=== PATIENT | male | born 1950 | race Caucasian/White ===

== ENCOUNTER 2016-05-30 10:47 | Outpatient (CLI) ==
[2016-01-28 10:57] VITALS: BMI 23.5
[2016-05-30 14:42] LABS: BASOPHILS # (AUTO) 0.1 K/uL (0-0.2); BASOPHILS % (AUTO) 0.6 % (0.0-3.0); EOSINOPHILS # (AUTO) 0.2 K/ul (0.0-0.7); EOSINOPHILS % (AUTO) 2.1 % (0.0-7.0); HEMATOCRIT 47.6 % (42.0-52.0); HEMOGLOBIN 14.9 g/dl (14.0-18.0); IMMATURE GRANULOCYTE % (AUTO) 0.5 % (0.0-5.0); LYMPHOCYTES # (AUTO) 1.9 K/uL (0.60-3.4); LYMPHOCYTES % (AUTO) 23.6 (10.0-50.0); MEAN CORPUSCULAR HEMOGLOBIN 28.3 pg (27.0-31.0); MEAN CORPUSCULAR HGB CONC 31.3 (31.8-35.4); MEAN CORPUSCULAR VOLUME 90.5 fl (80.0-94.0); MONOCYTES # (AUTO) 0.5 K/uL (0.4-2.0); MONOCYTES % (AUTO) 5.9 (0-10); NEUTROPHILS # (AUTO) 5.3 K/ul (2.0-6.9); NEUTROPHILS % (AUTO) 67.3; PLATELET COUNT 172 10^3/uL (140-440); RED BLOOD COUNT 5.26 10^6/ul (4.70-6.10); WHITE BLOOD COUNT 7.91 K/ul (4.2-10.2)
[2016-05-30 14:48] LABS: ALBUMIN 3.7 g/dL (3.4-5.0); ALBUMIN/GLOBULIN RATIO 1.09; ANION GAP 14.3; BILIRUBIN,TOTAL 0.82 mg/dL (0.00-1.20); BUN/CREATININE RATIO 16.21; CALCIUM 9.3 mg/dL (8.2-10.2); CHOL/HDL RATIO 2.4 (4.5-6.4); CREATININE 0.74 mg/dL (0.60-1.10); POTASSIUM 4.3 mmol/L (3.5-5.1); TOTAL PROTEIN 7.1 g/dL (5.8-8.1)
== END 2016-05-30 10:48 | disposition home or self-care (01) ==
LOC: LAB 10:47
PROVIDERS: ATTEND Nurse Practitioner Family
DX: E78.5 Hyperlipidemia, unspecified (principal); I10 Essential (primary) hypertension; I50.9 Heart failure, unspecified; Z12.5 Encounter for screening for malignant neoplasm of prostate
CPT/HCPCS: 36415; 80053; 80061; 85025

== ENCOUNTER 2016-07-29 19:25 | Outpatient (CLI) ==
[2016-07-29 22:33] VITALS: BMI 21.8
== END 2016-07-29 19:26 ==
LOC: AMBL 19:25
PROVIDERS: ATTEND Emergency Medicine
DX: R06.00 Dyspnea, unspecified (principal); R06.2 Wheezing; R00.0 Tachycardia, unspecified; R44.9 Unspecified symptoms and signs involving general sensations and perceptions; Z99.81 Dependence on supplemental oxygen

== ENCOUNTER 2016-07-29 19:35 | Inpatient (IN) ==
[2016-07-29] MEDS ORDERED: SOLU-MEDROL 125 MG IVP STA (19:52)
[2016-07-29] MEDS ORDERED: DUONEB NEB STA (19:52)
--- NOTE | 2016-07-29 19:59 | ED.PDOC ---
General ED Provider: Dr. ISABELLA AYERS Chief Complaint: Shortness of Air Stated Complaint: Been coughing congested, short of breath, using o2 was not helping. came by ambulance. Time Seen by Physician: 19:57 Mode of Arrival: Ambulance Information Source: Patient Primary Care Provider: ISABELLA AYERS-[facility] Nursing and Triage Documentation Reviewed and Agree: Yes Respiratory Complaint Exam - Shortness of Air Complaint/Exam Symptoms Are: Still present Timing: Constant Initial Severity: Severe Current Severity: Severe Character: Reports: Dyspnea at rest Aggravating: Reports: Allergens, URI Alleviating: Reports: None Associated Signs and Symptoms: Reports: Cough, Wheezing, Nasal congestion. Denies: Chest pain with cough, Chest pain, Fever, Chills, Diaphoresis, Dizziness , Calf pain, Calf swelling, Edema, Rapid breathing, Labored breathing, Decreased intake Related History: Reports: Similar episode History of Healthcare-Acquired Pneumonia: No Pulmonary Embolism Risk Factors: Reports: None Cardiac Risk Factors: Reports: CAD, Smoking, Hypertension Pseudomonas Risk Factors: Reports: None Tuberculosis Risk Factors: Reports: None Home Oxygen Use: Yes Recent Stress Test: No Recent Echo/LV Function: No Respiratory Distress: Severe Stridor Present: No Tracheal Deviation: No Subcutaneous Emphysema: No Accessory Muscle Use: Yes Retractions: Nasal Flaring, Supraclavicular Diminished Breath Sounds: Yes Prolonged Expiratory Phase: Yes Unable to Speak Full Sentences: Yes Fatigue: No Leg Swelling: No Differential Diagnoses: COPD Exacerbation, Pneumonia Quality Indicators for AMI: EKG in 10min. Review of Systems - Review Of Systems Constitutional: Reports: Fever, Malaise, Weakness Eyes: Reports: No symptoms Ears, Nose, Mouth, Throat: Reports: No symptoms Respiratory: Reports: Cough, Orthopnea, Short of air Cardiac: Reports: No symptoms GI: Reports: No symptoms : Reports: No symptoms Musculoskeletal: Reports: No symptoms Skin: Reports: No symptoms Neurological: Reports: No symptoms Endocrine: Reports: No symptoms Hematologic/Lymphatic: Reports: No symptoms All Other Systems: Reviewed and Negative Past Medical History - Past Medical History Previously Healthy: No Endocrine: Reports: None Cardiovascular: Reports: Hypertension Respiratory: Reports: COPD, Asthma Hematological: Reports: None Gastrointestinal: Reports: None Genitourinary: Reports: None Neuro/Psych: Reports: None Musculoskeletal: Reports: None Cancer: Reports: None Other Pertinent Past Medical History: flu shot Sep 25 has several friends also not feeling well after shot - Surgical History General Surgical History: Reports: Tonsillectomy - Family History Family History: Reports: Unknown - Social History Smoking Status: Former smoker Hx Substance Use: No Alcohol Screening: None - Immunizations Tetanus Shot up to Date: No Physical Exam - Physical Exam Appearance: Ill-appearing, Thin Ill-appearing: Moderate Eyes: BRITANY, EOMI, Conjunctiva clear ENT: Ears normal, Nose normal, Oropharynx normal Respiratory: Breath sounds diminished, Crackles, Wheezes Cardiovascular: RRR, Pulses normal, No rub, No murmur GI/: Soft, Nontender, No masses, Bowel sounds normal, No Organomegaly Musculoskeletal: Normal strength, ROM intact, No edema, No calf tenderness Skin: Warm, Dry, Normal color Neurological: Sensation intact, Motor intact, Reflexes intact, Cranial nerves intact, Alert, Oriented Psychiatric: Affect appropriate, Mood appropriate Interpretation - Radiology Interpretation Radiology Interpretation By: Radiologist Radiology Results: Negative Exam Interpreted: CT Scan Critical Care Note - Critical Care Note Total Time (mins): 0 Course - Course Hematology/Chemistry: 07/29/16 20:05 07/29/16 20:05 Orders, Labs, Meds: Lab Review 07/29/16 07/29/16 19:52 20:05 WBC 9.77 RBC 5.56 Hgb 15.7 Hct 50.4 MCV 90.6 MCH 28.2 MCHC 31.2 L RDW Coeff of Khai 13.5 Plt Count 149 Immature Gran % (Auto) 0.4 Neut % (Auto) 83.1 Lymph % (Auto) 9.7 L [place] % (Auto) 6.1 Eos % (Auto) 0.3 Baso % (Auto) 0.4 Immature Gran # (Auto) 0.0 Neut # 8.1 H Lymph # 1.0 [place] # 0.6 Eos # 0.0 Baso # 0.0 Puncture Site Lb O2 Saturation 85.0 L ABG pH 7.349 L ABG pCO2 68.5 H ABG pO2 55.0 L* ABG HCO3 37.7 H ABG Total CO2 40 H ABG Base Excess 12 H Nader Test + O2 Delivery Device Bnc Oxygen Liter Flow 2.00 FiO2 % 28.0 Sodium 139 Potassium 4.2 Chloride 94 L Carbon Dioxide 35 H Anion Gap 14.2 BUN 12 Creatinine 0.79 Estimated GFR (MDRD) 98.00 BUN/Creatinine Ratio 15.18 Glucose 112 Lactic Acid 10.6 Calcium 9.3 Total Bilirubin 0.57 AST 17 ALT 14 Alkaline Phosphatase 77 Total Creatine Kinase 73 Troponin I < 0.0100 B-Natriuretic Peptide 40 Total Protein 7.5 Albumin 4.0 Globulin 3.5 Albumin/Globulin Ratio 1.14 Orders Category Date Time Status ABG DRAW REQUEST Stat CARDIO 07/29/16 19:53 Completed EKG-(ED ONLY) Stat CARDIO 07/29/16 19:52 Completed NEBULIZER TREATMENT Stat CARDIO 07/29/16 19:53 Completed Saline Lock [ED IV/MEDIPORT/POWERPORT] .ONCE EMERGENCY 07/29/16 19:56 Active ABG Stat LAB 07/29/16 19:52 Completed B-TYPE NATRIURETIC PEPTIDE Stat LAB 07/29/16 20:05 Completed BLOOD CULTURE Stat LAB 07/29/16 20:05 Received CBC W/ AUTO DIFF Stat LAB 07/29/16 20:05 Completed COMPREHENSIVE METABOLIC PANEL Stat LAB 07/29/16 20:05 Completed CREATINE KINASE Stat LAB 07/29/16 20:05 Completed LACTIC ACID Stat LAB 07/29/16 20:05 Completed SPUTUM CULTURE Stat LAB 07/29/16 20:05 Received TROPONIN I Stat LAB 07/29/16 20:05 Completed 0.9 % Sodium Chloride [Saline Flush] MEDS 07/29/16 19:56 Ordered 1 syr IVF PRN PRN Ipratropium/Albuterol Neb [Duoneb] MEDS 07/29/16 19:52 Discontinued 1 vial NEB ONCE STA Methylprednisolone Sod Succ/Pf [Solu-Medrol 125 mg] MEDS 07/29/16 19:52 Discontinued 125 [address] IVP ONCE STA CT CHEST W/O CONTRAST Stat RADS 07/29/16 19:52 Completed Medications Generic Name Dose Route Start Last Admin Trade Name Freq PRN Reason Stop Dose Admin Sodium Chloride 1 syr 07/29/16 19:56 07/29/16 20:04 Saline Flush IVF 1 syr PRN PRN Administration To flush IV Discontinued Medications Generic Name Dose Route Start Last Admin Trade Name Freq PRN Reason Stop Dose Admin Albuterol/Ipratropium 1 vial 07/29/16 19:52 07/29/16 20:10 Duoneb NEB 07/29/16 19:53 1 vial ONCE STA Administration Methylprednisolone Sodium Succinate 125 mg 07/29/16 19:52 07/29/16 20:02 Solu-Medrol 125 Mg IVP 07/29/16 19:53 125 mg ONCE STA Administration Vital Signs: Temp Pulse Resp BP Pulse Ox 07/29/16 19:36 100.2 F H 117 H 24 134/88 92 L Departure - Departure Time of Disposition: 21:16 Disposition: ADMITTED INPATIENT Discharge Problem: Obstructive chronic bronchitis with exacerbation Instructions: COPD (Chronic Obstructive Pulmonary Disease) (ED) Condition: Stable Pt referred to PMD for follow-up: No Allergies/Adverse Reactions: Allergies tiotropium bromide [From Spiriva with HandiHaler] Allergy (Mild, Verified 19:46) rash Home Medications: Ambulatory Orders Aspirin 81 mg PO d 10/19/13 Pravastatin Sodium [Pravachol] 20 mg PO BEDTIME 05/04/14 Cholecalciferol (Vitamin D3) [Vitamin D] 1,000 unit PO DAILY 06/20/14 Disposition Discussed With: Patient, Family
[2016-07-29 20:13] LABS: ABG PH 7.349 (7.35-7.45)
[2016-07-29 20:14] LABS: ABG BASE EXCESS 12 (-2.0-2.0); ABG HCO3 37.7 (22.0-26.0); ABG PCO2 68.5 mmHg (35-45)
[2016-07-29 20:15] LABS: ABG TCO2 40 (22.0-28.0)
[2016-07-29 20:16] LABS: BASOPHILS % (AUTO) 0.4 % (0.0-3.0); EOSINOPHILS % (AUTO) 0.3 % (0.0-7.0); HEMATOCRIT 50.4 % (42.0-52.0); HEMOGLOBIN 15.7 g/dl (14.0-18.0); IMMATURE GRANULOCYTE % (AUTO) 0.4 % (0.0-5.0); LYMPHOCYTES % (AUTO) 9.7 (10.0-50.0); MEAN CORPUSCULAR HEMOGLOBIN 28.2 pg (27.0-31.0); MEAN CORPUSCULAR HGB CONC 31.2 (31.8-35.4); MEAN CORPUSCULAR VOLUME 90.6 fl (80.0-94.0); MONOCYTES # (AUTO) 0.6 K/uL (0.4-2.0); MONOCYTES % (AUTO) 6.1 (0-10); NEUTROPHILS # (AUTO) 8.1 K/ul (2.0-6.9); NEUTROPHILS % (AUTO) 83.1; PLATELET COUNT 149 10^3/uL (140-440); RED BLOOD COUNT 5.56 10^6/ul (4.70-6.10); WHITE BLOOD COUNT 9.77 K/ul (4.2-10.2)
[2016-07-29 20:39] LABS: ALANINE AMINOTRANSFERASE 14 U/L (12-78); ALBUMIN/GLOBULIN RATIO 1.14; ALKALINE PHOSPHATASE 77 U/L (56-119); ANION GAP 14.2; ASPARTATE AMINO TRANSFERASE 17 U/L (15-37); BILIRUBIN,TOTAL 0.57 mg/dL (0.00-1.20); BLOOD UREA NITROGEN 12 mg/dL (7-18); BUN/CREATININE RATIO 15.18; CALCIUM 9.3 mg/dL (8.2-10.2); CARBON DIOXIDE 35 mmol/L (23-31); CHLORIDE 94 mmol/L (98-107); CREATINE KINASE 73 U/L; CREATININE 0.79 mg/dL (0.60-1.10); GLUCOSE 112 mg/dL (82-115); POTASSIUM 4.2 mmol/L (3.5-5.1); SODIUM 139 mmol/L (136-145); TOTAL PROTEIN 7.5 g/dL (5.8-8.1)
--- NOTE | 2016-07-29 20:50 | CT ---
EXAM: CT of the chest without contrast History: Short of breath Comparison: Chest radiograph 09/22/2014 Technique: Multiplanar CT images through the thorax were obtained without the administration of IV contrast Findings: Normal heart size. No pericardial effusion. Coronary calcifications. Great vessels are grossly unremarkable on this noncontrast study. No pathologically enlarged axillary or mediastinal lymph nodes. Evaluation for hilar lymph nodes is limited due to lack of contrast administration bu t no bulky hilar adenopathy is seen. Moderate to severe emphysema. 5 mm right lower lobe lung nodule. 4 mm left lower lobe lung nodule. Additional 5 mm left lower lobe lung nodule. No consolidation. No pleural fluid and no pneumothora x. In the visualized upper abdomen, motion artifact limits evaluation and gallbladder probably mildly d istended. Adrenal glands are unremarkable. Colonic diverticulosis. No acute osseous abnormalities . Impression: 1. No evidence for pneumonia. 2. Moderate to severe emphysema. 3. Indeterminate sub-centimeter bilateral lung nodules. Recommend follow-up chest CT in 6 months. 4. Coronary artery disease. 5. Mild gallbladder distension.
[2016-07-29] MEDS ORDERED: TYLENOL PO PRN (21:16)
[2016-07-29] MEDS ORDERED: ZITHROMAX 500 MG in SODIUM CHLORIDE 250 ML IV SCH (21:30)
[2016-07-29] MEDS ORDERED: ROCEPHIN 1 GM in SODIUM CHLORIDE 50 ML IV SCH (21:30)
[2016-07-29 22:33] VITALS: BMI 21.8
[2016-07-29] MEDS ORDERED: DUONEB NEB ONE (23:05)
[2016-07-29] MEDS ORDERED: ROCEPHIN ONE (23:13)
[2016-07-29] MEDS: SODIUM CHLORIDE 1,000 ML IV SCH (23:22)
[2016-07-29] MEDS: PRAVACHOL ONE ×2 (23:27→23:30)
[2016-07-30] MEDS ORDERED: DUONEB NEB SCH
[2016-07-30] MEDS ORDERED: DUONEB NEB PRN (00:54)
[2016-07-30] MEDS: DUONEB NEB SCH ×6 (01:17→21:20)
[2016-07-30 04:19] LABS: BASOPHILS % (AUTO) 0.3 % (0.0-3.0); HEMATOCRIT 45.6 % (42.0-52.0); HEMOGLOBIN 14.2 g/dl (14.0-18.0); IMMATURE GRANULOCYTE % (AUTO) 0.7 % (0.0-5.0); LYMPHOCYTES # (AUTO) 0.3 K/uL (0.60-3.4); LYMPHOCYTES % (AUTO) 4.2 (10.0-50.0); MEAN CORPUSCULAR HEMOGLOBIN 28.6 pg (27.0-31.0); MEAN CORPUSCULAR HGB CONC 31.1 (31.8-35.4); MEAN CORPUSCULAR VOLUME 91.8 fl (80.0-94.0); MONOCYTES # (AUTO) 0.1 K/uL (0.4-2.0); MONOCYTES % (AUTO) 1.5 (0-10); NEUTROPHILS # (AUTO) 6.3 K/ul (2.0-6.9); NEUTROPHILS % (AUTO) 93.3; PLATELET COUNT 140 10^3/uL (140-440); RED BLOOD COUNT 4.97 10^6/ul (4.70-6.10); WHITE BLOOD COUNT 6.72 K/ul (4.2-10.2)
[2016-07-30 04:42] LABS: ALBUMIN 3.4 g/dL (3.4-5.0); CALCIUM 8.7 mg/dL (8.2-10.2); POTASSIUM 4.6 mmol/L (3.5-5.1)
[2016-07-30 04:43] LABS: ALBUMIN/GLOBULIN RATIO 0.94; ANION GAP 14.6; BILIRUBIN,TOTAL 0.36 mg/dL (0.00-1.20); BUN/CREATININE RATIO 16.25; CREATININE 0.8 mg/dL (0.60-1.10)
[2016-07-30 04:48] LABS: CREATINE KINASE 106 U/L
[2016-07-30] MEDS: SOLU-MEDROL 125 MG IVP SCH ×3 (05:13→21:55)
[2016-07-30] MEDS: SYMBICORT 160-4.5 MCG INHALER IH SCH ×2 (08:10→21:54)
[2016-07-30] MEDS: LOVENOX SUBCUT SCH (08:11)
[2016-07-30] MEDS: VITAMIN D PO SCH (08:12)
[2016-07-30] MEDS: ASPIRIN CHEWABLE PO SCH (08:12)
[2016-07-30] MEDS ORDERED: NON-FORMULARY MEDICATION (Cholecalciferol (Vitamin D3) [Vitamin D3] 1,000 UNIT) PO SCH ×22 (09:00)
--- NOTE | 2016-07-30 10:04 | PCM.PROG ---
Attending Provider: ATTENDING PROVIDER: Dr. ISABELLA AYERS DATE OF SERVICE: 07/30/16 SUBJECTIVE: This 66 year old WHITE/ M was hospitalized 07/29/16. The patient is admitted with COPD exacerbation, hypoxemia and fever. No fever this morning. He has cough, congestion with shortness of breath but states he feels better today. REVIEW OF SYSTEMS: CONSTITUTIONAL: No fever, no chills. ENDOCRINE: No weight loss or weight gain. HEENT: No sinus drainage, no sore throat. CVS: No angina symptoms. No CHF symptoms. No palpitations. No atypical chest pain for CAD. Shortness of breath. RESPIRATORY: Cough. No hemoptysis. GI: No melena. No abdominal pain. No nausea, no vomiting. : No hematuria. No polyuria. SKIN: No rash. No wounds. MUSCULOSKELETAL: No pain. ZIPPER SLIDE ATTACHER: No blackout, no dizziness. No headache. No double vision. PSYCHIATRIC: Not anxious; no depression. No suicidal thoughts. No homicidal thoughts. PHYSICAL EXAMINATION: GENERAL: Cachetic appearing male lying in bed in no distress. VITAL SIGNS: Temperature 98.1 F, Pulse 107, Respiratory Rate 24, BP 116/75, Pulse Ox 89% HEENT: Normocephalic, atraumatic. Mucosa is dry, pallor positive. NECK: No JVP, no carotid bruit. No lymphadenopathy. CARDIAC: S1, S2, no S3. No murmur, gallop or regurgitation. LUNGS: Decreased entry with fine basilar crackles. ABDOMEN: Soft, non-tender. Bowel sounds active. No rigidity, guarding or CVA tenderness. EXTREMITIES: No clubbing, cyanosis or edema. NEUROLOGIC: Awake, alert and oriented x3. LYMPHATIC: No palpable lymph nodes SKIN: Not dry. Intact. MUSCULOSKELETAL: No joint swelling. LAB REVIEW: 07/30/16 03:45 07/30/16 03:45 07/30/16 03:45: WBC 6.72, RBC 4.97, Hgb 14.2, Hct 45.6, MCV 91.8, MCH 28.6, MCHC 31.1 L, RDW Coeff of Khai 13.7, Plt Count 140, Immature Gran % (Auto) 0.7, Neut % (Auto) 93.3, Lymph % (Auto) 4.2 L, [place] % (Auto) 1.5, Eos % (Auto) 0.0, Baso % (Auto) 0.3, Immature Gran # (Auto) 0.1, Neut # 6.3, Lymph # 0.3 L, [place] # 0.1 L, Eos # 0.0, Baso # 0.0, Sodium 139, Potassium 4.6, Chloride 95 L, Carbon Dioxide 34 H, Anion Gap 14.6, BUN 13, Creatinine 0.80, Estimated GFR ( MDRD) 96.00, BUN/Creatinine Ratio 16.25, Glucose 128 H, Calcium 8.7, Total Bilirubin 0.36, AST 17, ALT 14, Alkaline Phosphatase 66, Total Creatine Kinase 106, Troponin I < 0.0100, Total Protein 7.0, Albumin 3.4, Globulin 3.6, Albumin/ Globulin Ratio 0.94 ASSESSMENT: 1. COPD exacerbation secondary to bronchitis 2. Hypoxemia 3. COPD, oxygen dependent 4. Hypertension 5. Dyslipidemia PLAN: 1. Continue Rocephin, Azithromycin, Solu-Medrol and Duonebs 2. Daily I & O's Plan and coordination of the patient's care discussed in the presence of Instructor Knitting and nurse. CONDITION: Stable SCRIBED BY: REYNA MARTINS, Writer Producer scribed while in presence of service performed by Dr. ISABELLA AYERS on 07/30/16 ([id number])
[2016-07-30 12:11] LABS: CREATINE KINASE 159 U/L
[2016-07-30 12:12] LABS: CREATINE KINASE MB 1.9 ng/ml (0.0-3.6)
[2016-07-30] MEDS: ROCEPHIN 1 GM in SODIUM CHLORIDE 100 ML IV SCH (20:19)
[2016-07-30] MEDS: PRAVACHOL PO SCH (21:54)
[2016-07-30] MEDS: ZITHROMAX 500 MG in SODIUM CHLORIDE 250 ML IV SCH (21:54)
[2016-07-31] MEDS: DUONEB NEB SCH ×6 (01:15→22:10)
[2016-07-31] MEDS: SODIUM CHLORIDE 1,000 ML IV SCH (04:14)
[2016-07-31 05:15] LABS: BASOPHILS % (AUTO) 0.1 % (0.0-3.0); HEMATOCRIT 42.7 % (42.0-52.0); HEMOGLOBIN 13.3 g/dl (14.0-18.0); IMMATURE GRANULOCYTE % (AUTO) 0.3 % (0.0-5.0); LYMPHOCYTES # (AUTO) 0.4 K/uL (0.60-3.4); LYMPHOCYTES % (AUTO) 4.4 (10.0-50.0); MEAN CORPUSCULAR HEMOGLOBIN 28.2 pg (27.0-31.0); MEAN CORPUSCULAR HGB CONC 31.1 (31.8-35.4); MEAN CORPUSCULAR VOLUME 90.7 fl (80.0-94.0); MONOCYTES # (AUTO) 0.4 K/uL (0.4-2.0); MONOCYTES % (AUTO) 3.8 (0-10); NEUTROPHILS # (AUTO) 9.1 K/ul (2.0-6.9); NEUTROPHILS % (AUTO) 91.4; PLATELET COUNT 136 10^3/uL (140-440); RED BLOOD COUNT 4.71 10^6/ul (4.70-6.10); WHITE BLOOD COUNT 9.94 K/ul (4.2-10.2)
[2016-07-31] MEDS: SOLU-MEDROL 125 MG IVP SCH ×3 (05:28→20:57)
[2016-07-31 05:36] LABS: ALBUMIN 3.2 g/dL (3.4-5.0); ALBUMIN/GLOBULIN RATIO 1.07; ANION GAP 11.1; BILIRUBIN,TOTAL 0.21 mg/dL (0.00-1.20); BUN/CREATININE RATIO 20.28; CALCIUM 8.4 mg/dL (8.2-10.2); CREATININE 0.69 mg/dL (0.60-1.10); POTASSIUM 4.1 mmol/L (3.5-5.1); TOTAL PROTEIN 6.2 g/dL (5.8-8.1)
[2016-07-31] MEDS: VITAMIN D PO SCH (08:30)
[2016-07-31] MEDS: ASPIRIN CHEWABLE PO SCH (08:30)
[2016-07-31] MEDS: LOVENOX SUBCUT SCH (08:31)
[2016-07-31] MEDS: SYMBICORT 160-4.5 MCG INHALER IH SCH ×3 (08:31→20:52)
--- NOTE | 2016-07-31 09:41 | CM.DICTOOL ---
ADMISSION: 07/29/16 21:26 DISCHARGE: 07/28/16 DATE OF SERVICE: 07/28/16 FINAL DIAGNOSIS COPD (FORMER SMOKER - NONE X5 YEARS) HYPOXEMIA CAD CHF HYPERTENSION PULMONARY HYPERTENSION DYSLIPIDEMIA GERD LAST VITALS Temp Pulse Resp BP Pulse Ox 97.0 F L 102 H 24 109/72 87 L 07/31/16 06:00 07/31/16 06:00 07/31/16 06:00 07/31/16 06:00 07/31/16 06:00 ACTIVE MEDICATIONS Albuterol Sulfate (Proair Hfa) 8.5 gm IH q 4-6 H PRN Albuterol/Ipratropium (Duoneb) 1 vial NEB RTQID [facility] Last Admin: 07/31/16 04:47 Dose: 1 vial Aspirin (Aspirin Chewable) 81 mg PO DAILYWM [facility] Last Admin: 07/31/16 08:30 Dose: 81 mg Budesonide/Formoterol Fumarate (Symbicort 160-4.5 Mcg Inhaler) 2 puff IH BID [facility] Last Admin: 07/31/16 08:31 Dose: Not Given Cholecalciferol (Vitamin D) 1,000 unit PO DAILY [facility] Last Admin: 07/31/16 08:30 Dose: 1,000 unit Pravastatin Sodium (Pravachol) 20 mg PO BEDTIME [facility] Last Admin: 07/30/16 21:54 Dose: 20 mg Oxygen 2L/NC Continuous ALLERGIES tiotropium bromide [From Spiriva with HandiHaler] Allergy (Mild, Verified 19:46) rash NEW PRESCRIPTIONS: KEFLEX 500 MG, TAKE ONE TABLET BY MOUTH EVERY 12 HOURS FOR 7 DAYS MEDROL DOSEPAK, TAKE DIRECTED WITH FOOD SMOKING: FORMER SMOKER DISEASE SPECIFIC EDUCATION: COPD EXACERBATION HOME MEDICATIONS NEW PRESCRIPTIONS FOLLOW UP LAB REVIEW: 07/31/16 04:30 07/31/16 04:30 07/31/16 04:30: WBC 9.94, RBC 4.71, Hgb 13.3 L, Hct 42.7, MCV 90.7, MCH 28.2, MCHC 31.1 L, RDW Coeff of Khai 13.5, Plt Count 136 L, Immature Gran % (Auto) 0.3 , Neut % (Auto) 91.4, Lymph % (Auto) 4.4 L, [place] % (Auto) 3.8, Eos % (Auto) 0.0 , Baso % (Auto) 0.1, Immature Gran # (Auto) 0.0, Neut # 9.1 H, Lymph # 0.4 L, [place] # 0.4, Eos # 0.0, Baso # 0.0, Sodium 140, Potassium 4.1, Chloride 98, Carbon Dioxide 35 H, Anion Gap 11.1, BUN 14, Creatinine 0.69, Estimated GFR ( MDRD) 114.00, BUN/Creatinine Ratio 20.28, Glucose 122 H, Calcium 8.4, Total Bilirubin 0.21, AST 24, ALT 14, Alkaline Phosphatase 60, Total Protein 6.2, Albumin 3.2 L, Globulin 3.0, Albumin/Globulin Ratio 1.07 07/30/16 11:37: Total Creatine Kinase 159, CK-MB (CK-2) 1.9, CK-MB (CK-2) % 1.41667, Troponin I < 0.0100 PLAN: DISCHARGE HOME TODAY RETURN TO [facility] FOR FOLLOW UP ON 08/07/16 AT 1PM RESUME YOUR HOME MEDICATIONS PER LIST PROVIDED BY THE NURSING STAFF RESUME YOUR HOME OXYGEN AT 2L/NC NEW PRESCRIPTIONS: KEFLEX 500 MG, TAKE ONE TABLET BY MOUTH EVERY 12 HOURS FOR 7 DAYS MEDROL DOSEPAK, TAKE DIRECTED WITH FOOD ACTIVITY: GET PLENTY OF REST AT HOME. GRADUALLY INCREASE YOUR ACTIVITY LEVEL ACCORDING TO YOUR TOLERATION. SUMMARY: THE PATIENT IS ALERT AND ORIENTED X3. HE CURRENTLY RESIDES AT HOME WITH HIS SPOUSE. HE IS OXYGEN DEPENDENT AT HOME AND HAS A NEBULIZER AND MEDICATIONS FOR TREATMENTS. HE USES A WHEELCHAIR IN PUBLIC PLACES FOR MOBILITY AND HAS A ROLLING WALKER. HE SAYS HE HAS DIFFICULTY MANUVERING THE WALKER IN HIS HOME. HE IS ABLE TO AMBULATE FOR SHORT DISTANCES INDEPENDENTLY. IN ADDITION TO THE ABOVE DME, HE HAS A SHOWER CHAIR FOR HOME USE. HE WILL NOT REQUIRE HOME HEALTH OR HOMEMAKING SERVICES. HE TELLS ME HE CONTINUES TO BE ABLE TO PROVIDE HIS OWN TRANSPORTATION. HE DESIRES TO RETURN TO HIS HOME AT DISCHARGE. THE SKIN TURGOR IS INTACT AND WITHOUT DECUBITUS ULCERS. HIS HYDRATION STATUS IS IMPROVED FROM THE ADMISSION ASSESSMENT. CLINICALLY HE HAS SHOWN GOOD IMPROVEMENT. HE IS AWARE AND AGREEABLE FOR DISCHARGE HOME TODAY. ISABELLA AYERS M.D.
--- NOTE | 2016-07-31 09:53 | PCM.PROG ---
Attending Provider: ATTENDING PROVIDER: Dr. ISABELLA AYERS DATE OF SERVICE: 07/31/16 SUBJECTIVE: This 66 year old WHITE/ M was hospitalized 07/29/16. The patient is feeling a lot better. He has been using the suctioning tool to clean his nose and says he is breathing much better. The patient is using 2L oxygen which helps. He desaturates to 80s when sleeping. REVIEW OF SYSTEMS: CONSTITUTIONAL: No fever, no chills. ENDOCRINE: No weight loss or weight gain. HEENT: Sinus congestion. No sore throat. CVS: No angina symptoms. No CHF symptoms. No palpitations. No atypical chest pain for CAD. No shortness of breath. RESPIRATORY: No cough, no hemoptysis. GI: No melena. No abdominal pain. No nausea, no vomiting. : No hematuria. No polyuria. SKIN: No rash. No wounds. MUSCULOSKELETAL: No pain. INTERNAL COMBUSTION ENGINE ASSEMBLER: No blackout, no dizziness. No headache. No double vision. PSYCHIATRIC: Not anxious; no depression. No suicidal thoughts. No homicidal thoughts. PHYSICAL EXAMINATION: GENERAL: Lying in bed in no distress. VITAL SIGNS: Temperature 97.0 F, Pulse 102, Respiratory Rate 24, BP 109/72, Pulse Ox 87% HEENT: Normocephalic, atraumatic. Mucosa is dry, pallor positive. NECK: No JVP, no carotid bruit. No lymphadenopathy. CARDIAC: S1, S2, no S3. No murmur, gallop or regurgitation. LUNGS: Decreased breath sounds. Clear to auscultation. ABDOMEN: Soft, non-tender. Bowel sounds active. No rigidity, guarding or CVA tenderness. EXTREMITIES: No clubbing, cyanosis or edema. NEUROLOGIC: Awake, alert and oriented x3. LYMPHATIC: No palpable lymph nodes SKIN: Not dry. Intact. MUSCULOSKELETAL: No joint swelling. LAB REVIEW: 07/31/16 04:30 07/31/16 04:30 07/31/16 04:30: WBC 9.94, RBC 4.71, Hgb 13.3 L, Hct 42.7, MCV 90.7, MCH 28.2, MCHC 31.1 L, RDW Coeff of Khai 13.5, Plt Count 136 L, Immature Gran % (Auto) 0.3 , Neut % (Auto) 91.4, Lymph % (Auto) 4.4 L, [place] % (Auto) 3.8, Eos % (Auto) 0.0 , Baso % (Auto) 0.1, Immature Gran # (Auto) 0.0, Neut # 9.1 H, Lymph # 0.4 L, [place] # 0.4, Eos # 0.0, Baso # 0.0, Sodium 140, Potassium 4.1, Chloride 98, Carbon Dioxide 35 H, Anion Gap 11.1, BUN 14, Creatinine 0.69, Estimated GFR ( MDRD) 114.00, BUN/Creatinine Ratio 20.28, Glucose 122 H, Calcium 8.4, Total Bilirubin 0.21, AST 24, ALT 14, Alkaline Phosphatase 60, Total Protein 6.2, Albumin 3.2 L, Globulin 3.0, Albumin/Globulin Ratio 1.07 07/30/16 11:37: Total Creatine Kinase 159, CK-MB (CK-2) 1.9, CK-MB (CK-2) % 1.93969, Troponin I < 0.0100 ASSESSMENT: 1. COPD exacerbation secondary to bronchitis 2. Hypoxemia 3. COPD, oxygen dependent 4. Hypertension 5. Dyslipidemia PLAN: 1. PFT 2. Lifestyle modifications discussed with gradual exercise, weight bearing exercises. 3. Calcium with Vitamin D. 4. Keflex 5. Medrol Dosepak Plan and coordination of the patient's care discussed in the presence of Rn Ante Partum and nurse. CONDITION: Stable SCRIBED BY: REYNA MARTINS Retail Asset Protection Specialist scribed while in presence of service performed by Dr. ISABELLA AYERS on 07/31/16 ([id number])
[2016-07-31] MEDS: PRAVACHOL PO SCH (20:53)
[2016-07-31] MEDS: ROCEPHIN 1 GM in SODIUM CHLORIDE 100 ML IV SCH (20:53)
[2016-07-31] MEDS: ZITHROMAX 500 MG in SODIUM CHLORIDE 250 ML IV SCH (22:15)
[2016-08-01] MEDS: DUONEB NEB SCH ×3 (01:52→09:57)
[2016-08-01] MEDS: SOLU-MEDROL 125 MG IVP SCH (04:22)
[2016-08-01 05:50] LABS: BASOPHILS % (AUTO) 0.1 % (0.0-3.0); HEMOGLOBIN 13.1 g/dl (14.0-18.0); IMMATURE GRANULOCYTE % (AUTO) 0.4 % (0.0-5.0); LYMPHOCYTES # (AUTO) 0.7 K/uL (0.60-3.4); LYMPHOCYTES % (AUTO) 5.9 (10.0-50.0); MEAN CORPUSCULAR HEMOGLOBIN 28.1 pg (27.0-31.0); MEAN CORPUSCULAR HGB CONC 30.5 (31.8-35.4); MEAN CORPUSCULAR VOLUME 92.1 fl (80.0-94.0); MONOCYTES # (AUTO) 0.4 K/uL (0.4-2.0); MONOCYTES % (AUTO) 3.7 (0-10); NEUTROPHILS # (AUTO) 10.3 K/ul (2.0-6.9); NEUTROPHILS % (AUTO) 89.9; PLATELET COUNT 145 10^3/uL (140-440); RED BLOOD COUNT 4.67 10^6/ul (4.70-6.10); WHITE BLOOD COUNT 11.46 K/ul (4.2-10.2)
[2016-08-01 06:09] LABS: ALBUMIN 3.1 g/dL (3.4-5.0); ALBUMIN/GLOBULIN RATIO 1.03; ANION GAP 10.8; BILIRUBIN,TOTAL 0.19 mg/dL (0.00-1.20); BUN/CREATININE RATIO 19.11; CALCIUM 8.1 mg/dL (8.2-10.2); CREATININE 0.68 mg/dL (0.60-1.10); POTASSIUM 3.8 mmol/L (3.5-5.1); TOTAL PROTEIN 6.1 g/dL (5.8-8.1)
[2016-08-01] MEDS: SODIUM CHLORIDE 1,000 ML IV SCH (07:41)
[2016-08-01] MEDS: ASPIRIN CHEWABLE PO SCH (08:34)
[2016-08-01] MEDS: SYMBICORT 160-4.5 MCG INHALER IH SCH (08:35)
[2016-08-01] MEDS: VITAMIN D PO SCH (08:35)
[2016-08-01] MEDS: LOVENOX SUBCUT SCH ×2 (08:35→08:37)
[2016-08-01 09:54] VITALS: BP 121/85; TEMP 98
--- NOTE | 2016-08-01 10:09 | PCM.PROG ---
Attending Provider: ATTENDING PROVIDER: Dr. ISABELLA AYERS DATE OF SERVICE: 08/01/16 SUBJECTIVE: This 66 year old WHITE/ M was hospitalized 07/29/16. The patient states he is breathing better. Sinus drainage is better. The patient was upset yesterday as Symbicort was held but was resumed and now feeling a lot better. Saturations still above 85% on 2L. REVIEW OF SYSTEMS: CONSTITUTIONAL: No fever, no chills. ENDOCRINE: No weight loss or weight gain. HEENT: Sinus congestion. No sore throat. CVS: No angina symptoms. No CHF symptoms. No palpitations. No atypical chest pain for CAD. No shortness of breath. RESPIRATORY: No cough, no hemoptysis. GI: No melena. No abdominal pain. No nausea, no vomiting. : No hematuria. No polyuria. SKIN: No rash. No wounds. MUSCULOSKELETAL: No pain. EDDY CURRENT INSPECTOR: No blackout, no dizziness. No headache. No double vision. PSYCHIATRIC: Not anxious; no depression. No suicidal thoughts. No homicidal thoughts. PHYSICAL EXAMINATION: GENERAL: Lying in bed in no distress. VITAL SIGNS: Temperature 97.6 F, Pulse 71, Respiratory Rate 22, BP 110/78, Pulse Ox 98% HEENT: Normocephalic, atraumatic. Sinus nasal congestion. Mucosa is dry, pallor positive. NECK: No JVP, no carotid bruit. No lymphadenopathy. CARDIAC: S1, S2, no S3. No murmur, gallop or regurgitation. LUNGS: Decreased breath sounds. Clear to auscultation. ABDOMEN: Soft, non-tender. Bowel sounds active. No rigidity, guarding or CVA tenderness. EXTREMITIES: No clubbing, cyanosis or edema. NEUROLOGIC: Awake, alert and oriented x3. LYMPHATIC: No palpable lymph nodes SKIN: Not dry. Intact. MUSCULOSKELETAL: No joint swelling. LAB REVIEW: 08/01/16 05:20 08/01/16 05:20 08/01/16 05:20: WBC 11.46 H, RBC 4.67 L, Hgb 13.1 L, Hct 43.0, MCV 92.1, MCH 28.1, MCHC 30.5 L, RDW Coeff of Khai 13.7, Plt Count 145, Immature Gran % (Auto) 0.4, Neut % (Auto) 89.9, Lymph % (Auto) 5.9 L, [place] % (Auto) 3.7, Eos % (Auto) 0.0, Baso % (Auto) 0.1, Immature Gran # (Auto) 0.1, Neut # 10.3 H, Lymph # 0.7, [place] # 0.4, Eos # 0.0, Baso # 0.0, Sodium 142, Potassium 3.8, Chloride 97 L, Carbon Dioxide 38 H, Anion Gap 10.8, BUN 13, Creatinine 0.68, Estimated GFR ( MDRD) 116.00, BUN/Creatinine Ratio 19.11, Glucose 117 H, Calcium 8.1 L, Total Bilirubin 0.19, AST 27, ALT 15, Alkaline Phosphatase 51 L, Total Protein 6.1, Albumin 3.1 L, Globulin 3.0, Albumin/Globulin Ratio 1.03 ASSESSMENT: 1. COPD exacerbation secondary to bronchitis 2. Hypoxemia 3. COPD, oxygen dependent 4. Hypertension 5. Dyslipidemia PLAN: 1. Discharge the patient home 2. Lifestyle modification 3. Pulmonary rehabilitation 4. Keflex 500 mg b.i.d. times 5 days 5. Medrol Dosepak Plan and coordination of the patient's care discussed in the presence of Wastewater Design Engineer and nurse. CONDITION: Stable SCRIBED BY: REYNA MARTINS Reproduction Production Manager scribed while in presence of service performed by Dr. ISABELLA AYERS on 08/01/16 ([id number])
--- NOTE | 2016-08-06 14:19 | DS ---
DATE OF SERVICE: 08/01/16 FINAL DIAGNOSIS: 1. COPD(Former smoker-None x5 years) 2. Hypoxemia 3. Coronary artery disease 4. Congestive heart failure 5. Hypertension 6. Pulmonary hypertension 7. Dyslipidemia 8. GERD LAST VITALS: Temperature 97.0, pulse 102, respiratory rate 24, blood pressure 109/72, pulse ox 87%. DISCHARGE INSTRUCTIONS: Discharge the patient home. Return to [facility] for followup on at 1pm. Resume home medications as per list provided by the nursing staff. Resume home oxygen at 2 liters. ALLERGIES: Tiotropium bromide MEDICATIONS AT DISCHARGE: ProAir DUONEB Aspirin Symbicort Vitamin D Pravachol Oxygen 2 liter NEW PRESCRIPTIONS: Keflex 500mg take one tablet by mouth every 12 hours for 7 days Medrol Dosepak, take as directed with food DIET INSTRUCTIONS: Healthy Heart. ACTIVITY: Get plenty of rest at home. Gradually increase activity level according to toleration. SMOKING: Former Smoker DISEASE SPECIFIC EDUCATION: COPD exacerbation Home medications New prescriptions Followup HOSPITAL COURSE: Simone Barrientos who is a 66 year old male admitted from the emergency room by [facility] for the COPD exacerbation and the bronchitis. ABG was hypoxic 55. Admitted with the Rocephin and the Solu-Medrol and Azithromycin. With the given treatment he was gradually feeling better. CT chest did not show any pneumonia. The patient was scheduled for the pulmonary function test but he refused to do that. Gradually we made him ambulatory, still the saturations were falling around 85 and 82 with minimal exertion. WBC was normal, BUN and creatinine was normal. The patient was having problems with the nasal allergies. Inhalers were given. With that given treatment gradually he eventually felt better and did not have any fever or chills. Started getting expectoration. Initially on admission the patient did have a fever of 102. The sepsis criterial for the lactic acid was negative. BNP was negative. As patient had COPD exacerbation secondary to the bronchitis his latest PFT from October 2015 showed his Fev1/FVC is 36 only. Terminal stage of COPD. He did do the pulmonary rehabilitation in the past but refused to do again. The patient is aware of poor prognosis. TIME SPENT: More than 45 minutes. [facility] SYSTEMTiffanie
--- NOTE | 2016-09-30 15:09 | PN ---
DATE OF SERVICE: 07/29/16 ADMITTING NOTE The patient was seen and examined in the emergency room and admitted to the hospital because of the COPD exacerbation and Hypoxemia and respiratory failure. CARRIE
== END 2016-08-01 10:44 | disposition home or self-care (01) | DRG 192 ==
LOC: ED 19:35 → MEDSURG B 21:26
PROVIDERS: ADMIT Emergency Medicine; ATTEND Emergency Medicine
DX: J44.0 Chronic obstructive pulmonary disease with (acute) lower respiratory infection (principal); J20.9 Acute bronchitis, unspecified; J44.1 Chronic obstructive pulmonary disease with (acute) exacerbation; R09.02 Hypoxemia; R06.02 Shortness of breath; I10 Essential (primary) hypertension; I27.2 Other secondary pulmonary hypertension; I25.10 Atherosclerotic heart disease of native coronary artery without angina pectoris; I50.9 Heart failure, unspecified; E78.5 Hyperlipidemia, unspecified; K21.9 Gastro-esophageal reflux disease without esophagitis; Z79.899 Other long term (current) drug therapy; Z79.82 Long term (current) use of aspirin; Z99.81 Dependence on supplemental oxygen; Z87.891 Personal history of nicotine dependence
CPT/HCPCS: 36415; 80053; 82550; 82553; 82803; 83605; 83880; 84484; 85025; 87040; 87070; 93005; 93010; 94640; 96374; 99233; 99239; 99284

== ENCOUNTER 2016-08-06 15:42 | Outpatient (CLI) | payer OTHER | END 2016-08-06 15:43 | disposition home or self-care (01) | LOC: AMBL 15:42 | PROVIDERS: ATTEND Emergency Medicine | DX: R06.02 Shortness of breath (principal); J44.9 Chronic obstructive pulmonary disease, unspecified; Z99.81 Dependence on supplemental oxygen ==

== ENCOUNTER 2017-01-05 14:05 | Outpatient (CLI) ==
[2017-01-05 14:27] LABS: BASOPHILS # (AUTO) 0.1 K/uL (0-0.2); BASOPHILS % (AUTO) 0.8 % (0.0-3.0); EOSINOPHILS # (AUTO) 0.1 K/ul (0.0-0.7); EOSINOPHILS % (AUTO) 1.6 % (0.0-7.0); IMMATURE GRANULOCYTE % (AUTO) 0.5 % (0.0-5.0); LYMPHOCYTES # (AUTO) 1.3 K/uL (0.60-3.4); LYMPHOCYTES % (AUTO) 16.5 (10.0-50.0); MEAN CORPUSCULAR HEMOGLOBIN 28.1 pg (27.0-31.0); MEAN CORPUSCULAR HGB CONC 30.6 (31.8-35.4); MEAN CORPUSCULAR VOLUME 91.8 fl (80.0-94.0); MONOCYTES # (AUTO) 0.5 K/uL (0.4-2.0); MONOCYTES % (AUTO) 5.9 (0-10); NEUTROPHILS % (AUTO) 74.7; PLATELET COUNT 159 10^3/uL (140-440); RED BLOOD COUNT 5.34 10^6/ul (4.70-6.10); WHITE BLOOD COUNT 7.99 K/ul (4.2-10.2)
[2017-01-05 15:09] LABS: ALBUMIN 3.6 g/dL (3.4-5.0); ALBUMIN/GLOBULIN RATIO 1.06; ANION GAP 13.4; BILIRUBIN,TOTAL 0.68 mg/dL (0.00-1.20); BUN/CREATININE RATIO 19.17; CALCIUM 9.3 mg/dL (8.2-10.2); CHOL/HDL RATIO 2.1 (4.5-6.4); CREATININE 0.73 mg/dL (0.60-1.10); POTASSIUM 4.4 mmol/L (3.5-5.1)
== END 2017-01-05 14:06 | disposition home or self-care (01) ==
LOC: LAB 14:05
PROVIDERS: ATTEND Emergency Medicine
DX: E78.5 Hyperlipidemia, unspecified (principal); I10 Essential (primary) hypertension; J44.9 Chronic obstructive pulmonary disease, unspecified
CPT/HCPCS: 36415; 80053; 80061; 84443; 85025

== ENCOUNTER 2017-06-11 10:06 | Outpatient (CLI) | payer OTHER | END 2017-06-11 10:07 | disposition home or self-care (01) | LOC: LAB 10:06 | PROVIDERS: ATTEND Nurse Practitioner Family | DX: I10 Essential (primary) hypertension (principal); Z12.5 Encounter for screening for malignant neoplasm of prostate | CPT/HCPCS: 36415; 80053; 85025 ==

== ENCOUNTER 2017-08-18 09:56 | Inpatient (IN) | payer OTHER ==
[2017-08-18] MEDS ORDERED: SODIUM CHLORIDE 1,000 ML IV STA (10:05)
[2017-08-18] MEDS ORDERED: PULMICORT 0.5 MG/2 ML NEB STA (10:06)
[2017-08-18] MEDS ORDERED: DUONEB NEB STA (10:06)
[2017-08-18] MEDS ORDERED: ALBUTEROL 0.042% NEB NEB STA (10:06)
[2017-08-18] MEDS ORDERED: SOLU-MEDROL 125 MG IVP STA (10:17)
[2017-08-18] MEDS ORDERED: LEVAQUIN 750 MG in PREMIX 150 ML D5W 1 BAG IV STA (10:20)
--- NOTE | 2017-08-18 10:23 | ED.PDOC ---
General ED Provider: Dr. ADDI HELLER Chief Complaint: Shortness of Air Stated Complaint: Severe shortness of breathe with productive cough of blood tinges sputum. Has been ill for several days. Started to cough up blood last evening. Has long standing COPD on multiple meds/ Previouls smoker who discontinued use approximately 5-6 years ago. 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 No history of heart disease. Has been for 47 years. Time Seen by Physician: 10:00 Mode of Arrival: Ambulance Information Source: Patient, Family Exam Limitations: No limitations Primary Care Provider: ISABELLA BERRY Referred to ED by: Other (self) Nursing and Triage Documentation Reviewed and Agree: Yes Reviewed sepsis parameters & appropriate labs ordered?: Yes System Inflammatory Response Syndrome: Pulse >90 BPM, Resp >20/Minute Sepsis Protocol: For patient's 13 years and over: Temp is 96.8 and below OR 101 and greater Pulse >90 BPM Resp >20/minute Acutely Altered Mental Status Are patient's symptoms suggestive of a new infection, such as: -Pneumonia -Skin, Soft Tissue -Endocarditis -UTI -Bone, Joint Infection -Implantable Device -Acute Abdominal Infection -Wound Infection -Meningitis -Blood Stream Catheter Infection -Unknown Respiratory Complaint Exam - Respiratory Complaint/Exam Symptoms Are: Still present Timing: Constant Initial Severity: Severe Current Severity: Severe Character: Reports: Productive cough Aggravating: Reports: Exertion Alleviating: Reports: None Associated Signs and Symptoms: Reports: Rapid breathing, Dyspnea, Wheezing, Hemoptysis Related History: Reports: Similar episode History of Healthcare-Acquired Pneumonia: No Related Surgical History: Reports: None Cardiac Risk Factors: Reports: None Pseudomonas Risk Factors: Reports: Chronic Lung Disease Tuberculosis Risk Factors: Reports: None Status Asthmaticus Risk Factors: Reports: None Home Oxygen Use: Yes Recent Stress Test: No Recent Echo/LV Function: No Current Antibiotic Use: No Current Asthma Medication Use: Yes Respiratory Distress: Moderate Inadequate Respiratory Effort: Yes Dysphagia Present: No Stridor Present: Yes JVD Present: No Accessory Muscle Use: No Differential Diagnoses: COPD Exacerbation, Pneumonia, Pulmonary Embolism, Mycoplasma, Influenza, Lower Resp. Infection, MRSA, VRE Review of Systems - Review Of Systems Constitutional: Reports: Chills, Fever, Malaise, Loss of appetite Eyes: Reports: No symptoms Ears, Nose, Mouth, Throat: Reports: No symptoms Respiratory: Reports: Cough, Short of air, Wheezing, Other (sputum productio n) Cardiac: Reports: No symptoms GI: Reports: No symptoms : Reports: No symptoms Musculoskeletal: Reports: No symptoms Skin: Reports: No symptoms Neurological: Reports: No symptoms Endocrine: Reports: No symptoms Hematologic/Lymphatic: Reports: No symptoms All Other Systems: Reviewed and Negative Past Medical History - Past Medical History Previously Healthy: No Endocrine: Reports: None Cardiovascular: Reports: Hypertension Respiratory: Reports: COPD, Asthma Hematological: Reports: None Gastrointestinal: Reports: None Genitourinary: Reports: None Neuro/Psych: Reports: None Musculoskeletal: Reports: None Cancer: Reports: None Other Pertinent Past Medical History: flu shot Sep 25 has several friends also not feeling well after shot - Surgical History General Surgical History: Reports: Tonsillectomy - Family History Family History: Reports: Unknown - Social History Smoking Status: Former smoker Hx Substance Use: No Alcohol Screening: None Physical Exam - Physical Exam Appearance: Ill-appearing, Thin Ill-appearing: Severe Pain Distress: None Eyes: BRITANY, EOMI, Conjunctiva clear ENT: Ears normal, Nose normal, Oropharynx normal Respiratory: Airway patent, Breath sounds clear, Breath sounds diminished, Respirations nonlabored, Crackles, Wheezes Cardiovascular: RRR, Pulses normal, No rub, No murmur GI/: Soft, Nontender, No masses, Bowel sounds normal, No Organomegaly Musculoskeletal: Normal strength, ROM intact, No edema, No calf tenderness Skin: Warm, Dry, Normal color Neurological: Sensation intact, Motor intact, Reflexes intact, Cranial nerves intact, Alert, Oriented Psychiatric: Affect appropriate, Mood appropriate Interpretation - Radiology Interpretation Radiology Interpretation By: Radiologist Radiology Results: No acute changes Physician Notification - Case Discussed Physician Notified: discussed case with dr hills who agreed to admission Time of Notification: 11:15 Critical Care Note - Critical Care Note Total Time (mins): 60 Comments: Patients resiratory status monitored closely and worked in conjunction with RT and nursing staff adjusting oxygen therapy Course - Course Hematology/Chemistry: 08/18/17 10:20 08/18/17 10:20 Orders, Labs, Meds: Lab Review 08/18/17 08/18/17 08/18/17 10:05 10:12 10:20 WBC 10.48 H RBC 5.02 Hgb 14.3 Hct 47.0 MCV 93.6 MCH 28.5 MCHC 30.4 L RDW Coeff of Khai 13.0 Plt Count 199 Immature Gran % (Auto) 0.3 Neut % (Auto) 80.6 Lymph % (Auto) 8.7 L [place] % (Auto) 9.3 Eos % (Auto) 0.7 Baso % (Auto) 0.4 Immature Gran # (Auto) 0.0 Neut # (Auto) 8.5 H Lymph # (Auto) 0.9 [place] # (Auto) 1.0 Eos # (Auto) 0.1 Baso # (Auto) 0.0 D-Dimer (Manual) Puncture Site R rad O2 Saturation 56.0 L ABG pH 7.347 L ABG pCO2 79.5 H ABG pO2 33.0 L* ABG HCO3 43.7 H ABG Total CO2 46 H ABG Base Excess 18 H Nader Test + O2 Delivery Device Oxygen Liter Flow FiO2 % 21.0 Sodium Potassium Chloride Carbon Dioxide Anion Gap BUN Creatinine Estimated GFR (MDRD) BUN/Creatinine Ratio Glucose Lactic Acid Calcium Total Bilirubin AST ALT Alkaline Phosphatase Total Creatine Kinase Troponin I B-Natriuretic Peptide Total Protein Albumin Globulin Albumin/Globulin Ratio Procalcitonin Influ A Molecular Assay Negative by naat Influ B Molecular Assay Negative by naat 08/18/17 08/18/17 08/18/17 10:20 10:20 10:20 WBC RBC Hgb Hct MCV MCH MCHC RDW Coeff of Khai Plt Count Immature Gran % (Auto) Neut % (Auto) Lymph % (Auto) [place] % (Auto) Eos % (Auto) Baso % (Auto) Immature Gran # (Auto) Neut # (Auto) Lymph # (Auto) [place] # (Auto) Eos # (Auto) Baso # (Auto) D-Dimer (Manual) Puncture Site O2 Saturation ABG pH ABG pCO2 ABG pO2 ABG HCO3 ABG Total CO2 ABG Base Excess Nader Test O2 Delivery Device Oxygen Liter Flow FiO2 % Sodium 141 Potassium 4.2 Chloride 91 L Carbon Dioxide 39 H Anion Gap 15.2 BUN 13 Creatinine 0.60 Estimated GFR (MDRD) 134.00 BUN/Creatinine Ratio 21.66 Glucose 100 Lactic Acid 15.5 Calcium 9.3 Total Bilirubin 0.7 AST 16 ALT 11 L Alkaline Phosphatase 69 Total Creatine Kinase Troponin I B-Natriuretic Peptide Total Protein 6.9 Albumin 2.8 L Globulin 4.1 Albumin/Globulin Ratio 0.68 Procalcitonin 0.11 Influ A Molecular Assay Influ B Molecular Assay 08/18/17 08/18/17 08/18/17 10:20 10:20 10:20 WBC RBC Hgb Hct MCV MCH MCHC RDW Coeff of Khai Plt Count Immature Gran % (Auto) Neut % (Auto) Lymph % (Auto) [place] % (Auto) Eos % (Auto) Baso % (Auto) Immature Gran # (Auto) Neut # (Auto) Lymph # (Auto) [place] # (Auto) Eos # (Auto) Baso # (Auto) D-Dimer (Manual) 3071.33 Puncture Site O2 Saturation ABG pH ABG pCO2 ABG pO2 ABG HCO3 ABG Total CO2 ABG Base Excess Nader Test O2 Delivery Device Oxygen Liter Flow FiO2 % Sodium Potassium Chloride Carbon Dioxide Anion Gap BUN Creatinine Estimated GFR (MDRD) BUN/Creatinine Ratio Glucose Lactic Acid Calcium Total Bilirubin AST ALT Alkaline Phosphatase Total Creatine Kinase 28 Troponin I 0.0250 B-Natriuretic Peptide Total Protein Albumin Globulin Albumin/Globulin Ratio Procalcitonin Influ A Molecular Assay Influ B Molecular Assay 08/18/17 08/18/17 10:20 11:25 WBC RBC Hgb Hct MCV MCH MCHC RDW Coeff of Khai Plt Count Immature Gran % (Auto) Neut % (Auto) Lymph % (Auto) [place] % (Auto) Eos % (Auto) Baso % (Auto) Immature Gran # (Auto) Neut # (Auto) Lymph # (Auto) [place] # (Auto) Eos # (Auto) Baso # (Auto) D-Dimer (Manual) Puncture Site R rad O2 Saturation 85.0 L ABG pH 7.395 ABG pCO2 68.3 H ABG pO2 52.0 L* ABG HCO3 41.8 H ABG Total CO2 44 H ABG Base Excess 17 H Nader Test + O2 Delivery Device V mx Oxygen Liter Flow 4.00 FiO2 % 31.0 Sodium Potassium Chloride Carbon Dioxide Anion Gap BUN Creatinine Estimated GFR (MDRD) BUN/Creatinine Ratio Glucose Lactic Acid Calcium Total Bilirubin AST ALT Alkaline Phosphatase Total Creatine Kinase Troponin I B-Natriuretic Peptide 123 H Total Protein Albumin Globulin Albumin/Globulin Ratio Procalcitonin Influ A Molecular Assay Influ B Molecular Assay Orders Category Date Time Status ABG DRAW REQUEST Stat CARDIO 08/18/17 10:05 Completed ABG DRAW REQUEST Stat CARDIO 08/18/17 11:34 Completed ABG DRAW REQUEST Stat CARDIO 08/18/17 13:00 Ordered EKG-(ED ONLY) Stat CARDIO 08/18/17 10:02 Completed NEBULIZER TREATMENT Stat CARDIO 08/18/17 10:08 Completed NPO REMINDER: IMAGING ONCE CARE 08/18/17 11:28 Active NPO REMINDER: IMAGING ONCE CARE 08/18/17 11:31 Active IV [ED IV/MEDIPORT/POWERPORT] .ONCE EMERGENCY 08/18/17 10:03 Active ABG Stat LAB 08/18/17 10:05 Completed ABG Stat LAB 08/18/17 11:25 Completed ABG Stat LAB 08/18/17 13:00 Ordered BLOOD CULTURE (ED ONLY) Stat LAB 08/18/17 10:20 Received BNP [B-TYPE NATRIURETIC PEPTIDE] Stat LAB 08/18/17 10:20 Completed CBC W/ AUTO DIFF Stat LAB 08/18/17 10:20 Completed CMP [COMPREHENSIVE METABOLIC PANEL] Stat LAB 08/18/17 10:20 Completed COLD AGGLUTININ TITER Stat LAB 08/18/17 10:34 Ordered CPK [CREATINE KINASE] Stat LAB 08/18/17 10:20 Completed D-DIMER Stat LAB 08/18/17 10:20 Completed FLU A & B MOLECULAR [FLU A/B MOLECULAR] Stat LAB 08/18/17 10:12 Completed LACTIC ACID Stat LAB 08/18/17 10:20 Completed LEGIONELLA URINARY ANTIGEN Stat LAB 08/18/17 10:35 Ordered M. PNEUMONIA IgG/IgM ABS Stat LAB 08/18/17 10:34 Ordered PROCALCITONIN Stat LAB 08/18/17 10:20 Completed SPUTUM CULTURE Stat LAB 08/18/17 10:22 Ordered TROPONIN I Stat LAB 08/18/17 10:20 Completed UA [URINALYSIS C & S IF INDICATED] Stat LAB 08/18/17 10:02 Uncollected URINE DRUG SCREEN (RAPID FOR ED) [DRUG SCREEN, URINE, LAB 08/18/17 10:03 Uncollected RAPID] Stat 0.9 % Sodium Chloride [Saline Flush] MEDS 08/18/17 10:01 Active 1 syr IVF PRN PRN Budesonide [Pulmicort 0.5 mg/2 ml] MEDS 08/18/17 10:06 Discontinued 1 vial NEB ONCE STA Enoxaparin Sodium [Lovenox] MEDS 08/18/17 11:29 Discontinued 60 mg SUBCUT ONCE STA Ipratropium/Albuterol Neb [Duoneb] MEDS 08/18/17 10:06 Discontinued 1 vial NEB ONCE STA Levofloxacin/D5w [Levaquin] 150 ml MEDS 08/18/17 10:24 Discontinued IV .STK-MED Levofloxacin/D5w [Levaquin] 750 mg MEDS 08/18/17 10:20 Discontinued Premix 150 ml D5w 1 bag IV ONCE Methylprednisolone Sod Succ/Pf [Solu-Medrol 125 mg] MEDS 08/18/17 10:17 Discontinued 125 mg IVP ONCE STA Sodium Chloride 0.9% [Sodium Chloride] 1,000 ml MEDS 08/18/17 10:05 Discontinued IV BOLUS CHEST, 1V AP ONLY Stat RADS 08/18/17 10:[address] CHEST PE PROTOCOL Stat RADS 08/18/17 11:30 Completed CTA ANGIO CHEST Stat RADS 08/18/17 11:27 Stop Req Medications Generic Name Dose Route Start Last Admin Trade Name Freq PRN Reason Stop Dose Admin Sodium Chloride 1 syr 08/18/17 10:01 08/18/17 10:22 Saline Flush IVF 1 syr PRN PRN Administration To flush IV Discontinued Medications Generic Name Dose Route Start Last Admin Trade Name Freq PRN Reason Stop Dose Admin Albuterol/Ipratropium 1 vial 08/18/17 10:06 08/18/17 10:16 Duoneb NEB 08/18/17 10:07 1 vial ONCE STA Administration Budesonide 1 vial 08/18/17 10:06 08/18/17 10:26 Pulmicort 0.5 Mg/2 Ml NEB 08/18/17 10:07 1 vial ONCE STA Administration Enoxaparin Sodium 60 mg 08/18/17 11:29 08/18/17 11:36 Lovenox SUBCUT 08/18/17 11:30 60 mg ONCE STA Administration Sodium Chloride 1,000 mls @ 500 mls/hr 08/18/17 10:05 08/18/17 10:22 Sodium Chloride IV 08/18/17 12:04 500 mls/hr BOLUS STA Administration Levofloxacin/Dextrose 750 mg/ 150 mls @ 100 mls/hr 08/18/17 10:20 08/18/17 10 :29 Dextrose IV 08/18/17 11:49 100 mls/hr ONCE STA Administration Methylprednisolone Sodium Succinate 125 mg 08/18/17 10:17 08/18/17 10:27 Solu-Medrol 125 Mg IVP 08/18/17 10:18 125 mg ONCE STA Administration Vital Signs: Temp Pulse Resp BP Pulse Ox 08/18/17 09:56 98 F 113 H 22 127/93 H 79 L Departure - Departure Time of Disposition: 12:20 Disposition: ADMITTED INPATIENT Discharge Problem: Pneumonia, COPD (chronic obstructive pulmonary disease), Respiratory insufficiency, Elevated d-dimer Condition: Serious Pt referred to PMD for follow-up: Yes (pcp) IPMP verified?: No Allergies/Adverse Reactions: Allergies tiotropium bromide [From Spiriva with HandiHaler] Allergy (Mild, Verified 10:06) rash Home Medications: Ambulatory Orders Aspirin 81 mg PO d 10/19/13 Disposition Discussed With: Patient, Family (discussed case with dr hills who agreed to admission )
[2017-08-18] MEDS ORDERED: LEVAQUIN 150 ML IV ONE (10:24)
--- NOTE | 2017-08-18 11:01 | DI ---
EXAM: Single view of the chest. History: Short of breath Comparison: Chest radiograph 09/22/2014, chest CT 07/29/2016 Findings: Heart size is within normal limits. Emphysema. Interval development of bibasilar consoli dation. No pneumothorax. No acute osseous abnormalities. Impression: 1. Bibasilar pneumonia. 2. Emphysema
[2017-08-18] MEDS ORDERED: LOVENOX SUBCUT STA (11:29)
--- NOTE | 2017-08-18 12:13 | CT ---
EXAM: CTA of the chest. History: Short of breath, elevated D-dimer. Comparison: Chest radiograph 08/18/2017, chest CT 07/29/2016 Technique: Multiplanar CT images through the thorax were obtained following administration of IV con trast. MIP images and 3-D reconstructions were also acquired. Findings: Heart size is normal. Coronary calcifications. Great vessels are unremarkable. No pulmo nary arterial filling defects. Emphysema. No lymphadenopathy. Left greater than right bibasilar con solidation. No pleural fluid and no pneumothorax. The previously described lung nodules are not seen and are probably obscured due to the consolidation. Within the visualized upper abdomen, no acute findings. No acute osseous abnormalities. Impression: 1. No pulmonary embolism. 2. Bibasilar pneumonia. 3. Emphysema
[2017-08-18 13:26] VITALS: BMI 21.0
[2017-08-19] MEDS: SOLU-MEDROL 125 MG IVP SCH ×4 (00:55→20:13)
[2017-08-19] MEDS: DUONEB NEB SCH ×6 (04:21→21:30)
[2017-08-19] MEDS: ROCEPHIN 1 GM in SODIUM CHLORIDE 50 ML IV SCH (08:53)
[2017-08-19] MEDS: VITAMIN D PO SCH (08:54)
[2017-08-19] MEDS: ASPIRIN CHEWABLE PO SCH (08:54)
[2017-08-19] MEDS: SYMBICORT 160-4.5 MCG INHALER IH SCH ×3 (08:55→20:00)
[2017-08-19] MEDS ORDERED: NON-FORMULARY MEDICATION (Cholecalciferol (Vitamin D3) [Vitamin D3] 1,000 UNIT) PO SCH (09:00)
--- NOTE | 2017-08-19 13:42 | HP ---
DATE OF SERVICE: 08/18/17 CHIEF COMPLAINT: Shortness of breath and fever. HISTORY OF PRESENT ILLNESS: This is a 67 year old male who has been coughing and congestion getting yellow/ green phlegm. Call clinic yesterday and the patient was told to come today for the office visit but by today morning the patient was more short of breath and not able to take breathe and came to the emergency room. Dr. Felton saw the patient in the emergency room. Saturation was 72 on the 4 liters. ABG's were done which showed the pH 7.347, pCO2 79.5, pO2 33. The patient was put on the venturi mask. CT chest showed the bibasilar pneumonia. At that time the patient was admitted to the hospital for the IV antibiotics and breathing treatments. REVIEW OF SYSTEMS: CONSTITUTIONAL: Fever, Chills. Weakness. HEENT: Normal. ENDOCRINE: No weight gain; no weight loss. CVS: No chest pain. PND, Orthopnea. No shortness of breath. No PND, no orthopnea. RESPIRATORY: Cough, Congestion. No hemoptysis. GI: No nausea, no vomiting. No abdominal pain. No melena. : No hematuria. No polyuria. MUSCULOSKELETAL: No joint swelling. PSYCHIATRIC: Not anxious. No depression. No suicidal thoughts. No homicidal thoughts. SKIN: Intact, no open lesions. PAST MEDICAL HISTORY: Hypertension Enlarged heart COPD oxygen dependent History of respiratory failure Nicotine use PAST SURGICAL HISTORY: Tonsillectomy PERSONAL HISTORY: The patient quit smoking 2 years ago. and lives with the . Family history is significant for the heart problems. MEDICATIONS: Aspirin Oxygen DUO NEBS Albuterol Symbicort Pravastatin Cholecalciferol ALLERGIES: Tiotropium PHYSICAL EXAMINATION: V/S: Blood pressure 127/93, respiratory rate 22, heart rate 113, saturation 97 on 2 liters and temperature 98.4. GENERAL: Sick looking male laying in a bed. Cachexia. HEENT: Atraumatic, normocephalic. No scleral icterus. Mucosa dry. NECK: Supple. No JVD, no bruit. No lymphadenopathy. No thyromegaly. HEART: S1, S2 normal. No murmur. No cyanosis or clubbing. No ascites. LUNGS: Decreased air entry, barely audible lung sounds. I can see the axillary muscles working in the neck. No rales or rhonchi. ABDOMEN: Soft, nontender. Bowel sounds are active. No CVA tenderness. No rigidity or guarding. EXTREMITIES: No pedal edema. No cyanosis or clubbing MUSCULOSKELETAL: Normal joints, no swelling. NEUROLOGIC: The patient is normal. SKIN: Intact; no open lesions. LYMPHATIC: No lymph nodes palpable. LABS: Repeat ABG's showed the pH 7.395, pCO2 68.3, pO2 52 and bicarb 41, WBC 10.48, hgb 14.3, hct 47.0, plt count 199, sodium 141, potassium 4.2, chloride 91, bicarb 39, BUN 13, creatinine 0.60 and glucose 100. ASSESSMENT: 1. Acute on chronic respiratory failure 2. Hypoxemic respiratory failure secondary to the bibasilar pneumonia 3. COPD oxygen dependent 4. Anxiety disorder 5. Severe hypoalbuminemia PLAN: 1. Admit the patient to the ICU 2. Rocephin 1 gram daily 3. Lovenox for the DVT prophylaxis 4. DUO NEBS 5. Solu-Medrol 125mg Q 8 hours 6. Daily I&O's TIME SPENT: MORE THAN 75 minutes today with critical care time with the hypoxemic respiratory failure, acute on chronic respiratory failure and bibasilar pneumonia. CARRIE
[2017-08-19] MEDS: PRAVACHOL PO SCH (20:00)
[2017-08-20] MEDS: DUONEB NEB SCH ×6 (01:18→22:36)
[2017-08-20] MEDS: SOLU-MEDROL 125 MG IVP SCH ×3 (04:34→20:52)
[2017-08-20] MEDS: ROCEPHIN 1 GM in SODIUM CHLORIDE 50 ML IV SCH (08:49)
[2017-08-20] MEDS: VITAMIN D PO SCH (08:50)
[2017-08-20] MEDS: SYMBICORT 160-4.5 MCG INHALER IH SCH ×2 (08:50→20:51)
[2017-08-20] MEDS: ASPIRIN CHEWABLE PO SCH (08:50)
[2017-08-20] MEDS ORDERED: DUONEB NEB PRN (14:34)
[2017-08-20] MEDS ORDERED: ALBUTEROL 0.083% NEB NEB PRN (14:36)
[2017-08-20] MEDS: PRAVACHOL PO SCH (20:51)
[2017-08-21] MEDS: SOLU-MEDROL 125 MG IVP SCH ×3 (04:16→20:22)
[2017-08-21] MEDS: DUONEB NEB SCH ×4 (04:30→23:20)
[2017-08-21] MEDS: VITAMIN D PO SCH (08:46)
[2017-08-21] MEDS: ASPIRIN CHEWABLE PO SCH (08:46)
[2017-08-21] MEDS: SYMBICORT 160-4.5 MCG INHALER IH SCH ×2 (08:46→20:21)
[2017-08-21] MEDS: ROCEPHIN 1 GM in SODIUM CHLORIDE 50 ML IV SCH (08:51)
--- NOTE | 2017-08-21 10:55 | DI ---
EXAM: Single view of the chest. History: Cough. Comparison: Chest radiograph 08/18/2017, chest CT 08/19/2079 Findings: Heart size is normal. Emphysema. Persistent but improving bibasilar lung infiltrates. N o appreciable pleural fluid and no pneumothorax. No acute osseous abnormalities. Impression: 1. Improving bibasilar pneumonia. 2. Emphysema
[2017-08-21] MEDS: PRAVACHOL PO SCH (20:22)
[2017-08-22] MEDS: SOLU-MEDROL 125 MG IVP SCH ×3 (04:39→20:57)
[2017-08-22] MEDS: DUONEB NEB SCH ×4 (04:53→23:40)
[2017-08-22] MEDS: VITAMIN D PO SCH (08:37)
[2017-08-22] MEDS: SYMBICORT 160-4.5 MCG INHALER IH SCH ×2 (08:37→20:57)
[2017-08-22] MEDS: ASPIRIN CHEWABLE PO SCH (08:37)
[2017-08-22] MEDS: ROCEPHIN 1 GM in SODIUM CHLORIDE 50 ML IV SCH (08:38)
[2017-08-22] MEDS: PRAVACHOL PO SCH (20:57)
[2017-08-23] MEDS: SOLU-MEDROL 125 MG IVP SCH ×3 (04:31→20:30)
[2017-08-23] MEDS: DUONEB NEB SCH ×3 (05:26→16:50)
[2017-08-23] MEDS: ROCEPHIN 1 GM in SODIUM CHLORIDE 50 ML IV SCH (08:48)
[2017-08-23] MEDS: SYMBICORT 160-4.5 MCG INHALER IH SCH ×2 (08:48→20:29)
[2017-08-23] MEDS: VITAMIN D PO SCH (08:48)
[2017-08-23] MEDS: ASPIRIN CHEWABLE PO SCH (08:48)
[2017-08-23] MEDS: PULMICORT 0.25 MG/2 ML NEB SCH (16:50)
[2017-08-23] MEDS: PRAVACHOL PO SCH (20:29)
[2017-08-24] MEDS: DUONEB NEB SCH ×5 (00:10→23:08)
[2017-08-24] MEDS: SOLU-MEDROL 125 MG IVP SCH ×3 (04:17→21:36)
[2017-08-24] MEDS: PULMICORT 0.25 MG/2 ML NEB SCH ×2 (05:27→17:56)
[2017-08-24] MEDS: ROCEPHIN 1 GM in SODIUM CHLORIDE 50 ML IV SCH (09:17)
[2017-08-24] MEDS: VITAMIN D PO SCH (09:17)
[2017-08-24] MEDS: SYMBICORT 160-4.5 MCG INHALER IH SCH ×2 (09:17→21:15)
[2017-08-24] MEDS: ASPIRIN CHEWABLE PO SCH (09:17)
--- NOTE | 2017-08-24 10:56 | CT ---
Exam: CT of the chest without intravenous contrast. Comparison: 08/18/2017. Reason for exam: Congestion, wheezing, shortness of breath. FINDINGS: Image interpretation is limited by the lack of intravenous contrast administration. Emphysematous changes are seen throughout the lung parenchyma with an apical predominance. There is a small left-sided pleural effusion. Dense consolidations are seen in the left lung base with air bronchograms. There is a small consolidation in the right lung base. The aorta is normal in course and caliber. The heart is not enlarged. Atherosclerotic disease is seen within the aorta and distal arterial vasculature. No suspicious appearing osteoblastic or osteolytic lesions. Similar appearing exaggeration of the thoracic kyphotic curve. Impression: 1. Basilar consolidations. These findings are somewhat improved when compared to the previous exam. Imaging findings are most consistent with basilar pneumonia although evaluation is limited by the l ack of intravenous contrast. 2. Small left-sided pleural effusion. 3. Marked emphysematous disease
[2017-08-24] MEDS: PRAVACHOL PO SCH (21:15)
[2017-08-25] MEDS: DUONEB NEB SCH (04:40)
[2017-08-25] MEDS: PULMICORT 0.25 MG/2 ML NEB SCH (04:40)
[2017-08-25] MEDS: SOLU-MEDROL 125 MG IVP SCH (05:49)
[2017-08-25] MEDS: ROCEPHIN 1 GM in SODIUM CHLORIDE 50 ML IV SCH (09:27)
[2017-08-25] MEDS: ASPIRIN CHEWABLE PO SCH (09:27)
[2017-08-25] MEDS: SYMBICORT 160-4.5 MCG INHALER IH SCH (09:27)
[2017-08-25] MEDS: VITAMIN D PO SCH (09:27)
[2017-08-25 10:27] VITALS: BP 114/82; TEMP 98.1
[2017-08-25] MEDS ORDERED: MUCOMYST 20% NEB NEB SCH (12:00)
--- NOTE | 2017-08-26 09:58 | PN ---
DATE OF SERVICE: 08/19/17 SUBJECTIVE: The patient was admitted with hypoxemic respiratory failure, bibasilar pneumonia , still having cough, congestion, shortness of breath with minimal talking. REVIEW OF SYSTEMS: CONSTITUTIONAL: No fever, no chills. HEENT: Normal. ENDOCRINE: No weight gain, no weight loss. CVS: No angina symptoms. No CHF symptoms. No palpitations. No atypical chest pain for CAD. Shortness of breath with minimal talking. No PND, no orthopnea. RESPIRATORY: Cough and congestion. No hemoptysis. GI: No nausea, no vomiting. No abdominal pain. : No hematuria. No polyuria. MUSCULOSKELETAL: No joint swelling. PSYCHIATRIC: Not anxious. No depression. No suicidal thoughts. No homicidal thoughts. SKIN: Intact. No rash. PHYSICAL EXAMINATION: V/S: BP 102/68, respiratory rate 23, heart rate 98, temperature 98.1, saturation 91 on 3L. GENERAL: Cachetic male lying in bed. HEENT: Normocephalic, atraumatic. Mucosa dry, pallor positive. No icterus. NECK: Supple. No JVD, no carotid bruit. No lymphadenopathy. LUNGS: Bibasilar faint crackles. No expiratory wheezing. Mostly silent lung. HEART: S1, S2 normal. No S3. No murmur, gallop or regurgitation. ABDOMEN: Soft, nontender. Bowel sounds active. No rigidity. No rebound or guarding. No CVA tenderness. EXTREMITIES: No pedal edema. No clubbing or cyanosis MUSCULOSKELETAL: No joint swelling. NEUROLOGIC: Awake, alert. LYMPHATIC: No lymph nodes palpable. SKIN: Intact and dry. LABS: White count 10.48, hemoglobin 14.3, hematocrit 47.0. Platelet count 199. Sodium 141, potassium 4.2, chloride 91, bicarb 13, BUN 13, creatinine 0.60, glucose 100. ASSESSMENT: 1. ACUTE HYPOXEMIC RESPIRATORY FAILURE 2. COPD EXACERBATION SECONDARY TO BIBASILAR PNEUMONIA 3. HYPERTENSION 4. DYSLIPIDEMIA 5. HISTORY OF SINUS TACHYCARDIA 6. CACHEXIA PLAN: 1. Continue Rocephin 1 gm daily 2. Duonebs 3. Solu-Medrol 125 mg q.8hr 4. Daily I & O TIME SPENT: More than 35 minutes MTDD
--- NOTE | 2017-08-26 10:31 | PN ---
DATE OF SERVICE: 08/20/17 SUBJECTIVE: Admitted with hypoxemic respiratory failure. He still has cough and congestion. The patient's is Graciela, by the beside. She has multiple questions and all have been answered. REVIEW OF SYSTEMS: CONSTITUTIONAL: No fever, no chills. HEENT: Normal. ENDOCRINE: No weight gain, no weight loss. CVS: No angina symptoms. No CHF symptoms. No palpitations. No atypical chest pain for CAD. No shortness of breath. No PND, no orthopnea. RESPIRATORY: Cough and congestion. No hemoptysis. GI: No nausea, no vomiting. No abdominal pain. : No hematuria. No polyuria. MUSCULOSKELETAL: No joint swelling. PSYCHIATRIC: Not anxious. No depression. No suicidal thoughts. No homicidal thoughts. SKIN: Intact. No rash. PHYSICAL EXAMINATION: V/S: BP 124/88, respiratory rate 104, saturation is 92 on 2L. GENERAL: Sick-looking male lying in bed. Cachetic. HEENT: Normocephalic, atraumatic. NECK: Supple. No JVD, no carotid bruit. No lymphadenopathy. LUNGS: Decreased with basilar crackles, faint. No rales or rhonchi. HEART: S1, S2 normal. No S3. No murmur, gallop or regurgitation. ABDOMEN: Soft, nontender. Bowel sounds active. No rigidity. No rebound or guarding. No CVA tenderness. EXTREMITIES: No pedal edema. No clubbing or cyanosis MUSCULOSKELETAL: No joint swelling. NEUROLOGIC: Awake, alert, oriented times three. No focal deficit. LYMPHATIC: No lymph nodes palpable. SKIN: Intact. LABS: Sodium 140, potassium 4.2, chloride 91, bicarb 39, BUN 13, creatinine 0.60, glucose 100. White count 10.48, hemoglobin 14.3, hematocrit 47.0, platelet count 199. ASSESSMENT: 1. HYPOXEMIC RESPIRATORY FAILURE 2. COPD EXACERBATION SECONDARY TO PNEUMONIA 3. C02 NARCOSIS 4. HYPERTENSION 5. DYSLIPIDEMIA PLAN: 1. Continue Rocephin 1 gm daily 2. Duonebs 3. Solu-Medrol 4. Daily I & O's TIME SPENT: More than 35 minutes MTDD
--- NOTE | 2017-08-26 10:43 | PN ---
DATE OF SERVICE: 08/22/17 SUBJECTIVE: Admitted with bibasilar pneumonia, COPD exacerbation, acute on chronic renal failure. The patient was put on BIPAP as pc02 went up to 75. Using the BIPAP there was less coughing. He was still short of breath with minimal exertion. REVIEW OF SYSTEMS: CONSTITUTIONAL: No fever, no chills. HEENT: Normal. ENDOCRINE: No weight gain, no weight loss. CVS: No angina symptoms. No CHF symptoms. No palpitations. No atypical chest pain for CAD. Shortness of breath on minimal exertion. No PND, no orthopnea. RESPIRATORY: Less cough, no hemoptysis. GI: No nausea, no vomiting. No abdominal pain. : No hematuria. No polyuria. MUSCULOSKELETAL: No joint swelling. PSYCHIATRIC: Not anxious. No depression. No suicidal thoughts. No homicidal thoughts. SKIN: Intact. No rash. PHYSICAL EXAMINATION: V/S: BP 128/87, respiratory rate 21, heart rate 93, temperature 97.8. Saturation 94 on 2L. GENERAL: Sick-looking male lying in bed not in any distress. HEENT: Normocephalic, atraumatic. Mucosa dry. Pallor positive. No icterus. NECK: Supple. No JVD, no carotid bruit. No lymphadenopathy. LUNGS: Decreased entry with basilar crackles. HEART: S1, S2 normal. No S3. No murmur, gallop or regurgitation. ABDOMEN: Soft, nontender. Bowel sounds active. No rigidity. No rebound or guarding. No CVA tenderness. EXTREMITIES: No pedal edema. No clubbing or cyanosis. MUSCULOSKELETAL: No joint swelling. NEUROLOGIC: Awake, alert, oriented times three. No focal deficit. LYMPHATIC: No lymph nodes palpable. SKIN: Intact. LABS: Sodium 141, potassium 4.0, chloride 91, bicarb 44, BUN 17, creatinine 0.59, glucose 118. White count 7.92, hemoglobin 13.8, hemoglobin 43.8, platelet count 228. ASSESSMENT: 1. HYPOXEMIC RESPIRATORY FAILURE 2. C02 NARCOSIS 3. BIBASILAR PNEUMONIA 4. C02 CACHEXIA 5. SINUS TACHYCARDIA 6. HYPERTENSION 7. DYSLIPIDEMIA PLAN: 1. Rocephin 1 gm daily 2. Duonebs 3. Solu-Medrol 125 mg q.8hr 4. Daily I & O's TIME SPENT: More than 35 minutes MTDD
--- NOTE | 2017-08-26 10:52 | PN ---
DATE OF SERVICE: 08/23/17 SUBJECTIVE: The patient is using the CPAP. Latest ABG showed pc02 came down to 65 yesterday evening with pH 7.52, pc02 65.2, p02 61. REVIEW OF SYSTEMS: CONSTITUTIONAL: No fever, no chills. HEENT: Normal. ENDOCRINE: No weight gain, no weight loss. CVS: Positive for sinus tachycardia. No angina symptoms. No CHF symptoms. No palpitations. No atypical chest pain for CAD. No shortness of breath. No PND, no orthopnea. RESPIRATORY: Positive for cough and congestion. No hemoptysis. GI: No nausea, no vomiting. No abdominal pain. : No hematuria. No polyuria. MUSCULOSKELETAL: No joint swelling. PSYCHIATRIC: Not anxious. No depression. No suicidal thoughts. No homicidal thoughts. SKIN: Intact. No rash. PHYSICAL EXAMINATION: V/S: BP 88/55, respiratory rate 24, pulse 83, temperature 97.3. Saturation 90 on BIPAP. HEENT: Normocephalic, atraumatic. Mucosa dry. NECK: Supple. No JVD, no carotid bruit. No lymphadenopathy. LUNGS: Decreased with faint crackles in both lower lobes. HEART: S1, S2 normal. No S3. No murmur, gallop or regurgitation. ABDOMEN: Soft, nontender. Bowel sounds active. No rigidity. No rebound or guarding. No CVA tenderness. EXTREMITIES: No pedal edema. No clubbing or cyanosis MUSCULOSKELETAL: No joint swelling. NEUROLOGIC: Awake, alert, oriented times three. No focal deficit. LYMPHATIC: No lymph nodes palpable. SKIN: Intact. LABS: Sodium 140, potassium 4.1, chloride 92, bicarb 39, BUN 16, creatinine 0.59, glucose 112. White count 7.92, hemoglobin 13.8, hematocrit 43.8, platelet count 228. ASSESSMENT: 1. Acute on chronic respiratory failure 2. Hypoxemic respiratory failure 3. Hypercapnic respiratory failure 4. Bibasilar pneumonia needing CPAP 5. Pneumonia positive for Serratia Marcescens 6. Hypertension PLAN: 1. Continue Albuterol 2. Symbicort 3. Rocephin 4. Duonebs 5. Solu-Medrol 6. Pravastatin 7. Will continue with BIPAP at this time. CONDITION: Critical; the patient is a full code. Discussed DNR but he is still thinking about it but still undecided. TIME SPENT: More than 35 minutes MTDTiffanie
--- NOTE | 2017-08-27 13:45 | PN ---
DATE OF SERVICE: 08/21/17 SUBJECTIVE: The patient admitted with bibasilar pneumonia, COPD exacerbation and respiratory failure. The patient's pc02 is high. The patient was started on CPAP /BIPAP tolerating well, still coughing with congestion, minimal exertion, shortness of breath. REVIEW OF SYSTEMS: CONSTITUTIONAL: No fever, no chills. HEENT: Normal. ENDOCRINE: No weight gain, no weight loss. CVS: No angina symptoms. No CHF symptoms. No palpitations. No atypical chest pain for CAD. Shortness of breath. No PND, no orthopnea. RESPIRATORY: Cough and congestion on minimal exertion. No hemoptysis. GI: No nausea, no vomiting. No abdominal pain. : No hematuria. No polyuria. MUSCULOSKELETAL: No joint swelling. PSYCHIATRIC: Not anxious. No depression. No suicidal thoughts. No homicidal thoughts. SKIN: Intact. No rash. PHYSICAL EXAMINATION: V/S: BP 117/83, respiratory rate 20, heart rate 88, temperature 97.8, saturation 94 on 2L. HEENT: Normocephalic, atraumatic. Mucosa dry. NECK: Supple. No JVD, no carotid bruit. No lymphadenopathy. LUNGS: Bilateral entry is decreased and clear to auscultation. No rales or rhonchi. HEART: S1, S2 normal. No S3. No murmur, gallop or regurgitation. ABDOMEN: Soft, nontender. Bowel sounds active. No rigidity. No rebound or guarding. No CVA tenderness. EXTREMITIES: No pedal edema. No clubbing or cyanosis MUSCULOSKELETAL: No joint swelling. NEUROLOGIC: Awake, alert, oriented times three. No focal deficit. LYMPHATIC: No lymph nodes palpable. SKIN: Intact. LABS: White count 10.50, hemoglobin 12.3, hematocrit 41.1, platelet count 202. Sodium 141, potassium 4.0, chloride 91, bicarb 44, BUN 17, creatinine 0.59, glucose 118. ASSESSMENT: 1. HYPOXEMIC RESPIRATORY FAILURE 2. HYPERCAPNIA 3. BIBASILAR PNEUMONIA 4. COMMUNITY ACQUIRED PNEUMONIA 5. COPD, OXYGEN DEPENDENT 6. HYPERTENSION PLAN: 1. Continue Rocephin 2. Solu-Medrol 3. Duonebs 4. CPAP 5. Daily I & O's TIME SPENT: More than 35 minutes MTDD
--- NOTE | 2017-09-10 13:55 | PN ---
DATE OF SERVICE: 08/24/17 SUBJECTIVE: The patient is off of the CPAP. ABG been better. Last ABG done on the August 22 which showed the pH 7.452, pCo2 65.2, pO2 61. REVIEW OF SYSTEMS: CONSTITUTIONAL: No fever, no chills. HEENT: Normal. ENDOCRINE: No weight gain, no weight loss. CVS: No angina symptoms. No CHF symptoms. No palpitations. No atypical chest pain for CAD. Shortness of breath with minimal exertion. No PND, no orthopnea. RESPIRATORY: Cough and congestion, no hemoptysis. GI: No nausea, no vomiting. No abdominal pain. : No hematuria. No polyuria. MUSCULOSKELETAL: No joint swelling. PSYCHIATRIC: Not anxious. No depression. No suicidal thoughts. No homicidal thoughts. SKIN: Intact. No rash. PHYSICAL EXAMINATION: V/S: Blood pressure 122/82, respiratory rate 24, heart rate 93, temperature 97.2. HEENT: Normocephalic, atraumatic. Mucosa dry. Pallor positive. No icterus. NECK: Supple. No JVD, no carotid bruit. No lymphadenopathy. LUNGS: Decreased and basilar crackles. Clear to auscultation. No rales or rhonchi. HEART: S1, S2 normal. No S3. No murmur, gallop or regurgitation. ABDOMEN: Soft, nontender. Bowel sounds active. No rigidity. No rebound or guarding. No CVA tenderness. EXTREMITIES: No cyanosis, clubbing or pedal edema. MUSCULOSKELETAL: No joint swelling. NEUROLOGIC: Awake, alert, oriented times three. No focal deficit. LYMPHATIC: No lymph nodes palpable. SKIN: Intact. LABS: Sodium 140, potassium 4.1, chloride 92, bicarb 39, BUN 16, creatinine 0.59, WBC 7.92, hgb 13.8, hct 43.8, plt count 228. ASSESSMENT: 1. Status post hypoxemic respiratory failure secondary to the bibasilar pneumonia 2. Community acquired pneumonia 3. Hypocapnia 4. COPD oxygen dependant 5. Hypertension PLAN: 1. Continue the Rocephin 2. Solu-Medrol 125mg Q 8 hours 3. Out of bed to chair with help 4. CT of the chest today TIME SPENT: More than 35 minutes MTDD
== END 2017-08-25 10:40 | disposition swing bed (61) | DRG 193 ==
LOC: ED 09:56 → SCU 12:05
PROVIDERS: ADMIT Emergency Medicine; ATTEND Emergency Medicine
DX: J18.9 Pneumonia, unspecified organism (principal); J96.21 Acute and chronic respiratory failure with hypoxia; R04.2 Hemoptysis; J44.1 Chronic obstructive pulmonary disease with (acute) exacerbation; R64 Cachexia; N17.9 Acute kidney failure, unspecified; R06.89 Other abnormalities of breathing; R79.1 Abnormal coagulation profile; I50.9 Heart failure, unspecified; E78.5 Hyperlipidemia, unspecified; N18.9 Chronic kidney disease, unspecified; R00.0 Tachycardia, unspecified; B96.89 Other specified bacterial agents as the cause of diseases classified elsewhere; I27.20 Pulmonary hypertension, unspecified; K21.9 Gastro-esophageal reflux disease without esophagitis; Z79.899 Other long term (current) drug therapy; Z16.11 Resistance to penicillins
CPT/HCPCS: 36415; 80053; 80306; 81001; 82550; 82803; 83605; 83880; 84145; 84484; 85025; 85379; 86157; 86738; 87040; 87070; 87081; 87186; 87449; 87502; 93005; 93010; 94640; 94660; 96361; 96365; 96372; 96375; 99284

== ENCOUNTER 2017-08-25 10:40 | Inpatient (IN) | payer OTHER ==
[2017-08-25] MEDS ORDERED: DUONEB NEB PRN (11:13)
[2017-08-25] MEDS: MUCOMYST 20% NEB NEB SCH ×2 (12:05→22:38)
[2017-08-25] MEDS: DUONEB NEB SCH ×3 (12:06→22:38)
[2017-08-25] MEDS ORDERED: ALBUTEROL 0.083% NEB NEB PRN (12:28)
[2017-08-25] MEDS: SOLU-MEDROL 125 MG IVP SCH ×2 (13:13→20:36)
[2017-08-25 14:00] VITALS: BMI 20.9
[2017-08-25] MEDS: PULMICORT 0.25 MG/2 ML NEB SCH (17:22)
[2017-08-25] MEDS ORDERED: MUCOMYST 20% NEB NEB SCH (18:00)
[2017-08-25] MEDS: PRAVACHOL PO SCH (20:36)
[2017-08-25] MEDS: SYMBICORT 160-4.5 MCG INHALER IH SCH (20:58)
[2017-08-26] MEDS: SOLU-MEDROL 125 MG IVP SCH ×3 (04:20→21:09)
[2017-08-26] MEDS: PULMICORT 0.25 MG/2 ML NEB SCH ×2 (04:40→16:50)
[2017-08-26] MEDS: DUONEB NEB SCH ×4 (04:40→23:32)
[2017-08-26] MEDS: SYMBICORT 160-4.5 MCG INHALER IH SCH ×2 (08:11→21:08)
[2017-08-26] MEDS: VITAMIN D PO SCH (08:11)
[2017-08-26] MEDS: ASPIRIN CHEWABLE PO SCH (08:11)
[2017-08-26] MEDS: ROCEPHIN 1 GM in SODIUM CHLORIDE 50 ML IV SCH (08:43)
[2017-08-26] MEDS ORDERED: NON-FORMULARY MEDICATION (Cholecalciferol (Vitamin D3) [Vitamin D3] 1,000 UNIT) PO SCH (09:00)
[2017-08-26] MEDS: MUCOMYST 20% NEB NEB SCH ×2 (11:02→23:32)
[2017-08-26] MEDS: PRAVACHOL PO SCH (21:08)
[2017-08-27] MEDS: SOLU-MEDROL 125 MG IVP SCH ×3 (05:29→20:03)
[2017-08-27] MEDS: PULMICORT 0.25 MG/2 ML NEB SCH ×2 (05:30→16:50)
[2017-08-27] MEDS: DUONEB NEB SCH ×4 (05:30→22:45)
[2017-08-27] MEDS: ASPIRIN CHEWABLE PO SCH (08:17)
[2017-08-27] MEDS: SYMBICORT 160-4.5 MCG INHALER IH SCH ×2 (08:17→20:03)
[2017-08-27] MEDS: VITAMIN D PO SCH (08:18)
[2017-08-27] MEDS: ROCEPHIN 1 GM in SODIUM CHLORIDE 50 ML IV SCH (08:18)
[2017-08-27] MEDS: MUCOMYST 20% NEB NEB SCH ×2 (11:06→22:45)
--- NOTE | 2017-08-27 11:50 | RS.PTINEVL ---
Subjective - Patient information Date of Evaluation: 08/27/17 Date of Arrival on Unit: 08/25/17 Admitted From:: Facility Transfer (swing bed transfer) Diagnosis: B pneumonia Usual Living Arrangement: With Spouse Living Arrangement Comments: lives with who is also on home O2. does cooking and cleaning Home Environment: House, Stairs (few), Rail Medical History: Hypertension, COPD, CHF Medical History Comments:: CAD, GERD, Pulmonary HTN LATEX ALLERGY?: No Medications: see chart Subjective Information/ Patient Comments:: pt requested that nursing call PT to talk with us regarding his treatment. pt states he does want PT and wants to set goals and POC. Explained to patient that I would have to be able to touch him to work with him because yesterday he did not want PT to touch him while he was transferring. - Level of function Prior to this admission, the patient could do the following:: Independent ADL's , Independent Ambulation Abilities prior to this admission: pt states he was able to walk short distances with rwx. Current Level of Function: Partially Dependent Current Equipment Used at Home: Oxygen, wheelchair, cpap, rolling walker, Interventions - Objective Patient Orientation: Person Current Interventions: IV's, Oxygen, Telemetry Range of Motion - ROM Right Upper Extremity AROM: WFL's Left Upper Extremity AROM: WFL's Right Lower Extremity AROM: WFL's Left Lower Extremity AROM: WFL's Muscle Strength - Muscle Strength Right Upper Extremity Strength: Mild Weakness (BUE grossly 4/5) Left Upper Extremity Strength: Mild Weakness Right Lower Extremity Strength: Mild Weakness (hip flex 4-/5, knee flex/ext 4/5 , ankle DF/PF 4/5) Left Lower Extremity Strength: Mild Weakness (hip flex 4-/5, knee flex/ext 4/5, ankle DF/PF 4/5) Sensation - Sensation Right Upper Extremity Sensation: Intact/Normal Left Upper Extremity Sensation: Intact/Normal Right Lower Extremity Sensation: Intact/Normal Left Lower Extremity Sensation: Intact/Normal Palpation Palpation Findings: None/Normal Balance - Sitting Balance and Reactions Static Sitting Balance: Good Dynamic Sitting Balance: Good - Standing Balance and Reactions Static Standing Balance: Fair Dynamic Standing Balance: Poor Standing Equilibrium Reactions: Delayed Left, Delayed Right Standing Protective Reactions: Delayed Left, Delayed Right - Comments Balance Assessment Comments: pt with significant flexed posture, able to maintain balance with light challenges. Functional Mobility - Bed Mobility Rolling R/L: Supervision Sit to Supine: Supervision - Transfers Sit to Stand: CGA Stand to Sit: CGA Stand Pivot Transfers: CGA - Safety Awareness Safety Awareness: Fair RAGHU INDEX SCORE: 62/100 Ambulation - Ambulation Assistive Device Used: Rolling Walker Orthotic/Prosthetic Device: No Distance: 15ft Assistance needed with Ambulation: CGA, 1 person assist Gait Deviations: Forward posture, Short stride Ambulation Comments: pt amb with forward flexed posture with O2 with CGA of 1. pt very anxious Factors Affecting Ambulation: Decreased Balance, Breathing/O2 Saturation, Weakness, Decreased Safety, Cognitive Status, Limited Endurance Treatment time - Time with patient Total treatment time: 28 Patient Education - Education Patient Education: Activity Modification, Education of Plan of Care Teaching Methods: Discussion (long discussion regarding PT and POC) Assessment - Assessment Problem List:: Decreased level of function, Requires training/education, Decreased safety/Risk of falls, Weakness, Pain limits previous level of function Rehab Potential: Good Further Therapy Indicated?: Yes Evaluation Complexity: HISTORY: Medium (CHF, COPD, CAD, HTN, Pulm HTN), EXAM OF BODY SYSTEMS: Medium (SOA, decreased strength, gait, posture), CLINICAL PRESENTATION: Medium (evolving), CLINICAL DECISION MAKING: Medium Short Term Goals GOAL #1: pt demonstrate independence with rolling and scooting up in bed. Goal to be met by: 09/02/17 GOAL #2: pt transfer sup to/from sit independently, sit to/from stand CGA to SBA Goal to be met by: 09/02/17 GOAL #3: pt amb with rwx 25ft x 2 with O2 with CGA with no LOB Goal to be met by: 09/02/17 GOAL #4: Improve BLE strength to 4 to 4+/5 Goal to be met by: 09/02/17 [employer]ather[employer] Equipment [employer]r Goals GOAL #1: pt transfer sit to/from stand independently Goal to be met by: 09/09/17 GOAL #2: pt amb 45ft x 2 with rwx with O2 SBA to CGA with no LOB Goal to be met by: 09/09/17 GOAL #3: pt able to stand to perform hygeine with SBA Goal to be met by: 09/09/17 Plan Plan of Care: Therapeutic EX, Therapeutic Activity Other:: gait training Frequency of Treatment: 1-2 X day, as tolerated Duration of Treatment: 2 Weeks Anticipated Discharge Destination: Home Treatment Diagnosis (ICD 10 Codes): M62.81 general weakness, R26.81 balance impaired, R 26.2 difficulty walking Has the Physician been added for Co-signature?: Yes
--- NOTE | 2017-08-27 13:36 | HP ---
DATE OF SERVICE: 08/25/17 CHIEF COMPLAINT: Persistent bibasilar pneumonia with COPD exacerbation needing IV antibiotics. HISTORY OF PRESENT ILLNESS: This is a 67-year-old male admitted to the hospital initially for COPD exacerbation, hypoxemic respiratory failure and hypercapnia with bibasilar pneumonia. The patient has been given antibiotic Rocephin with still no improvement. She is still having shortness of breath and persistent pneumonia by repeat chest x-ray. At that time, the patient was admitted to transitional care unit to give further IV antibiotics and physical and occupational therapy. REVIEW OF SYSTEMS: CONSTITUTIONAL: Weakness, tiredness. No fever, no chills. HEENT: Normal. ENDOCRINE: No weight gain; no weight loss. CVS: No chest pain. No PND, no orthopnea. Shortness of breath. No PND, no orthopnea. RESPIRATORY: Cough and congestion. No hemoptysis. GI: No nausea, no vomiting. No abdominal pain. No melena. : No hematuria. No polyuria. MUSCULOSKELETAL: No joint swelling. PSYCHIATRIC: Not anxious. No depression. No suicidal thoughts. No homicidal thoughts. SKIN: Intact, no open lesions. PAST MEDICAL HISTORY: Hypertension Cardiomegaly COPD, oxygen dependent Cachexia PAST SURGICAL HISTORY: Tonsillectomy PERSONAL HISTORY: , lives with . He quit smoking two years ago. FAMILY HISTORY: Significant in that brother had CAD, mother asthma. MEDICATIONS: (HOME) Aspirin Oxygen Duonebs Albuterol Symbicort Pravastatin Vitamin D3 ALLERGIES: TIOTROPIUM BROMIDE PHYSICAL EXAMINATION: V/S: BP 117/71, respiratory rate 24, heart rate 96, temperature 98.0, saturation 96 on 2L. GENERAL: Cachetic male lying in bed in no distress. HEENT: Atraumatic, normocephalic. No scleral icterus. Mucosa dry. NECK: Supple. No JVD, no bruit. No lymphadenopathy. No thyromegaly. HEART: S1, S2 normal. No murmur. No cyanosis or clubbing. No ascites. LUNGS: Decreased entry, barely heard any sounds. Clear to auscultation. No rales or rhonchi. ABDOMEN: Soft, nontender. Bowel sounds are active. No CVA tenderness. No rigidity or guarding. EXTREMITIES: No pedal edema. No cyanosis or clubbing MUSCULOSKELETAL: Normal joints, no swelling. NEUROLOGIC: The patient is awake and alert. SKIN: Intact; no open lesions. LYMPHATIC: No lymph nodes palpable. LABS: White count 7.92, hemoglobin 13.8, hematocrit 43.8, platelet count 228. Sodium 140, potassium 4.1, chloride 92, bicarb 39, BUN 16, creatinine 0.59, glucose 112. ASSESSMENT: 1. STATUS POST HYPOXEMIC RESPIRATORY FAILURE FROM BIBASILAR PNEUMONIA 2. C02 NARCOSIS 3. HYPERTENSION 4. DYSLIPIDEMIA 5. PERSISTENT PNEUMONIA PLAN: 1. Admit patient to the transitional care unit. 2. CBC, CMP every other day. 3. PT/OT evaluate and treat. 4. Continue Albuterol, Symbicort, Rocephin, Duonebs, Solu-Medrol 125 q.8, Pravastatin. TIME SPENT: MORE THAN 45 to 50 minutes MTDD
[2017-08-27] MEDS: PRAVACHOL PO SCH (20:03)
[2017-08-28] MEDS: DUONEB NEB SCH ×4 (04:50→23:00)
[2017-08-28] MEDS: PULMICORT 0.25 MG/2 ML NEB SCH ×2 (04:50→17:01)
[2017-08-28] MEDS: SOLU-MEDROL 125 MG IVP SCH ×3 (04:52→20:20)
[2017-08-28] MEDS ORDERED: CHLORASEPTIC SPRAY MM PRN (08:32)
[2017-08-28] MEDS: ROCEPHIN 1 GM in SODIUM CHLORIDE 50 ML IV SCH (09:12)
[2017-08-28] MEDS: ASPIRIN CHEWABLE PO SCH (09:12)
[2017-08-28] MEDS: SYMBICORT 160-4.5 MCG INHALER IH SCH ×2 (09:12→20:20)
[2017-08-28] MEDS: VITAMIN D PO SCH (09:13)
[2017-08-28] MEDS: MUCOMYST 20% NEB NEB SCH ×2 (11:11→23:00)
[2017-08-28] MEDS: PRAVACHOL PO SCH (20:20)
[2017-08-29] MEDS: DUONEB NEB SCH ×4 (04:40→23:03)
[2017-08-29] MEDS: PULMICORT 0.25 MG/2 ML NEB SCH ×2 (04:40→16:58)
[2017-08-29] MEDS: SOLU-MEDROL 125 MG IVP SCH ×3 (04:46→20:20)
[2017-08-29] MEDS: SYMBICORT 160-4.5 MCG INHALER IH SCH ×2 (08:18→20:20)
[2017-08-29] MEDS: ASPIRIN CHEWABLE PO SCH (08:18)
[2017-08-29] MEDS: VITAMIN D PO SCH (08:18)
[2017-08-29] MEDS: ROCEPHIN 1 GM in SODIUM CHLORIDE 50 ML IV SCH (08:19)
[2017-08-29] MEDS: MUCOMYST 20% NEB NEB SCH ×2 (11:04→23:03)
[2017-08-29] MEDS: PRAVACHOL PO SCH (20:20)
[2017-08-30] MEDS: DUONEB NEB SCH ×4 (04:30→23:00)
[2017-08-30] MEDS: PULMICORT 0.25 MG/2 ML NEB SCH ×2 (04:30→18:36)
[2017-08-30] MEDS: SOLU-MEDROL 125 MG IVP SCH ×3 (05:18→20:40)
[2017-08-30] MEDS: ASPIRIN CHEWABLE PO SCH (08:33)
[2017-08-30] MEDS: VITAMIN D PO SCH (08:33)
[2017-08-30] MEDS: ROCEPHIN 1 GM in SODIUM CHLORIDE 50 ML IV SCH (08:33)
[2017-08-30] MEDS: SYMBICORT 160-4.5 MCG INHALER IH SCH ×2 (08:33→20:40)
[2017-08-30] MEDS: FLONASE NAS SCH (09:50)
[2017-08-30] MEDS: MUCOMYST 20% NEB NEB SCH ×2 (11:12→23:00)
[2017-08-30] MEDS: PRAVACHOL PO SCH (20:40)
[2017-08-31] MEDS: SOLU-MEDROL 125 MG IVP SCH ×3 (04:29→21:01)
[2017-08-31] MEDS: DUONEB NEB SCH ×4 (04:40→23:05)
[2017-08-31] MEDS: PULMICORT 0.25 MG/2 ML NEB SCH ×2 (04:40→17:00)
[2017-08-31] MEDS: SYMBICORT 160-4.5 MCG INHALER IH SCH ×2 (10:03→21:01)
[2017-08-31] MEDS: FLONASE NAS SCH (10:04)
[2017-08-31] MEDS: VITAMIN D PO SCH (10:05)
[2017-08-31] MEDS: ASPIRIN CHEWABLE PO SCH (10:05)
[2017-08-31] MEDS: ROCEPHIN 1 GM in SODIUM CHLORIDE 50 ML IV SCH (10:13)
[2017-08-31] MEDS: MUCOMYST 20% NEB NEB SCH ×2 (11:10→23:05)
[2017-08-31] MEDS: PRAVACHOL PO SCH (21:01)
[2017-09-01] MEDS: SOLU-MEDROL 125 MG IVP SCH ×3 (04:22→20:45)
[2017-09-01] MEDS: PULMICORT 0.25 MG/2 ML NEB SCH ×2 (04:50→16:55)
[2017-09-01] MEDS: DUONEB NEB SCH ×4 (04:50→23:08)
[2017-09-01] MEDS: ROCEPHIN 1 GM in SODIUM CHLORIDE 50 ML IV SCH (09:42)
[2017-09-01] MEDS: ASPIRIN CHEWABLE PO SCH (09:43)
[2017-09-01] MEDS: FLONASE NAS SCH (09:43)
[2017-09-01] MEDS: SYMBICORT 160-4.5 MCG INHALER IH SCH ×2 (09:43→20:45)
[2017-09-01] MEDS: VITAMIN D PO SCH (09:44)
[2017-09-01] MEDS: MUCOMYST 20% NEB NEB SCH ×2 (11:08→23:08)
--- NOTE | 2017-09-01 14:54 | PN ---
DATE OF SERVICE: 08/31/17 SUBJECTIVE: The patient sitting the bed says that he was able to get out of the bed and walk a little bit but got short of breath. Physical therapy working with the patient. REVIEW OF SYSTEMS: CONSTITUTIONAL: No fever, no chills. HEENT: Normal. ENDOCRINE: No weight gain, no weight loss. CVS: No angina symptoms. No CHF symptoms. No palpitations. No atypical chest pain for CAD. No shortness of breath. No PND, no orthopnea. RESPIRATORY: No cough, no hemoptysis. GI: No nausea, no vomiting. No abdominal pain. : No hematuria. No polyuria. MUSCULOSKELETAL: No joint swelling. PSYCHIATRIC: Not anxious. No depression. No suicidal thoughts. No homicidal thoughts. SKIN: Intact. No rash. PHYSICAL EXAMINATION: V/S: Blood pressure 137/90, respiratory rate 14, heart rate 86. HEENT: Normocephalic, atraumatic. Mucosa dry. NECK: Supple. No JVD, no carotid bruit. No lymphadenopathy. LUNGS: Decreased and basilar crackles. Clear to auscultation. No rales or rhonchi. HEART: S1, S2 normal. No S3. No murmur, gallop or regurgitation. ABDOMEN: Soft, nontender. Bowel sounds active. No rigidity. No rebound or guarding. No CVA tenderness. EXTREMITIES: No pedal edema. No clubbing or cyanosis MUSCULOSKELETAL: No joint swelling. NEUROLOGIC: Awake, alert, oriented times three. No focal deficit. LYMPHATIC: No lymph nodes palpable. SKIN: Intact. LABS: WBC 11.21, hgb 12.1, hct 39.8, plt count 197, sodium 139, potassium 4.2, chloride 95, bicarb 35, BUN 16, creatinine 0.52 and glucose 109. ASSESSMENT: 1. COPD exacerbation secondary to the bibasilar pneumonia, persistent 2. Hypoxemic respiratory failure 3. Hypercapnia 4. COPD oxygen dependant PLAN: 1. Continue the Rocephin 2. DUO NEBS 3. Solu-Medrol 125 Q 8 hours 4. Daily I&O's 5. Continue the physical therapy and occupational therapy TIME SPENT: More than 25 minutes MTDD
--- NOTE | 2017-09-01 16:37 | DI ---
Exam: Three x-rays of the chest. Comparison: CT chest performed 08/24/2017. Reason for exam: Wheezing, shortness of breath. FINDINGS: Parenchymal changes are seen consistent with chronic lung disease. There is flattening of both hemidiaphragms with patchy airspace opacities in the lung bases. There ar e patchy airspace opacities in the left hilar region. Impression: 1. Patchy airspace opacities in the lung bases and left hilar region. Imaging findings are consisten t with atelectasis/pneumonia and appear improved when compared to the CT examination performed on . 2. Parenchymal changes consistent with chronic lung disease with flattening of the hemidiaphragms.
[2017-09-01] MEDS: PRAVACHOL PO SCH (20:45)
[2017-09-02] MEDS: SOLU-MEDROL 125 MG IVP SCH ×3 (04:33→20:54)
[2017-09-02] MEDS: PULMICORT 0.25 MG/2 ML NEB SCH ×2 (05:00→16:52)
[2017-09-02] MEDS: DUONEB NEB SCH ×4 (05:00→23:05)
[2017-09-02] MEDS: ROCEPHIN 1 GM in SODIUM CHLORIDE 50 ML IV SCH (09:09)
[2017-09-02] MEDS: SYMBICORT 160-4.5 MCG INHALER IH SCH ×2 (09:09→20:54)
[2017-09-02] MEDS: FLONASE NAS SCH (09:10)
[2017-09-02] MEDS: ASPIRIN CHEWABLE PO SCH (09:10)
[2017-09-02] MEDS: VITAMIN D PO SCH (09:10)
[2017-09-02] MEDS: MUCOMYST 20% NEB NEB SCH ×2 (11:05→23:05)
[2017-09-02] MEDS: PRAVACHOL PO SCH (20:54)
[2017-09-03] MEDS: SOLU-MEDROL 125 MG IVP SCH ×3 (04:25→20:34)
[2017-09-03] MEDS: DUONEB NEB SCH ×4 (05:12→23:00)
[2017-09-03] MEDS: PULMICORT 0.25 MG/2 ML NEB SCH ×2 (05:12→16:55)
[2017-09-03] MEDS: ASPIRIN CHEWABLE PO SCH (10:08)
[2017-09-03] MEDS: SYMBICORT 160-4.5 MCG INHALER IH SCH ×2 (10:08→20:33)
[2017-09-03] MEDS: FLONASE NAS SCH (10:08)
[2017-09-03] MEDS: VITAMIN D PO SCH (10:09)
[2017-09-03] MEDS: KEFLEX PO SCH ×2 (10:09→20:35)
[2017-09-03] MEDS: MUCOMYST 20% NEB NEB SCH ×2 (11:18→23:00)
--- NOTE | 2017-09-03 13:13 | PN ---
DATE OF SERVICE: 09/01/17 SUBJECTIVE: The patient was admitted with bilateral pneumonia, acute respiratory failure. The patient is getting physical therapy. The patient says that he is feeling better. REVIEW OF SYSTEMS: CONSTITUTIONAL: No fever, no chills. HEENT: Normal. ENDOCRINE: No weight gain, no weight loss. CVS: No angina symptoms. No CHF symptoms. No palpitations. No atypical chest pain for CAD. Shortness of breath with minimal exertion. No PND, no orthopnea. RESPIRATORY: Cough, no hemoptysis. GI: No nausea, no vomiting. No abdominal pain. : No hematuria. No polyuria. MUSCULOSKELETAL: No joint swelling. PSYCHIATRIC: Not anxious. No depression. No suicidal thoughts. No homicidal thoughts. SKIN: Intact. No rash. PHYSICAL EXAMINATION: V/S: Blood pressure 123/76, respiratory rate 32, heart rate 82 and temperature 98.9 with saturation 99%. GENERAL: Cachetic man laying in a bed and not in any distress. HEENT: Normocephalic, atraumatic. Mucosa dry. Pallor positive. No icterus. NECK: Supple. No JVD, no carotid bruit. No lymphadenopathy. LUNGS: Bibasilar decreased entry. Basilar crackles. No rales or rhonchi. HEART: S1, S2 normal. No S3. No murmur, gallop or regurgitation. ABDOMEN: Soft, nontender. Bowel sounds active. No rigidity. No rebound or guarding. No CVA tenderness. EXTREMITIES: No cyanosis, clubbing or pedal edema. MUSCULOSKELETAL: No joint swelling. NEUROLOGIC: Awake, alert, oriented times three. No focal deficit. LYMPHATIC: No lymph nodes palpable. SKIN: Intact. LABS: WBC 11.21, hgb 12.4, hct 39.8, plt count 197, Sodium 139, potassium 4.2, chloride 95, bicarb 35, BUN 16, creatinine 0.52 and glucose 109. ASSESSMENT: 1. Bibasilar pneumonia 2. Hypoxemic respiratory failure 3. Hypercapnia 4. Weakness 5. Hypertension PLAN: 1. Continue Rocephin 2. Solu-Medrol 125mg Q 8 hours 3. Physical Therapy continued, please 4. Out of bed to chair activity as tolerated. TIME SPENT: More than 35 minutes MTDD
--- NOTE | 2017-09-03 13:24 | PN ---
DATE OF SERVICE: 09/02/17 SUBJECTIVE: The patient is up and about and was able to walk in the room without help and has some shortness of breath. The patient's is in the room and very happy with the patient's stay and outcome so far. REVIEW OF SYSTEMS: CONSTITUTIONAL: No fever, no chills. HEENT: Normal. ENDOCRINE: No weight gain, no weight loss. CVS: No angina symptoms. No CHF symptoms. No palpitations. No atypical chest pain for CAD. Some shortness of breath. No PND, no orthopnea. RESPIRATORY: Some cough, no hemoptysis. GI: No nausea, no vomiting. No abdominal pain. : No hematuria. No polyuria. MUSCULOSKELETAL: No joint swelling. PSYCHIATRIC: Not anxious. No depression. No suicidal thoughts. No homicidal thoughts. SKIN: Intact. No rash. PHYSICAL EXAMINATION: V/S: Blood pressure 122/73, respiratory rate 17, heart rate 114, temperature 98.5 with saturation 92% on 2 liters. GENERAL: Cachetic man laying in the bed, not in any distress. HEENT: Normocephalic, atraumatic. Mucosa dry. NECK: Supple. No JVD, no carotid bruit. No lymphadenopathy. LUNGS: Basilar crackles. Clear to auscultation. No rales or rhonchi. HEART: S1, S2 normal. No S3. No murmur, gallop or regurgitation. ABDOMEN: Soft, nontender. Bowel sounds active. No rigidity. No rebound or guarding. No CVA tenderness. EXTREMITIES: No cyanosis, clubbing or pedal edema. MUSCULOSKELETAL: No joint swelling. NEUROLOGIC: Awake, alert, oriented times three. No focal deficit. LYMPHATIC: No lymph nodes palpable. SKIN: Intact. LABS: WBC 11.53, hgb 13.4, hct 42.3, plt count 206, sodium 139, potassium 4.7, chloride 93, bicarb 38, BUN 17, creatinine 0.58 and glucose 94. ASSESSMENT: 1. Status post bibasilar pneumonia 2. Status post hypoxemic respiratory failure 3. Hypercapnia 4. Weakness and Debility 5. Hypertension 6. Needing physical therapy PLAN: 1. Continue the Rocephin 2. Reduce the Solu-Medrol 80 Q 8 hours 3. Out of bed to chair activity as tolerated 4. Gradually wean the patient off of the Solu-Medrol before the discharge 5. As of now no signs of weakness or myopathy from the Solu-Medrol TIME SPENT: More than 35 minutes MTDD
--- NOTE | 2017-09-03 13:31 | PN ---
DATE OF SERVICE: 08/27/17 SUBJECTIVE: The patient was admitted with the pneumonia, COPD exacerbation and needing the physical therapy. The patient was able to walk a little bit in the room with minimal exertion desaturated and shortness of breath. REVIEW OF SYSTEMS: CONSTITUTIONAL: No fever, no chills. HEENT: Normal. ENDOCRINE: No weight gain, no weight loss. CVS: No angina symptoms. No CHF symptoms. No palpitations. No atypical chest pain for CAD. Shortness of breath. No PND, no orthopnea. RESPIRATORY: Cough, no hemoptysis. GI: No nausea, no vomiting. No abdominal pain. : No hematuria. No polyuria. MUSCULOSKELETAL: No joint swelling. PSYCHIATRIC: Not anxious. No depression. No suicidal thoughts. No homicidal thoughts. SKIN: Intact. No rash. PHYSICAL EXAMINATION: V/S: Blood pressure 114/74, respiratory rate 18, hear rate 89 and temperature 97.9 with saturation 94 on 2 liters. HEENT: Normocephalic, atraumatic. Mucosa dry. Pallor positive. No icterus. NECK: Supple. No JVD, no carotid bruit. No lymphadenopathy. LUNGS: Decreased and basilar crackles. Clear to auscultation. No rales or rhonchi. HEART: S1, S2 normal. No S3. No murmur, gallop or regurgitation. ABDOMEN: Soft, nontender. Bowel sounds active. No rigidity. No rebound or guarding. No CVA tenderness. EXTREMITIES: No cyanosis, clubbing or pedal edema. MUSCULOSKELETAL: No joint swelling. NEUROLOGIC: Awake, alert, oriented times three. No focal deficit. LYMPHATIC: No lymph nodes palpable. SKIN: Intact. LABS: WBC 7.92, hgb 13.8, hct 43.8, plt count 228, sodium 140, potassium 4.1, Chloride 92, bicarb 39, BUN 16, creatinine 0.59 and glucose 112. ASSESSMENT: 1. COPD exacerbation secondary to the bibasilar pneumonia 2. Hypoxemic respiratory failure 3. Chronic hypercapnia 4. COPD oxygen dependant 5. Hypertension PLAN: 1. Continue physical therapy and occupation therapy 2. DUO NEBS 3. I&O's 4. Cefepime TIME SPENT: More than 35 minutes MTDD
--- NOTE | 2017-09-03 13:38 | PN ---
DATE OF SERVICE: 08/28/17 SUBJECTIVE: The patient is doing the physical therapy and getting somewhat better but using the CPAP at night time. REVIEW OF SYSTEMS: CONSTITUTIONAL: No fever, no chills. HEENT: Normal. ENDOCRINE: No weight gain, no weight loss. CVS: No angina symptoms. No CHF symptoms. No palpitations. No atypical chest pain for CAD. No shortness of breath. No PND, no orthopnea. RESPIRATORY: Cough and congestion, no hemoptysis. GI: No nausea, no vomiting. No abdominal pain. : No hematuria. No polyuria. MUSCULOSKELETAL: No joint swelling. PSYCHIATRIC: Not anxious. No depression. No suicidal thoughts. No homicidal thoughts. SKIN: Intact. No rash. PHYSICAL EXAMINATION: V/S: Blood pressure 142/74, respiratory rate 20, heart rate 84 and temperature 97.2 with saturation 95% on 3 liters. HEENT: Normocephalic, atraumatic. Mucosa dry. Pallor positive. No icterus. NECK: Supple. No JVD, no carotid bruit. No lymphadenopathy. LUNGS: Decreased and basilar crackles. Clear to auscultation. No rales or rhonchi. HEART: S1, S2 normal. No S3. No murmur, gallop or regurgitation. ABDOMEN: Soft, nontender. Bowel sounds active. No rigidity. No rebound or guarding. No CVA tenderness. EXTREMITIES: No cyanosis, clubbing or pedal edema. MUSCULOSKELETAL: No joint swelling. NEUROLOGIC: Awake, alert, oriented times three. No focal deficit. LYMPHATIC: No lymph nodes palpable. SKIN: Intact. LABS: Sodium 140, potassium 4.1, chloride 92, bicarb 39, BUN 16, creatinine 0.59, WBC 7.92, hgb 13.8, hct 43.8, plt count 228. ASSESSMENT: 1. Hypoxemic respiratory failure 2. Bibasilar pneumonia 3. Weakness and needing physical therapy 4. Hypertension 5. Dyslipidemia PLAN: 1. Continue Cefepime 2. DUO NEBS 3. Solu-Medrol 4. Daily I&O's 5. Continue physical therapy. TIME SPENT: More than 25 minutes MTDD
--- NOTE | 2017-09-03 14:45 | PN ---
DATE OF SERVICE: 08/29/17 SUBJECTIVE: The patient is sitting in the bed and not in any distress. The patient was able to go to the bathroom, has some shortness of breath. REVIEW OF SYSTEMS: CONSTITUTIONAL: No fever, no chills. HEENT: Normal. ENDOCRINE: No weight gain, no weight loss. CVS: No angina symptoms. No CHF symptoms. No palpitations. No atypical chest pain for CAD. Some shortness of breath. No PND, no orthopnea. RESPIRATORY: No cough, no hemoptysis. GI: No nausea, no vomiting. No abdominal pain. : No hematuria. No polyuria. MUSCULOSKELETAL: No joint swelling. PSYCHIATRIC: Not anxious. No depression. No suicidal thoughts. No homicidal thoughts. SKIN: Intact. No rash. PHYSICAL EXAMINATION: V/S: Blood pressure 130/84, respiratory rate 20, heart rate 82, temperature 97.9 with saturation 96% on 2 liters. HEENT: Normocephalic, atraumatic. Mucosa dry. Pallor positive. No icterus. NECK: Supple. No JVD, no carotid bruit. No lymphadenopathy. LUNGS: Decreased and basilar crackles. Clear to auscultation. No rales or rhonchi. HEART: S1, S2 normal. No S3. No murmur, gallop or regurgitation. ABDOMEN: Soft, nontender. Bowel sounds active. No rigidity. No rebound or guarding. No CVA tenderness. EXTREMITIES: No cyanosis, clubbing or pedal edema. MUSCULOSKELETAL: No joint swelling. NEUROLOGIC: Awake, alert, oriented times three. No focal deficit. LYMPHATIC: No lymph nodes palpable. SKIN: Intact. LABS: Sodium 140, potassium 4.1, chloride 92, bicarb 39, BUN 16, creatinine 0.59, WBC 7.92, hgb 12.8, hct 43.8, plt count 288. ASSESSMENT: 1. Hypoxemic respiratory failure 2. Bibasilar pneumonia 3. Weakness and needing physical therapy 4. Hypertension 5. Dyslipidemia PLAN: 1. Continue Cefepime 2. DUO NEBS 3. Solu-Medrol 4. Daily I&O's 5. Continue physical therapy TIME SPENT: More than 35 minutes MTDD
[2017-09-03] MEDS ORDERED: PRAVACHOL ONE (20:24)
[2017-09-03] MEDS: PRAVACHOL PO SCH (20:35)
[2017-09-04] MEDS: PULMICORT 0.25 MG/2 ML NEB SCH (05:13)
[2017-09-04] MEDS: DUONEB NEB SCH ×2 (05:13→11:09)
[2017-09-04 05:21] VITALS: BP 128/91; TEMP 98.7
[2017-09-04] MEDS: SOLU-MEDROL 125 MG IVP SCH (05:23)
[2017-09-04] MEDS: ASPIRIN CHEWABLE PO SCH (08:50)
[2017-09-04] MEDS: KEFLEX PO SCH (08:51)
[2017-09-04] MEDS: SYMBICORT 160-4.5 MCG INHALER IH SCH (08:51)
[2017-09-04] MEDS: FLONASE NAS SCH (08:51)
[2017-09-04] MEDS: VITAMIN D PO SCH (08:51)
[2017-09-04] MEDS: MUCOMYST 20% NEB NEB SCH (11:09)
--- NOTE | 2017-10-01 14:09 | PN ---
DATE OF SERVICE: 08/30/17 SUBJECTIVE: The patient is sitting in bed, not in any distress. He was using the CPAP at nighttime which is helping him. Saturations are improving with CPAP. He still has cough and congestion. Shortness of breath on minimal exertion. REVIEW OF SYSTEMS: CONSTITUTIONAL: Fatigue and weakness. No fever, no chills. HEENT: Normal. ENDOCRINE: No weight gain, no weight loss. CVS: No angina symptoms. No CHF symptoms. No palpitations. No atypical chest pain for CAD. Shortness of breath on minimal exertion. No PND, no orthopnea. RESPIRATORY: No cough, no hemoptysis. GI: No nausea, no vomiting. No abdominal pain. : No hematuria. No polyuria. MUSCULOSKELETAL: No joint swelling. PSYCHIATRIC: Not anxious. No depression. No suicidal thoughts. No homicidal thoughts. SKIN: Intact. No rash. PHYSICAL EXAMINATION: V/S: BP 144/93, respiratory rate 18, heart rate 85, temperature 98.1, saturation 91 on 2.5L. HEENT: Normocephalic, atraumatic. Mucosa dry. Pallor positive. NECK: Supple. No JVD, no carotid bruit. No lymphadenopathy. LUNGS: Distantly heard crackles. HEART: S1, S2 normal. No S3. No murmur, gallop or regurgitation. ABDOMEN: Soft, nontender. Bowel sounds active. No rigidity. No rebound or guarding. No CVA tenderness. EXTREMITIES: No cyanosis, clubbing or pedal edema. MUSCULOSKELETAL: No joint swelling. NEUROLOGIC: Awake, alert, oriented times three. No focal deficit. LYMPHATIC: No lymph nodes palpable. SKIN: Intact. LABS: Sodium 139, potassium 4.2, chloride 95, bicarb 35, BUN 16, creatinine 0.52, glucose 109. White count 11.21, hemoglobin 12.4, hematocrit 39.8, platelet count 197. ASSESSMENT: 1. HYPOXEMIC RESPIRATORY FAILURE 2. BIBASILAR PNEUMONIA 3. WEAKNESS 4. DEBILITY NEEDING PHYSICAL THERAPY 5. HYPERTENSION 6. DYSLIPIDEMIA PLAN: 1. Continue Duonebs, Solu-Medrol 125 mg q.8hr 2. Pravastatin 3. Rocephin/Ceftriaxone daily 4. Daily I & O's 5. Up and about 6. Will follow the patient in daily rounds TIME SPENT: More than 35 minutes today MTDD
--- NOTE | 2017-10-01 14:21 | PN ---
DATE OF SERVICE: 09/03/17 SUBJECTIVE: The patient is admitted with bilateral pneumonia, hypoxemic respiratory failure. The patient has been having physical therapy for weakness and tiredness. Cough and congestion is better. No fever, no chills. No PND, no orthopnea. Discharge medications and vitals reviewed. REVIEW OF SYSTEMS: [ CONSTITUTIONAL: Weakness, tiredness. No fever, no chills. HEENT: Normal. ENDOCRINE: No weight gain, no weight loss. CVS: No angina symptoms. No CHF symptoms. No palpitations. No atypical chest pain for CAD. No shortness of breath. No PND, no orthopnea. RESPIRATORY: Cough and congestion better. No hemoptysis. GI: No nausea, no vomiting. No abdominal pain. : No hematuria. No polyuria. MUSCULOSKELETAL: No joint swelling. PSYCHIATRIC: Not anxious. No depression. No suicidal thoughts. No homicidal thoughts. SKIN: Intact. No rash. PHYSICAL EXAMINATION: V/S: BP 128/91, respiratory rate 20, heart rate 101, temperature 98.7, saturation 100%. HEENT: Normocephalic, atraumatic. Cachetic man lying in bed, not in any distress. NECK: Supple. No JVD, no carotid bruit. No lymphadenopathy. LUNGS: Decreased entry with basilar crackles. Clear to auscultation. No rales or rhonchi. HEART: S1, S2 normal. No S3. No murmur, gallop or regurgitation. ABDOMEN: Soft, nontender. Bowel sounds active. No rigidity. No rebound or guarding. No CVA tenderness. EXTREMITIES: No cyanosis, clubbing or pedal edema. MUSCULOSKELETAL: No joint swelling. NEUROLOGIC: Awake, alert, oriented times three. No focal deficit. LYMPHATIC: No lymph nodes palpable. SKIN: Intact. LABS: White count 11.53, hemoglobin 13.4, hematocrit 42.3, platelet count 206. Sodium 139, potassium 4.7, chloride 90, bicarb 38, BUN 17, creatinine 0.58, glucose 94. ASSESSMENT: 1. BIBASILAR PNEUMONIA 2. HYPOXEMIC RESPIRATORY FAILURE 3. HYPERCAPNIA 4. WEAKNESS, TIREDNESS, DEBILITY FROM THE COPD 5. HYPERTENSION PLAN: 1. Will continue Physical Tnerapy 2. Tapering dose of steroids 3. Keflex p.o. antibiotic 4. Out of bed to chair 5. Activity as tolerated TIME SPENT: More than 35 minutes MTDD
--- NOTE | 2017-10-01 14:35 | DS ---
DATE OF SERVICE: 09/04/17 FINAL DIAGNOSIS: 1. BILATERAL BASILAR PNEUMONIAS 2. SPUTUM POSITIVE FOR SERRATIA MARCESENS 3. COPD 4. WEAKNESS AND DEBILITY 5. CORONARY ARTERY DISEASE 6. CHF BY HISTORY 7. HYPERTENSION 8. PULMONARY HYPERTENSION 9. DYSLIPIDEMIA 10. GERD DISCHARGE INSTRUCTIONS: Followup appointment to see Dr. Garcia on 09/10/17 at 1 p.m. MEDICATIONS AT DISCHARGE: Albuterol Symbicort Vitamin D3 Duonebs Pravastatin Aspirin Prednisone NEW PRESCRIPTIONS: Prednisone 20 mg take three tabs 60 mg by mouth three times daily with food for three days then take two tabs 40 mg by mouth three times daily with food for three days then take one tablet 20 mg by mouth three times daily with food for three days then take one-half tab 10 mg by mouth twice daily with food for two days then stop. DIET INSTRUCTIONS: Cardiac and healthy. ACTIVITY: Get plenty of rest at home. Gradually increase your activity according to your toleration. DISEASE SPECIFIC EDUCATION: COPD, pneumonia vaccination, long-term use of steroids, adrenal insufficiency, osteoporosis and cataracts discussed. The patient verbalized understanding. HOSPITAL COURSE: This is a 67-year-old male who initially came to the hospital with COPD exacerbation, bibasilar pneumonia, hypoxemic respiratory failure. The patient was initially admitted to acute care, started on IV antibiotics, breathing treatments, sputum grew Serratia Marcescens. Hypoxemia gradually increased and went into hypercapnia. CPAP was helping. Meanwhile the patient was weak, tired needing physical and occupational therapy so the patient was put in Transitional Care, antibiotic with Rocephin continued and Serratia Marcescens was covered with that. Steroids were continued. Gradually, the patient started regaining strength, up and about walking. The patient was doing well, did not have any complications, the patient was discharged home today. SPECIFIC ORDERS: 1. Continue using home oxygen which is helping the patient TIME SPENT: MORE THAN 60 MINUTES MTDD
== END 2017-09-04 11:30 | disposition home or self-care (01) | DRG 193 ==
LOC: SCU 10:40 → MEDSURG B 08-31 11:24
PROVIDERS: ADMIT Emergency Medicine; ATTEND Emergency Medicine
DX: J18.9 Pneumonia, unspecified organism (principal); J96.21 Acute and chronic respiratory failure with hypoxia; J44.1 Chronic obstructive pulmonary disease with (acute) exacerbation; R53.81 Other malaise; R53.1 Weakness; I25.10 Atherosclerotic heart disease of native coronary artery without angina pectoris; I50.9 Heart failure, unspecified; I10 Essential (primary) hypertension; I27.20 Pulmonary hypertension, unspecified; E78.5 Hyperlipidemia, unspecified; K21.9 Gastro-esophageal reflux disease without esophagitis; Z79.2 Long term (current) use of antibiotics; Z79.899 Other long term (current) drug therapy
CPT/HCPCS: 36415; 80053; 85025; 94640; 97802

== ENCOUNTER 2017-10-04 16:21 | Inpatient (IN) | payer OTHER ==
[2017-10-04] MEDS ORDERED: DUONEB NEB ONE (16:30)
[2017-10-04] MEDS ORDERED: SOLU-MEDROL 125 MG IVP STA (16:34)
[2017-10-04] MEDS ORDERED: ROCEPHIN 1 GM in SODIUM CHLORIDE 50 ML IV STA (16:34)
[2017-10-04] MEDS ORDERED: DUONEB NEB STA (16:34)
[2017-10-04] MEDS ORDERED: ROCEPHIN ONE (16:47)
--- NOTE | 2017-10-04 17:38 | CT ---
EXAM: CT scan thorax without contrast HISTORY: Dyspnea COMPARISON: CT scan thorax 08/24/2017 FINDINGS: Contiguous axial images obtained through the thorax without contrast utilizing 5-mm collim ation. Sagittal and coronal reconstructions were imaged to and reviewed.. The thoracic inlet is unr emarkable. There are subcentimeter middle mediastinal lymph nodes. The heart is normal in size with coronary artery calcification. The ascending aorta is ectatic measuring 3.4 cm. There are moderate emphysematous changes. There are bilateral pleural effusions measuring 3.9 AP dimension on the rig ht and 3.5 the AP dimension of the left with adjacent atelectasis and/or pneumonia.. There is mild a telectasis or infiltrate posteriorly both upper lobes adjacent to the fissure left greater than right . Scattered ground-glass opacity is noted bilaterally.. Chronic wedge compression deformities are s een in the mid dorsal spine with resultant kyphosis. IMPRESSION: Bilateral pleural effusions with adjacent atelectasis and/or pneumonia. Emphysematous changes with ground-glass opacity.. Normal-sized cardiac silhouette with mild coronary artery calcification.
--- NOTE | 2017-10-04 17:53 | ED.PDOC ---
General ED Provider: Dr. ADDI GRIFFIN-ER Chief Complaint: Shortness of Air Stated Complaint: im sob Time Seen by Physician: 17:52 Mode of Arrival: Ambulance Information Source: Patient, EMT Exam Limitations: No limitations Primary Care Provider: ISABELLA BERRY Seen Within Last 72 Hours for Same Complaint By: ED Nursing and Triage Documentation Reviewed and Agree: Yes Reviewed sepsis parameters & appropriate labs ordered?: Yes System Inflammatory Response Syndrome: Not Applicable Sepsis Protocol: For patient's 13 years and over: Temp is 96.8 and below OR 101 and greater Pulse >90 BPM Resp >20/minute Acutely Altered Mental Status Are patient's symptoms suggestive of a new infection, such as: -Pneumonia -Skin, Soft Tissue -Endocarditis -UTI -Bone, Joint Infection -Implantable Device -Acute Abdominal Infection -Wound Infection -Meningitis -Blood Stream Catheter Infection -Unknown Respiratory Complaint Exam - Shortness of Air Complaint/Exam Onset/Duration: 2 days Symptoms Are: Still present Initial Severity: Mild Current Severity: Moderate Character: Reports: Dyspnea at rest Aggravating: Reports: None Alleviating: Reports: EMS treatment, Oxygen Associated Signs and Symptoms: Reports: Rapid breathing, Labored breathing History of Healthcare-Acquired Pneumonia: No Pulmonary Embolism Risk Factors: Reports: None Cardiac Risk Factors: Reports: Hypertension Pseudomonas Risk Factors: Reports: Chronic Lung Disease Tuberculosis Risk Factors: Reports: Chronic Resp. Faliure Home Oxygen Use: Yes Recent Stress Test: No Recent Echo/LV Function: No Respiratory Distress: Moderate Stridor Present: No Tracheal Deviation: No Subcutaneous Emphysema: No Accessory Muscle Use: No Retractions: Not Present Diminished Breath Sounds: No Prolonged Expiratory Phase: No Unable to Speak Full Sentences: Yes Fatigue: Yes Leg Swelling: No Angela's Sign Present: No Grunting Respirations: No Kussmaul Respirations: No Differential Diagnoses: COPD Exacerbation Quality Indicator For Non-Traumatic Chest Pain/Syncope: EKG Performed Review of Systems - Review Of Systems Constitutional: Reports: No symptoms Eyes: Reports: No symptoms Ears, Nose, Mouth, Throat: Reports: No symptoms Respiratory: Reports: Cough, Short of air Cardiac: Reports: No symptoms GI: Reports: No symptoms : Reports: No symptoms Musculoskeletal: Reports: No symptoms Skin: Reports: No symptoms Neurological: Reports: No symptoms Endocrine: Reports: No symptoms Hematologic/Lymphatic: Reports: No symptoms Past Medical History - Past Medical History Previously Healthy: No Endocrine: Reports: None Cardiovascular: Reports: Hypertension Respiratory: Reports: COPD, Asthma Hematological: Reports: None Gastrointestinal: Reports: None Genitourinary: Reports: None Neuro/Psych: Reports: None Musculoskeletal: Reports: None Cancer: Reports: None Other Pertinent Past Medical History: flu shot Sep 25 has several friends also not feeling well after shot - Surgical History General Surgical History: Reports: Tonsillectomy - Family History Family History: Reports: Unknown - Social History Smoking Status: Never smoker Hx Substance Use: No Alcohol Screening: None Lives: With family - Immunizations Tetanus Shot up to Date: Yes Physical Exam - Physical Exam Appearance: Well-appearing, No pain distress, Well-nourished Eyes: BRITANY ENT: Ears normal, Nose normal, Oropharynx normal Neck: Supple Respiratory: Rhonchi, Wheezes Cardiovascular: RRR GI/: Soft Musculoskeletal: Normal strength, ROM intact, No edema, No calf tenderness Skin: Warm, Dry, Normal color Neurological: Sensation intact Psychiatric: Affect appropriate Interpretation - Radiology Interpretation Radiology Interpretation By: Radiologist Radiology Results: Positive Exam Interpreted: CT Scan - EKG Interpretation Time of EKG #1: 17:54 Rate: Tachy Rhythm: Other Ectopy: None Pall [place]: NL ST Segment: Normal Interpretation: afib Re-Evaluation - Re-Evaluation Time of Re-Evaluation: 18:23 Status: Improved Vital Signs Stable: Yes Pain Level: 0 Appearance: NAD Lungs: Clear Skin: Warm and Dry Neuro: Alert and Oriented X3 CV: RRR Physician Notification - Case Discussed Physician Notified: dr roldan Time of Notification: 18:23 Critical Care Note - Critical Care Note Total Time (mins): 30 Course - Course Hematology/Chemistry: 10/04/17 16:48 10/04/17 16:48 Orders, Labs, Meds: Lab Review 10/04/17 10/04/17 10/04/17 16:31 16:48 16:48 WBC 11.00 H RBC 3.99 L Hgb 11.2 L Hct 38.4 L MCV 96.2 H MCH 28.1 MCHC 29.2 L RDW Coeff of Khai 16.2 H Plt Count 330 Immature Gran % (Auto) 6.7 H Neut % (Auto) 71.6 Lymph % (Auto) 14.5 Haakon % (Auto) 6.7 Eos % (Auto) 0.0 Baso % (Auto) 0.5 Immature Gran # (Auto) 0.7 Neut # (Auto) 7.9 H Lymph # (Auto) 1.6 Haakon # (Auto) 0.7 Eos # (Auto) 0.0 Baso # (Auto) 0.1 Hypochromasia 2+ Anisocytosis Not present Microcytosis 1+ Puncture Site Lrad O2 Saturation 98.0 ABG pH 7.296 L* ABG pCO2 108.8 H ABG pO2 136.0 H ABG HCO3 53.0 H ABG Total CO2 50 H ABG Base Excess 27 H Nader Test + O2 Delivery Device Nrb Oxygen Liter Flow 15.00 FiO2 % 100.0 Sodium 145 Potassium 4.7 Chloride 91 L Carbon Dioxide 49 H* Anion Gap 9.7 BUN 20 H Creatinine 0.60 Estimated GFR (MDRD) 134.00 BUN/Creatinine Ratio 33.33 Glucose 107 Calcium 9.2 Total Bilirubin 0.4 AST 17 ALT 21 Alkaline Phosphatase 71 Total Creatine Kinase 9 Troponin I 0.0230 B-Natriuretic Peptide Total Protein 6.2 Albumin 2.1 L Globulin 4.1 Albumin/Globulin Ratio 0.51 10/04/17 10/04/17 16:48 17:43 WBC RBC Hgb Hct MCV MCH MCHC RDW Coeff of Khai Plt Count Immature Gran % (Auto) Neut % (Auto) Lymph % (Auto) Haakon % (Auto) Eos % (Auto) Baso % (Auto) Immature Gran # (Auto) Neut # (Auto) Lymph # (Auto) Haakon # (Auto) Eos # (Auto) Baso # (Auto) Hypochromasia Anisocytosis Microcytosis Puncture Site Lbrach O2 Saturation 81.0 L ABG pH 7.415 ABG pCO2 80.1 H ABG pO2 48.0 L* ABG HCO3 51.3 H ABG Total CO2 50 H ABG Base Excess 27 H Nader Test O2 Delivery Device Bipap Oxygen Liter Flow FiO2 % 35.0 Sodium Potassium Chloride Carbon Dioxide Anion Gap BUN Creatinine Estimated GFR (MDRD) BUN/Creatinine Ratio Glucose Calcium Total Bilirubin AST ALT Alkaline Phosphatase Total Creatine Kinase Troponin I B-Natriuretic Peptide 1072 H Total Protein Albumin Globulin Albumin/Globulin Ratio Orders Category Date Time Status ABG DRAW REQUEST Stat CARDIO 10/04/17 16:32 Completed BIPAP Routine CARDIO 10/04/17 16:33 Active EKG-(ED ONLY) Stat CARDIO 10/04/17 16:31 Completed NEBULIZER TREATMENT Stat CARDIO 10/04/17 16:34 Completed Microfilmer [ED IRONWORKER APPRENTICE APPLIED] .ONCE EMERGENCY 10/04/17 16:33 Active IV [ED IV/MEDIPORT/POWERPORT] .ONCE EMERGENCY 10/04/17 16:33 Active ABG Stat LAB 10/04/17 16:31 Completed ARTERIAL BLOOD GAS [ABG] Stat LAB 10/04/17 17:43 Completed B-TYPE NATRIURETIC PEPTIDE Stat LAB 10/04/17 16:48 Completed BLOOD CULTURE (ED ONLY) Stat LAB 10/04/17 16:48 Received CBC W/ AUTO DIFF Stat LAB 10/04/17 16:48 Completed COMPREHENSIVE METABOLIC PANEL Stat LAB 10/04/17 16:48 Completed CREATINE KINASE Stat LAB 10/04/17 16:48 Completed RBC MORPHOLOGY Stat LAB 10/04/17 16:48 Completed TROPONIN I Stat LAB 10/04/17 16:48 Completed 0.9 % Sodium Chloride [Saline Flush] MEDS 10/04/17 16:33 Ordered 1 syr IVF PRN PRN Ceftriaxone Sodium [Rocephin] MEDS 10/04/17 16:47 Discontinued 1 gm .ROUTE .STK-MED ONE Ceftriaxone Sodium [Rocephin] 1 gm MEDS 10/04/17 16:34 Discontinued 0.9 % Sodium Chloride [Sodium Chloride] 50 ml IV ONCE Ipratropium/Albuterol Neb [Duoneb] MEDS 10/04/17 16:30 Discontinued 1 vial NEB .STK-MED ONE Ipratropium/Albuterol Neb [Duoneb] MEDS 10/04/17 16:34 Discontinued 1 vial NEB ONCE STA Methylprednisolone Sod Succ/Pf [Solu-Medrol 125 mg] MEDS 10/04/17 16:34 Discontinued 125 [address] IVP ONCE [address] CHEST W/O CONTRAST Stat RADS 10/04/17 17:05 Completed Medications Generic Name Dose Route Start Last Admin Trade Name Freq PRN Reason Stop Dose Admin Sodium Chloride 1 syr 10/04/17 16:33 Saline Flush IVF PRN PRN To flush IV Discontinued Medications Generic Name Dose Route Start Last Admin Trade Name Freq PRN Reason Stop Dose Admin Albuterol/Ipratropium 1 vial 10/04/17 16:34 10/04/17 16:30 Duoneb NEB 10/04/17 16:35 1 vial ONCE STA Administration Ceftriaxone Sodium 1 gm/ 50 mls @ 75 mls/hr 10/04/17 16:34 10/04/17 16:57 Sodium Chloride IV 10/04/17 17:13 75 mls/hr ONCE STA Administration Methylprednisolone Sodium Succinate 125 mg 10/04/17 16:34 10/04/17 16:51 Solu-Medrol 125 Mg IVP 10/04/17 16:35 125 mg ONCE STA Administration Vital Signs: Temp Pulse Resp BP Pulse Ox 10/04/17 16:40 98 10/04/17 16:23 98.1 F 126 H 22 135/101 H 97 Departure - Departure Time of Disposition: 18:23 Disposition: ADMITTED INPATIENT Discharge Problem: Acute respiratory failure with hypercapnia, COPD exacerbation Condition: Stable Pt referred to PMD for follow-up: Yes IPMP verified?: No Allergies/Adverse Reactions: Allergies tiotropium bromide [From Spiriva with [employer]] Allergy (Mild, Verified 16:31) rash Home Medications: Ambulatory Orders Aspirin 81 mg PO d 10/19/13 Prednisone 20 mg PO DIRECTED #56 tablet 09/04/17 Disposition Discussed With: Patient, Family
[2017-10-04] MEDS ORDERED: XOPENEX 0.63 MG NEB STA (18:28)
[2017-10-04] MEDS ORDERED: LASIX TAB PO SCH (19:00)
[2017-10-04 20:00] VITALS: BMI 19.4
[2017-10-04] MEDS ORDERED: SOLU-MEDROL 40 MG IVP SCH (21:00)
[2017-10-04] MEDS ORDERED: PRAVACHOL ONE (22:06)
[2017-10-04] MEDS: DOXY-100 100 MG in SODIUM CHLORIDE 100 ML IV SCH (22:10)
[2017-10-04] MEDS: PRAVACHOL PO SCH (22:11)
[2017-10-04] MEDS: XOPENEX 0.63 MG NEB SCH (23:16)
[2017-10-04] MEDS: ATROVENT 0.02% NEB NEB SCH (23:25)
[2017-10-05] MEDS: ATROVENT 0.02% NEB NEB SCH ×4 (05:15→23:20)
[2017-10-05] MEDS: XOPENEX 0.63 MG NEB SCH ×4 (05:15→23:20)
[2017-10-05] MEDS ORDERED: SOLU-MEDROL 40 MG IVP SCH (08:26)
[2017-10-05] MEDS ORDERED: NON-FORMULARY MEDICATION (Cholecalciferol (Vitamin D3) [Vitamin D3] 1,000 UNIT) PO SCH (09:00)
[2017-10-05] MEDS: VITAMIN D PO SCH (09:13)
[2017-10-05] MEDS: LASIX TAB PO SCH (09:13)
[2017-10-05] MEDS: ASPIRIN CHEWABLE PO SCH ×2 (09:13→09:15)
[2017-10-05] MEDS: LOVENOX SUBCUT SCH (09:15)
[2017-10-05] MEDS: ROCEPHIN 1 GM in SODIUM CHLORIDE 50 ML IV SCH (09:16)
[2017-10-05] MEDS: SOLU-MEDROL 125 MG IVP SCH ×3 (09:40→20:38)
[2017-10-05] MEDS: SYMBICORT 160-4.5 MCG INHALER IH SCH ×2 (09:45→20:32)
[2017-10-05] MEDS ORDERED: ATROVENT 0.02% NEB NEB SCH (10:00)
[2017-10-05] MEDS: DOXY-100 100 MG in SODIUM CHLORIDE 100 ML IV SCH ×2 (11:10→20:28)
[2017-10-05] MEDS: PRAVACHOL PO SCH (20:28)
[2017-10-06] MEDS: XOPENEX 0.63 MG NEB SCH ×4 (05:20→23:09)
[2017-10-06] MEDS: ATROVENT 0.02% NEB NEB SCH ×4 (05:20→23:09)
[2017-10-06] MEDS: LASIX TAB PO SCH (05:32)
[2017-10-06] MEDS: SOLU-MEDROL 125 MG IVP SCH ×3 (05:32→20:55)
[2017-10-06] MEDS: ASPIRIN CHEWABLE PO SCH (08:37)
[2017-10-06] MEDS: VITAMIN D PO SCH (08:37)
[2017-10-06] MEDS: DOXY-100 100 MG in SODIUM CHLORIDE 100 ML IV SCH ×2 (08:37→20:54)
[2017-10-06] MEDS: LOVENOX SUBCUT SCH ×2 (08:37→08:40)
[2017-10-06] MEDS: ROCEPHIN 1 GM in SODIUM CHLORIDE 50 ML IV SCH (10:51)
[2017-10-06] MEDS: SYMBICORT 160-4.5 MCG INHALER IH SCH ×3 (10:51→20:52)
--- NOTE | 2017-10-06 11:20 | RS.PTINEVL ---
Subjective - Patient information Date of Evaluation: 10/06/17 Date of Arrival on Unit: 10/04/17 Admitted From:: Home Diagnosis: acute resp failure, COPD exacerbation Usual Living Arrangement: With Spouse Home Environment: House, Ramp Medical History: Hypertension, COPD LATEX ALLERGY?: No Medications: see chart Subjective Information/ Patient Comments:: pt states that he does not feel like getting out of bed today due to waiting to get xray. pt states he may try to get up tomorrow. He reports he knows how to use tband and will do it on his own. - Level of function Prior to this admission, the patient could do the following:: Independent ADL's , Independent Ambulation Current Level of Function: Partially Dependent Current Equipment Used at Home: BSC, W/C, walker, shower chair, oxygen, bi-pap Interventions - Objective Patient Orientation: Person, Place, Time, Situation Current Interventions: IV's, Oxygen, Telemetry Range of Motion - ROM Right Upper Extremity AROM: WFL's Left Upper Extremity AROM: WFL's Right Lower Extremity AROM: WFL's Left Lower Extremity AROM: WFL's Muscle Strength - Muscle Strength Right Upper Extremity Strength: Mild Weakness (BUE grossly 4/5) Left Upper Extremity Strength: Mild Weakness (BUE grossly 4/5) Right Lower Extremity Strength: Mild Weakness (grossly 4-/5, difficult to MMT due to SOA and anxiety) Left Lower Extremity Strength: Mild Weakness (grossly 4-/5, difficult to MMT due to SOA and anxiety) Sensation - Sensation Right Upper Extremity Sensation: Intact/Normal Left Upper Extremity Sensation: Intact/Normal Right Lower Extremity Sensation: Intact/Normal Left Lower Extremity Sensation: Intact/Normal Palpation Palpation Findings: None/Normal Balance - Comments Balance Assessment Comments: unable to assess, pt refuses to sit at side of bed this visit Functional Mobility - Bed Mobility Rolling R/L: Independent Scooting: Independent Comments:: unable to assess transfers/gait due to pt refuses RAGHU INDEX SCORE: n/a Treatment time - Time with patient Total treatment time: 24 Patient Education - Education Patient Education: Home Exercise Program, Activity Modification, Education of Plan of Care Teaching Recipient: Patient Teaching Methods: Discussion, Demonstration (discussion and demonstration of HEP as well as discussion of safety. ), Handout Assessment - Assessment Problem List:: Decreased level of function, Requires training/education, Decreased safety/Risk of falls, Weakness Rehab Potential: Fair Further Therapy Indicated?: No Candidate for Swing Bed for Therapy Services?: pt is not a candidate for swing bed at this time due to pt inability to tolerate activity Comments: Feel pt does not require skilled PT at this time, pt is independent with bed ex's and unable to tolerate getting out of bed due to SOA. Evaluation Complexity: HISTORY: Medium (HTN, COPD, resp failure), EXAM OF BODY SYSTEMS: Medium (strength, balance posture, transfers), CLINICAL PRESENTATION: Medium, CLINICAL DECISION MAKING: Medium Short Term Goals GOAL #1: . GOAL #2: . GOAL #3: . Jail Goals GOAL #1: . GOAL #2: . GOAL #3: . Plan Plan of Care: Therapeutic EX Other:: eval only, Frequency of Treatment: One time treatment Duration of Treatment: One Time Treatment Anticipated Discharge Destination: Home Treatment Diagnosis (ICD 10 Codes): M62.81 muscle weakness Has the Physician been added for Co-signature?: Yes
--- NOTE | 2017-10-06 11:47 | DI ---
EXAM: Two views of the chest. History: Short of breath and cough. Comparison: Chest radiograph 09/01/2017, chest CT 10/04/2017 Findings: Heart size is within normal limits. Bilateral lung infiltrates have slightly improved and so have the bilateral pleural effusions. Emphysema. No pneumothorax. No acute osseous abnormaliti es. Impression: Slight interval improvement of the bilateral lung infiltrates and bilateral pleural effu sions.
--- NOTE | 2017-10-06 15:18 | HP ---
DATE OF SERVICE: 10/04/17 CHIEF COMPLAINT: Shortness of breath and coughing HISTORY OF PRESENT ILLNESS: This is a 67 year old white male with severe COPD oxygen dependant came to the emergency room and seen by Dr. Cage. The patient came for the cough, congestion, shortness of breath getting yellow/green phlegm and taking the extra breathing treatments and not helping so came and saw Dr. Cage in the emergency room. His vitals were saturation 92 on the 2 liters, blood pressure 135/101, pulse 126. ABG done which showed the pH 7.296, pCO2 108, pO2 136, bicarb 53, BNP 1072. CT of the chest showed bilateral pneumonia, pleural effusion and atelectasis. At that time the patient was admitted to the hospital for the breathing treatment, IV antibiotics and steroids. REVIEW OF SYSTEMS: CONSTITUTIONAL: No fever, no chills. Weakness and tiredness. HEENT: Normal. ENDOCRINE: No weight gain; no weight loss. CVS: No chest pain. No PND, no orthopnea. Shortness of breath. No PND, no orthopnea. RESPIRATORY: Cough, Congestion. No hemoptysis. GI: No nausea, no vomiting. No abdominal pain. No melena. : No hematuria. No polyuria. MUSCULOSKELETAL: No joint swelling. PSYCHIATRIC: Not anxious. No depression. No suicidal thoughts. No homicidal thoughts. SKIN: Intact, no open lesions. PAST MEDICAL HISTORY: COPD oxygen dependant Hypertension Enlarged heart Chronic bronchitis Oxygen dependent History of SVT PAST SURGICAL HISTORY: Tonsillectomy PERSONAL HISTORY: The patient does not smoke or drink. and lives with the . FAMILY HISTORY: Brother had coronary artery disease Mother asthma MEDICATIONS: Aspirin DUO NEBS Albuterol Symbicort Pravastatin Vitamin D Prednisone ALLERGIES: Tiotropium PHYSICAL EXAMINATION: V/S: Blood pressure 135/101, respiratory rate 24, heart rate 126, temperature 98.6 with saturation 92%. HEENT: Atraumatic, normocephalic. No scleral icterus. Pallor positive. Mucosa dry. Sick looking male laying in a bed. NECK: Supple. No JVD, no bruit. No lymphadenopathy. No thyromegaly. HEART: S1, S2 normal. Sinus tachycardia. No murmur. No cyanosis or clubbing. No ascites. LUNGS: Decreased and basilar crackles. Clear to auscultation. No rales or rhonchi. ABDOMEN: Soft, nontender. Bowel sounds are active. No CVA tenderness. No rigidity or guarding. EXTREMITIES: No pedal edema. No cyanosis or clubbing MUSCULOSKELETAL: Normal joints, no swelling. NEUROLOGIC: The patient is awake and alert. SKIN: Intact; no open lesions. LYMPHATIC: No lymph nodes palpable. LABS: WBC 11.0, hgb 11.2, hct 38.8, plt count 330, sodium 145, potassium 4.7, chloride 91, bicarb 49, BUN 20, creatinine 0.60 and glucose normal. BNP 1072. ASSESSMENT: 1. COPD exacerbation secondary to the bibasilar pneumonia 2. Community acquired pneumonia 3. Bilateral pleural effusion 4. CHF 5. Pulmonary hypertension 6. Cachexia 7. Hypercapnic respiratory failure PLAN: 1. Admit patient to the regular floor 2. CBC and CMP today and daily 3. Cardiac enzymes and Troponin 4. Solu-Medrol 80 Q 8 hours 5. Lovenox 6. Doxycycline 7. Rocephin 1 gram daily 8. Daily I&O's TIME SPENT: MORE THAN 65-70 minutes MTDD
--- NOTE | 2017-10-06 15:24 | PN ---
DATE OF SERVICE: 10/05/17 SUBJECTIVE: The patient is using the BIPAP which is helping the patient, still short of breath, coughing and congestion. REVIEW OF SYSTEMS: CONSTITUTIONAL: No fever, no chills. HEENT: Normal. ENDOCRINE: No weight gain, no weight loss. CVS: No angina symptoms. No CHF symptoms. No palpitations. No atypical chest pain for CAD. Shortness of breath. No PND, no orthopnea. RESPIRATORY: Cough, no hemoptysis. GI: No nausea, no vomiting. No abdominal pain. : No hematuria. No polyuria. MUSCULOSKELETAL: No joint swelling. PSYCHIATRIC: Not anxious. No depression. No suicidal thoughts. No homicidal thoughts. SKIN: Intact. No rash. PHYSICAL EXAMINATION: V/S: Blood pressure 94/65, respiratory rate 21, heart rate 74, temperature 97.6 with saturation 90% on BIPAP 6 liters. HEENT: Normocephalic, atraumatic. Mucosa dry. Pallor positive. No icterus. NECK: Supple. No JVD, no carotid bruit. No lymphadenopathy. LUNGS: Decreased and basilar crackles. Clear to auscultation. No rales or rhonchi. HEART: S1, S2 normal. No S3. No murmur, gallop or regurgitation. ABDOMEN: Soft, nontender. Bowel sounds active. No rigidity. No rebound or guarding. No CVA tenderness. EXTREMITIES: No cyanosis, clubbing or pedal edema. MUSCULOSKELETAL: No joint swelling. NEUROLOGIC: Awake, alert, oriented times three. No focal deficit. LYMPHATIC: No lymph nodes palpable. SKIN: Intact. LABS: Sodium 145, potassium 4.3, chloride 95, bicarb 44, BUN 20, creatinine 0.58, glucose 156, WBC 6.45, hgb 10.6, hct 36.3, plt count 318. ASSESSMENT: 1. COPD exacerbation secondary to the bronchitis 2. Community acquired pneumonia, bibasilar 3. Bilateral pleural effusion 4. Acute heart failure 5. Pulmonary hypotension, Asymptomatic at this time PLAN: 1. Continue the Rocephin 2. Doxycycline 3. Solu-Medrol 4. DUO NEBS 5. IV fluids 6. Daily I&O's TIME SPENT: More than 35 minutes MTDD
--- NOTE | 2017-10-06 15:30 | PN ---
DATE OF SERVICE: 10/06/17 SUBJECTIVE: Coughing and congestion is present and shortness of breath with minimal exertion. ABG's done yesterday showed the pH 7.447, pCo2 71.9, pO2 63. pCO2 has tremendously changed from 108 to 80 then 71 today. The patient is a chronic CO2 retainer. No change in mental status and awake and alert. REVIEW OF SYSTEMS: CONSTITUTIONAL: No fever, no chills. HEENT: Normal. ENDOCRINE: No weight gain, no weight loss. CVS: No angina symptoms. No CHF symptoms. No palpitations. No atypical chest pain for CAD. No shortness of breath. No PND, no orthopnea. RESPIRATORY: No cough, no hemoptysis. GI: No nausea, no vomiting. No abdominal pain. : No hematuria. No polyuria. MUSCULOSKELETAL: No joint swelling. PSYCHIATRIC: Not anxious. No depression. No suicidal thoughts. No homicidal thoughts. SKIN: Intact. No rash. PHYSICAL EXAMINATION: V/S: Blood pressure 91/70, respiratory rate 18, heart rate 66, temperature 97.6 , saturation 90. HEENT: Normocephalic, atraumatic. Mucosa dry. Pallor positive. No icterus. NECK: Supple. No JVD, no carotid bruit. No lymphadenopathy. LUNGS: Decreased and basilar crackles. Clear to auscultation. No rales or rhonchi. HEART: S1, S2 normal. No S3. No murmur, gallop or regurgitation. ABDOMEN: Soft, nontender. Bowel sounds active. No rigidity. No rebound or guarding. No CVA tenderness. EXTREMITIES: No cyanosis, clubbing or pedal edema. MUSCULOSKELETAL: No joint swelling. NEUROLOGIC: Awake, alert, oriented times three. No focal deficit. LYMPHATIC: No lymph nodes palpable. SKIN: Intact. LABS: Sodium 142, potassium 4.0, chloride 94, bicarb 45, BUN 20, creatinine 0.49, glucose 131, WBC 7.83, hgb 9.9, hct 33.3, plt count 307. ASSESSMENT: 1. Hypercapnic respiratory failure 2. CO2 retainer 3. Bibasilar pneumonia 4. Community acquired pneumonia 5. Bilateral pleural effusion 6. Acute heart failure 7. Pulmonary hypertension 8. Cachexia PLAN: 1. Continue the Rocephin 2. DUO NEBS 3. Doxycycline 4. Daily I&O's 5. Follow the patient in daily rounds. 6. Continue the BIPAP at night time TIME SPENT: More than 35 minutes MTDD
[2017-10-06] MEDS: PRAVACHOL PO SCH (20:53)
[2017-10-07] MEDS: ATROVENT 0.02% NEB NEB SCH (04:40)
[2017-10-07] MEDS: XOPENEX 0.63 MG NEB SCH ×2 (04:40→11:12)
[2017-10-07] MEDS: SOLU-MEDROL 125 MG IVP SCH (05:39)
[2017-10-07] MEDS: LASIX TAB PO SCH (05:40)
[2017-10-07] MEDS ORDERED: ADENOCARD IVP ONE (08:28)
[2017-10-07] MEDS ORDERED: LANOXIN ONE (08:38)
[2017-10-07] MEDS ORDERED: CARDIZEM INJ ONE (08:46)
[2017-10-07] MEDS ORDERED: CARDIZEM INJ IVP STA (08:55)
[2017-10-07] MEDS ORDERED: ADENOCARD IVP STA ×3 (08:55→08:57)
[2017-10-07] MEDS ORDERED: CARDIZEM INJ 125 MG in SODIUM CHLORIDE 100 ML IV SCH (09:00)
[2017-10-07] MEDS: VITAMIN D PO SCH (09:27)
[2017-10-07] MEDS: ASPIRIN CHEWABLE PO SCH (09:27)
[2017-10-07] MEDS: SYMBICORT 160-4.5 MCG INHALER IH SCH (09:28)
[2017-10-07] MEDS: ROCEPHIN 1 GM in SODIUM CHLORIDE 50 ML IV SCH (09:29)
[2017-10-07] MEDS ORDERED: LOVENOX SUBCUT SCH ×2 (10:00)
[2017-10-07] MEDS: LOVENOX SUBCUT SCH (10:07)
[2017-10-07] MEDS ORDERED: LASIX ONE (10:19)
--- NOTE | 2017-10-07 10:31 | DI ---
EXAM: Single view of the chest. History: Difficulty breathing. Comparison: Chest radiograph 10/06/2017 Findings: Heart size is stable. Worsening bilateral lung infiltrates and more noticeable bilateral pleural effusions. No pneumothorax. No acute osseous abnormalities. Impression: Worsening bilateral lung infiltrates and more noticeable bilateral pleural effusions.
[2017-10-07] MEDS ORDERED: VANCOMYCIN 1 GM in SODIUM CHLORIDE 250 ML IV STA (10:36)
[2017-10-07] MEDS ORDERED: LASIX IVP STA (11:16)
--- NOTE | 2017-10-07 11:30 | DS ---
DATE OF SERVICE: 10/07/17 FINAL DIAGNOSIS: 1. RESPIRATORY FAILURE, HYPERCAPNEIC 2. COPD EXACERBATION SECONDARY TO BIBASILAR PNEUMONIA 3. CHF, ACUTE ON CHRONIC 4. NEW ONSET ATRIAL FIBRILLATION, NOW IN SINUS ON CARDIZEM DRIP 5. HISTORY OF PULMONARY HYPERTENSION 6. CACHEXIA 7. ANEMIA PROBABLY FROM ANEMIA OF CHRONIC DISEASE 8. CHRONIC CO2 RETENTION DISCHARGE INSTRUCTIONS: 1. Discharge the patient to [facility] for higher care. MEDICATIONS AT DISCHARGE: Duonebs Rocephin with Doxycycline for atypicals Lovenox 60 subcut daily Solu-Medrol 80 q.8hr Continue all medications NEW PRESCRIPTIONS: N/A DIET INSTRUCTIONS: Cardiac ACTIVITY: Complete bed rest DISEASE SPECIFIC EDUCATION: COPD, NEEDING PNEUMONIA VACCINATION, C02 RETENTION AND RESPIRATORY FAILURE HAVE BEEN DISCUSSED, VERBALIZED UNDERSTANDING. HOSPITAL COURSE: The patient is a 67-year-old gentleman with Stage IV COPD oxygen dependent with chronic c02 retention, came to the emergency room with cough, congestion and shortness of breath. Despite taking an extra breathing treatment, he was still not able to breathe well so came to the emergency room and was seen by Dr. Cage. Initial ABG showed respiratory acidosis with pH 7.296, pc02 108, p02 136. At that time, CT chest showed bilateral pleural effusion with superimposed pneumonia. BNP was 1,072, was given a dose of Lasix in the emergency room. Rechecked ABGs after bipap use which showed pH 7.415, pc02 80.1, p02 48. By the next day the patient was more awake and alert, was able to get out of bed and was able to sit in the chair. The patient uses BIPAP at nighttime which helps him. pc02 was gradually getting better. The last ABGs done on 10/05 showed pc02 71.9. This morning we did the rounds. At that time, the patient was comfortable lying in bed and says he is feeling good, wants to get out of bed and sit in chair. Within 5 minutes the nurse called me stating that the patient was in SVT, rate 180 - went back and gave 3 doses of Adenosine 6 mg interval. Blood pressure was borderline 101/78 so gave Digoxin also. It was showing more atrial fibrillation. We were not able to control the heart rate at that time. We rechecked the blood pressure and the blood pressure went up to 130/90, started giving a dose of Cardizem 20 mg IV push and started Cardizem drip. The patient's rate was still around 150s, 160s, 160s to 190s. At that time, the blood pressure was again dropping to 90 systolic so we thought of cardioverting the patient. Dr. Mallory from the emergency room came, tried to help us. When Dr. Mallory tried to cardiovert the patient, given Atomidate 10, continue 100 mg. Suddenly the heart rate converted to regular and dropped to 90s sinus. Right at this moment, talked to the nurse and the patient is sitting in bed, not sleepy, eating pancakes, says he is feeling a lot better but the new EKG was showing inferior wall changes. New blood work from this morning showed sodium 144, potassium 3.4, chloride 92, bicarb 43, BUN 17, creatinine 0.57, glucose 148, magnesium level 2.6. The patient was given 1 gm magnesium sulfate this morning. White count 12,000. Chest x-ray done this morning showed worsening bilateral lung infiltrates and more noticeable bilateral pleural effusion. Given the patient's complexity of the problems and impending respiratory failure with chronic c02 narcosis and the new infiltrates, I will go ahead and start Vancomycin one dose here and will be transferring the patient to [facility] care to [facility] under Dr. Efrain Wong's care. TIME SPENT: MORE THAN 65 MINUTES CARRIE
[2017-10-07] MEDS ORDERED: XOPENEX 1.25 MG NEB SCH (12:00)
[2017-10-07 15:25] VITALS: BP 138/72; TEMP 97.8
[2017-10-07] MEDS ORDERED: AMIDATE IVP STA (15:43)
[2017-10-07] MEDS ORDERED: LANOXIN IVP STA (15:44)
[2017-10-07] MEDS ORDERED: SUBLIMAZE IVP STA (15:44)
== END 2017-10-07 12:20 | disposition home or self-care (01) | DRG 189 ==
LOC: ED 16:21 → SCU 18:27
PROVIDERS: ADMIT Emergency Medicine; ATTEND Emergency Medicine
DX: J96.02 Acute respiratory failure with hypercapnia (principal); J18.9 Pneumonia, unspecified organism; J44.1 Chronic obstructive pulmonary disease with (acute) exacerbation; J91.8 Pleural effusion in other conditions classified elsewhere; J98.11 Atelectasis; R64 Cachexia; E87.2 Acidosis; I48.91 Unspecified atrial fibrillation; R05 Cough; R06.02 Shortness of breath; I50.9 Heart failure, unspecified; I27.20 Pulmonary hypertension, unspecified; D64.9 Anemia, unspecified; Z99.81 Dependence on supplemental oxygen; Z79.899 Other long term (current) drug therapy
CPT/HCPCS: 36415; 80053; 80162; 82550; 82803; 83735; 83880; 84439; 84443; 84484; 85007; 85008; 85025; 87040; 87081; 93005; 93010; 94640; 94660; 96365; 96375; 99285

== ENCOUNTER 2017-10-07 12:22 | Outpatient (CLI) | END 2017-10-07 12:47 | disposition short-term general hospital (02) | LOC: AMBL 12:22 | PROVIDERS: ATTEND Internal Medicine | DX: J96.90 Respiratory failure, unspecified, unspecified whether with hypoxia or hypercapnia (principal); R53.1 Weakness; I48.91 Unspecified atrial fibrillation; J44.9 Chronic obstructive pulmonary disease, unspecified; I49.1 Atrial premature depolarization; Z96.0 Presence of urogenital implants; Z79.899 Other long term (current) drug therapy ==

== ENCOUNTER 2017-12-08 18:10 | Inpatient (IN) ==
[2017-12-08] MEDS ORDERED: SODIUM CHLORIDE 1,000 ML IV STA (18:29)
[2017-12-08] MEDS ORDERED: DUONEB NEB ONE (18:33)
[2017-12-08] MEDS ORDERED: DUONEB NEB STA (18:35)
[2017-12-08] MEDS ORDERED: SOLU-MEDROL 125 MG IVP STA (18:36)
--- NOTE | 2017-12-08 18:38 | ED.PDOC ---
General ED Provider: Dr. ADDI HELLER Chief Complaint: Shortness of Air Stated Complaint: Patient with history of COPD. Progressive worsening of breathing today. States O2 normally runs 94-% and this afternoon doing his routine 02 sat checks and found numbers at 45 so he called ambulance. Stated that he did not feel bad but number but it was "too low"--wanted checked out-- denies any pain. 02 Sat came up to 97% with non rebreather in ambulance--home sat readings usually at 85% per pt--resp shallow and sl labored- Time Seen by Physician: 18:15 Mode of Arrival: Stretcher Information Source: Patient, EMT Exam Limitations: Clinical condition Primary Care Provider[facility] Nursing and Triage Documentation Reviewed and Agree: Yes Does patient meet sepsis criteria?: No System Inflammatory Response Syndrome: Not Applicable Sepsis Protocol: For patient's 13 years and over: Temp is 96.8 and below OR 101 and greater Pulse >90 BPM Resp >20/minute Acutely Altered Mental Status Are patient's symptoms suggestive of a new infection, such as: -Pneumonia -Skin, Soft Tissue -Endocarditis -UTI -Bone, Joint Infection -Implantable Device -Acute Abdominal Infection -Wound Infection -Meningitis -Blood Stream Catheter Infection -Unknown Respiratory Complaint Exam - Shortness of Air Complaint/Exam Symptoms Are: Still present Timing: Constant Initial Severity: Severe Current Severity: Moderate Character: Reports: Dyspnea at rest, Dyspnea on exertion Aggravating: Reports: Movement, Deep breaths Alleviating: Reports: None, Oxygen Associated Signs and Symptoms: Reports: Wheezing Related History: Reports: Similar episode History of Healthcare-Acquired Pneumonia: No Pulmonary Embolism Risk Factors: Reports: None Cardiac Risk Factors: Reports: None Pseudomonas Risk Factors: Reports: None Tuberculosis Risk Factors: Reports: None Home Oxygen Use: Yes Recent Stress Test: No Recent Echo/LV Function: No Respiratory Distress: Moderate Stridor Present: No Tracheal Deviation: No Subcutaneous Emphysema: No Accessory Muscle Use: Yes Retractions: Not Present Diminished Breath Sounds: Yes Unable to Speak Full Sentences: Yes Fatigue: Yes Leg Swelling: No Angela's Sign Present: No Grunting Respirations: No Kussmaul Respirations: No Differential Diagnoses: COPD Exacerbation, Pneumonia Quality Indicators For Pneumonia/CAP: Blood Cultures-SCU admit Review of Systems - Review Of Systems Constitutional: Reports: No symptoms, Malaise, Weakness Eyes: Reports: No symptoms Ears, Nose, Mouth, Throat: Reports: No symptoms Respiratory: Reports: Cough, Orthopnea, Short of air Cardiac: Reports: No symptoms GI: Reports: No symptoms : Reports: No symptoms Musculoskeletal: Reports: No symptoms Skin: Reports: No symptoms Neurological: Reports: No symptoms Endocrine: Reports: No symptoms Hematologic/Lymphatic: Reports: No symptoms All Other Systems: Reviewed and Negative Past Medical History - Past Medical History Previously Healthy: No Endocrine: Reports: None Cardiovascular: Reports: Hypertension Respiratory: Reports: COPD, Asthma Hematological: Reports: None Gastrointestinal: Reports: None Genitourinary: Reports: None Neuro/Psych: Reports: None Musculoskeletal: Reports: None Cancer: Reports: None Other Pertinent Past Medical History: flu shot Sep 25 has several friends also not feeling well after shot - Surgical History General Surgical History: Reports: Tonsillectomy - Family History Family History: Reports: Unknown - Social History Smoking Status: Former smoker Hx Substance Use: No Alcohol Screening: None Physical Exam - Physical Exam Appearance: Ill-appearing, Thin Ill-appearing: Moderate Pain Distress: Moderate Eyes: BRITANY, EOMI, Conjunctiva clear ENT: Ears normal, Nose normal, Oropharynx normal Neck: Supple Respiratory: Breath sounds diminished Cardiovascular: RRR, Pulses normal, No rub, No murmur GI/: Soft, Nontender, No masses Musculoskeletal: Normal strength, ROM intact, No edema, No calf tenderness Skin: Warm, Dry, Normal color Neurological: Sensation intact, Motor intact, Reflexes intact, Cranial nerves intact, Alert, Oriented Psychiatric: Affect appropriate, Mood appropriate Physician Notification - Case Discussed Physician Notified: Dr Edmond Time of Notification: 19:15 (Discussed case.) Physician Notified: Dr Garcia Time of Notification: 19:20 (Agrees to admit) Critical Care Note - Critical Care Note Total Time (mins): 30 Course - Course Hematology/Chemistry: 12/08/17 18:46 Orders, Labs, Meds: Lab Review 12/08/17 12/08/17 18:28 18:46 WBC 10.56 H RBC 4.73 Hgb 13.5 L Hct 47.4 MCV 100.2 H MCH 28.5 MCHC 28.5 L RDW Coeff of Khai 15.1 H Plt Count 159 Immature Gran % (Auto) 1.3 Neut % (Auto) 82.6 Lymph % (Auto) 11.6 [place] % (Auto) 4.0 Eos % (Auto) 0.0 Baso % (Auto) 0.5 Immature Gran # (Auto) 0.1 Neut # (Auto) 8.7 H Lymph # (Auto) 1.2 [place] # (Auto) 0.4 Eos # (Auto) 0.0 Baso # (Auto) 0.1 Plt Morphology Comment Normal Hypochromasia 1+ Anisocytosis Not Reportable Macrocytosis 1+ Puncture Site lrad O2 Saturation 31.0 L ABG pH 7.330 L ABG pCO2 101.5 H ABG pO2 23.0 L* ABG HCO3 53.5 H ABG Total CO2 50 H ABG Base Excess 28 H Nader Test + O2 Delivery Device nc Oxygen Liter Flow 2.50 Orders Category Date Time Status ABG DRAW REQUEST DAILY@0600 CARDIO 12/09/17 06:00 Ordered ABG DRAW REQUEST DAILY@0600 CARDIO 12/10/17 06:00 Ordered ABG DRAW REQUEST DAILY@0600 CARDIO 12/11/17 06:00 Ordered ABG DRAW REQUEST DAILY@0600 CARDIO 12/12/17 06:00 Ordered ABG DRAW REQUEST Stat CARDIO 12/08/17 18:33 Completed BIPAP Routine CARDIO 12/08/17 18:59 Ordered NEBULIZER TREATMENT Stat CARDIO 12/08/17 18:36 Completed IV [ED IV/MEDIPORT/POWERPORT] .ONCE EMERGENCY 12/08/17 18:28 Active ABG DAILY@0600 LAB 12/09/17 06:00 Ordered ABG DAILY@0600 LAB 12/10/17 06:00 Ordered ABG DAILY@0600 LAB 12/11/17 06:00 Ordered ABG DAILY@0600 LAB 12/12/17 06:00 Ordered ABG Stat LAB 12/08/17 18:28 Completed BLOOD CULTURE (ED ONLY) Stat LAB 12/08/17 18:46 Received BNP [B-TYPE NATRIURETIC PEPTIDE] Stat LAB 12/08/17 18:46 Received CBC W/ AUTO DIFF Stat LAB 12/08/17 18:46 Completed CMP [COMPREHENSIVE METABOLIC PANEL] Stat LAB 12/08/17 18:46 Received RBC MORPHOLOGY Stat LAB 12/08/17 18:46 Completed TROPONIN I Stat LAB 12/08/17 18:46 Received 0.9 % Sodium Chloride [Saline Flush] MEDS 12/08/17 18:29 Ordered 1 syr IVF PRN PRN Ipratropium/Albuterol Neb [Duoneb] MEDS 12/08/17 18:33 Discontinued 1 vial NEB .STK-MED ONE Ipratropium/Albuterol Neb [Duoneb] MEDS 12/08/17 18:35 Discontinued 1 vial NEB ONCE STA Methylprednisolone Sod Succ/Pf [Solu-Medrol 125 mg] MEDS 12/08/17 18:36 Discontinued 125 mg IVP ONCE STA Sodium Chloride 0.9% [Sodium Chloride] 1,000 ml MEDS 12/08/17 18:29 Active IV 125 mls/hr CHEST, 1V AP ONLY Stat RADS 12/08/17 18:28 Completed Medications Generic Name Dose Route Start Last Admin Trade Name Freq PRN Reason Stop Dose Admin Sodium Chloride 1,000 mls @ 125 mls/hr 12/08/17 18:29 12/08/17 19:16 Sodium Chloride IV 12/09/17 02:28 125 mls/hr .Q8H STA Administration Sodium Chloride 1 syr 12/08/17 18:29 Saline Flush IVF PRN PRN To flush IV Discontinued Medications Generic Name Dose Route Start Last Admin Trade Name Freq PRN Reason Stop Dose Admin Albuterol/Ipratropium 1 vial 12/08/17 18:35 12/08/17 18:54 Duoneb NEB 12/08/17 18:36 1 vial ONCE STA Administration Methylprednisolone Sodium Succinate 125 mg 12/08/17 18:36 12/08/17 19:16 Solu-Medrol 125 Mg IVP 12/08/17 18:37 125 mg ONCE STA Administration Vital Signs: Temp Pulse Resp BP Pulse Ox 12/08/17 19:20 83 21 12/08/17 18:11 98.1 F 83 30 H 126/88 80 L Departure - Departure Time of Disposition: 19:30 Disposition: ADMITTED INPATIENT Discharge Problem: COPD exacerbation Condition: Serious Pt referred to PMD for follow-up: Yes (caleb DARBY verified?: No Allergies/Adverse Reactions: Allergies tiotropium bromide [From Spiriva with HandiHaler] Allergy (Mild, Verified 18:20) rash Home Medications: Ambulatory Orders Aspirin 81 mg PO d 10/19/13 Disposition Discussed With: Patient, Family Additional Comments Additional Comments: RT obtained ABG's. Chronic Hyprcarbic/Hypoxic respiratory failure-with acute exacerabation. Responded to BiPap 18/6 rate 16. O2 sat 95 % at present
--- NOTE | 2017-12-08 19:12 | DI ---
Exam: Chest one-view History: Shortness of breath FINDINGS: Normal cardiomediastinal contours. Normal pulmonary vasculature. No infiltrative opaciti es. Lungs are hyperexpanded. No acute chest wall abnormality. Impression: Chronic obstructive pulmonary disease. No acute abnormalities.
[2017-12-08] MEDS ORDERED: ROCEPHIN 1 GM in SODIUM CHLORIDE 50 ML IV STA (19:28)
[2017-12-08] MEDS ORDERED: ROCEPHIN ONE (19:32)
[2017-12-08] MEDS ORDERED: LOVENOX SUBCUT SCH (20:00)
[2017-12-08 22:27] VITALS: BMI 19.8
[2017-12-08] MEDS ORDERED: PROAIR HFA IH PRN (23:00)
[2017-12-09] MEDS: DUONEB NEB SCH ×5 (00:30→23:30)
[2017-12-09] MEDS: SOLU-MEDROL 125 MG IVP SCH ×3 (05:40→20:55)
[2017-12-09] MEDS: LASIX TAB PO SCH (05:40)
[2017-12-09] MEDS: SODIUM CHLORIDE 1,000 ML IV SCH (05:43)
[2017-12-09] MEDS ORDERED: SODIUM CHLORIDE 1,000 ML IV ONE (05:43)
[2017-12-09] MEDS ORDERED: LASIX TAB PO SCH (09:00)
[2017-12-09] MEDS ORDERED: NON-FORMULARY MEDICATION (Cholecalciferol (Vitamin D3) [Vitamin D3] 1,000 UNIT) PO SCH (09:00)
[2017-12-09] MEDS: LANOXIN PO SCH (09:17)
[2017-12-09] MEDS: ASPIRIN CHEWABLE PO SCH ×2 (09:17→19:35)
[2017-12-09] MEDS: ELIQUIS PO SCH ×2 (09:17→20:55)
[2017-12-09] MEDS: VITAMIN D PO SCH (09:17)
[2017-12-09] MEDS: CARDIZEM CD PO SCH (09:18)
[2017-12-09] MEDS: SYMBICORT 160-4.5 MCG INHALER IH SCH ×3 (13:22→20:55)
[2017-12-09] MEDS: PRAVACHOL PO SCH (20:55)
[2017-12-09] MEDS: LOVENOX SUBCUT SCH (20:56)
[2017-12-10] MEDS: SODIUM CHLORIDE 1,000 ML IV SCH (03:44)
[2017-12-10] MEDS ORDERED: SODIUM CHLORIDE 1,000 ML IV ONE (03:44)
[2017-12-10] MEDS: DUONEB NEB SCH ×4 (04:40→23:03)
[2017-12-10] MEDS: SOLU-MEDROL 125 MG IVP SCH ×3 (05:51→21:10)
[2017-12-10] MEDS: LASIX TAB PO SCH (05:51)
[2017-12-10] MEDS: SYMBICORT 160-4.5 MCG INHALER IH SCH ×2 (08:21→21:09)
[2017-12-10] MEDS: LANOXIN PO SCH (08:21)
[2017-12-10] MEDS: ELIQUIS PO SCH ×2 (08:22→21:10)
[2017-12-10] MEDS: ASPIRIN CHEWABLE PO SCH (08:22)
[2017-12-10] MEDS: VITAMIN D PO SCH (08:22)
[2017-12-10] MEDS: CARDIZEM CD PO SCH (08:22)
[2017-12-10] MEDS: LOVENOX SUBCUT SCH (21:10)
[2017-12-10] MEDS: PRAVACHOL PO SCH (21:10)
[2017-12-11] MEDS ORDERED: SODIUM CHLORIDE 1,000 ML IV ONE (02:44)
[2017-12-11] MEDS: SODIUM CHLORIDE 1,000 ML IV SCH (02:44)
[2017-12-11] MEDS: DUONEB NEB SCH ×3 (04:55→16:46)
[2017-12-11] MEDS: SOLU-MEDROL 125 MG IVP SCH ×3 (05:17→21:57)
[2017-12-11] MEDS: LASIX TAB PO SCH (05:38)
[2017-12-11] MEDS: LANOXIN PO SCH (08:16)
[2017-12-11] MEDS: SYMBICORT 160-4.5 MCG INHALER IH SCH ×2 (08:16→22:01)
[2017-12-11] MEDS: VITAMIN D PO SCH (08:16)
[2017-12-11] MEDS: ELIQUIS PO SCH ×2 (08:16→21:57)
[2017-12-11] MEDS: CARDIZEM CD PO SCH (08:16)
[2017-12-11] MEDS: ASPIRIN CHEWABLE PO SCH (08:16)
--- NOTE | 2017-12-11 11:52 | PN ---
DATE OF SERVICE: 12/09/17 SUBJECTIVE: The patient is still on the BIPAP. Today morning ABG showed the pH 7.377, pCo2 84, pO2 92. Still coughing, congestion and shortness of breath is present. REVIEW OF SYSTEMS: CONSTITUTIONAL: No fever, no chills. HEENT: Normal. ENDOCRINE: No weight gain, no weight loss. CVS: No angina symptoms. No CHF symptoms. No palpitations. No atypical chest pain for CAD. Shortness of breath. No PND, no orthopnea. RESPIRATORY: Cough, no hemoptysis. GI: No nausea, no vomiting. No abdominal pain. : No hematuria. No polyuria. MUSCULOSKELETAL: No joint swelling. PSYCHIATRIC: Not anxious. No depression. No suicidal thoughts. No homicidal thoughts. SKIN: Intact. No rash. PHYSICAL EXAMINATION: V/S: Blood pressure 99/69, respiratory rate 28, heart rate 82, temperature 97.5 with saturation is 97% on BIPAP GENERAL: Sick looking male lying in a bed in mild distress. HEENT: Normocephalic, atraumatic. Mucosa dry. Pallor positive. No icterus. NECK: Supple. No JVD, no carotid bruit. No lymphadenopathy. LUNGS: Decreased and basilar crackles. Clear to auscultation. No rales or rhonchi. HEART: S1, S2 normal. No S3. No murmur, gallop or regurgitation. ABDOMEN: Soft, nontender. Bowel sounds active. No rigidity. No rebound or guarding. No CVA tenderness. EXTREMITIES: No cyanosis, clubbing or pedal edema. MUSCULOSKELETAL: No joint swelling. NEUROLOGIC: Awake, alert. No focal deficit. LYMPHATIC: No lymph nodes palpable. SKIN: Intact. LABS: WBC 5.09, hgb 13.2, hct 45.9, plt count 90, sodium 144, potassium 5.1, chloride 93, bicarb 42, BUN 18, creatinine 0.55 and glucose 102. BNP 194. ASSESSMENT: 1. Hypoxemic respiratory failure 2. Hypercapnic respiratory failure 3. COPD exacerbation secondary to the bronchitis 4. Hypertension 5. Dyslipidemia PLAN: 1. Continue the Solu-Medrol 2. DUO NEBS 3. Rocephin 4. Daily I&O's TIME SPENT: More than 35 minutes MTDD
--- NOTE | 2017-12-11 14:02 | HP ---
DATE OF SERVICE: 12/08/17 CHIEF COMPLAINT: Shortness of breath, cough and congestion. HISTORY OF PRESENT ILLNESS: This is a 67 year old male with severe COPD, oxygen dependent came to the emergency room with cough and congestion and shortness of breath and not able to breath. Using the extra breathing treatments and not helping so came to the emergency room and seen by Dr. Felton. ABG was pH 7.330, pCO2 101.5, pO2 23. CT chest x-ray did not show any acute infiltrate. The patient was put on the BIPAP. At that time the patient being admitted to the hospital for the acute hypoxemic respiratory failure. REVIEW OF SYSTEMS: CONSTITUTIONAL: No fever, no chills. Weakness and tiredness. HEENT: Normal. ENDOCRINE: No weight gain; no weight loss. CVS: No chest pain. No PND, no orthopnea. Shortness of breath. No PND, no orthopnea. RESPIRATORY: Cough, Congestion. No hemoptysis. GI: No nausea, no vomiting. No abdominal pain. No melena. : No hematuria. No polyuria. MUSCULOSKELETAL: No joint swelling. PSYCHIATRIC: Not anxious. No depression. No suicidal thoughts. No homicidal thoughts. SKIN: Intact, no open lesions. PAST MEDICAL HISTORY: COPD, Oxygen dependent Hypertension Dyslipidemia Osteoarthritis Enlarged heart Atrial fibrillation PAST SURGICAL HISTORY: None PERSONAL HISTORY: and lives with the . FAMILY HISTORY: Coronary artery disease Asthma MEDICATIONS: Aspirin Ipratropium/Albuterol Sulfate ProAir Symbicort Vitamin D3 Pravastatin Sodium Lasix Eliquis Diltiazem Digoxin ALLERGIES: Tiotropium [place] PHYSICAL EXAMINATION: V/S: Blood pressure 126/88, respiratory rate 30, heart rate 83, temperature 98.1 with saturation 80. GENERAL: Sick looking male lying in the bed in respiratory distress. HEENT: Atraumatic, normocephalic. No scleral icterus. Pallor positive. Mucosa dry NECK: Supple. No JVD, no bruit. No lymphadenopathy. No thyromegaly. HEART: S1, S2 normal. No murmur. No cyanosis or clubbing. No ascites. LUNGS: Decreased, barely heard any wheezing, basilar crackles. Clear to auscultation. No rales or rhonchi. ABDOMEN: Soft, nontender. Bowel sounds are active. No CVA tenderness. No rigidity or guarding. EXTREMITIES: 1+ edema. No cyanosis or clubbing MUSCULOSKELETAL: Normal joints, no swelling. NEUROLOGIC: The patient is awake and alert. SKIN: Intact; no open lesions. LYMPHATIC: No lymph nodes palpable. LABS: Sodium 145, potassium 4.7, chloride 89, bicarb 44, BUN 16, creatinine 0.55 and glucose 104. WBC 10.56, hgb 13.5, hct 47.4, plt count 159. ABG showed the pH 7.30, pCO2 101.5, pO2 23. Repeat ABG showed showed pH 7.30, pCO2 105.7, pO2 84. ASSESSMENT: 1. Acute hypoxemic respiratory failure 2. COPD exacerbation secondary to the bronchitis 3. CO2 Narcosis 4. Atrial fibrillation 5. Hypertension. PLAN: 1. Admit the patient to regular floor 2. CBC and CMP today and daily 3. Cardiac enzymes and Troponin 4. Continue the BIPAP 5. ABG within one hour 6. DUO NEBS 7. Solu-Medrol 125mg Q 8 hours 8. Rocephin 1 gram daily TIME SPENT: MORE THAN 70 minutes MTDD
[2017-12-11] MEDS: PRAVACHOL PO SCH (22:00)
[2017-12-12] MEDS: DUONEB NEB SCH ×5 (00:05→23:40)
[2017-12-12] MEDS: SODIUM CHLORIDE 1,000 ML IV SCH (03:30)
[2017-12-12] MEDS ORDERED: SODIUM CHLORIDE 1,000 ML IV ONE (03:30)
[2017-12-12] MEDS: SOLU-MEDROL 125 MG IVP SCH ×3 (05:47→21:18)
[2017-12-12] MEDS: LASIX TAB PO SCH (05:48)
[2017-12-12] MEDS: SYMBICORT 160-4.5 MCG INHALER IH SCH ×2 (08:50→20:34)
[2017-12-12] MEDS: VITAMIN D PO SCH (08:50)
[2017-12-12] MEDS: ASPIRIN CHEWABLE PO SCH (08:51)
[2017-12-12] MEDS: CARDIZEM CD PO SCH (08:51)
[2017-12-12] MEDS: LANOXIN PO SCH (08:51)
[2017-12-12] MEDS: ELIQUIS PO SCH ×2 (08:51→20:34)
[2017-12-12] MEDS: ROCEPHIN 1 GM in SODIUM CHLORIDE 50 ML IV SCH (09:10)
[2017-12-12] MEDS: PRAVACHOL PO SCH (20:34)
[2017-12-13] MEDS: DUONEB NEB SCH ×4 (04:49→23:05)
[2017-12-13] MEDS: LASIX TAB PO SCH (06:01)
[2017-12-13] MEDS: SOLU-MEDROL 125 MG IVP SCH ×3 (06:01→21:44)
[2017-12-13] MEDS: SODIUM CHLORIDE 1,000 ML IV SCH (06:02)
[2017-12-13] MEDS ORDERED: SODIUM CHLORIDE 1,000 ML IV ONE (06:02)
[2017-12-13] MEDS: ASPIRIN CHEWABLE PO SCH (08:20)
[2017-12-13] MEDS: ROCEPHIN 1 GM in SODIUM CHLORIDE 50 ML IV SCH (08:20)
[2017-12-13] MEDS: SYMBICORT 160-4.5 MCG INHALER IH SCH ×2 (08:20→21:30)
[2017-12-13] MEDS: LANOXIN PO SCH (08:21)
[2017-12-13] MEDS: ELIQUIS PO SCH ×2 (08:21→21:30)
[2017-12-13] MEDS: VITAMIN D PO SCH (08:21)
[2017-12-13] MEDS: CARDIZEM CD PO SCH (08:21)
[2017-12-13] MEDS: PRAVACHOL PO SCH (21:30)
[2017-12-14] MEDS: DUONEB NEB SCH ×4 (04:50→23:10)
[2017-12-14] MEDS: SOLU-MEDROL 125 MG IVP SCH ×3 (06:24→21:29)
[2017-12-14] MEDS: LASIX TAB PO SCH (06:25)
[2017-12-14] MEDS: SODIUM CHLORIDE 1,000 ML IV SCH (06:28)
[2017-12-14] MEDS ORDERED: SODIUM CHLORIDE 1,000 ML IV ONE (06:28)
[2017-12-14] MEDS ORDERED: K-DUR PO STA (08:48)
--- NOTE | 2017-12-14 09:56 | PN ---
DATE OF SERVICE: 12/11/17 SUBJECTIVE: The patient is admitted with hypoxemic respiratory failure, c02 narcosis. The patient had been on the BIPAP and is doing better. Still coughing with congestion. Shortness of breath on minimal exertion. REVIEW OF SYSTEMS: CONSTITUTIONAL: No fever, no chills. HEENT: Normal. ENDOCRINE: No weight gain, no weight loss. CVS: No angina symptoms. No CHF symptoms. No palpitations. No atypical chest pain for CAD. Shortness of breath on minimal exertion. No PND, no orthopnea. RESPIRATORY: Cough and congestion. No hemoptysis. GI: No nausea, no vomiting. No abdominal pain. : No hematuria. No polyuria. MUSCULOSKELETAL: No joint swelling. PSYCHIATRIC: Not anxious. No depression. No suicidal thoughts. No homicidal thoughts. SKIN: Intact. No rash. PHYSICAL EXAMINATION: V/S: BP 132/64, respiratory rate 16, heart rate 87, temperature 98.1. Pallor positive. GENERAL: The patient is lying in bed, not in any distress. HEENT: Normocephalic, atraumatic. No icterus. NECK: Supple. No JVD, no carotid bruit. No lymphadenopathy. LUNGS: Decreased breath sounds with basilar crackles. Mild wheezing. HEART: S1, S2 normal. No S3. No murmur, gallop or regurgitation. ABDOMEN: Soft, nontender. Bowel sounds active. No rigidity. No rebound or guarding. No CVA tenderness. EXTREMITIES: No cyanosis, clubbing or pedal edema. MUSCULOSKELETAL: No joint swelling. NEUROLOGIC: Awake, alert. No focal deficit. LYMPHATIC: No lymph nodes palpable. SKIN: Dry. Intact. LABS: White count 9.10, hemoglobin 11.1, hematocrit 37.3, platelet count 147. Sodium 144, potassium 3.8, chloride 95, bicarb 41, BUN 20, creatinine 0.47, glucose 122. ASSESSMENT: 1. HYPOXEMIC RESPIRATORY FAILURE 2. HYPERCAPNIA 3. COPD EXACERBATION SECONDARY TO BRONCHITIS 4. ATRIAL FIBRILLATION 5. CHF PLAN: 1. Continue Rocephin, Duonebs 2. Daily I & O's 3. Eliquis 4. Will start the patient on oxygen and will see if he can tolerate it well TIME SPENT: More than 35 minutes MTDD
[2017-12-14] MEDS: SYMBICORT 160-4.5 MCG INHALER IH SCH ×2 (10:43→21:29)
[2017-12-14] MEDS: ROCEPHIN 1 GM in SODIUM CHLORIDE 50 ML IV SCH (10:43)
[2017-12-14] MEDS: VITAMIN D PO SCH (10:44)
[2017-12-14] MEDS: ASPIRIN CHEWABLE PO SCH (10:44)
[2017-12-14] MEDS: LANOXIN PO SCH (10:45)
[2017-12-14] MEDS: CARDIZEM CD PO SCH (10:45)
[2017-12-14] MEDS: ELIQUIS PO SCH ×2 (10:46→21:29)
--- NOTE | 2017-12-14 11:27 | DI ---
EXAM: Two views of the chest. History: Dyspnea and cough. Comparison: Chest radiograph 12/08/2017 Findings: Heart size is within normal limits. Emphysema. Bilateral interstitial thickening and sma ll bilateral pleural effusions. No acute osseous abnormalities. No pneumothorax. Atherosclerotic v ascular calcifications. Impression: 1. Bilateral interstitial thickening and small bilateral pleural effusions could be due to pneumonia or edema. 2. Emphysema
--- NOTE | 2017-12-14 14:07 | RS.OTINEVL ---
Subjective - Patient information Date of Evaluation: 12/14/17 Date of Arrival on Unit: 12/08/17 Admitted From:: Emergency Dept Usual Living Arrangement: With Spouse Living Arrangement Comments: lives with who is also on home O2. does cooking and cleaning Home Environment: House Medical History: COPD Medical History Comments:: SOA, Wears Bipap on 4Liters at home, soft diet, productive cough, COPD with exacerbation. Subjective Information/ Patient Comments:: "My legs feel like rubber when I went for my x-ray." "I try when I can and I tell you when I can't." - Level of function Prior to this admission, the patient could do the following:: Independent ADL's , Independent Ambulation Abilities prior to this admission: Pt is able to walk less than 15 feet to the [facility] from his bed. Pt is able to use the restroom himself. Pt requires assistance from his for his bath and shower. Pt uses a shower chair to do a shower. Pt could use a RW. Current Equipment Used at Home: walker, oxygen, nebulizer, pulse ox, wheelchair Pain Assessment - Pain Pain Aggravating Factors: ADL's, Changing Position, Standing, Sitting, Walking Pain Alleviating Factors: Medication, Sitting Interventions - Objective Patient Orientation: Person, Place, Time, Situation Current Interventions: IV's, Oxygen, Telemetry Observation: Pt is very SOA. Pt uses the bipap with 4 liters to breathe. Pt is not always wanting to participate in therapy. Pt props up on his arms and hands to lean on to help with breathing. Pt stood CGA from EOB. Pt very shakey and SOA with standing. Interventions - ROM Right Upper Extremity AROM: Moderate limitation Left Upper Extremity AROM: Moderate limitation - Strength Right Upper Extremity Strength: Mild Weakness Left Upper Extremity Strength: Mild Weakness - Sensation Right Upper Extremity Sensation: Intact/Normal Left Upper Extremity Sensation: Intact/Normal Balance - Sitting Balance Static Sitting Balance: Fair Dynamic Sitting Balance: Fair - Standing Balance Static Standing Balance: Poor Dynamic Standing Balance: Poor - Comments Balance Assessment Comments: Poor ADL Skills - Self Feeding Self Feeding: Independent - Bathing Bathing UE: Min Assist (Pt's helps him with a bath.) Bathing LE: Min Assist - Dressing Dressing UE: CGA Dressing LE: CGA - Toilet Management Toileting Management: CGA Functional Mobility RAGHU INDEX SCORE: . Additional Treatment Performed - Time with patient Length of Evaluation: 25 Total treatment time: 30 Activities Do you enjoy playing games?: No Would you be interested in leaving your room for activities?: No Would you enjoy group activities?: No Do you have difficulty with your vision?: No Patient Interests:: Watching Television Patient Education Patient Education: Education of diagnosis, Home Exercise Program, Education of Plan of Care Teaching Recipient: Patient Teaching Methods: Discussion Assessment Problem List:: Decreased level of function, Requires training/education, Decreased safety/Risk of falls, Weakness, Pain limits previous level of function Rehab Potential: Good Further Therapy Indicated?: Yes Evaluation Complexity: HISTORY: Medium, EXAM OF BODY SYSTEMS: Medium, CLINICAL DECISION MAKING: Medium Short Term Goals - Goals GOAL 1: Pt to tolerate BUE therex sitting EOB for 10 minutes. Goal to be met by: 12/17/17 GOAL 2: Pt to tolerate completing self care management CGA. Goal to be met by: 12/17/17 GOAL 3: Pt to tolerate 8 minutes of upper body bike. Goal to be met by: 12/18/17 Mcc Goals GOAL 1: Pt to tolerate BUE therex sitting EOB for 15 minutes. Goal to be met by: 12/21/17 GOAL 2: Pt to tolerate completing self care management Mod-I. Goal to be met by: 12/21/17 GOAL 3: Pt to tolerate 14 minutes of upper body bike. Goal to be met by: 12/22/17 Plan Anticipated Discharge Destination: Home Treatment Diagnosis (ICD 10 Codes): M62.81 muscle weakness, Z74.1 Need for assistance with personal care. Has the Physician been added for Co-signature?: Yes
--- NOTE | 2017-12-14 16:03 | RS.PTINEVL ---
Subjective - Patient information Date of Evaluation: 12/14/17 Date of Arrival on Unit: 12/08/17 Admitted From:: Emergency Dept Diagnosis: acute hypoxemic resp failure Usual Living Arrangement: With Spouse Living Arrangement Comments: lives with who is also on home O2. does cooking and cleaning Home Environment: House Medical History: Hypertension, COPD, Arthritis Medical History Comments:: afib, enlarged heart LATEX ALLERGY?: No Medications: see chart Subjective Information/ Patient Comments:: pt states that he just got breathing treatment. pt states he is too weak to work on amb at this time. - Level of function Prior to this admission, the patient could do the following:: Independent ADL's , Independent Ambulation Current Level of Function: Partially Dependent Current Equipment Used at Home: walker, oxygen, nebulizer, pulse ox, wheelchair Interventions - Objective Patient Orientation: Person, Place, Time, Situation Current Interventions: IV's, Oxygen, Telemetry Observation: pt on bipap while lying supine. Range of Motion - ROM Right Upper Extremity AROM: WFL's Left Upper Extremity AROM: WFL's Right Lower Extremity AROM: WFL's Left Lower Extremity AROM: WFL's Muscle Strength - Muscle Strength Right Upper Extremity Strength: Mild Weakness (BUE grossly 3+/5) Left Upper Extremity Strength: Mild Weakness (BUE grossly 3+/5) Right Lower Extremity Strength: Mild Weakness (hip flex 3+/5, knee flex/ext 4-/5 , ankle DF/PF 4-/5) Left Lower Extremity Strength: Mild Weakness (hip flex 3+/5, knee flex/ext 4-/5 , ankle DF/PF 4-/5) Sensation - Sensation Right Upper Extremity Sensation: Intact/Normal Left Upper Extremity Sensation: Intact/Normal Right Lower Extremity Sensation: Intact/Normal Left Lower Extremity Sensation: Intact/Normal Palpation Palpation Findings: None/Normal Balance - Sitting Balance and Reactions Static Sitting Balance: Good Dynamic Sitting Balance: Fair - Standing Balance and Reactions Static Standing Balance: Poor Dynamic Standing Balance: Poor Standing Equilibrium Reactions: Delayed Left, Delayed Right Standing Protective Reactions: Delayed Left, Delayed Right Functional Mobility - Bed Mobility Rolling R/L: Min Assist Scooting: Min Assist Supine to Sit: Min Assist - Transfers Sit to Stand: Min Assist Stand to Sit: Min Assist - Safety Awareness Safety Awareness: Fair RAGHU INDEX SCORE: n/a Ambulation - Ambulation Ambulation Comments: pt refused to attempt amb this date Treatment time - Time with patient Length of Evaluation: 26 Total treatment time: 26 Patient Education - Education Patient Education: Activity Modification, Education of Plan of Care Teaching Recipient: Patient Teaching Methods: Discussion Comments: discussion with patient regarding his goals: Goal to be able to walk approx 10ft. Assessment - Assessment Problem List:: Decreased level of function, Requires training/education, Decreased safety/Risk of falls, Weakness Rehab Potential: Fair Further Therapy Indicated?: No Candidate for Swing Bed for Therapy Services?: Feel pt is not a candidate for swing bed for therapy due to unable to tolerate adequate mins required for swing bed. Comments: Feel pt would benefit from beginning with OT for UE strengthening, energy conservation to improve breathing. pt may benefit from PT at a later time if able to tolerate increased activity. pt unable to tolerate both PT and OT at this time. Evaluation Complexity: HISTORY: Medium (COPD, OA, afib, HTN,), EXAM OF BODY SYSTEMS: Medium, CLINICAL PRESENTATION: Medium, CLINICAL DECISION MAKING: Medium Short Term Goals GOAL #1: . GOAL #2: . GOAL #3: . Fdc Goals GOAL #1: . GOAL #2: . GOAL #3: . Plan Other:: no PT at this time, eval only Frequency of Treatment: One time treatment Duration of Treatment: One Time Treatment Anticipated Discharge Destination: Home Treatment Diagnosis (ICD 10 Codes): M62.81 weakness. R26.2 difficulty walking Has the Physician been added for Co-signature?: Yes
[2017-12-14] MEDS: PRAVACHOL PO SCH (21:29)
[2017-12-15] MEDS: DUONEB NEB SCH ×2 (04:35→11:07)
[2017-12-15] MEDS: SOLU-MEDROL 125 MG IVP SCH (04:36)
[2017-12-15] MEDS: LASIX TAB PO SCH (05:37)
[2017-12-15] MEDS: ROCEPHIN 1 GM in SODIUM CHLORIDE 50 ML IV SCH (09:25)
[2017-12-15] MEDS: ASPIRIN CHEWABLE PO SCH (09:26)
[2017-12-15] MEDS: CARDIZEM CD PO SCH (09:26)
[2017-12-15] MEDS: VITAMIN D PO SCH (09:26)
[2017-12-15] MEDS: SYMBICORT 160-4.5 MCG INHALER IH SCH (09:26)
[2017-12-15] MEDS: LANOXIN PO SCH (09:27)
[2017-12-15] MEDS: ELIQUIS PO SCH (09:27)
[2017-12-15] MEDS ORDERED: LASIX IVP STA (09:42)
--- NOTE | 2017-12-15 10:04 | PN ---
DATE OF SERVICE: 12/14/17 SUBJECTIVE: Still weakness and tiredness, cough and congestion and using the BIPAP at night time. Right now he is on the two liters of nasal cannula. Oxygen is at 95% but still weak. Shortness of breath with the minimal exertion. REVIEW OF SYSTEMS: CONSTITUTIONAL: No fever, no chills. HEENT: Normal. ENDOCRINE: No weight gain, no weight loss. CVS: No angina symptoms. No CHF symptoms. No palpitations. No atypical chest pain for CAD. Shortness of breath. No PND, no orthopnea. RESPIRATORY: Cough, no hemoptysis. GI: No nausea, no vomiting. No abdominal pain. : No hematuria. No polyuria. MUSCULOSKELETAL: No joint swelling. PSYCHIATRIC: Not anxious. No depression. No suicidal thoughts. No homicidal thoughts. SKIN: Intact. No rash. PHYSICAL EXAMINATION: V/S: Blood pressure 125/72, respiratory rate 24, heart rate 91, temperature 98.5 with saturation 91 on the BIPAP. HEENT: Normocephalic, atraumatic. Mucosa dry. Pallor positive. No icterus. NECK: Supple. No JVD, no carotid bruit. No lymphadenopathy. LUNGS: Basilar crackles. Clear to auscultation. No rales or rhonchi. HEART: S1, S2 normal. No S3. No murmur, gallop or regurgitation. ABDOMEN: Soft, nontender. Bowel sounds active. No rigidity. No rebound or guarding. No CVA tenderness. EXTREMITIES: No cyanosis, clubbing or pedal edema. MUSCULOSKELETAL: No joint swelling. NEUROLOGIC: Awake, alert. No focal deficit. LYMPHATIC: No lymph nodes palpable. SKIN: Intact. LABS: Sodium 144, potassium 3.4, chloride 98, bicarb 42, BUN 18, creatinine 0.47 and glucose 135. WBC 6.55, hgb 11.2, hct 37.4 and plt count 138. ASSESSMENT: 1. COPD exacerbation 2. Bronchitis 3. Weakness and tiredness 4. Atrial fibrillation 5. CHF 6. Hypothyroidism PLAN: 1. Transitional care evaluation 2. Physical therapy evaluation 3. Continue the antibiotics and steroids 4. Daily I&O's TIME SPENT: More than 35 minutes MTDD
[2017-12-15 10:24] VITALS: BP 105/68; TEMP 97.6
[2017-12-15] MEDS ORDERED: XOPENEX 1.25 MG NEB SCH (12:00)
[2017-12-15] MEDS ORDERED: SOLU-MEDROL 125 MG IVP SCH (13:00)
--- NOTE | 2017-12-15 13:40 | PN ---
DATE OF SERVICE: 12/12/17 SUBJECTIVE: The patient is admitted with hypoxemic respiratory failure and hypercapnic respiratory failure. The patient is on BIPAP. He still has cough, congestion and shortness of breath on minimal exertion. REVIEW OF SYSTEMS: CONSTITUTIONAL: No fever, no chills. HEENT: Normal. ENDOCRINE: No weight gain, no weight loss. CVS: No angina symptoms. No CHF symptoms. No palpitations. No atypical chest pain for CAD. Shortness of breath on minimal exertion. No PND, no orthopnea. RESPIRATORY: Cough and congestion. No hemoptysis. GI: No nausea, no vomiting. No abdominal pain. : No hematuria. No polyuria. MUSCULOSKELETAL: No joint swelling. PSYCHIATRIC: Not anxious. No depression. No suicidal thoughts. No homicidal thoughts. SKIN: Intact. No rash. PHYSICAL EXAMINATION: V/S: BP 110/78, respiratory rate 17, heart rate 74, temperature 98.1, saturation 92 on the BIPAP. HEENT: Normocephalic, atraumatic. Mucosa dry. Pallor positive. NECK: Supple. No JVD, no carotid bruit. No lymphadenopathy. LUNGS: There are some basilar crackles but few movements in the lung grayson. No edema. HEART: S1, S2 normal. No S3. No murmur, gallop or regurgitation. ABDOMEN: Soft, nontender. Bowel sounds active. No rigidity. No rebound or guarding. No CVA tenderness. EXTREMITIES: No cyanosis, clubbing or pedal edema. MUSCULOSKELETAL: No joint swelling. NEUROLOGIC: Awake, alert. No focal deficit. LYMPHATIC: No lymph nodes palpable. SKIN: Intact. LABS: Sodium 143, potassium 3.8, chloride 95, bicarb 41, BUN 20, creatinine 0.47. White count 8.15, hemoglobin 12.3, hematocrit 40.8, platelet count 157. ASSESSMENT: 1. HYPOXEMIC RESPIRATORY FAILURE 2. HYPERCAPNIC RESPIRATORY FAILURE 3. COPD EXACERBATION SECONDARY TO BRONCHITIS 4. ATRIAL FIBRILLATION 5. CHF 6. LONG TERM COAGULATION PLAN: 1. Continue BIPAP as this time in the nighttime 2. Nasal cannula during the daytime 3. Solu-Medrol 4. IV fluids 5. Rocephin 1 gm daily TIME SPENT: More than 35 minutes MTDD
--- NOTE | 2017-12-15 13:48 | PN ---
DATE OF SERVICE: 12/13/17 SUBJECTIVE: He had a good night sleep with 2L of oxygen but c02 went up to 42 and saturations were 90 to 95 on 2.5L. REVIEW OF SYSTEMS: CONSTITUTIONAL: No fever, no chills. HEENT: Normal. ENDOCRINE: No weight gain, no weight loss. CVS: No angina symptoms. No CHF symptoms. No palpitations. No atypical chest pain for CAD. No shortness of breath. No PND, no orthopnea. RESPIRATORY: No cough, no hemoptysis. GI: No nausea, no vomiting. No abdominal pain. : No hematuria. No polyuria. MUSCULOSKELETAL: No joint swelling. PSYCHIATRIC: Not anxious. No depression. No suicidal thoughts. No homicidal thoughts. SKIN: Intact. No rash. PHYSICAL EXAMINATION: V/S: BP 118/74, respiratory rate 22, heart rate 83, temperature 98.2, saturation 91 on 2.5. HEENT: Normocephalic, atraumatic. Mucosa dry. Pallor positive. No icterus. NECK: Supple. No JVD, no carotid bruit. No lymphadenopathy. LUNGS: Decreased breath sounds with basilar crackles. Clear to auscultation. HEART: S1, S2 normal. No S3. No murmur, gallop or regurgitation. ABDOMEN: Soft, nontender. Bowel sounds active. No rigidity. No rebound or guarding. No CVA tenderness. EXTREMITIES: No cyanosis, clubbing or pedal edema. MUSCULOSKELETAL: No joint swelling. NEUROLOGIC: Awake, alert. No focal deficit. LYMPHATIC: No lymph nodes palpable. SKIN: Intact. LABS: White count 6.35, hemoglobin 11.1, hematocrit 37.3, platelet count 139. Sodium 143, potassium 3.6, chloride 97, bicarb 42, BUN 20, creatinine 0.52, glucose 120. ASSESSMENT: 1. COPD EXACERBATION 2. C02 NARCOSIS 3. UPPER RESPIRATORY INFECTION 4. CHF 5. DYSLIPIDEMIA 6. OSTEOARTHRITIS 7. CHF 8. ATRIAL FIBRILLATION PLAN: 1. Continue Rocephin 2. Solu-Medrol 3. Daily I & O's 4. Continue BIPAP TIME SPENT: More than 35 minutes MTDD
--- NOTE | 2017-12-15 21:14 | PCM.HOSP ---
- Subsequent Care [id number] 25 Minutes per Day (73794): 12/14 [id number] 35 Minutes per Day (97989): 12/09. 8/16. 8/17. 8/18. 8/19 - Hospital Discharge [id number] More than 30 Minutes (19590): 12/15 - Critical Care [id number] Eval&Mgnt 1st 30-74 Minutes (54125): 12/08
--- NOTE | 2017-12-16 09:15 | RS.OTQKDC ---
OT Discharge Date of Discharge: 12/15/17 Reason for Discharge: Pt discharged from [facility] and admitted to swing bed. Pt will be evaluated by OT in Swing bed.
--- NOTE | 2017-12-16 11:20 | PN ---
DATE OF SERVICE: 12/10/17 SUBJECTIVE: The patient was admitted with the hypoxemic respiratory failure, hypercapnia. Still coughing and congested and shortness of breath. Using the BIPAP and it is helping. REVIEW OF SYSTEMS: CONSTITUTIONAL: No fever, no chills. HEENT: Normal. ENDOCRINE: No weight gain, no weight loss. CVS: No angina symptoms. No CHF symptoms. No palpitations. No atypical chest pain for CAD. Shortness of breath. No PND, no orthopnea. RESPIRATORY: Cough, no hemoptysis. GI: No nausea, no vomiting. No abdominal pain. : No hematuria. No polyuria. MUSCULOSKELETAL: No joint swelling. PSYCHIATRIC: Not anxious. No depression. No suicidal thoughts. No homicidal thoughts. SKIN: Intact. No rash. PHYSICAL EXAMINATION: V/S: Blood pressure 99/72, respiratory rate 28, heart rate 76, temperature 97.0 with saturation 96% on BIPAP HEENT: Normocephalic, atraumatic. Mucosa dry. Pallor positive. No icterus. NECK: Supple. No JVD, no carotid bruit. No lymphadenopathy. LUNGS: Decreased and basilar crackles. Clear to auscultation. No rales or rhonchi. HEART: S1, S2 normal. No S3. No murmur, gallop or regurgitation. ABDOMEN: Soft, nontender. Bowel sounds active. No rigidity. No rebound or guarding. No CVA tenderness. EXTREMITIES: No cyanosis, clubbing or pedal edema. MUSCULOSKELETAL: No joint swelling. NEUROLOGIC: Awake, alert. No focal deficit. LYMPHATIC: No lymph nodes palpable. SKIN: Intact. LABS: WBC 10.08, hgb 11.5, hct 38.5, plt count 163, sodium 141, potassium 4.3, chloride 92, bicarb 44, BUN 20, creatinine 0.47 and glucose 142. ABG pH 7.405, pCO2 82, pO2 80. ASSESSMENT: 1. Hypoxemic respiratory failure 2. Hypercapnia 3. COPD exacerbation secondary to the bronchitis 4. Atrial fibrillation 5 CHF PLAN: 1. Continue Rocephin 2. Solu-Medrol 3. Daily I&O's 4. Xarelto TIME SPENT: More than 35 minutes MTDD
--- NOTE | 2017-12-16 12:50 | DS ---
DATE OF SERVICE: 12/15/17 FINAL DIAGNOSIS: 1. Acute on chronic respiratory failure 2. CO2 narcosis 3. COPD exacerbation secondary to the bronchitis and pneumonia per new chest x- ray 4. Hypertension 5. Atrial fibrillation 6. Status post tonsillectomy 7. Oxygen dependent COPD 8. CHF 9. Pulmonary hypertension 10.Enlarged heart. DISCHARGE INSTRUCTIONS: Admit the patient to the transitional care. Continue DUO NEBS, Solu-Medrol 80 Q 8 hours, BIPAP. Continue Rocephin 1 gram daily. MEDICATIONS: Aspirin Ipratropium/Albuterol ProAir Symbicort Vitamin D3 Pravastatin Sodium Lasix Eliquis Diltiazem Digoxin DIET INSTRUCTIONS: Soft, cardiac and healthy diet. ACTIVITY: Complete bed rest DISEASE SPECIFIC EDUCATION: COPD Pneumonia and pneumonia vaccination been discussed Antibiotic use and diarrhea been discussed HOSPITAL COURSE: Simone Acharya 67 year old gentleman with endstage lung disease and oxygen dependent came to the emergency room with shortness of breath, cough and congestion. He was seen by Dr. Edmond in the emergency room. Showed the ABG in the emergency room showed the pH 7.330, pCo2 101.5, pO2 23. The patient was put on the BIPAP. pO2 jumped up to 84 and pCo2 105.7. When the BIPAP setting change to the inspiration to the 10 and expiration to 8 the pCO2 dropped to 84. The patient was awake and alert and did not have any problems. Length of stay was extended because of the severe hypoxemia and shortness of breath and the patient was needing constant BIPAP. Gradually and slowly the patient was getting better. Up and about sitting but still short of breath. Repeat chest x- ray was showing the pneumonia. At that time the patient was admitted to the transitional care for continuation of IV antibiotics, breathing treatment, physical therapy and occupational therapy. TIME SPENT: MORE THAN 65 MINUTES MTDD
== END 2017-12-15 13:36 | disposition swing bed (61) | DRG 204 ==
LOC: ED 18:10 → SCU 19:32
PROVIDERS: ADMIT Emergency Medicine; ATTEND Emergency Medicine
DX: R06.00 Dyspnea, unspecified (principal); J96.01 Acute respiratory failure with hypoxia; J44.1 Chronic obstructive pulmonary disease with (acute) exacerbation; R06.2 Wheezing; R06.89 Other abnormalities of breathing; R53.1 Weakness; I48.91 Unspecified atrial fibrillation; I10 Essential (primary) hypertension; I50.9 Heart failure, unspecified; E78.5 Hyperlipidemia, unspecified; M19.90 Unspecified osteoarthritis, unspecified site; Z99.81 Dependence on supplemental oxygen
CPT/HCPCS: 36415; 80053; 80162; 82803; 82962; 83880; 84484; 85008; 85025; 87040; 87081; 93005; 93010; 94640; 94660; 96361; 96365; 96375; 99284; 99285

== ENCOUNTER 2017-12-15 13:51 | Inpatient (IN) ==
[2017-12-15] MEDS ORDERED: PROAIR HFA IH PRN (14:30)
[2017-12-15 15:16] VITALS: BMI 21.9
[2017-12-15] MEDS: XOPENEX 1.25 MG NEB SCH ×2 (17:22→23:04)
[2017-12-15] MEDS: PRAVACHOL PO SCH (21:17)
[2017-12-15] MEDS: SYMBICORT 160-4.5 MCG INHALER IH SCH (21:17)
[2017-12-15] MEDS: ELIQUIS PO SCH (21:17)
[2017-12-15] MEDS: SOLU-MEDROL 125 MG IVP SCH (21:18)
[2017-12-16] MEDS: XOPENEX 1.25 MG NEB SCH ×3 (04:45→17:00)
[2017-12-16] MEDS: LASIX TAB PO SCH (06:07)
[2017-12-16] MEDS: SOLU-MEDROL 125 MG IVP SCH ×2 (06:07→14:57)
[2017-12-16] MEDS: LANOXIN PO SCH (08:05)
[2017-12-16] MEDS: ASPIRIN CHEWABLE PO SCH (08:05)
[2017-12-16] MEDS: VITAMIN D PO SCH (08:05)
[2017-12-16] MEDS: ROCEPHIN 1 GM in SODIUM CHLORIDE 50 ML IV SCH (08:05)
[2017-12-16] MEDS: CARDIZEM CD PO SCH (08:05)
[2017-12-16] MEDS: SYMBICORT 160-4.5 MCG INHALER IH SCH (08:06)
[2017-12-16] MEDS: ELIQUIS PO SCH (08:07)
[2017-12-16] MEDS ORDERED: NON-FORMULARY MEDICATION (Cholecalciferol (Vitamin D3) [Vitamin D3] 1,000 UNIT) PO SCH (09:00)
--- NOTE | 2017-12-16 14:31 | RS.OTINEVL ---
Subjective - Patient information Date of Evaluation: 12/16/17 Date of Arrival on Unit: 12/15/17 Usual Living Arrangement: With Spouse Living Arrangement Comments: lives with who is also on home O2. does cooking and cleaning Medical History Comments:: Acute COPD exacerbation, Subjective Information/ Patient Comments:: "I will try." "Just leave that alone. " Pt did not want his monitor connected. - Level of function Prior to this admission, the patient could do the following:: Independent ADL's , Independent Ambulation Abilities prior to this admission: Pt was walking about 10-15 feet to the bathroom from his bed. Pt is on 4Liters Bipap at home. Current Level of Function: Partially Dependent Current Equipment Used at Home: walker, wheelchair, pulse ox, nubulizer, Pain Assessment - Pain Pain Aggravating Factors: Changing Position Pain Alleviating Factors: Medication Interventions - Objective Patient Orientation: Person, Place, Time Current Interventions: IV's, Oxygen Observation: Pt is weak and shaking. Pt is leaning over to prop his elbows up on the bed to breathe. Pt is not able to complete personal hygiene. Interventions - ROM Right Upper Extremity AROM: WFL's Left Upper Extremity AROM: WFL's - Strength Right Upper Extremity Strength: Mild Weakness Left Upper Extremity Strength: Mild Weakness - Sensation Right Upper Extremity Sensation: Intact/Normal Left Upper Extremity Sensation: Intact/Normal Balance - Sitting Balance Static Sitting Balance: Poor Dynamic Sitting Balance: Poor - Standing Balance Static Standing Balance: Poor Dynamic Standing Balance: Poor - Comments Balance Assessment Comments: poor ADL Skills - Self Feeding Self Feeding: Independent - Bathing Bathing LE: Mod Assist - Dressing Dressing UE: Mod Assist - Toilet Management Toileting Management: Max Assist - Comments Comments:: Pt was leaning over onto the bed to place his elbows up there so he could breathe. Pt's body was shaking. Pt was moderate assist to stand and sit on EOB. Functional Mobility - Bed Mobility Rolling R/L: Min Assist Scooting: Independent Supine to Sit: Min Assist Sit to Supine: CGA - Transfers Sit to Stand: Mod Assist Stand to Sit: Mod Assist Stand Pivot Transfers: Mod Assist - Ambulation Weight Bearing Status: FWB Assistive Device Used: No Assistive Device Assistance needed with Ambulation: Mod Assist - Safety Awareness Safety Awareness: Poor RAGHU INDEX SCORE: 41 Additional Treatment Performed - Time with patient Length of Evaluation: 26 Total treatment time: 26 Activities Do you enjoy playing games?: No Would you be interested in leaving your room for activities?: No Would you enjoy group activities?: No Do you have difficulty with your vision?: No Patient Interests:: Watching Television Comments:: Pt is not able to participate in many activities at this time. Patient Education Patient Education: Education of diagnosis, Home Exercise Program, Education of Plan of Care Teaching Recipient: Patient Teaching Methods: Discussion Comments: Pt is very anxious and tyler. Pt is SOA at rest. Pt is leaning over to prop elbows on the bed while he sits and has a BM on the BSC. Assessment Problem List:: Decreased level of function, Requires training/education, Decreased safety/Risk of falls, Weakness Rehab Potential: Poor Further Therapy Indicated?: No Candidate for Swing Bed for Therapy Services?: not at this time. Comments: Pt is not appropriate for therapy at this time. Pt is not able to tolerate treatment at this time. OT will continue to watch patient to see if he will do therapy as he improved. Evaluation Complexity: HISTORY: Medium, EXAM OF BODY SYSTEMS: Medium, CLINICAL DECISION MAKING: Medium Plan Treatment Diagnosis (ICD 10 Codes): M62.81 Muscle weakness Has the Physician been added for Co-signature?: Yes
[2017-12-17] MEDS: PRAVACHOL PO SCH ×2 (00:34→21:16)
[2017-12-17] MEDS: ELIQUIS PO SCH ×3 (00:34→21:16)
[2017-12-17] MEDS: SOLU-MEDROL 125 MG IVP SCH ×4 (00:35→21:17)
[2017-12-17] MEDS: SYMBICORT 160-4.5 MCG INHALER IH SCH ×3 (00:35→21:16)
[2017-12-17] MEDS: XOPENEX 1.25 MG NEB SCH ×5 (05:05→23:02)
[2017-12-17] MEDS: LASIX TAB PO SCH (05:39)
[2017-12-17] MEDS: ASPIRIN CHEWABLE PO SCH (08:37)
[2017-12-17] MEDS: LANOXIN PO SCH (08:37)
[2017-12-17] MEDS: CARDIZEM CD PO SCH (08:37)
[2017-12-17] MEDS: ROCEPHIN 1 GM in SODIUM CHLORIDE 50 ML IV SCH (08:37)
[2017-12-17] MEDS: VITAMIN D PO SCH (08:38)
--- NOTE | 2017-12-17 13:14 | HP ---
DATE OF SERVICE: 12/15/17 CHIEF COMPLAINT: Continuation of IV antibiotics for pneumonia and the physical therapy and occupational therapy. HISTORY OF PRESENT ILLNESS: Simone Acharya 67 year old gentleman with endstage lung disease and oxygen dependent came to the emergency room with shortness of breath, cough and congestion. He was seen by Dr. Edmond in the emergency room. Showed the ABG in the emergency room showed the pH 7.330, pCo2 101.5, pO2 23. The patient was put on the BIPAP. pO2 jumped up to 84 and pCo2 105.7. When the BIPAP setting change to the inspiration to the 10 and expiration to 8 the pCO2 dropped to 84. The patient was awake and alert and did not have any problems. Length of stay was extended because of the severe hypoxemia and shortness of breath and the patient was needing constant BIPAP. Gradually and slowly the patient was getting better. Up and about sitting but still short of breath. Repeat chest x- ray was showing the pneumonia. At that time the patient was admitted to the transitional care for continuation of IV antibiotics, breathing treatment, physical therapy and occupational therapy. REVIEW OF SYSTEMS: CONSTITUTIONAL: No fever, no chills. Weakness and tiredness. HEENT: Normal. ENDOCRINE: No weight gain; no weight loss. CVS: No chest pain. No PND, no orthopnea. Shortness of breath. No PND, no orthopnea. RESPIRATORY: Cough, Congestion. No hemoptysis. GI: No nausea, no vomiting. No abdominal pain. No melena. : No hematuria. No polyuria. MUSCULOSKELETAL: No joint swelling. PSYCHIATRIC: Not anxious. No depression. No suicidal thoughts. No homicidal thoughts. SKIN: Intact, no open lesions. PAST MEDICAL HISTORY: COPD, Oxygen dependent Hypertension Dyslipidemia Osteoarthritis Enlarged heart Atrial fibrillation PAST SURGICAL HISTORY: None PERSONAL HISTORY: and lives with the . FAMILY HISTORY: Coronary artery disease Asthma MEDICATIONS: Aspirin Ipratropium/Albuterol Sulfate ProAir Symbicort Vitamin D3 Pravastatin Sodium Lasix Eliquis Diltiazem Digoxin ALLERGIES: Tiotropium bromide PHYSICAL EXAMINATION: V/S: Blood pressure 118/78, respiratory rate 18, heart rate 77, temperature 97.5 with saturation 90% on BIPAP. HEENT: Atraumatic, normocephalic. No scleral icterus. Pallor positive. Mucosa dry. NECK: Supple. No JVD, no bruit. No lymphadenopathy. No thyromegaly. HEART: S1, S2 normal. No murmur. No cyanosis or clubbing. No ascites. LUNGS: Decreased and basilar crackles. Clear to auscultation. No rales or rhonchi. ABDOMEN: Soft, nontender. Bowel sounds are active. No CVA tenderness. No rigidity or guarding. EXTREMITIES: No pedal edema. No cyanosis or clubbing MUSCULOSKELETAL: Normal joints, no swelling. NEUROLOGIC: The patient is awake and alert SKIN: Intact; no open lesions. LYMPHATIC: No lymph nodes palpable. LABS: WBC 9.22, hgb 11.9, hct 38.9, plt count 154, sodium 140, potassium 3.4, chloride 93, Bicarb 43, BUN 18, creatinine 0.54 and glucose 116. ASSESSMENT: 1. Hypoxemic respiratory failure 2. Hypercapnia 3. COPD exacerbation secondary to pneumonia 4. Atrial fibrillation 5. Pulmonary hypertension 6. Chronic CO2 narcosis 7. Anemia PLAN: 1. Admit patient for antibiotic 2. Occupational therapy/physical therapy 3. Diet is cardiac and healthy 4. IV fluids 5. Solu-Medrol 6. Rocephin 1 gram daily 7. Xopenex 8. Daily I&O's TIME SPENT: MORE THAN 70 minutes MTDD
[2017-12-18] MEDS: XOPENEX 1.25 MG NEB SCH ×4 (04:55→23:05)
[2017-12-18] MEDS: LASIX TAB PO SCH (05:34)
[2017-12-18] MEDS: SOLU-MEDROL 125 MG IVP SCH ×3 (05:34→21:20)
[2017-12-18] MEDS: ELIQUIS PO SCH ×2 (09:19→21:19)
[2017-12-18] MEDS: ROCEPHIN 1 GM in SODIUM CHLORIDE 50 ML IV SCH (09:19)
[2017-12-18] MEDS: SYMBICORT 160-4.5 MCG INHALER IH SCH ×2 (09:19→21:20)
[2017-12-18] MEDS: ASPIRIN CHEWABLE PO SCH (09:19)
[2017-12-18] MEDS: CARDIZEM CD PO SCH (09:19)
[2017-12-18] MEDS: VITAMIN D PO SCH (09:20)
[2017-12-18] MEDS: LANOXIN PO SCH (09:20)
--- NOTE | 2017-12-18 11:31 | PN ---
DATE OF SERVICE: 12/17/17 SUBJECTIVE: The patient is in transitional care for IV antibiotics. He is still feeling weak and tired, shortness of breath with minimal exertion. Coughing, unable to bring up any phlegm. REVIEW OF SYSTEMS: CONSTITUTIONAL: Weakness, tiredness. No fever, no chills. HEENT: Normal. ENDOCRINE: No weight gain, no weight loss. CVS: No angina symptoms. No CHF symptoms. No palpitations. No atypical chest pain for CAD. Shortness of breath with minimal exertion. No PND, no orthopnea. RESPIRATORY: Cough, no hemoptysis. GI: No nausea, no vomiting. No abdominal pain. : No hematuria. No polyuria. MUSCULOSKELETAL: No joint swelling. PSYCHIATRIC: Not anxious. No depression. No suicidal thoughts. No homicidal thoughts. SKIN: Intact. No rash. PHYSICAL EXAMINATION: V/S: BP 121/79, respiratory rate 19, heart rate 79, temperature 97.4, saturation 93 on BIPAP. HEENT: Normocephalic, atraumatic. Mucosa dry, pallor positive. No icterus. NECK: Supple. No JVD, no carotid bruit. No lymphadenopathy. LUNGS: Decreased breath sounds with basilar crackles. HEART: S1, S2 normal. No S3. No murmur, gallop or regurgitation. ABDOMEN: Soft, nontender. Bowel sounds active. No rigidity. No rebound or guarding. No CVA tenderness. EXTREMITIES: No cyanosis, clubbing or pedal edema. MUSCULOSKELETAL: No joint swelling. NEUROLOGIC: Awake, alert. No focal deficit. LYMPHATIC: No lymph nodes palpable. SKIN: Intact. LABS: White count 9.22, hemoglobin 11.9, hematocrit 38.9, platelet count 154. Sodium 143, potassium 3.4, chloride 93, bicarb 43, BUN 18, creatinine 0.45, glucose 116. ASSESSMENT: 1. COPD EXACERBATION 2. PNEUMONIA 3. HYPOXEMIC RESPIRATORY FAILURE 4. HYPERCAPNIC RESPIRATORY FAILURE 5. ATRIAL FIBRILLATION 6. PULMONARY HYPERTENSION PLAN: 1. Continue Rocephin 2. Solu-Medrol 3. BIPAP 4. Daily I & O's TIME SPENT: More than 35 minutes MTDD
[2017-12-18] MEDS: PRAVACHOL PO SCH (21:20)
[2017-12-19] MEDS: XOPENEX 1.25 MG NEB SCH ×4 (04:33→22:55)
[2017-12-19] MEDS: LASIX TAB PO SCH (06:00)
[2017-12-19] MEDS: SOLU-MEDROL 125 MG IVP SCH ×3 (06:01→20:27)
[2017-12-19] MEDS: ROCEPHIN 1 GM in SODIUM CHLORIDE 50 ML IV SCH (09:32)
[2017-12-19] MEDS: LANOXIN PO SCH (09:32)
[2017-12-19] MEDS: ELIQUIS PO SCH ×2 (09:33→20:26)
[2017-12-19] MEDS: VITAMIN D PO SCH (09:33)
[2017-12-19] MEDS: SYMBICORT 160-4.5 MCG INHALER IH SCH ×2 (09:33→20:25)
[2017-12-19] MEDS: ASPIRIN CHEWABLE PO SCH (09:33)
[2017-12-19] MEDS: CARDIZEM CD PO SCH (09:33)
[2017-12-19] MEDS: MYLICON PO PRN (11:41)
[2017-12-19] MEDS: PRAVACHOL PO SCH (20:26)
[2017-12-20] MEDS: XOPENEX 1.25 MG NEB SCH ×4 (04:33→22:40)
[2017-12-20] MEDS: LASIX TAB PO SCH (05:39)
[2017-12-20] MEDS: SOLU-MEDROL 125 MG IVP SCH ×3 (05:40→21:19)
[2017-12-20] MEDS: MYLICON PO PRN (05:47)
[2017-12-20] MEDS: SYMBICORT 160-4.5 MCG INHALER IH SCH ×2 (10:16→21:24)
[2017-12-20] MEDS: ASPIRIN CHEWABLE PO SCH (10:16)
[2017-12-20] MEDS: ROCEPHIN 1 GM in SODIUM CHLORIDE 50 ML IV SCH (10:16)
[2017-12-20] MEDS: CARDIZEM CD PO SCH (10:16)
[2017-12-20] MEDS: LANOXIN PO SCH (10:16)
[2017-12-20] MEDS: ELIQUIS PO SCH ×2 (10:17→21:24)
[2017-12-20] MEDS: VITAMIN D PO SCH (10:17)
[2017-12-20] MEDS: PRAVACHOL PO SCH (21:24)
[2017-12-21] MEDS: XOPENEX 1.25 MG NEB SCH ×4 (04:36→23:20)
[2017-12-21] MEDS: SOLU-MEDROL 125 MG IVP SCH (05:10)
[2017-12-21] MEDS: LASIX TAB PO SCH (05:31)
[2017-12-21] MEDS: ROCEPHIN 1 GM in SODIUM CHLORIDE 50 ML IV SCH (08:32)
[2017-12-21] MEDS: LANOXIN PO SCH (08:32)
[2017-12-21] MEDS: SYMBICORT 160-4.5 MCG INHALER IH SCH ×2 (08:32→21:08)
[2017-12-21] MEDS: ASPIRIN CHEWABLE PO SCH (08:33)
[2017-12-21] MEDS: CARDIZEM CD PO SCH (08:33)
[2017-12-21] MEDS: ELIQUIS PO SCH ×2 (08:33→21:09)
[2017-12-21] MEDS: VITAMIN D PO SCH (08:33)
[2017-12-21] MEDS ORDERED: SOLU-MEDROL 125 MG IVP SCH (13:00)
[2017-12-21] MEDS: MYLICON PO PRN (13:09)
[2017-12-21] MEDS: SOLU-MEDROL 40 MG IVP SCH ×2 (13:09→21:08)
[2017-12-21] MEDS: PRAVACHOL PO SCH (21:09)
[2017-12-22] MEDS: XOPENEX 1.25 MG NEB SCH ×4 (04:35→23:20)
[2017-12-22] MEDS: LASIX TAB PO SCH (05:40)
[2017-12-22] MEDS: SOLU-MEDROL 40 MG IVP SCH (05:40)
--- NOTE | 2017-12-22 08:06 | PN ---
DATE OF SERVICE: 12/21/17 SUBJECTIVE: The patient was admitted to transition care for the IV antibiotics and strengthening exercise. Coughing is improved but still short of breath with minimal exertion. BIPAP is helping at night time. REVIEW OF SYSTEMS: CONSTITUTIONAL: No fever, no chills. HEENT: Normal. ENDOCRINE: No weight gain, no weight loss. CVS: No angina symptoms. No CHF symptoms. No palpitations. No atypical chest pain for CAD. No shortness of breath. No PND, no orthopnea. RESPIRATORY: No cough, no hemoptysis. GI: No nausea, no vomiting. No abdominal pain. : No hematuria. No polyuria. MUSCULOSKELETAL: No joint swelling. PSYCHIATRIC: Not anxious. No depression. No suicidal thoughts. No homicidal thoughts. SKIN: Intact. No rash. PHYSICAL EXAMINATION: V/S: Blood pressure 120/71, respiratory rate 24, heart rate 78, temperature 98.1 with saturation 97 CPAP HEENT: Normocephalic, atraumatic. Mucosa dry. Pallor positive. NECK: Supple. No JVD, no carotid bruit. No lymphadenopathy. LUNGS: Basilar crackles. Clear to auscultation. No rales or rhonchi. HEART: S1, S2 normal. No S3. No murmur, gallop or regurgitation. ABDOMEN: Soft, nontender. Bowel sounds active. No rigidity. No rebound or guarding. No CVA tenderness. EXTREMITIES: No cyanosis, clubbing or pedal edema. MUSCULOSKELETAL: No joint swelling. NEUROLOGIC: Awake, alert. No focal deficit. LYMPHATIC: No lymph nodes palpable. SKIN: Intact. LABS: Sodium 140, potassium 3.7, chloride 96, bicarb 40, BUN 25, creatinine 0.50 and glucose 120, WBC 12.87, hgb 12.6,hct 39.4, plt count 188. ASSESSMENT: 1. COPD exacerbation secondary to pneumonia 2. Hypoxemic respiratory failure 3. Hypercapnia 4. Atrial fibrillation 5. CHF 6. Pulmonary hypertension PLAN: 1. Decrease Solu-Medrol to 20 daily 2. Eliquis 3. Rocephin 4. DUO NEBS 5. Daily I&O's TIME SPENT: More than 35 minutes MTDD
[2017-12-22] MEDS: SYMBICORT 160-4.5 MCG INHALER IH SCH ×2 (08:25→20:25)
[2017-12-22] MEDS: ROCEPHIN 1 GM in SODIUM CHLORIDE 50 ML IV SCH (08:25)
--- NOTE | 2017-12-22 08:25 | PN ---
DATE OF SERVICE: 12/20/17 SUBJECTIVE: Breathing is better. Coughing and getting yellow/green phlegm. The patient now having bowel movement. REVIEW OF SYSTEMS: CONSTITUTIONAL: No fever, no chills. HEENT: Normal. ENDOCRINE: No weight gain, no weight loss. CVS: No angina symptoms. No CHF symptoms. No palpitations. No atypical chest pain for CAD. Shortness of breath with minimal exertion. No PND, no orthopnea. RESPIRATORY: No cough, no hemoptysis. GI: No nausea, no vomiting. No abdominal pain. : No hematuria. No polyuria. MUSCULOSKELETAL: No joint swelling. PSYCHIATRIC: Not anxious. No depression. No suicidal thoughts. No homicidal thoughts. SKIN: Intact. No rash. PHYSICAL EXAMINATION: V/S: Blood pressure 111/67, heart rate 76, respiratory rate 20 and saturation 96 on 4 liters and temperature 97.5. HEENT: Normocephalic, atraumatic. Mucosa dry. Pallor positive. No icterus. NECK: Supple. No JVD, no carotid bruit. No lymphadenopathy. LUNGS: Bibasilar crackles are present. No rales or rhonchi. HEART: S1, S2 normal. No S3. No murmur, gallop or regurgitation. ABDOMEN: Soft, nontender. Bowel sounds active. No rigidity. No rebound or guarding. No CVA tenderness. EXTREMITIES: No cyanosis, clubbing or pedal edema. MUSCULOSKELETAL: No joint swelling. NEUROLOGIC: Awake, alert. No focal deficit. LYMPHATIC: No lymph nodes palpable. SKIN: Intact. LABS: WBC 12.87, hgb 12.6, hct 31.4, plt count 188, sodium 142, potassium 3.7, chloride 96, bicarb 40, BUN 25, creatinine 0.50 and glucose 120. ASSESSMENT: 1. COPD exacerbation secondary to the pneumonia 2. CO2 Narcosis 3. Hypoxemic respiratory failure 4. Atrial fibrillation 5. Pulmonary hypertension 6. CHF PLAN: 1. Continue Rocephin 2. Solu-Medrol 3. Daily I&O's TIME SPENT: More than 35 minutes MTDD
[2017-12-22] MEDS: CARDIZEM CD PO SCH (08:26)
[2017-12-22] MEDS: ELIQUIS PO SCH ×2 (08:26→20:26)
[2017-12-22] MEDS: LANOXIN PO SCH (08:26)
[2017-12-22] MEDS: VITAMIN D PO SCH (08:26)
[2017-12-22] MEDS: ASPIRIN CHEWABLE PO SCH (08:26)
--- NOTE | 2017-12-22 08:33 | PN ---
DATE OF SERVICE: 12/19/17 SUBJECTIVE: The patient was admitted pneumonia, COPD exacerbation and getting IV antibiotics. Still feeling weak and tired. Shortness of breath with minimal exertion. Having bowel movements regularly. REVIEW OF SYSTEMS: CONSTITUTIONAL: No fever, no chills. HEENT: Normal. ENDOCRINE: No weight gain, no weight loss. CVS: No angina symptoms. No CHF symptoms. No palpitations. No atypical chest pain for CAD. Shortness of breath. No PND, no orthopnea. RESPIRATORY: No cough, no hemoptysis. GI: No nausea, no vomiting. No abdominal pain. : No hematuria. No polyuria. MUSCULOSKELETAL: No joint swelling. PSYCHIATRIC: Not anxious. No depression. No suicidal thoughts. No homicidal thoughts. SKIN: Intact. No rash. PHYSICAL EXAMINATION: V/S: Blood pressure 121/83, respiratory rate 23, heart rate 89, temperature 97.8 with saturation 90% on 2.5 liters. HEENT: Normocephalic, atraumatic. Mucosa dry. Pallor positive. NECK: Supple. No JVD, no carotid bruit. No lymphadenopathy. LUNGS: Decreased and basilar crackles. No rales or rhonchi. HEART: S1, S2 normal. No S3. No murmur, gallop or regurgitation. ABDOMEN: Soft, nontender. Bowel sounds active. No rigidity. No rebound or guarding. No CVA tenderness. EXTREMITIES: No cyanosis, clubbing or pedal edema. MUSCULOSKELETAL: No joint swelling. NEUROLOGIC: Awake, alert. No focal deficit. LYMPHATIC: No lymph nodes palpable. SKIN: Intact. LABS: WBC 10.96, hgb 12.0, hct 38.7, plt count 159, sodium 145, potassium 3.4, chloride 96, bicarb 41, BUN 25, creatinine 0.49 and glucose 122. ASSESSMENT: 1. COPD Exacerbation 2. Pneumonia 3. Atrial fibrillation 4. Pulmonary hypertension 5. CHF PLAN: 1. Continue Rocephin 2. Solu-Medrol 3. IV fluids 4. Daily I&O's 5. Out of bed to chair. 6. Activity as tolerated. TIME SPENT: More than 35 minutes MTDD
--- NOTE | 2017-12-22 08:40 | PN ---
DATE OF SERVICE: 12/18/17 SUBJECTIVE: The patient was admitted for the IV antibiotics and breathing treatments for pneumonia. REVIEW OF SYSTEMS: CONSTITUTIONAL: No fever, no chills. HEENT: Normal. ENDOCRINE: No weight gain, no weight loss. CVS: No angina symptoms. No CHF symptoms. No palpitations. No atypical chest pain for CAD. Shortness of breath with minimal exertion. No PND, no orthopnea. RESPIRATORY: Cough and congestion, no hemoptysis. GI: No nausea, no vomiting. No abdominal pain. : No hematuria. No polyuria. MUSCULOSKELETAL: No joint swelling. PSYCHIATRIC: Not anxious. No depression. No suicidal thoughts. No homicidal thoughts. SKIN: Intact. No rash. PHYSICAL EXAMINATION: V/S: Blood pressure 122/85, respiratory rate 18, heart rate 72, temperature 97.6 with saturation 93 on CPAP GENERAL: Sick looking male lying in the bed and not in any distress. HEENT: Normocephalic, atraumatic. Mucosa dry. Pallor positive. NECK: Supple. No JVD, no carotid bruit. No lymphadenopathy. LUNGS: Decreased and basilar crackles. Clear to auscultation. No rales or rhonchi. HEART: S1, S2 normal. No S3. No murmur, gallop or regurgitation. ABDOMEN: Soft, nontender. Bowel sounds active. No rigidity. No rebound or guarding. No CVA tenderness. EXTREMITIES: No cyanosis, clubbing or pedal edema. MUSCULOSKELETAL: No joint swelling. NEUROLOGIC: Awake, alert. No focal deficit. LYMPHATIC: No lymph nodes palpable. SKIN: Intact. LABS: WBC 10.97, hgb 12.0, hct 38.7, plt count 159, sodium 145, potassium 3.4, chloride 96, bicarb 41, BUN 25, creatinine 0.49 and glucose 122. ASSESSMENT: 1. COPD exacerbation secondary to the bronchitis and pneumonia 2. Hypercapnic 3. Hypoxemic respiratory failure 4. Atrial fibrillation 5. Pulmonary hypertension PLAN: 1. Continue the Rocephin 2. Solu-Medrol decreased to 60 Q 8 hours 3. Daily I&O's 4. Out of bed to chair 5. Activity as tolerated with the help. TIME SPENT: More than 35 minutes MTDD
--- NOTE | 2017-12-22 15:17 | DI ---
EXAM: Two views of the chest. History: Pneumonia Comparison: Chest radiograph 12/14/2017 Findings: Heart size is within normal limits. Small bilateral pleural effusions. Interval developm ent of left lower lobe consolidation. No pneumothorax. Emphysema. No acute osseous abnormalities. Impression: 1. Left lower lobe pneumonia. 2. Small bilateral pleural effusions. 3. Emphysema.
[2017-12-22] MEDS: PRAVACHOL PO SCH (20:26)
[2017-12-23] MEDS: XOPENEX 1.25 MG NEB SCH ×4 (04:35→23:00)
[2017-12-23] MEDS: LASIX TAB PO SCH (05:42)
[2017-12-23] MEDS: LANOXIN PO SCH (08:24)
[2017-12-23] MEDS: VITAMIN D PO SCH (08:24)
[2017-12-23] MEDS: SYMBICORT 160-4.5 MCG INHALER IH SCH ×2 (08:24→20:12)
[2017-12-23] MEDS: ASPIRIN CHEWABLE PO SCH (08:24)
[2017-12-23] MEDS: CARDIZEM CD PO SCH (08:24)
[2017-12-23] MEDS: PREDNISONE PO SCH (08:25)
[2017-12-23] MEDS: ELIQUIS PO SCH ×2 (08:25→20:13)
--- NOTE | 2017-12-23 10:31 | PN ---
DATE OF SERVICE: 12/22/17 SUBJECTIVE: The patient was admitted with hypoxemic respiratory failure, getting antibiotics for the pneumonia. REVIEW OF SYSTEMS: CONSTITUTIONAL: No fever, no chills. HEENT: Normal. ENDOCRINE: No weight gain, no weight loss. CVS: No angina symptoms. No CHF symptoms. No palpitations. No atypical chest pain for CAD. Shortness of breath with minimal exertion. No PND, no orthopnea. RESPIRATORY: Cough and congestion, no hemoptysis. GI: No nausea, no vomiting. No abdominal pain. : No hematuria. No polyuria. MUSCULOSKELETAL: No joint swelling. PSYCHIATRIC: Not anxious. No depression. No suicidal thoughts. No homicidal thoughts. SKIN: Intact. No rash. PHYSICAL EXAMINATION: V/S: Blood pressure 1224/82, respiratory rate 16, heart rate 80, temperature 97.7 with saturation 95 on CPAP. HEENT: Normocephalic, atraumatic. Mucosa dry. Pallor positive. No icterus. NECK: Supple. No JVD, no carotid bruit. No lymphadenopathy. LUNGS: Decreased and basilar crackles. Clear to auscultation. No rales or rhonchi. HEART: S1, S2 normal. No S3. No murmur, gallop or regurgitation. ABDOMEN: Soft, nontender. Bowel sounds active. No rigidity. No rebound or guarding. No CVA tenderness. EXTREMITIES: No cyanosis, clubbing or pedal edema. MUSCULOSKELETAL: No joint swelling. NEUROLOGIC: Awake, alert. No focal deficit. LYMPHATIC: No lymph nodes palpable. SKIN: Intact. LABS: WBC 16.32, hgb 12.1, hct 168, sodium 140, potassium 3.8, chloirde 95, bicarb 41 , BUN 21, creatinine 0.417, glucose 106. ASSESSMENT: 1. Pneumonia 2. COPD exacerbation 3. Hypercapnic 4. Hypoxemic respiratory failure 5. Atrial fibrillation 6. CHF 7. Pulmonary hypertension PLAN: 1. Continue Rocephin 2. Solu-Medrol 3. Daily I&O's 4. Out of bed to chair activity as tolerated TIME SPENT: More than 35 minutes MTDD
[2017-12-23] MEDS: PRAVACHOL PO SCH (20:13)
[2017-12-24] MEDS: XOPENEX 1.25 MG NEB SCH ×2 (04:43→11:25)
[2017-12-24 05:38] VITALS: BP 133/88; TEMP 97.9
[2017-12-24] MEDS: MYLICON PO PRN (05:52)
[2017-12-24] MEDS: LASIX TAB PO SCH (05:52)
[2017-12-24] MEDS: SYMBICORT 160-4.5 MCG INHALER IH SCH (09:08)
[2017-12-24] MEDS: ASPIRIN CHEWABLE PO SCH (09:08)
[2017-12-24] MEDS: ELIQUIS PO SCH (09:09)
[2017-12-24] MEDS: PREDNISONE PO SCH (09:09)
[2017-12-24] MEDS: VITAMIN D PO SCH (09:09)
[2017-12-24] MEDS: CARDIZEM CD PO SCH (09:09)
[2017-12-24] MEDS: LANOXIN PO SCH (09:11)
--- NOTE | 2017-12-24 10:34 | PN ---
DATE OF SERVICE: 12/23/17 SUBJECTIVE: The patient has no been ambulator. Still coughing, congestion and shortness of breath with minimal exertion. He is not trying to ambulate at all which was discussed with the patient today and did give an option that patient should be going to the nursing for further evaluation and treatment and verbalized understanding. REVIEW OF SYSTEMS: CONSTITUTIONAL: No fever, no chills. HEENT: Normal. ENDOCRINE: No weight gain, no weight loss. CVS: No angina symptoms. No CHF symptoms. No palpitations. No atypical chest pain for CAD. Shortness of breath with minimal exertion. No PND, no orthopnea. RESPIRATORY: Cough, no hemoptysis. GI: No nausea, no vomiting. No abdominal pain. : No hematuria. No polyuria. MUSCULOSKELETAL: No joint swelling. PSYCHIATRIC: Not anxious. No depression. No suicidal thoughts. No homicidal thoughts. SKIN: Intact. No rash. PHYSICAL EXAMINATION: V/S: Blood pressure 116/76, respiratory rate 20, heart rate 78, temperature 97.4 with saturation 95 on CPAP HEENT: Normocephalic, atraumatic. Mucosa dry. Pallor positive. no icterus. NECK: Supple. No JVD, no carotid bruit. No lymphadenopathy. LUNGS: Decreased and basilar crackles. Clear to auscultation. No rales or rhonchi. HEART: S1, S2 normal. No S3. No murmur, gallop or regurgitation. ABDOMEN: Soft, nontender. Bowel sounds active. No rigidity. No rebound or guarding. No CVA tenderness. EXTREMITIES: No cyanosis, clubbing or pedal edema. MUSCULOSKELETAL: No joint swelling. NEUROLOGIC: Awake, alert. No focal deficit. LYMPHATIC: No lymph nodes palpable. SKIN: Intact. LABS: WBC 16.32, hgb 12.1, hct 39.1, plt count 168, sodium 140, potassium 3.8, chloride 95, bicarb 41, BUN 21, creatinine 0.47 and glucose 106. ASSESSMENT: 1. Community acquired pneumonia 2. COPD exacerbation 3. Co2 Narcosis 4. Hypoxemic respiratory failure 5. Atrial fibrillation on Eliquis 6. CHF 7. Pulmonary hypertension PLAN: 1. Rocephin 2. Prednisone 3. Daily I&O's 4. Out of bed to chair 5. Evaluate the patient for the care home placement. TIME SPENT: More than 35 minutes MTDD
--- NOTE | 2017-12-24 17:45 | PCM.HOSP ---
- Initial TCU Admit [id number] 45 Minutes High Severity (65891): 12/16 - Subsequent TCU Care [id number] 25 Minutes per Day (36539): 12/21. /. / [id number] 35 Minutes per Day (50423): 12/17. 8/. 8/. 12/20 - TCU Discharge [id number] More Than 30 Minutes (01575): 12/24
--- NOTE | 2017-12-25 11:24 | DS ---
DATE OF SERVICE: 12/24/17 FINAL DIAGNOSIS: 1. COPD EXACERBATION SECONDARY TO PNEUMONIA 2. HYPOXEMIC AND HYPERCAPNIC RESPIRATORY FAILURE 3. ATRIAL FIBRILLATION ON ELIQUIS 4. CARDIOMEGALY 5. EMPHYSEMA 6. COPD, OXYGEN DEPENDENT 7. CHF 8. ATRIAL FIBRILLATION 9. PULMONARY HYPERTENSION 10. ANEMIA 11. CACHEXIA 12. STATUS POST TONSILLECTOMY 13. FORMER SMOKER DISCHARGE INSTRUCTIONS: 1. Discharge the patient to [facility]. 2. Will follow on long-term rounds. 3. CBC, CMP within one week. 4. Vitals q.weekly. 5. May participate in the long-term activities. 6. PT/OT evaluate and treat. 7. Diet regular and cardiac diet. MEDICATIONS AT DISCHARGE: Continue BIPAP at home setting 4L oxygen, patient alternates with oxygen as below. Oxygen at 2 to 4L. ProAir Eliquis Symbicort Vitamin D3 Digoxin Diltiazem Lasix Pravastatin Aspirin Duoneb NEW PRESCRIPTIONS: Simethicon 80 mg p.o. h.s. Prednisone 10 mg twice a day for two days then 10 mg daily for four days, then stop. Duonebs t.i.d. EVE DIET INSTRUCTIONS: Cardiac and Healthy ACTIVITY: May participate in long-term activities. DISEASE SPECIFIC EDUCATION: COPD and pneumonia; COPD and pneumonia vaccination discussed. BIPAP use, CPAP use and highly inflammable status of oxygen discussed. The patient verbalized understanding. HOSPITAL COURSE: The patient initially admitted with hypercapnic and hypoxemic respiratory failure. The patient was needing long-term IV antibiotics for the persistent pneumonia so the patient was admitted to [facility]itional Care to continue Rocephin , Solu-Medrol and breathing treatment. Gradually the breathing and shortness of breath was getting better. The patient had been using BIPAP at nighttime and it was helping. PC02 becoming normal. Meanwhile the patient became very weak and was needing physical therapy and occupational therapy. At that time, evaluated for long-term placement and being transferred to the long-term. TIME SPENT: MORE THAN 65 MINUTES MTDD
== END 2017-12-24 12:22 | DRG 193 ==
LOC: SCU 13:51 → MEDSURG B 12-22 10:14
PROVIDERS: ADMIT Emergency Medicine; ATTEND Emergency Medicine
DX: J18.9 Pneumonia, unspecified organism (principal); J96.92 Respiratory failure, unspecified with hypercapnia; J96.91 Respiratory failure, unspecified with hypoxia; R64 Cachexia; J43.9 Emphysema, unspecified; I50.9 Heart failure, unspecified; I48.91 Unspecified atrial fibrillation; I51.5 Myocardial degeneration; I27.20 Pulmonary hypertension, unspecified; I10 Essential (primary) hypertension; D64.9 Anemia, unspecified; Z79.01 Long term (current) use of anticoagulants; Z99.81 Dependence on supplemental oxygen
CPT/HCPCS: 36415; 80053; 82962; 85025; 94640; 97802

== ENCOUNTER 2018-01-27 10:32 | Inpatient (IN) | payer OTHER ==
[2018-01-27] MEDS ORDERED: DUONEB NEB STA (10:50)
[2018-01-27] MEDS ORDERED: SOLU-MEDROL 125 MG IVP STA (10:50)
--- NOTE | 2018-01-27 13:58 | CT ---
EXAM: CTA chest for PE HISTORY: Shortness of breath COMPARISON: Chest x-ray 12/22/2017 and multiple priors including CT chest 10/04/2017 TECHNIQUE: CTA of the chest was performed from the lung apices to the upper abdomen after IV contras t was administered using PE protocol. 3-D imaging was also provided. FINDINGS: There is no filling defect in the pulmonary arteries to the level of the subsegmental pulm onary arteries. The heart is normal without signs of ventricular strain. Pulmonary arteries are mil dly enlarged. The aorta is unremarkable. The heart is unremarkable without pericardial fluid. Ther e are few scattered nonenlarged mediastinal lymph nodes. There is no pneumothorax or pleural effusion. There is moderate emphysema. There is bilateral moder ate central airway thickening and airway thickening extending into the bilateral lower lobes with min imal ground-glass and consolidation noted. The osseous structures demonstrate kyphosis with multilevel degenerative disease. Soft tissues in the upper abdomen demonstrate layering gallstones. IMPRESSION: 1. No pulmonary embolism. 2. Central airway thickening extending into the lower lobes with adjacent consolidation suggestive o f acute on chronic small airways disease with consolidation suggestive of pnuemonia. 3. Moderate emphysema.
--- NOTE | 2018-01-27 14:14 | ED.PDOC ---
General ED Provider: Dr. IRIS CHARLTON Chief Complaint: Shortness of Air Stated Complaint: shortness of breath/wheezing Time Seen by Physician: 10:33 (seen with pt's nurse at all times ) Mode of Arrival: Walk-In Information Source: Patient, EMT Exam Limitations: No limitations Referred to ED by: Other (pt is on home o2 at all times ) Nursing and Triage Documentation Reviewed and Agree: Yes Does patient meet sepsis criteria?: No System Inflammatory Response Syndrome: Not Applicable Sepsis Protocol: For patient's 13 years and over: Temp is 96.8 and below OR 101 and greater Pulse >90 BPM Resp >20/minute Acutely Altered Mental Status Are patient's symptoms suggestive of a new infection, such as: -Pneumonia -Skin, Soft Tissue -Endocarditis -UTI -Bone, Joint Infection -Implantable Device -Acute Abdominal Infection -Wound Infection -Meningitis -Blood Stream Catheter Infection -Unknown Respiratory Complaint Exam - Respiratory Complaint/Exam Symptoms Are: Still present Timing: Intermittent Initial Severity: Moderate Current Severity: Moderate Location: Throat, Chest Character: Reports: Non-productive cough Aggravating: Reports: None Alleviating: Reports: Bronchodilators, Upright position Associated Signs and Symptoms: Reports: Rapid breathing, Wheezing, URI, Nasal congestion. Denies: Dyspnea, Fever, Chills, Chest pain, Pleuritic chest pain, Hemoptysis, Dizziness, Calf pain, Calf swelling, Edema, Hoarseness, Sinus discomfort, Vomiting, Sore throat, Weight loss, Decreased oral intake, Increased thirst, Increased appetite, Increased urination Related History: Reports: Similar episode History of Healthcare-Acquired Pneumonia: No Related Surgical History: Reports: None Pulmonary Embolism Risk Factors: Bedrest Cardiac Risk Factors: Reports: Hypertension (afib) Pseudomonas Risk Factors: Reports: Chronic Lung Disease (on home 2 ) Tuberculosis Risk Factors: Reports: Chronic Resp. Faliure Status Asthmaticus Risk Factors: Reports: None Home Oxygen Use: Yes Recent Stress Test: No Recent Echo/LV Function: No Current Antibiotic Use: No Current Asthma Medication Use: No Respiratory Distress: None Inadequate Respiratory Effort: No Dysphagia Present: No Stridor Present: No JVD Present: No Retractions: Not Present Diminished Breath Sounds: Yes Prolonged Respiration: Expiratory phase Sinus Tenderness: None Grunting Respirations: No Kussmaul Respirations: No Differential Diagnoses: COPD Exacerbation, Pneumonia, Bronchitis Review of Systems - Review Of Systems Constitutional: Reports: Malaise Eyes: Reports: No symptoms Ears, Nose, Mouth, Throat: Reports: No symptoms Respiratory: Reports: Cough, Short of air, Wheezing Cardiac: Reports: No symptoms GI: Reports: No symptoms : Reports: No symptoms Musculoskeletal: Reports: No symptoms Skin: Reports: No symptoms Neurological: Reports: No symptoms Endocrine: Reports: No symptoms Hematologic/Lymphatic: Reports: No symptoms All Other Systems: Reviewed and Negative Past Medical History - Past Medical History Previously Healthy: No Endocrine: Reports: None Cardiovascular: Reports: Hypertension Respiratory: Reports: COPD, Asthma Hematological: Reports: None Gastrointestinal: Reports: None Genitourinary: Reports: None Neuro/Psych: Reports: None Musculoskeletal: Reports: None Cancer: Reports: None Other Pertinent Past Medical History: flu shot Sep 25 has several friends also not feeling well after shot - Surgical History General Surgical History: Reports: Tonsillectomy - Family History Family History: Reports: Unknown - Social History Smoking Status: Former smoker Hx Substance Use: No Alcohol Screening: None Physical Exam - Physical Exam Appearance: Ill-appearing Ill-appearing: Moderate Pain Distress: Mild Eyes: BRITANY, EOMI, Conjunctiva clear ENT: Ears normal, Nose normal, Oropharynx normal Respiratory: Wheezes Cardiovascular: RRR, Pulses normal, No rub, No murmur GI/: Soft, Nontender, No masses, Bowel sounds normal, No Organomegaly Musculoskeletal: Normal strength, ROM intact, No edema, No calf tenderness Skin: Warm, Dry, Normal color Neurological: Sensation intact, Motor intact, Reflexes intact, Cranial nerves intact, Alert, Oriented Psychiatric: Affect appropriate, Mood appropriate Interpretation - Radiology Interpretation Radiology Interpretation By: Radiologist Radiology Results: No acute changes (no PE NO DISECTION) - Manager Fire Rate: Normal Rhythm: Sinus - EKG Interpretation Rate: Normal Rhythm: Sinus Ectopy: None [place]: NL ST Segment: Normal Re-Evaluation - Re-Evaluation Time of Re-Evaluation: 11:00 Status: Improved Vital Signs Stable: Yes Pain Level: 0 Appearance: NAD Lungs: Other (wheezing scattered) Skin: Warm and Dry Neuro: Alert and Oriented X3 CV: RRR Additional Comments: no acute events - Re-Evaluation Time of Re-Evaluation: 13:00 Status: Improved Vital Signs Stable: Yes Pain Level: 0 Appearance: NAD Skin: Warm and Dry Neuro: Alert and Oriented X3 CV: RRR Physician Notification - Case Discussed Physician Notified: pmd Time of Notification: 14:19 (admitt) Admit To: Inpatient Critical Care Note - Critical Care Note Total Time (mins): 0 Course - Course Hematology/Chemistry: 01/27/18 11:15 01/27/18 11:15 Orders, Labs, Meds: Lab Review 01/27/18 01/27/18 01/27/18 10:55 11:15 11:15 WBC 16.30 H RBC 4.55 L Hgb 12.8 L Hct 41.4 L MCV 91.0 MCH 28.1 MCHC 30.9 L RDW Coeff of Khai 14.3 Plt Count 179 Immature Gran % (Auto) 2.3 Neut % (Auto) 85.7 Lymph % (Auto) 5.3 L Frederick % (Auto) 5.9 Eos % (Auto) 0.2 Baso % (Auto) 0.6 Immature Gran # (Auto) 0.4 Neut # (Auto) 14.0 H Lymph # (Auto) 0.9 Frederick # (Auto) 1.0 Eos # (Auto) 0.0 Baso # (Auto) 0.1 D-Dimer (Manual) Puncture Site R rad O2 Saturation 91.0 L ABG pH 7.430 ABG pCO2 68.2 H ABG pO2 64.0 L ABG HCO3 45.3 H ABG Total CO2 47 H ABG Base Excess 21 H Nader Test + O2 Delivery Device Nc Oxygen Liter Flow 2.50 Sodium 137.9 Potassium 3.84 Chloride 86.6 L Carbon Dioxide 43.2 H* Anion Gap 11.94 BUN 10.9 Creatinine 0.56 L Estimated GFR (MDRD) 145.00 BUN/Creatinine Ratio 19.46 Glucose 110.1 H Lactic Acid Calcium 9.04 Total Bilirubin 0.60 AST 22.1 ALT 12.5 Alkaline Phosphatase 88.9 Total Creatine Kinase 29.5 L Troponin I < 0.012 Total Protein 6.86 Albumin 3.78 Globulin 3.08 Albumin/Globulin Ratio 1.22 Procalcitonin 01/27/18 01/27/18 01/27/18 11:15 11:15 11:15 WBC RBC Hgb Hct MCV MCH MCHC RDW Coeff of Khai Plt Count Immature Gran % (Auto) Neut % (Auto) Lymph % (Auto) Frederick % (Auto) Eos % (Auto) Baso % (Auto) Immature Gran # (Auto) Neut # (Auto) Lymph # (Auto) Frederick # (Auto) Eos # (Auto) Baso # (Auto) D-Dimer (Manual) 620.88 Puncture Site O2 Saturation ABG pH ABG pCO2 ABG pO2 ABG HCO3 ABG Total CO2 ABG Base Excess Nader Test O2 Delivery Device Oxygen Liter Flow Sodium Potassium Chloride Carbon Dioxide Anion Gap BUN Creatinine Estimated GFR (MDRD) BUN/Creatinine Ratio Glucose Lactic Acid 0.99 Calcium Total Bilirubin AST ALT Alkaline Phosphatase Total Creatine Kinase Troponin I Total Protein Albumin Globulin Albumin/Globulin Ratio Procalcitonin < 0.05 Orders Category Date Time Status ABG DRAW REQUEST Stat CARDIO 01/27/18 10:50 Completed EKG-(ED ONLY) Stat CARDIO 01/27/18 10:49 Completed NEBULIZER TREATMENT Stat CARDIO 01/27/18 10:50 Completed NPO REMINDER: IMAGING ONCE CARE 01/27/18 12:57 Completed ABG Stat LAB 01/27/18 10:55 Completed BLOOD CULTURE (ED ONLY) Stat LAB 01/27/18 11:15 Received CBC W/ AUTO DIFF Stat LAB 01/27/18 11:15 Completed COMPREHENSIVE METABOLIC PANEL Stat LAB 01/27/18 11:15 Completed CREATINE KINASE Stat LAB 01/27/18 11:15 Completed D-DIMER Stat LAB 01/27/18 11:15 Completed LACTIC ACID Stat LAB 01/27/18 11:15 Completed PROCALCITONIN Stat LAB 01/27/18 11:15 Completed TROPONIN I Stat LAB 01/27/18 11:15 Completed 0.9 % Sodium Chloride [Saline Flush] MEDS 01/27/18 10:49 Active 1 syr IVF PRN PRN Ipratropium/Albuterol Neb [Duoneb] MEDS 01/27/18 10:50 Discontinued 1 vial NEB ONCE STA Methylprednisolone Sod Succ/Pf [Solu-Medrol 125 mg] MEDS 01/27/18 10:50 Discontinued 125 [address] IVP ONCE STA CT CHEST PE PROTOCOL Stat RADS 01/27/18 12:57 Completed Medications Generic Name Dose Route Start Last Admin Trade Name Freq PRN Reason Stop Dose Admin Sodium Chloride 1 syr 01/27/18 10:49 01/27/18 11:20 Saline Flush IVF 1 syr PRN PRN Administration To flush IV Discontinued Medications Generic Name Dose Route Start Last Admin Trade Name Freq PRN Reason Stop Dose Admin Albuterol/Ipratropium 1 vial 10/03/18 10:50 01/27/18 11:02 Duoneb NEB 01/27/18 10:51 1 vial ONCE STA Administration Methylprednisolone Sodium Succinate 125 mg 01/27/18 10:50 01/27/18 11:20 Solu-Medrol 125 Mg IVP 01/27/18 10:51 125 mg ONCE STA Administration Vital Signs: Temp Pulse Resp BP Pulse Ox 01/27/18 10:33 98.5 F 103 H 20 120/82 94 L Departure - Departure Time of Disposition: 14:20 Disposition: ADMITTED INPATIENT Discharge Problem: COPD exacerbation, COPD exacerbation Instructions: COPD (Chronic Obstructive Pulmonary Disease) (ED) Condition: Good Pt referred to PMD for follow-up: Yes IPMP verified?: No Additional Instructions: Please call your Family Physician as soon as possible to schedule a follow-up appointment. Allergies/Adverse Reactions: Allergies tiotropium bromide [From Spiriva with HandiHaler] Allergy (Mild, Verified 10:40) rash Home Medications: Ambulatory Orders Aspirin 81 mg PO d 10/19/13 Ipratropium/Albuterol Neb [Duoneb] 1 vial NEB RTQ8H #60 vial.neb 12/24/17 Prednisone 10 mg PO DAILYWM #8 tablet 12/24/17 Simethicone [Mylicon] 80 mg PO PCHS PRN #120 tab.chew 12/24/17 Disposition Discussed With: Patient, Family
[2018-01-27 15:21] VITALS: BMI 18.9
[2018-01-27] MEDS: ROCEPHIN 1 GM in SODIUM CHLORIDE 50 ML IV SCH (15:25)
[2018-01-27] MEDS: SODIUM CHLORIDE 1,000 ML IV SCH (15:25)
[2018-01-27] MEDS: ASPIRIN CHEWABLE PO SCH (15:26)
[2018-01-27] MEDS: ALBUTEROL 0.083% NEB NEB SCH ×2 (17:00→22:30)
[2018-01-27] MEDS: ATROVENT 0.02% NEB NEB SCH ×2 (17:03→23:13)
--- NOTE | 2018-01-27 17:59 | PCM ---
- Chief Complaint Chief Complaint: COPD Exacerbation, CAP, Respiratory difficulty. - History of Present Illness History of Present Illness: 67 yr old WM room 122 admitted for COPD exacerbation and suspected pneumonia. Patient was discharged from [facility] 2 weeks ago, present in [place] for COPD exacerbation. He did great for about a week and then this past thursday () he overdid it. He was active with his grand daughter 4 year old. He went outside a lot, did much more walking than normal and he spent more time outside than he was used to spending. The patient noted increased work of breathing, mucus production, cough, difficulty catching breath, rhinorrhea, nasal drainage. He normally uses 2.5L of O2. He has his own pulse ox at home, increased O2 to 3L 4 days ago due to desat to 88% at home. He is not in any distress. He presented to the ER today 10:[address] Mallory with worsening breathing, Dr. Mallory saw patient. He has not missed meds in last 1 week. he has not had any known exposures. No chest pain, +SOA. he can walk short distances with walking aid but not free handed yet. He feels weak. He is not interested in staying [place]. He follows with DR. Adamson and feels that patient is doing okay. The patient is doing treatments at home TID. If worse he can increase these and decrease/use PRN. Albuterol over the last week 1 TID, yesterday 4x daily. breathing seems choppy per his report, SOA, He talks in disjointed sentences. The patient has mild use oab abdomen to breath, pursed lip breathing. he notes no missed meds. No fever. NO falls, not trauma, no loss of consciousness. had coma 10 years ago and was intubated but nothing since that point. Last hospital stay 12/15/17. >30 days since last discharge. ER note from this am reviewed. Using bronchodilators, upright position helps, worse with supine. Rapid breathing reported, wheezing reported, URI, nasal congstion. NO edema, no pleuritic chest pain, no left arm pain, No N/V/D. Mild sore throat worse w/ cough. NO weight loss. NO recen stress, home o2 used. Former smoker. CTA negatve for PE no dissection. Cardiac monitoring NSR. EKG NSR, NL [place]. Re eval 11 and improved, Stayed in ER until 1300 called me at 1419 for admit. CBC WBC 16.30, Hgb 12.8, Plt 179. CMP sodium 137.9, K+ 3.84, CL 86.6, CO2 43.2. ABG Mixed respiratory acidosis / metabolic alkalosis. Troponin negative, D dimer was elevated at 620.88, Lactate negative , procalcitionin negative at 0.05. He was given duoneb, solumedrol, CT chest PE protocol in ER. I chose to admit to inpatient at 14:20. When I got to room sitting recumbent, supine posture, round chest, on 3L O2 to maintain sat >92. ABG above on O2. Imaging as above. Sitting short of breath, difficulty communicating due to SOA. Hypoxemic respiratory failure, hypercapnia, afib, pulm htn, chronic CO2 narcosis and anemia. - Review of Systems Constitutional: weakness. No: fever, chills, sweats, fatigue, loss of appetite , other Eyes: No: blurred vision, double-vision, discharge, itching, pain, redness, photophobia, other Ears: No: pain, bleeding, drainage, ringing, hearing loss, other Nose: congestion, discharge. No: bleeding, other Throat: pain. No: swelling, voice change, other Mouth: No: bleeding, pain, swelling, other Respiratory: cough, shortness of air, wheeze, pain with breathing. No: hemoptysis, other Cardiovascular: No: chest pain, left arm pain, diaphoresis, PND, orthopnea, edema, palpitations, syncope, other Gastrointestinal: No: abdominal pain, other, nausea, vomiting, diarrhea, melena , hematemesis, hematochezia, dysphagia, constipation Genitourinary: No: dysuria, hematuria, frequency, incontinence, flank pain, penile discharge, testicular pain, testicular swelling, other Neurological: No: headache, other, dizziness, seizure, numbness, weakness, speech difficulty, problems with walking, tremor, fainting Musculoskeletal: No: pain, swelling in joints, other Skin: No: rash, pruritus, lacerations, wounds, bruising, other Immunology: No: hives, itching, frequent infections, difficulty healing, other Hematology: No: easy bruising, easy bleeding, swollen glands, other Endocrine: No: weight changes, cold intolerance, heat intolerance, excessive thirst, excessive hunger, polyuria, other Psychiatric: No: depression, anxiety, sleeplessness, hopelessness, suicidal, hallucinations, other Habits: No: tobacco use, substance use, alcohol use, other - Past Medical History Past Medical History: COPD Oxygen dependent 2.5L, HTN, Dysplidemia, OA, Enlarged heart Afib. Dilated aortic root, GERD. LVH mild TR. - Past Surgical History Past Surgical History: Tonsillectomy, Adenoidectomy - Allergies Allergies/Adverse Reactions: Allergies Allergy/AdvReac Type Severity Reaction Status Date / Time tiotropium bromide Allergy Mild rash Verified 01/27/18 10:40 [From Spiriva with HandiHaler] - Medications Medications: Medications Generic Name Dose Route Start Last Admin Trade Name Freq PRN Reason Stop Dose Admin Albuterol Sulfate 1 vial 01/27/18 18:00 01/27/18 17:00 Albuterol 0.083% Neb NEB 1 vial RTQ4H EVE Administration Apixaban 5 mg 01/27/18 21:00 Eliquis PO BID EVE Aspirin 81 mg 01/27/18 14:30 01/27/18 15:26 Aspirin Chewable PO 81 mg DAILYWM EVE Administration Budesonide/Formoterol Fumarate 2 puff 01/27/18 21:00 Symbicort 160-4.5 Mcg Inhaler IH BID EVE Digoxin 125 mcg 01/28/18 09:00 Lanoxin PO DAILY EVE Diltiazem HCl 120 mg 01/28/18 09:00 Cardizem Cd PO DAILY EVE Doxycycline Hyclate 100 mg 01/27/18 21:00 Doxycycline Hyclate PO Q12HR EVE Furosemide 20 mg 01/28/18 06:30 Lasix Tab PO QDAC EVE Ceftriaxone Sodium 1 gm/ 50 mls @ 75 mls/hr 01/27/18 14:30 01/27/18 15:25 Sodium Chloride IV 75 mls/hr DAILY EVE Administration Sodium Chloride 1,000 mls @ 75 mls/hr 01/27/18 14:30 01/27/18 15:25 Sodium Chloride IV 75 mls/hr .[id number] EVE Administration Ipratropium [place] 1 vial 01/27/18 18:00 01/27/18 17:03 Atrovent 0.02% Neb NEB 1 vial RTQ6H EVE Administration Methylprednisolone Sodium Succinate 40 mg 01/27/18 21:00 Solu-Medrol 40 Mg IVP Q12HR EVE Pravastatin Sodium 20 mg 01/27/18 21:00 Pravachol PO BEDTIME EVE Sodium Chloride 1 syr 01/27/18 10:49 01/27/18 11:20 Saline Flush IVF 1 syr PRN PRN Administration To flush IV - Family History Past Family History: CAD/Asthma. He really does not know much about his history. - Social History Past Social History: Former smoker, lives with . - Vital Signs Temperature: 98.1 F Pulse Rate: 94 Respiratory Rate: 18 Blood Pressure: 120/82 O2 Sat by Pulse Oximetry: 93 - Body Composition Height: 5 ft 8 in Weight: 124 lb 12.506 oz Body Mass Index (BMI): 18.9 - Physical Examination HEENT: Constitutional: Appearance-Mild acute respiratory distress/chronic process, Appears Consistent with stated age. Orientation- Oriented x 3, alert Gait- Hospital bed. Build and Nutrition-[Thin, barrel chested] General- Patient is pleasant and cooperative with the interview and exam. Talks in broken sentences. Integumentary: General-No rashes, ulcers or lesions. Palpation- Normal skin moisture/turgor. Skin is warm to touch, appropriate. Capillary refill is normal bilateral Upper and lower extremity. He has a small area of erythema along sacrum without breakdown posteriorly. Head/Neck: Head- normocephalic and atraumatic. Neck- without visible/palpable lumps or pulsations. Palpation- No bony tenderness about head/neck along frontal, occipital, temporal, parietal, mastoid, jawline, zygoma, orbit or any other location. NO temporal artery tenderness. No TMJ tenderness. Neck Supple. Thyroid-No thyromegaly, no nodules Eye: Bilaterally PERRLA, EOMI. No discharge. Upper and lower eyelids are normal. Sclera/conjunctiva normal without discharge. Cornea is normal and clear. Lens is normal. Eyeball appears normal. No ciliary flushing, no conjunctival injection. ENMT: Pinna- normal without tenderness or erythema. External auditory canal Left- normal without erythema or discharge, no excessive cerumen. External auditory canal Right-normal without erythema or discharge, no excessive cerumen. TM left- [place]/pearly, normal light reflex and anatomy TM Right- [place]/ pearly, normal light reflex and anatomy Hearing Assessment-normal to conversational speech. Nose and sinus- No sinus tenderness along frontal/ maxillary region. External appearance normal and midline. Nares- bilateral quiet airflow, Clear discharge. Nasal mucosa- No bleeding noted and no ulcerations observed. Erythematous Turbinates boggy. Lips- normal color, moist without cracks/lesions Oral Cavity/Palate- hard/soft palate intact without lesions, oral mucosa pink and moist. Tongue normal midline. Oropharynx- pharyngeal erythema, Uvula midline. post nasal drip. No exudate. Salivary glands - Non tender to palpation CHEST/LUNG: Inspection- symmetric chest wall barrel chest. Increased effort, mild distress, using abdominal accessory muscles, but this was similar to when I saw him in intermediate 2 weeks ago Palpation- nontender sternum, ribline. No abnormal pulsations. Auscultation- Breath sounds normal decreased throughout all lung grayson. tracheal sounds, bronchial sounds overlying sternum, Bronchovessicular sounds between scapulae posteriorly, vessicular breath sounds heard throughout periphery. Adventitious sounds- wheezes, rales, rhonchi. Loud breathing I:E 1:2. CARDIOVASCULAR: Carotid artery- normal, no bruits or abnormal pulsations. Jugular vein- no pulsations. Palpation/Percussion- Normal PMI, no palpable thrill Auscultation- Regular rate and rhythm. systolic III/ murmur noted in sitting/ recumbent supine positions. Extremities- digital clubbing, no cyanosis, no peripheral edema, no increased warmth. ABDOMEN: Inspection- normal and no visible pulsations. Normal contour. Auscultation- Bowel sounds normal, no abdominal bruits. Palpation/Percussion- soft, non-tender, no rebound tenderness, no rigidity (guarding), no jar tenderness, no masses. Liver-no hepatomegaly, Spleen no splenomegaly, Hernias - none. Rectal not examined. Peripheral Vascular: Upper extremity Left- Normal temperature with pink nailbeds and no ulcerations. Upper extremity Right- Normal temperature with pink nailbeds and no ulcerations. Lower extremity- Normal temperature with pink nailbeds and no ulcerations. DP pulses 2+ bilaterally. Pedal hair intact. Normal capillary refill. Edema- No edema. Musculoskeletal: Generalized-No generalized swelling or edema of extremities, no digital clubbing or cyanosis, neurovascularly intact all four extremities. Upper extremity- Symmetrical posture. No visible deformity. Normal sensation along medial and lateral upper extremity proximally and distally. NO tenderness overlying shoulder, lateral/medial epicondyle. Security Systems Specialist 5/5 and strength 5/5 bilateral UE. Elbow palpated, no tenderness overlying olecranon. Normal supination, pronation to active/passive ROM and to resisted rotation. Bicep insertion/tricep insertion appear normal without obvious pathology. Rotator cuff evaluated and intact. Normal wrist ROM bilaterally. Normal hand movement, intrinsic muscles of hands normal. No tenderness to palpation of hands/wrists/ elbows. Lower extremity- Hip: Not tender to palpation, no pain, no swelling, edema or erythema of surrounding tissue, normal strength and tone. Normal appearing hip ROM bilaterally without pain. Knee: Knee ROM normal. No tenderness overlying trochanters, no tenderness about patella, quad tendon, patellar tendon. No tenderness at tibial tuberosity. Ankle: normal ROM not tender to palpation along medial/lateral malleolus. Spine/Ribs- No deformities, masses or tenderness, no known fractures, normal strength, Normal ROM. Normal stability No tenderness along C/T/L spine. Normal appearing ROM about spine. Neurological: General- Moves all 4 extremities symmetrically. Symmetrical face and body posture. Cranial nerves- individually evaluated II-XII and intact. PERRLA, Normal EOMI, visual/special senses appear intact, Face is symmetrical and normal sensation/movement, normal tongue, normal strength/posture of neck musculature. Reflexes- intact with DTR 2+ patellar, Achilles, bicep, brachial, tricep. Ankle clonus normal with 2 beats. Strength- 5/5 bilateral UE and LE. Soft touch- intact bilateral UE and LE. Temperature sensation- intact bilateral UE and LE. Neuropsych: Oriented- Person, place, time. (AAOx3), Mood/affect- normal and congruent. Able to articulate well. Speech-Normal speech, normal rate, normal tone, normal use of language, volume and coherence. Thought content- normal with ability to perform basic computations and apply abstract thought/reason. Associations- intact, no SI/HI, no hallucinations, delusions, obsessions. Judgment/insight- Appropriate. Memory-Recall intact, remote and recent memory intact. Knowledge- Age appropriate fund of knowledge, concentration and attention span normal. Lymphatic: Head/Neck- normal size and non tender to palpation. Axillary- normal size and non tender to palpation. Femoral and Inguinal- normal size and non tender to palpation. - Lab/Tests/Diagnostic Imaging Lab/Tests/Diagnostic Imaging: Laboratory Last Values WBC 16.30 K/ul (4.2-10.2) H 01/27/18 11:15 RBC 4.55 10^6/ul (4.70-6.10) L 01/27/18 11:15 Hgb 12.8 g/dl (14.0-18.0) L 01/27/18 11:15 Hct 41.4 % (42.0-52.0) L 01/27/18 11:15 MCV 91.0 fl (80.0-94.0) 01/27/18 11:15 MCH 28.1 pg (27.0-31.0) 01/27/18 11:15 MCHC 30.9 (31.8-35.4) L 01/27/18 11:15 RDW Coeff of Khai 14.3 % (11.6-14.8) 01/27/18 11:15 Plt Count 179 10^3/uL (140-440) 01/27/18 11:15 Immature Gran % (Auto) 2.3 % (0.0-5.0) 01/27/18 11:15 Neut % (Auto) 85.7 01/27/18 11:15 Lymph % (Auto) 5.3 (10.0-50.0) L 01/27/18 11:15 [place] % (Auto) 5.9 (0-10) 01/27/18 11:15 Eos % (Auto) 0.2 % (0.0-7.0) 01/27/18 11:15 Baso % (Auto) 0.6 % (0.0-3.0) 01/27/18 11:15 Immature Gran # (Auto) 0.4 (0.0-1.0) 01/27/18 11:15 Neut # (Auto) 14.0 K/ul (2.0-6.9) H 01/27/18 11:15 Lymph # (Auto) 0.9 K/uL (0.60-3.4) 01/27/18 11:15 [place] # (Auto) 1.0 K/uL (0.4-2.0) 01/27/18 11:15 Eos # (Auto) 0.0 K/ul (0.0-0.7) 01/27/18 11:15 Baso # (Auto) 0.1 K/uL (0-0.2) 01/27/18 11:15 D-Dimer (Manual) 620.88 ng/mL (<500) 01/27/18 11:15 Puncture Site R rad 01/27/18 10:55 O2 Saturation 91.0 % (95-100) L 01/27/18 10:55 ABG pH 7.430 (7.35-7.45) 01/27/18 10:55 ABG pCO2 68.2 mmHg (35-45) H 01/27/18 10:55 ABG pO2 64.0 mmHg (85-100) L 01/27/18 10:55 ABG HCO3 45.3 (22.0-26.0) H 01/27/18 10:55 ABG Total CO2 47 (22.0-28.0) H 01/27/18 10:55 ABG Base Excess 21 (-2.0-2.0) H 01/27/18 10:55 Nader Test + 01/27/18 10:55 O2 Delivery Device Nc 01/27/18 10:55 Oxygen Liter Flow 2.50 01/27/18 10:55 Sodium 137.9 mmol/L (137-145) 01/27/18 11:15 Potassium 3.84 mmol/L (3.5-5.1) 01/27/18 11:15 Chloride 86.6 mmol/L (98-107) L 01/27/18 11:15 Carbon Dioxide 43.2 mmol/L (22-30) H* 01/27/18 11:15 Anion Gap 11.94 01/27/18 11:15 BUN 10.9 mg/dL (9-20) 01/27/18 11:15 Creatinine 0.56 mg/dL (0.60-1.10) L 01/27/18 11:15 Estimated GFR (MDRD) 145.00 mL/min 01/27/18 11:15 BUN/Creatinine Ratio 19.46 01/27/18 11:15 Glucose 110.1 mg/dL (74-106) H 01/27/18 11:15 Lactic Acid 0.99 mmol/L (0.7-2.1) 01/27/18 11:15 Calcium 9.04 mg/dL (8.4-10.2) 01/27/18 11:15 Total Bilirubin 0.60 mg/dL (0.2-1.3) 01/27/18 11:15 AST 22.1 U/L (17-59) 01/27/18 11:15 ALT 12.5 U/L (0-50) 01/27/18 11:15 Alkaline Phosphatase 88.9 U/L (56-119) 01/27/18 11:15 Total Creatine Kinase 29.5 U/L (55-170) L 01/27/18 11:15 Troponin I < 0.012 ng/ml (0.0000-0.120) 01/27/18 11:15 Total Protein 6.86 g/dL (6.3-8.2) 01/27/18 11:15 Albumin 3.78 g/dL (3.5-5.0) 01/27/18 11:15 Globulin 3.08 01/27/18 11:15 Albumin/Globulin Ratio 1.22 01/27/18 11:15 Procalcitonin < 0.05 ng/mL (<0.05) 01/27/18 11:15 Digoxin 0.42 ng/mL (0.8-2.00) L 01/27/18 11:15 CT PE protocol: 01/27/18 No PE, central airway thickening extending into the lower lobes with adjacent consolidation suggestive of small airway disease/ pneumonia. Moderate emphysema. - Assessment (1) Pneumonia Status: Acute Code(s): J18.9 - PNEUMONIA, UNSPECIFIED ORGANISM SNOMED Code(s ): 505201124 Qualifiers: Pneumonia type: due to unspecified organism Laterality: bilateral (2) COPD exacerbation Status: Acute Code(s): J44.1 - CHRONIC OBSTRUCTIVE PULMONARY DISEASE W (ACUTE ) EXACERBATION SNOMED Code(s): 676902945 (3) Acute respiratory failure with hypercapnia Status: Acute Code(s): J96.02 - ACUTE RESPIRATORY FAILURE WITH HYPERCAPNIA SNOMED Code(s): 51602126 (4) Elevated d-dimer Status: Acute Code(s): R79.1 - ABNORMAL COAGULATION PROFILE SNOMED Code(s): 686306290 (5) Normocytic anemia Status: Acute Code(s): D64.9 - ANEMIA, UNSPECIFIED SNOMED Code(s): 415720262 (6) Leukocytosis Status: Acute Code(s): D72.829 - ELEVATED WHITE BLOOD CELL COUNT, UNSPECIFIED SNOMED Code(s): 822690222, 408729743 (7) Pressure injury, stage 1 Status: Acute Code(s): L89.91 - PRESSURE ULCER OF UNSPECIFIED SITE, STAGE 1 SNOMED Code(s): 801065140 Qualifiers: Pressure injury location: sacral region Qualified Code(s): L89.151 - Pressure ulcer of sacral region, stage 1 - Plan Plan: COPD exacerbation w/ Pneumonia hypercapneic/O2 dependent: PORT score of at least 89 supports inpatient vs outpatient therapy and risk class II mortality of 0.9-2.8%. Curb 65 only 1 point. The patient is on respiratory therapy now albuterol q 4 hours, ipratropium QID. We will continue these. He is on O2 as well titrated to maintain O2 >92%. Patient was d/c from [place] 2 weeks ago. He may benefit from return to [place] but he wants to wait and see how he does over next few days. Maintain O2. - Rocephin 1 gram daily x 5 days (may change to cefdnir PO at d/c). Reviewed heckerling rule (temp>100 (no), HR>100 (no), Rales (yes), decreased breath sounds (yes), absence of asthma (yes). 3 points. LR 1.6 22%post test probability and post CT + for pneumonia. - Doxy 100 BID x 5 days - Albuterol q 4 hours pRN - Ipratopium QID. - I+O q shift. - Gentle hydration 75ml NS/hour. - O2 Titrated to maintain PO2 >92 but <98 - Prednisone 40mg daily x 5 days starting 01/28/18. Leukocytosis: Monitor. - Repeat CBC in am Normocytic anemia: Monitor - Repeat CBC in am. Afib: Chronic stable problem, will monitor while in hospital. Rate is stable. On eliquis. - Continue home dose eliquis DVT Prophy: Chronic stable problem, will monitor while in hospital. Rate is stable. On eliquis. - Continue eliquis Pressure Stage 1: monitor. Nursing alerted to my finding. - Calmoseptine - Rolling. Diet: Regular Activity: Up with assist. Disposition: Expected length of stay 2-3 days based on his current symptoms. He is worse somewhat than when in [place]. I suspect viral URI with worsening bronchitis like symptoms/COPD exacerbation, now with consolidations on CT. Monitor on Tele, continue eliquis. Abx, albuterol q4 hours and ipratopium 4x daily. I will change his solumedrol to prednisone 40mg in the am. >70 minutes spent on admission for patient.
[2018-01-27] MEDS: ELIQUIS PO SCH (20:39)
[2018-01-27] MEDS: SYMBICORT 160-4.5 MCG INHALER IH SCH (20:41)
[2018-01-27] MEDS: PRAVACHOL PO SCH (20:42)
[2018-01-27] MEDS: DOXYCYCLINE HYCLATE PO SCH (20:42)
[2018-01-27] MEDS: CALMOSEPTINE OINTMENT TP SCH (20:43)
[2018-01-27] MEDS ORDERED: SOLU-MEDROL 40 MG IVP SCH (21:00)
[2018-01-28] MEDS: ALBUTEROL 0.083% NEB NEB SCH ×6 (02:00→22:10)
[2018-01-28] MEDS: SODIUM CHLORIDE 1,000 ML IV SCH ×2 (04:34→18:53)
[2018-01-28] MEDS: ATROVENT 0.02% NEB NEB SCH ×4 (05:25→23:30)
[2018-01-28] MEDS: LASIX TAB PO SCH (06:02)
--- NOTE | 2018-01-28 07:22 | PCM.PROG ---
Subjective: 67 yr old Hospital Day 1 admitted 01/27/18 with COPD exacerbation and ? Pneumonia. Rocephin given in ER. I have added doxy. Today is abx day 2, we will continue rocephin x5 days, change to PO cefdinir at discharge. We will finish a total of 5 days of abx. He is getting albuterol nebs q 4 hours, ipratopium QID, prednisone 40mg to start today. The patient is unsure if he wants to go to [place] or not. I have requested he f/u with DR. Adamson or myself outpatient to fully maximize inhalational meds. For now the patient is actually stable and improving. Still with hypercapnea, likely chronic. AM labs showed improvement in WBC fro m16.30 to 10.96 and Hgb from 12.8 dropped to 11.9. Plt remained same at 179. Glucose was elevated at 145.7 likely secondary to steroid effect. The patient CK trended down from 29.5 to 27.1 to 20.2 and troponins were negative x 3. Dig level was below lab cutoff. Tele reviewed and SR w/ BBB, vitals reviewed and stable. Uout unmeasured void x 1, stooling x 1 in hospital. He consumed 100% of dinner, which is also a good sign. With elevated glucose, I will check an A1c w/ next round of blood work ( tomorrow am). Goal glucose in hospital <180. No correction for now, monitor. REVIEW OF SYMPTOMS: (Positives bolded) General: weight loss, fever, chills, night sweats, fatigue, appetite loss HEENT: blurry vision, eye pain, eye discharge, dry eyes, decreased vision, sore throat tinnitus, bloody nose, hearing loss, sinus pain/pressure, ear pain/ pressure. Respiratory: shortness of breath, cough, hemoptysis, wheezing, pleurisy, Cardiovascular: chest pain, PND, palpitation, edema, orthopnea, syncope, swelling of extremities Gastro: Nausea, vomiting, diarrhea, hematemesis, abdominal pain, constipation Genito: hematuria, dysuria, glycosuria, hesitancy, frequency, incontinence Musckelo: Arthralgia, myalgia, muscle weakness, joint swelling, Skin: rash, pruritis, sores, nail changes, skin thickening, change in wart/mole , itching, rash, new lesions, pruritus, nail changes Sacral skin changes Neuro: Migraine, numbness, ataxia, tremor, vertigo, weakness, memory loss, Irritability, dizziness Endocrine: excessive thirst, polyuria, cold intolerance, heat intolerance, goiter Psychiatric: depression, anxiety, anti-depressants, alcohol abuse, drug abuse, insomnia, change in sleep pattern and mood changes Heme/lymph: easy bruising, bleeding gums, blood clots, swollen glands, lymphedema, Allergic/immune: allergic rhinitis, hay fever, asthma, hives Objective: Vital Signs - 24 hr 01/27/18 01/27/18 01/27/18 10:33 15:14 18:00 Temperature 98.5 F 98.1 F 98 F Pulse Rate 103 H 94 H 118 H Respiratory 20 18 20 Rate Blood Pressure 120/82 114/80 O2 Sat by Pulse 94 L 93 L Oximetry 01/27/18 01/27/18 01/28/18 19:49 22:00 02:00 Temperature 98.1 F 98.1 F Pulse Rate 94 H 100 H 87 Respiratory 18 24 20 Rate Blood Pressure 120/82 104/73 106/80 O2 Sat by Pulse 93 L 91 L 90 L Oximetry 01/28/18 06:00 Temperature 97.3 F L Pulse Rate 74 Respiratory 20 Rate Blood Pressure 109/73 O2 Sat by Pulse 93 L Oximetry Intake & Output 01/27/18 01/27/18 01/28/18 15:59 23:59 07:59 Intake Total 863 745 Output Total 300 275 Balance 563 470 Weight 124 lb 12.506 oz 124 lb 12.506 oz Intake: IV 473 545 Oral 390 200 Output: Urine 300 275 Other: Meal Dinner Percent of Meal Consumed 100% Voiding Method Urinal Urinal # Voids 1 # Bowel Movements 1 Height 5 ft 8 in 5 ft 8 in Body Mass Index (BMI) 18.9 18.9 Constitutional: Appearance-chronic lung process, calm, less distress. Appears baselin from the visits prior to hospital. Consistent with stated age. Orientation- Oriented x 3, alert Gait-Hospital bed. Build and Nutrition-[Thin, barrel chested] General- Patient is pleasant and cooperative with the interview and exam. Talks in 5-7 phrase but still broken sentences. Integumentary: General-No rashes, ulcers or lesions. Palpation- Normal skin moisture/turgor. Skin is warm to touch, appropriate. Capillary refill is normal bilateral Upper and lower extremity. He has a small area of erythema along sacrum without breakdown posteriorly. Head/Neck: Head- normocephalic and atraumatic. Neck- without visible/palpable lumps or pulsations. Palpation- No bony tenderness about head/neck along frontal, occipital, temporal, parietal, mastoid, jawline, zygoma, orbit or any other location. NO temporal artery tenderness. No TMJ tenderness. Neck Supple. Thyroid-No thyromegaly, no nodules Eye: Bilaterally PERRLA, EOMI. No discharge. Upper and lower eyelids are normal. Sclera/conjunctiva normal without discharge. Cornea is normal and clear. Lens is normal. Eyeball appears normal. No ciliary flushing, no conjunctival injection. ENMT: Nasal mucosa- No bleeding noted and no ulcerations observed. Erythematous Turbinates boggy. Lips- normal color, moist without cracks/lesions Oral Cavity/Palate- hard/soft palate intact without lesions, oral mucosa pink and moist. Tongue normal midline. Oropharynx- pharyngeal erythema, Uvula midline. post nasal drip. No exudate. Salivary glands- Non tender to palpation CHEST/LUNG: Inspection- Unchanged from admit. Symmetric chest wall barrel chest. Perhaps a little better than yesterday. Increased effort, mild distress , not using abdominal accessory muscles, no retractions, Palpation- nontender sternum, ribline. No abnormal pulsations. Auscultation- Breath sounds decreased and coarse throughout all lung grayson. tracheal sounds, bronchial sounds overlying sternum, Bronchovessicular sounds between scapulae posteriorly , vessicular breath sounds heard throughout periphery. Adventitious sounds- wheezes, rales/crackles, rhonchi. Loud breathing I:E 1:2. CARDIOVASCULAR: Carotid artery- normal, no bruits or abnormal pulsations. Jugular vein- no pulsations. Palpation/Percussion- Normal PMI, no palpable thrill Auscultation- Regular rate and rhythm. systolic III/ murmur noted in sitting/ recumbent supine positions. Extremities- digital clubbing, no cyanosis, no peripheral edema, no increased warmth. ABDOMEN: Inspection- normal and no visible pulsations. Normal contour. Auscultation- Bowel sounds normal, no abdominal bruits. Palpation/Percussion- soft, non-tender, no rebound tenderness, no rigidity (guarding), no jar tenderness, no masses. Liver-no hepatomegaly, Spleen no splenomegaly, Hernias - none. Rectal not examined. Peripheral Vascular: Upper extremity Left- Normal temperature with pink nailbeds and no ulcerations. Upper extremity Right- Normal temperature with pink nailbeds and no ulcerations. Lower extremity- Normal temperature with pink nailbeds and no ulcerations. DP pulses 2+ bilaterally. Pedal hair intact. Normal capillary refill. Edema- No edema. Musculoskeletal: Generalized-No generalized swelling or edema of extremities or cyanosis, neurovascularly intact all four extremities. Neurological: General- Moves all 4 extremities symmetrically. Symmetrical face and body posture. Cranial nerves- individually evaluated II-XII and intact. PERRLA, Normal EOMI, visual/special senses appear intact, Face is symmetrical and normal sensation/movement, normal tongue, normal strength/posture of neck musculature. Neuropsych: Oriented- Person, place, time. (AAOx3), Mood/affect- normal and congruent. Able to articulate well. Speech-Normal speech, normal rate, normal tone, normal use of language, volume and coherence. Thought content- normal with ability to perform basic computations and apply abstract thought/reason. Associations- intact, no SI/HI, no hallucinations, delusions, obsessions. Judgment/insight- Appropriate. Memory-Recall intact, remote and recent memory intact. Knowledge- Age appropriate fund of knowledge, concentration and attention span normal. Lymphatic: Head/Neck- normal size and non tender to palpation. Axillary- normal size and non tender to palpation. Femoral and Inguinal- normal size and non tender to palpation. Laboratory Last Values WBC 10.96 K/ul (4.2-10.2) H D 01/28/18 04:45 RBC 4.18 10^6/ul (4.70-6.10) L 01/28/18 04:45 Hgb 11.9 g/dl (14.0-18.0) L 01/28/18 04:45 Hct 38.4 % (42.0-52.0) L 01/28/18 04:45 MCV 91.9 fl (80.0-94.0) 01/28/18 04:45 MCH 28.5 pg (27.0-31.0) 01/28/18 04:45 MCHC 31.0 (31.8-35.4) L 01/28/18 04:45 RDW Coeff of Khai 14.3 % (11.6-14.8) 01/28/18 04:45 Plt Count 179 10^3/uL (140-440) 01/28/18 04:45 Immature Gran % (Auto) 2.6 % (0.0-5.0) 01/28/18 04:45 Neut % (Auto) 86.3 01/28/18 04:45 Lymph % (Auto) 6.9 (10.0-50.0) L 01/28/18 04:45 Foster % (Auto) 3.9 (0-10) 01/28/18 04:45 Eos % (Auto) 0.0 % (0.0-7.0) 01/28/18 04:45 Baso % (Auto) 0.3 % (0.0-3.0) 01/28/18 04:45 Immature Gran # (Auto) 0.3 (0.0-1.0) 01/28/18 04:45 Neut # (Auto) 9.5 K/ul (2.0-6.9) H 01/28/18 04:45 Lymph # (Auto) 0.8 K/uL (0.60-3.4) 01/28/18 04:45 Foster # (Auto) 0.4 K/uL (0.4-2.0) 01/28/18 04:45 Eos # (Auto) 0.0 K/ul (0.0-0.7) 01/28/18 04:45 Baso # (Auto) 0.0 K/uL (0-0.2) 01/28/18 04:45 D-Dimer (Manual) 620.88 ng/mL (<500) 01/27/18 11:15 Puncture Site R rad 01/27/18 10:55 O2 Saturation 91.0 % (95-100) L 01/27/18 10:55 ABG pH 7.430 (7.35-7.45) 01/27/18 10:55 ABG pCO2 68.2 mmHg (35-45) H 01/27/18 10:55 ABG pO2 64.0 mmHg (85-100) L 01/27/18 10:55 ABG HCO3 45.3 (22.0-26.0) H 01/27/18 10:55 ABG Total CO2 47 (22.0-28.0) H 01/27/18 10:55 ABG Base Excess 21 (-2.0-2.0) H 01/27/18 10:55 Nader Test + 01/27/18 10:55 O2 Delivery Device Nc 01/27/18 10:55 Oxygen Liter Flow 2.50 01/27/18 10:55 Sodium 140.5 mmol/L (137-145) 01/28/18 04:45 Potassium 4.07 mmol/L (3.5-5.1) 01/28/18 04:45 Chloride 92.0 mmol/L (98-107) L 01/28/18 04:45 Carbon Dioxide 43.4 mmol/L (22-30) H* 01/28/18 04:45 Anion Gap 9.17 01/28/18 04:45 BUN 14.6 mg/dL (9-20) 01/28/18 04:45 Creatinine 0.50 mg/dL (0.60-1.10) L 01/28/18 04:45 Estimated GFR (MDRD) 165.00 mL/min 01/28/18 04:45 BUN/Creatinine Ratio 29.20 01/28/18 04:45 Glucose 145.7 mg/dL (74-106) H 01/28/18 04:45 Lactic Acid 0.99 mmol/L (0.7-2.1) 01/27/18 11:15 Calcium 8.63 mg/dL (8.4-10.2) 01/28/18 04:45 Total Bilirubin 0.23 mg/dL (0.2-1.3) 01/28/18 04:45 AST 21.4 U/L (17-59) 01/28/18 04:45 ALT 10.6 U/L (0-50) 01/28/18 04:45 Alkaline Phosphatase 72.4 U/L (56-119) 01/28/18 04:45 Total Creatine Kinase 20.2 U/L (55-170) L 01/28/18 04:45 Troponin I < 0.012 ng/ml (0.0000-0.120) 01/28/18 04:45 Total Protein 6.17 g/dL (6.3-8.2) L 01/28/18 04:45 Albumin 3.28 g/dL (3.5-5.0) L 01/28/18 04:45 Globulin 2.89 01/28/18 04:45 Albumin/Globulin Ratio 1.13 01/28/18 04:45 Procalcitonin < 0.05 ng/mL (<0.05) 01/27/18 11:15 Digoxin 0.42 ng/mL (0.8-2.00) L 01/27/18 11:15 No new imaging. (1) Pneumonia Status: Acute Code(s): J18.9 - PNEUMONIA, UNSPECIFIED ORGANISM SNOMED Code(s ): 087571133 (2) COPD exacerbation Status: Acute Code(s): J44.1 - CHRONIC OBSTRUCTIVE PULMONARY DISEASE W (ACUTE ) EXACERBATION SNOMED Code(s): 426705384 (3) Acute respiratory failure with hypercapnia Status: Acute Code(s): J96.02 - ACUTE RESPIRATORY FAILURE WITH HYPERCAPNIA SNOMED Code(s): 19114330 (4) Elevated d-dimer Status: Acute Code(s): R79.1 - ABNORMAL COAGULATION PROFILE SNOMED Code(s): 829626171 (5) Normocytic anemia Status: Acute Code(s): D64.9 - ANEMIA, UNSPECIFIED SNOMED Code(s): 574200426 (6) Leukocytosis Status: Acute Code(s): D72.829 - ELEVATED WHITE BLOOD CELL COUNT, UNSPECIFIED SNOMED Code(s): 186946348 (7) Pressure injury, stage 1 Status: Acute Code(s): L89.91 - PRESSURE ULCER OF UNSPECIFIED SITE, STAGE 1 SNOMED Code(s): 246513846 Plan: COPD Exacerbation/Pneumonia: Stable/improving. He has maintained 02 sats from 90-93 on 2.5L, which is his home baseline O2. I suspect URI has led to worsening symptoms and now to possible pneumonia. We will complete total of 5 days of abx, 5 days of prednisone, continue albuterol tx q 4 hours and ipratropium QID> NO issues urinating. He has expressed possible interest in return to [place]. He is not yet back to his baseline per his report, but I am concerned he is not aware of what his baseline status is. He has pulmonology, I talked with him about hospice and he was not interested in that at present. - Rocephin Day 2 today of 5 days - Doxycycline Day 1 today of 5 days - Prednisone day 1 today of 5 days - Continue albuterol nebs q 4 h - Continue ipratropium nebs QID Hypercapnea: Chronic lung disease. Leukocytosis: Improving Anemia: Mild, monitor. Acute on chronic. - CBC tomorrow. Code Status: Full Diet: Regular AFIB: SR w/ BBB on tele, rate is stable, monitor. DVT prophy: Continue home eliquis Disposition: Home in next 1-2 days vs consideration of SNF. >35 minutes spent in rounding on patient this am, reviewing telemetry, labs, overnight nurse documentation, contacted by hospital this am at 5:45 w/ critical CO2,
[2018-01-28] MEDS: SYMBICORT 160-4.5 MCG INHALER IH SCH ×2 (08:17→20:49)
[2018-01-28] MEDS: ROCEPHIN 1 GM in SODIUM CHLORIDE 50 ML IV SCH (08:17)
[2018-01-28] MEDS: PREDNISONE PO SCH (08:17)
[2018-01-28] MEDS: DOXYCYCLINE HYCLATE PO SCH ×2 (08:18→20:49)
[2018-01-28] MEDS: ASPIRIN CHEWABLE PO SCH (08:18)
[2018-01-28] MEDS: ELIQUIS PO SCH ×2 (08:18→20:49)
[2018-01-28] MEDS: CARDIZEM CD PO SCH (08:18)
[2018-01-28] MEDS: LANOXIN PO SCH (08:19)
[2018-01-28] MEDS: CALMOSEPTINE OINTMENT TP SCH ×2 (08:19→20:50)
[2018-01-28] MEDS: PRAVACHOL PO SCH (20:49)
[2018-01-29] MEDS: ALBUTEROL 0.083% NEB NEB SCH ×6 (01:50→21:58)
[2018-01-29] MEDS: ATROVENT 0.02% NEB NEB SCH ×4 (05:00→23:09)
[2018-01-29] MEDS: LASIX TAB PO SCH (05:51)
[2018-01-29] MEDS: SODIUM CHLORIDE 1,000 ML IV SCH ×2 (07:15→20:09)
--- NOTE | 2018-01-29 08:12 | PCM.PROG ---
Subjective: 67 yo WM rounding day 2, admitted on 01/27/18 for COPD exacerbation and pneumonia. He is doing better, still having difficulty breathing. We talked about COPD, talked about end stage lung disease, talked about his pulmonary provider and his medications. He is on ipratopium 4x daily, albuterol nebs q4 hours, using overnight bipap, on O2 regularly with goal >92 and <98 and he is on symbicort 2puff BID. He seems to breath better when I coordinator of placement the doorway than when I am in room. Barrel chested, pursed lip breathing, chronic CO2 retaining. Labs reviewed with him this am. White blood cell count has increased a little, suspect possibly steroidal effect. Hgb chronic anemia, mild and stable with midl drop from 11.9 to 11.2. Plt stable with mild drop to 163 from 179 likely dilutional. He had some elevated glucose like secondary to steroids and we checked A1C, which was 5.68 and fine. CMP remains okay with chronic CO2 retention. Kidney function stable, liver enzymes normal. The patient is turning q 2 hours for his sacral pressure ulcer,which has healed and looks good. He is mostly in bed, up occasionally. Using urinal and bedside commode but minimal ambulation. I have asked [facility] therapy to come look at him. Overnight nurse and am nurse had nothing to report. He is sating 89-94% and he has some continued bilateral LE weakness. Bilateral UE and LE are weak, thin and his chest is barrel. I suspect end stage COPD. Using Bipap overnight. Last 3 shifts urine output has been >0.5ml/kg/hr. 0.66ml/kg/hr, and previous 2 listed as 1.1 ml/kg/hr. He had a good uout as I was going into room this am. Telemetry reviewed, no atypical rhythms. He is improving and I suspect ready for d/c to [place] tomorrow. Pulm rehab would be helpful, balance and strengthening would be helpful. I am worried that his understanding of this pulm disease is not accurate. I would like to add Daliresp to him. I will possibly add this as outpatient. Objective: Vital Signs - 24 hr 01/28/18 01/28/18 01/28/18 09:42 10:00 13:28 Temperature 97.8 F 97.6 F Pulse Rate 78 80 Respiratory 20 20 Rate Blood Pressure 112/82 121/84 O2 Sat by Pulse 92 L 89 L 92 L Oximetry 01/28/18 01/28/18 01/28/18 17:49 20:00 22:00 Temperature 97.9 F 97.7 F Pulse Rate 92 H 85 Respiratory 22 20 20 Rate Blood Pressure 115/73 100/74 O2 Sat by Pulse 94 L 89 L Oximetry 01/29/18 05:31 Temperature 98.8 F Pulse Rate 84 Respiratory 20 Rate Blood Pressure 110/73 O2 Sat by Pulse 98 Oximetry Constitutional: Appearance-chronic lung process, calm, less distress. Observed from doorway, breathing more calmly. In room puffed breathing, pursing and more rapid breaths. He feels he is worse than baseline, but he appears similar to the visits prior to hospital. Consistent with stated age. Orientation- Oriented x 3, alert Gait-Hospital bed. Build and Nutrition-[Thin, barrel chested ] General- Patient is pleasant and cooperative with the interview and exam. Talks in 5-7 phrase but still broken sentences. Integumentary: General-No rashes, ulcers or lesions. Palpation- Normal skin moisture/turgor. Skin is warm to touch, appropriate. Capillary refill is normal bilateral Upper and lower extremity. He has a small area of erythema along sacrum without breakdown posteriorly that looks much better, less erythema and using calmoseptine. protected skin. Head/Neck: Head- normocephalic and atraumatic. Neck- without visible/palpable lumps or pulsations. Palpation- No bony tenderness about head/neck along frontal, occipital, temporal, parietal, mastoid, jawline, zygoma, orbit or any other location. NO temporal artery tenderness. No TMJ tenderness. Neck Supple. Thyroid-No thyromegaly, no nodules Eye: Bilaterally PERRLA, EOMI. No discharge. Upper and lower eyelids are normal. Sclera/conjunctiva normal without discharge. Cornea is normal and clear. Lens is normal. Eyeball appears normal. No ciliary flushing, no conjunctival injection. ENMT: Nasal mucosa- No bleeding noted and no ulcerations observed. Erythematous Turbinates boggy. Lips- normal color, moist without cracks/lesions Oral Cavity/Palate- hard/soft palate intact without lesions, oral mucosa pink and moist. Tongue normal midline. Oropharynx- pharyngeal erythema, Uvula midline. post nasal drip. No exudate. Salivary glands- Non tender to palpation CHEST/LUNG: Inspection- Unchanged from admit. Symmetric chest wall barrel chest. Perhaps a little better than yesterday. Increased effort, mild distress , not using abdominal accessory muscles, no retractions, Palpation- nontender sternum, ribline. No abnormal pulsations. Auscultation- Breath sounds decreased and coarse throughout all lung grayson. tracheal sounds, bronchial sounds overlying sternum, Bronchovessicular sounds between scapulae posteriorly , vessicular breath sounds heard throughout periphery. Adventitious sounds- wheezes, rales/crackles, rhonchi. Loud breathing I:E 1:2. CARDIOVASCULAR: Carotid artery- normal, no bruits or abnormal pulsations. Jugular vein- no pulsations. Palpation/Percussion- Normal PMI, no palpable thrill Auscultation- Regular rate and rhythm. systolic III/ murmur noted in sitting/ recumbent supine positions. Extremities- digital clubbing, no cyanosis, no peripheral edema, no increased warmth. ABDOMEN: Inspection- normal and no visible pulsations. Normal contour. Auscultation- Bowel sounds normal, no abdominal bruits. Palpation/Percussion- soft, non-tender, no rebound tenderness, no rigidity (guarding), no jar tenderness, no masses. Liver-no hepatomegaly, Spleen no splenomegaly, Hernias - none. Rectal not examined. Peripheral Vascular: Upper extremity Left- Normal temperature with pink nailbeds and no ulcerations. Upper extremity Right- Normal temperature with pink nailbeds and no ulcerations. Lower extremity- Normal temperature with pink nailbeds and no ulcerations. DP pulses 2+ bilaterally. Pedal hair intact. Normal capillary refill. Edema- No edema. Musculoskeletal: Generalized-No generalized swelling or edema of extremities or cyanosis, neurovascularly intact all four extremities. Very thin extremities. Neurological: General- Moves all 4 extremities symmetrically. Symmetrical face and body posture. Cranial nerves- individually evaluated II-XII and intact. PERRLA, Normal EOMI, visual/special senses appear intact, Face is symmetrical and normal sensation/movement, normal tongue, normal strength/posture of neck musculature. Neuropsych: Oriented- Person, place, time. (AAOx3), Mood/affect- normal and congruent. Able to articulate well. Speech-Normal speech, normal rate, normal tone, normal use of language, volume and coherence. Thought content- normal with ability to perform basic computations and apply abstract thought/reason. Associations- intact, no SI/HI, no hallucinations, delusions, obsessions. Judgment/insight- Appropriate. Memory-Recall intact, remote and recent memory intact. Knowledge- Age appropriate fund of knowledge, concentration and attention span normal. Lymphatic: Head/Neck- normal size and non tender to palpation. Axillary- normal size and non tender to palpation. Femoral and Inguinal- normal size and non tender to palpation. (1) Pneumonia Status: Acute Code(s): J18.9 - PNEUMONIA, UNSPECIFIED ORGANISM SNOMED Code(s ): 840119825 (2) COPD exacerbation Status: Acute Code(s): J44.1 - CHRONIC OBSTRUCTIVE PULMONARY DISEASE W (ACUTE ) EXACERBATION SNOMED Code(s): 915438902 (3) Acute respiratory failure with hypercapnia Status: Acute Code(s): J96.02 - ACUTE RESPIRATORY FAILURE WITH HYPERCAPNIA SNOMED Code(s): 04551567 (4) Elevated d-dimer Status: Acute Code(s): R79.1 - ABNORMAL COAGULATION PROFILE SNOMED Code(s): 914583920 (5) Normocytic anemia Status: Acute Code(s): D64.9 - ANEMIA, UNSPECIFIED SNOMED Code(s): 932956855 (6) Leukocytosis Status: Acute Code(s): D72.829 - ELEVATED WHITE BLOOD CELL COUNT, UNSPECIFIED SNOMED Code(s): 264309958 (7) Pressure injury, stage 1 Status: Acute Code(s): L89.91 - PRESSURE ULCER OF UNSPECIFIED SITE, STAGE 1 SNOMED Code(s): 954867832 Plan: COPD Exacerbation/Pneumonia: Pleasant man with likely end stage COPD, >2 hospital admits this year. He is on JAKE, He is on LABA, he is on inhaled GC and ipratopium (we discussed LAMA briefly in [place] but allegy to tiotriopium). I would like to add daliresp to him but will start this in 1 week. We will change his abx from rocephin/doxy to oral cefdinir and doxy. Prolonged abx course may actually help him. However we will start with 5 days only and then d /c. I will start daliresp (or at least attempt to ) as outpatient. He wishes to go to [place]. I have changed IV meds to oral. Plan is to d/c him to [place] tomorrow. He continues to maintain 02 sats from 88-94 on 2.5L, which is his home baseline O2. Plan is to complete total of 5 days of abx, 5 days of prednisone, continue albuterol tx q 4 hours and ipratropium QID. NO issues urinating. Phys therapy to see patient today. I would like him to try to get to see pulmonology in next few weeks. I talked with him about hospice again and he was not interested in that at present. - Rocephin D/c today - Cefdinir Day 1 of 3 - Doxycycline Day 2 today of 5 days - Prednisone day 2 today of 5 days - Continue albuterol nebs q 4 h - Continue ipratropium nebs QID - Daliresp as outpatient to be considered. Hypercapnea: Chronic lung disease. Leukocytosis: Stable, mild bump overnight. Mild bump in neutrophils, suspect demargination from steroids. Anemia: Mild, monitor. Acute on chronic. - CBC 1 week Code Status: Full (discussed at length with him about this today). He needs to make sure living will Diet: Regular AFIB: SR w/ BBB and NSR on tele, rate is stable, monitor. - Continue home eliquis DVT prophy: - Continue home eliquis Disposition: [facility] SN[facility] d/c tomorrow >25 minutes spent in rounding on patient this am, reviewing telemetry, labs, overnight nurse documentation, talking with care trainer, reviewing [place] discharge suggestions.
[2018-01-29] MEDS: SYMBICORT 160-4.5 MCG INHALER IH SCH ×2 (08:28→20:51)
[2018-01-29] MEDS: OMNICEF PO SCH ×2 (08:28→20:53)
[2018-01-29] MEDS: ASPIRIN CHEWABLE PO SCH (08:28)
[2018-01-29] MEDS: DOXYCYCLINE HYCLATE PO SCH ×2 (08:29→20:52)
[2018-01-29] MEDS: LANOXIN PO SCH (08:29)
[2018-01-29] MEDS: ELIQUIS PO SCH ×2 (08:29→21:35)
[2018-01-29] MEDS: CALMOSEPTINE OINTMENT TP SCH ×2 (08:29→20:52)
[2018-01-29] MEDS: CARDIZEM CD PO SCH (08:29)
[2018-01-29] MEDS: PREDNISONE PO SCH (08:29)
[2018-01-29] MEDS: PRAVACHOL PO SCH (20:53)
--- NOTE | 2018-01-30 00:29 | PCM.DC ---
Final Diagnosis: COPD exacerbation (Acute) Pneumonia (Acute) Acute respiratory failure with hypercapnia (Acute) Elevated d-dimer (Acute) Leukocytosis (Acute) Normocytic anemia (Acute) Pressure injury, stage 1 (Acute) (1) Pneumonia Status: Acute Code(s): J18.9 - PNEUMONIA, UNSPECIFIED ORGANISM SNOMED Code(s ): 474376530 Qualifiers: Pneumonia type: due to unspecified organism Laterality: bilateral (2) COPD exacerbation Status: Acute Code(s): J44.1 - CHRONIC OBSTRUCTIVE PULMONARY DISEASE W (ACUTE ) EXACERBATION SNOMED Code(s): 592419893 (3) Acute respiratory failure with hypercapnia Status: Acute Code(s): J96.02 - ACUTE RESPIRATORY FAILURE WITH HYPERCAPNIA SNOMED Code(s): 87880649 (4) Elevated d-dimer Status: Acute Code(s): R79.1 - ABNORMAL COAGULATION PROFILE SNOMED Code(s): 421607324 (5) Normocytic anemia Status: Acute Code(s): D64.9 - ANEMIA, UNSPECIFIED SNOMED Code(s): 697269203 (6) Leukocytosis Status: Acute Code(s): D72.829 - ELEVATED WHITE BLOOD CELL COUNT, UNSPECIFIED SNOMED Code(s): 214798772, 230841126 (7) Pressure injury, stage 1 Status: Acute Code(s): L89.91 - PRESSURE ULCER OF UNSPECIFIED SITE, STAGE 1 SNOMED Code(s): 395668763 Qualifiers: Pressure injury location: sacral region Qualified Code(s): L89.151 - Pressure ulcer of sacral region, stage 1 Reason for Hospitalization: Hypercapneic respiratory failure, COPD, Pneumonia. Prognosis at Discharge: Stable breathing, stable WBC count, On abx and doing better than admit. Condition at Discharge: Stable to improved. Medications at Discharge: Ambulatory Orders Medication Instructions Recorded Aspirin 81 mg PO d 10/19/13 Simethicone [Mylicon] 80 mg PO PCHS PRN #120 tab.chew 12/24/17 Albuterol Sulfate 0.083% Neb 1 vial NEB RTQ4H 30 Days #120 01/30/18 [Albuterol 0.083% Neb] vial.neb Cefdinir [Omnicef] 300 mg PO Q12HR 3 Days #6 capsule 01/30/18 Doxycycline Hyclate 100 mg PO Q12HR 3 Days #6 capsule 01/30/18 Ipratropium [place] 0.02% Neb 1 vial NEB RTQ6H 30 Days #120 01/30/18 [Atrovent 0.02% Neb] vial.neb Menthol/Zinc Oxide [Calmoseptine 1 applic TP BID oint 01/30/18 Ointment] Prednisone 40 mg PO DAILYWM 3 Days #6 tablet 01/30/18 Lab/Diagnostics: Laboratory Last Values WBC 14.85 K/ul (4.2-10.2) H 01/29/18 04:20 RBC 3.93 10^6/ul (4.70-6.10) L 01/29/18 04:20 Hgb 11.2 g/dl (14.0-18.0) L 01/29/18 04:20 Hct 36.6 % (42.0-52.0) L 01/29/18 04:20 MCV 93.1 fl (80.0-94.0) 01/29/18 04:20 MCH 28.5 pg (27.0-31.0) 01/29/18 04:20 MCHC 30.6 (31.8-35.4) L 01/29/18 04:20 RDW Coeff of Khai 14.4 % (11.6-14.8) 01/29/18 04:20 Plt Count 163 10^3/uL (140-440) 01/29/18 04:20 Immature Gran % (Auto) 2.2 % (0.0-5.0) 01/29/18 04:20 Neut % (Auto) 80.7 01/29/18 04:20 Lymph % (Auto) 9.2 (10.0-50.0) L 01/29/18 04:20 [place] % (Auto) 7.5 (0-10) 01/29/18 04:20 Eos % (Auto) 0.1 % (0.0-7.0) 01/29/18 04:20 Baso % (Auto) 0.3 % (0.0-3.0) 01/29/18 04:20 Immature Gran # (Auto) 0.3 (0.0-1.0) 01/29/18 04:20 Neut # (Auto) 12.0 K/ul (2.0-6.9) H 01/29/18 04:20 Lymph # (Auto) 1.4 K/uL (0.60-3.4) 01/29/18 04:20 [place] # (Auto) 1.1 K/uL (0.4-2.0) 01/29/18 04:20 Eos # (Auto) 0.0 K/ul (0.0-0.7) 01/29/18 04:20 Baso # (Auto) 0.1 K/uL (0-0.2) 01/29/18 04:20 D-Dimer (Manual) 620.88 ng/mL (<500) 01/27/18 11:15 Puncture Site R rad 01/27/18 10:55 O2 Saturation 91.0 % (95-100) L 01/27/18 10:55 ABG pH 7.430 (7.35-7.45) 01/27/18 10:55 ABG pCO2 68.2 mmHg (35-45) H 01/27/18 10:55 ABG pO2 64.0 mmHg (85-100) L 01/27/18 10:55 ABG HCO3 45.3 (22.0-26.0) H 01/27/18 10:55 ABG Total CO2 47 (22.0-28.0) H 01/27/18 10:55 ABG Base Excess 21 (-2.0-2.0) H 01/27/18 10:55 Nader Test + 01/27/18 10:55 O2 Delivery Device Nc 01/27/18 10:55 Oxygen Liter Flow 2.50 01/27/18 10:55 Sodium 139.2 mmol/L (137-145) 01/29/18 04:20 Potassium 3.61 mmol/L (3.5-5.1) 01/29/18 04:20 Chloride 94.0 mmol/L (98-107) L 01/29/18 04:20 Carbon Dioxide 43.3 mmol/L (22-30) H* 01/29/18 04:20 Anion Gap 5.51 01/29/18 04:20 BUN 11.2 mg/dL (9-20) 01/29/18 04:20 Creatinine 0.45 mg/dL (0.60-1.10) L 01/29/18 04:20 Estimated GFR (MDRD) 186.00 mL/min 01/29/18 04:20 BUN/Creatinine Ratio 24.88 01/29/18 04:20 Glucose 91.7 mg/dL (74-106) D 01/29/18 04:20 Hemoglobin A1c 5.68 (4.0-6.0) 01/29/18 04:20 Lactic Acid 0.99 mmol/L (0.7-2.1) 01/27/18 11:15 Calcium 8.60 mg/dL (8.4-10.2) 01/29/18 04:20 Total Bilirubin 0.17 mg/dL (0.2-1.3) L 01/29/18 04:20 AST 21.4 U/L (17-59) 01/29/18 04:20 ALT 11.0 U/L (0-50) 01/29/18 04:20 Alkaline Phosphatase 63.7 U/L (56-119) 01/29/18 04:20 Total Creatine Kinase 20.2 U/L (55-170) L 01/28/18 04:45 Troponin I < 0.012 ng/ml (0.0000-0.120) 01/28/18 04:45 Total Protein 5.82 g/dL (6.3-8.2) L 01/29/18 04:20 Albumin 3.13 g/dL (3.5-5.0) L 01/29/18 04:20 Globulin 2.69 01/29/18 04:20 Albumin/Globulin Ratio 1.16 01/29/18 04:20 Procalcitonin < 0.05 ng/mL (<0.05) 01/27/18 11:15 Digoxin 0.42 ng/mL (0.8-2.00) L 01/27/18 11:15 CT chest: No pulmonary embolism. Central Airway thickening extending into the lower lobes with adjacent consolidation suggestive of acute on chronic small airways disease with consolidation suggestive of pneumonia. Moderate emphsema. Blood culture negative x 2 days. Education Provided to Patient and Family: 1. Albuterol 2.5mg/3ml neb q 4 hours 2. Ipratropium bromide added to neb 4x daily. 3. Complete abx Cefdinir 300mg 1 po BID x 3 days Doxycycline 100mg 1 po BID x 3 days 4. Complete Steroids Prednisone 20mg 2 po Daily x 3 days 5. Resume home meds (changes to breathing/neb meds). 6. Will try to start daliresp when I see him again. 7. On steroids no flu vaccine for now. DIET: Regular. Activitity: Can participate in [place] activities. Disease Specific Education: COPD, Pneumonia, Cefdinir, Doxycycline. Follow-ups: D/C to [facility]. I will see patient in [place] week of 02/08/18. Disposition: TRANSFER SNF Hospital Course: 67 yr old WM history of COPD admitted to hospital room 122 for COPD exacerbation , hypercapneic respiratory failure and suspected pneumonia. Patient was discharged from [facility] 2 weeks ago, present in [place] for COPD exacerbation. He did great for about a week, out of [place] and then this past thursday (01/23/18) he overdid it. He was active with his grand daughter 4 year old. He went outside a lot, did much more walking than normal and he spent more time outside than he was used to spending. The patient noted increased work of breathing, mucus production, cough, difficulty catching breath, rhinorrhea, nasal drainage. He normally uses 2.5L of O2. He has his own pulse ox at home, increased O2 to 3L 4 days ago due to desat to 88% at home. He felt it was more difficult to breath , but did not require intubation and did not appear to be in distress. He presented to the ER 01/27/18 10:[address] Mallory with worsening breathing. He had no known exposures. No chest pain, +SOA. he was able to walk short distances with walking aid but not free handed yet. He felt weak, tired, struggling to catch breath, talking in short bursts. He follows with DR. Snow mckeon/ [facility]. The patient was doing treatments at home TID. breathing has felt more difficult, more choppy per his report, SOA, talked in disjointed sentences. The patient had mild use of abdomen to breath, pursed lip breathing. No fever. NO falls, no trauma, no loss of consciousness. Last hospital stay 12/15/17. >30 days since last discharge. ER note reviewed. Using bronchodilators, upright position helped, worse with supine. Rapid breathing reported, wheezing reported, URI, nasal congstion. NO edema, no pleuritic chest pain, no left arm pain, No N/V/D. Mild sore throat worse w/ cough. NO weight loss. NO recent stress, home o2 used. Former smoker. CTA negatve for PE no dissection. Cardiac monitoring NSR. EKG NSR, NL [place]. Re eval 11 and improved, Stayed in ER until 1300 called me at 1419 for admit. CBC WBC 16.30, Hgb 12.8, Plt 179. CMP sodium 137.9, K+ 3.84, CL 86.6, CO2 43.2. ABG Mixed respiratory acidosis / metabolic alkalosis. Troponin negative, D dimer was elevated at 620.88, Lactate negative, procalcitionin negative at 0.05. He was given duoneb, solumedrol, CT chest PE protocol in ER. I chose to admit to inpatient at 14:20. When I got to room sitting recumbent, supine posture, round chest, on 3L O2 to maintain sat >92. ABG above on O2. Imaging as above. Sitting short of breath, difficulty communicating due to SOA. Hypoxemic respiratory failure, hypercapnia, afib, pulm htn, chronic CO2 narcosis and anemia. During evaluation he was found to have stage 1 pressure ulcer to sacrum. Rolling, calmoseptine precautions used and this was fine throughout stay. No urinary symptoms throughout stay. He was given rocephin in the ER and daily 01/28 and I added doxycycline. He was switched to PO cefdinir w/ PO doxy on 01/29/18 and will complete 3 more days of doxycyline and cefdinir outpatient. We will d/c him to the [facility] 01/30/18. I will discuss daliresp with him at out visit week of 02/08/18. We will also talk about flu shot at that time. He noted understanding. Am discharge 01/30/18 he is stable compared to previous days. He has been using overnight BIPAP, we will continue this. Diet as tolerated, activity as tolerated. Meds as listed albuterol nebs q 4 hours and iproatropium QID. Labs were stable, no additional imaging completed. NO pending labs. Blood cultures negative. Stable for d/c to [facility] this am. Day of discharge Physical Exam: Resting comfortably in bed unchanged from . Constitutional: Appearance-chronic lung process, calm, less distress. Observed from doorway, breathing more calmly. In room puffed breathing, pursing and more rapid breaths. He feels he is worse than baseline, but he appears similar to the visits prior to hospital. Consistent with stated age. Orientation- Oriented x 3, alert Gait-Hospital bed. Build and Nutrition-[Thin, barrel chested ] General- Patient is pleasant and cooperative with the interview and exam. Talks in 5-7 phrase but still broken sentences. Integumentary: General-No rashes, ulcers or lesions. Palpation- Normal skin moisture/turgor. Skin is warm to touch, appropriate. Capillary refill is normal bilateral Upper and lower extremity. He has a small area of erythema along sacrum without breakdown posteriorly that looks much better, less erythema and using calmoseptine. protected skin. Head/Neck: Head- normocephalic and atraumatic. Neck- without visible/palpable lumps or pulsations. Palpation- No bony tenderness about head/neck along frontal, occipital, temporal, parietal, mastoid, jawline, zygoma, orbit or any other location. NO temporal artery tenderness. No TMJ tenderness. Neck Supple. Thyroid-No thyromegaly, no nodules Eye: Bilaterally PERRLA, EOMI. No discharge. Upper and lower eyelids are normal. Sclera/conjunctiva normal without discharge. Cornea is normal and clear. Lens is normal. Eyeball appears normal. No ciliary flushing, no conjunctival injection. ENMT: Nasal mucosa- No bleeding noted and no ulcerations observed. Erythematous Turbinates boggy. Lips- normal color, moist without cracks/lesions Oral Cavity/Palate- hard/soft palate intact without lesions, oral mucosa pink and moist. Tongue normal midline. Oropharynx- pharyngeal erythema, Uvula midline. post nasal drip. No exudate. Salivary glands- Non tender to palpation CHEST/LUNG: Inspection- Unchanged from admit. Symmetric chest wall barrel chest. Perhaps a little better than yesterday. Increased effort, mild distress , not using abdominal accessory muscles, no retractions, Palpation- nontender sternum, ribline. No abnormal pulsations. Auscultation- Breath sounds decreased and coarse throughout all lung grayson. tracheal sounds, bronchial sounds overlying sternum, Bronchovessicular sounds between scapulae posteriorly , vessicular breath sounds heard throughout periphery. Adventitious sounds- wheezes, rales/crackles, rhonchi. Loud breathing I:E 1:2. CARDIOVASCULAR: Carotid artery- normal, no bruits or abnormal pulsations. Jugular vein- no pulsations. Palpation/Percussion- Normal PMI, no palpable thrill Auscultation- Regular rate and rhythm. systolic III/ murmur noted in sitting/ recumbent supine positions. Extremities- digital clubbing, no cyanosis, no peripheral edema, no increased warmth. ABDOMEN: Inspection- normal and no visible pulsations. Normal contour. Auscultation- Bowel sounds normal, no abdominal bruits. Palpation/Percussion- soft, non-tender, no rebound tenderness, no rigidity (guarding), no jar tenderness, no masses. Liver-no hepatomegaly, Spleen no splenomegaly, Hernias - none. Rectal not examined. Peripheral Vascular: Upper extremity Left- Normal temperature with pink nailbeds and no ulcerations. Upper extremity Right- Normal temperature with pink nailbeds and no ulcerations. Lower extremity- Normal temperature with pink nailbeds and no ulcerations. DP pulses 2+ bilaterally. Pedal hair intact. Normal capillary refill. Edema- No edema. Musculoskeletal: Generalized-No generalized swelling or edema of extremities or cyanosis, neurovascularly intact all four extremities. Very thin extremities. Neurological: General- Moves all 4 extremities symmetrically. Symmetrical face and body posture. Cranial nerves- individually evaluated II-XII and intact. PERRLA, Normal EOMI, visual/special senses appear intact, Face is symmetrical and normal sensation/movement, normal tongue, normal strength/posture of neck musculature. Neuropsych: Oriented- Person, place, time. (AAOx3), Mood/affect- normal and congruent. Able to articulate well. Speech-Normal speech, normal rate, normal tone, normal use of language, volume and coherence. Thought content- normal with ability to perform basic computations and apply abstract thought/reason. Associations- intact, no SI/HI, no hallucinations, delusions, obsessions. Judgment/insight- Appropriate. Memory-Recall intact, remote and recent memory intact. Knowledge- Age appropriate fund of knowledge, concentration and attention span normal. Lymphatic: Head/Neck- normal size and non tender to palpation. Axillary- normal size and non tender to palpation. Femoral and Inguinal- normal size and non tender to palpation. Plan: 1. D/C [facility] 2. Meds as listed 3. Education as listed above. 4. Discharge >30 minutes spent in discharging patient today.
[2018-01-30] MEDS: ALBUTEROL 0.083% NEB NEB SCH ×3 (02:04→10:23)
[2018-01-30] MEDS: ATROVENT 0.02% NEB NEB SCH ×2 (05:48→12:11)
[2018-01-30] MEDS: LASIX TAB PO SCH (06:14)
[2018-01-30] MEDS: SYMBICORT 160-4.5 MCG INHALER IH SCH (09:39)
[2018-01-30] MEDS: OMNICEF PO SCH (09:40)
[2018-01-30] MEDS: ASPIRIN CHEWABLE PO SCH (09:40)
[2018-01-30] MEDS: ELIQUIS PO SCH (09:41)
[2018-01-30] MEDS: PREDNISONE PO SCH (09:41)
[2018-01-30] MEDS: DOXYCYCLINE HYCLATE PO SCH (09:42)
[2018-01-30] MEDS: CARDIZEM CD PO SCH (09:42)
[2018-01-30] MEDS: LANOXIN PO SCH (09:43)
[2018-01-30] MEDS: CALMOSEPTINE OINTMENT TP SCH (09:44)
[2018-01-30 10:27] VITALS: BP 109/69; TEMP 98.1
== END 2018-01-30 13:18 | DRG 204 ==
LOC: ED 10:32 → MEDSURG B 14:36
PROVIDERS: ADMIT Family Medicine; ATTEND Family Medicine
DX: R06.2 Wheezing (principal); J18.9 Pneumonia, unspecified organism; J96.02 Acute respiratory failure with hypercapnia; J44.1 Chronic obstructive pulmonary disease with (acute) exacerbation; J06.9 Acute upper respiratory infection, unspecified; D64.9 Anemia, unspecified; D72.829 Elevated white blood cell count, unspecified; L89.91 Pressure ulcer of unspecified site, stage 1; L89.151 Pressure ulcer of sacral region, stage 1; R79.1 Abnormal coagulation profile
CPT/HCPCS: 36415; 80053; 80162; 82550; 82803; 83036; 83605; 84145; 84484; 85025; 85379; 87040; 93005; 93010; 94640; 96374; 99223; 99232; 99233; 99239; 99284

== ENCOUNTER 2018-03-17 10:40 | Outpatient (CLI) | payer OTHER | END 2018-03-17 10:41 | disposition home or self-care (01) | LOC: FCC-LAB 10:40 | PROVIDERS: ATTEND Family Medicine | DX: D72.828 Other elevated white blood cell count (principal); E55.9 Vitamin D deficiency, unspecified; E78.5 Hyperlipidemia, unspecified; I27.20 Pulmonary hypertension, unspecified; K21.9 Gastro-esophageal reflux disease without esophagitis; I10 Essential (primary) hypertension | CPT/HCPCS: 36415; 80053; 82306; 85025 ==

== ENCOUNTER 2018-04-20 21:54 | Emergency (ER) ==
[2018-04-20 22:03] VITALS: TEMP 98.3; BMI 19.0
[2018-04-20] MEDS ORDERED: SOLU-MEDROL 125 MG IVP STA (22:07)
[2018-04-20] MEDS ORDERED: XOPENEX 1.25 MG NEB STA (22:07)
[2018-04-20] MEDS ORDERED: ROCEPHIN 1 GM in SODIUM CHLORIDE 50 ML IV STA (22:07)
[2018-04-20] MEDS ORDERED: ROCEPHIN ONE (22:11)
--- NOTE | 2018-04-20 22:38 | DI ---
EXAM: AP single view of the chest. HISTORY: Shortness of breath. FINDINGS: The bones are unremarkable. The cardiac silhouette and pulmonary vasculature are within no rmal limits. There is a prominent vessel in the left hilar region. The costophrenic angles are sally r. No infiltrate or consolidation. There is a calcified granuloma in the right upper lobe. Impression: No acute cardiopulmonary disease.
[2018-04-20 23:41] VITALS: BP 112/82
[2018-04-21] MEDS ORDERED: ALBUTEROL 0.042% NEB NEB STA (00:28)
--- NOTE | 2018-04-21 03:14 | ED.PDOC ---
General ED Provider: Dr. ADDI GRIFFIN-ER Chief Complaint: Shortness of Air Stated Complaint: im sob Time Seen by Physician: 21:55 Mode of Arrival: Ambulance Information Source: Patient, EMT Exam Limitations: No limitations Primary Care Provider: JANETH GARIBAY Nursing and Triage Documentation Reviewed and Agree: Yes Does patient meet sepsis criteria?: No System Inflammatory Response Syndrome: Not Applicable Sepsis Protocol: For patient's 13 years and over: Temp is 96.8 and below OR 101 and greater Pulse >90 BPM Resp >20/minute Acutely Altered Mental Status Are patient's symptoms suggestive of a new infection, such as: -Pneumonia -Skin, Soft Tissue -Endocarditis -UTI -Bone, Joint Infection -Implantable Device -Acute Abdominal Infection -Wound Infection -Meningitis -Blood Stream Catheter Infection -Unknown Respiratory Complaint Exam - Shortness of Air Complaint/Exam Onset/Duration: 2 days Symptoms Are: Still present Timing: Constant Initial Severity: Mild Current Severity: Moderate Aggravating: Reports: None, URI Associated Signs and Symptoms: Denies: Cough, Wheezing, Chest pain with cough, Chest pain, Fever, Chills, Diaphoresis, Nasal congestion, Dizziness, Calf pain, Calf swelling, Edema, Rapid breathing, Labored breathing, Decreased intake History of Healthcare-Acquired Pneumonia: No Pulmonary Embolism Risk Factors: Reports: None Cardiac Risk Factors: Reports: None Pseudomonas Risk Factors: Reports: None Home Oxygen Use: Yes Recent Stress Test: No Stridor Present: No Tracheal Deviation: No Subcutaneous Emphysema: No Accessory Muscle Use: No Retractions: Not Present Diminished Breath Sounds: No Prolonged Expiratory Phase: No Unable to Speak Full Sentences: No Fatigue: No Leg Swelling: No Angela's Sign Present: No Grunting Respirations: No Kussmaul Respirations: No Differential Diagnoses: COPD Exacerbation Quality Indicator For Non-Traumatic Chest Pain/Syncope: EKG Performed Review of Systems - Review Of Systems Constitutional: Reports: No symptoms Eyes: Reports: No symptoms Ears, Nose, Mouth, Throat: Reports: No symptoms Respiratory: Reports: Cough, Short of air Cardiac: Reports: No symptoms GI: Reports: No symptoms : Reports: No symptoms Musculoskeletal: Reports: Muscle pain Skin: Reports: No symptoms Neurological: Reports: No symptoms Endocrine: Reports: No symptoms Hematologic/Lymphatic: Reports: No symptoms All Other Systems: Reviewed and Negative Past Medical History - Past Medical History Previously Healthy: No Endocrine: Reports: None Cardiovascular: Reports: Hypertension Respiratory: Reports: COPD, Asthma Hematological: Reports: None Gastrointestinal: Reports: None Genitourinary: Reports: None Neuro/Psych: Reports: None Musculoskeletal: Reports: None Cancer: Reports: None Other Pertinent Past Medical History: flu shot Sep 25 has several friends also not feeling well after shot - Surgical History General Surgical History: Reports: Tonsillectomy - Family History Family History: Reports: Unknown - Social History Smoking Status: Former smoker Hx Substance Use: No Alcohol Screening: None - Immunizations Tetanus Shot up to Date: No Physical Exam - Physical Exam Appearance: Well-appearing Eyes: BRITANY, EOMI, Conjunctiva clear ENT: Ears normal Neck: Supple Respiratory: Airway patent Cardiovascular: RRR, Pulses normal, No rub, No murmur GI/: Soft, Nontender, No masses, Bowel sounds normal, No Organomegaly Musculoskeletal: Normal strength, ROM intact, No edema, No calf tenderness Skin: Warm Neurological: Sensation intact, Motor intact, Reflexes intact, Cranial nerves intact, Alert, Oriented Psychiatric: Affect appropriate Interpretation - Radiology Interpretation Radiology Interpretation By: Radiologist Radiology Results: Negative Exam Interpreted: Portable CXR - EKG Interpretation Time of EKG #1: 03:13 Rate: Normal Rhythm: Sinus Ectopy: None [place]: NL ST Segment: Normal EKG Comparison: No significant changes Physician Notification - Case Discussed Physician Notified: dr garibay---suggested talking to pulmonary Time of Notification: 03:14 Critical Care Note - Critical Care Note Total Time (mins): 30 Course - Course Hematology/Chemistry: 04/20/18 22:20 04/20/18 22:20 Orders, Labs, Meds: Lab Review 04/20/18 04/20/18 04/20/18 22:05 22:20 22:20 WBC 7.66 RBC 4.82 Hgb 12.9 L Hct 45.0 MCV 93.4 MCH 26.8 L MCHC 28.7 L RDW Coeff of Khai 14.8 Plt Count 174 Immature Gran % (Auto) 0.4 Neut % (Auto) 71.6 Lymph % (Auto) 18.9 [place] % (Auto) 7.6 Eos % (Auto) 1.0 Baso % (Auto) 0.5 Immature Gran # (Auto) 0.0 Neut # (Auto) 5.5 Lymph # (Auto) 1.5 [place] # (Auto) 0.6 Eos # (Auto) 0.1 Baso # (Auto) 0.0 Hypochromasia 1+ Anisocytosis Not present Stomatocytes 1+ Puncture Site Lb O2 Saturation 92.0 L ABG pH 7.317 L ABG pCO2 92.4 H ABG pO2 74.0 L ABG HCO3 47.3 H ABG Total CO2 50 H ABG Base Excess 21 H Nader Test + O2 Delivery Device FiO2 % 30.0 Sodium 138.5 Potassium 3.94 Chloride 88.7 L Carbon Dioxide 50.5 H* Anion Gap 3.24 BUN 12.5 Creatinine 0.57 L Estimated GFR (MDRD) 141.00 BUN/Creatinine Ratio 21.92 Glucose 105.1 Calcium 9.02 Total Bilirubin 0.45 AST 18.8 ALT 12.1 Alkaline Phosphatase 72.2 NT-Pro-B Natriuret Pep 143.000 H Total Protein 6.99 Albumin 3.82 Globulin 3.17 Albumin/Globulin Ratio 1.20 Influ A Molecular Assay Influ B Molecular Assay 04/20/18 04/21/18 04/21/18 23:43 00:25 02:46 WBC RBC Hgb Hct MCV MCH MCHC RDW Coeff of Khai Plt Count Immature Gran % (Auto) Neut % (Auto) Lymph % (Auto) [place] % (Auto) Eos % (Auto) Baso % (Auto) Immature Gran # (Auto) Neut # (Auto) Lymph # (Auto) [place] # (Auto) Eos # (Auto) Baso # (Auto) Hypochromasia Anisocytosis Stomatocytes Puncture Site Lb Lb O2 Saturation 90.0 L 93.0 L ABG pH 7.332 L 7.334 L ABG pCO2 89.6 H 89.3 H ABG pO2 67.0 L 78.0 L ABG HCO3 47.4 H 47.5 H ABG Total CO2 50 H 50 H ABG Base Excess 21 H 22 H Nader Test + + O2 Delivery Device Vapo-therm Bipap FiO2 % 40.0 40.0 Sodium Potassium Chloride Carbon Dioxide Anion Gap BUN Creatinine Estimated GFR (MDRD) BUN/Creatinine Ratio Glucose Calcium Total Bilirubin AST ALT Alkaline Phosphatase NT-Pro-B Natriuret Pep Total Protein Albumin Globulin Albumin/Globulin Ratio Influ A Molecular Assay Negative by naat Influ B Molecular Assay Negative by naat Orders Category Date Time Status ABG DRAW REQUEST Stat CARDIO 04/20/18 22:06 Completed ABG DRAW REQUEST Stat CARDIO 04/21/18 02:46 Ordered BIPAP Routine CARDIO 04/21/18 00:33 Ordered EKG-(ED ONLY) Stat CARDIO 04/20/18 22:06 Completed NEBULIZER TREATMENT Stat CARDIO 04/20/18 22:07 Completed NEBULIZER TREATMENT Stat CARDIO 04/21/18 00:29 Completed VAPOTHERM Routine CARDIO 04/21/18 00:11 Completed ED TYPE MAPPER APPLIED .ONCE EMERGENCY 04/20/18 22:06 Active IV [ED IV/MEDIPORT/POWERPORT] .ONCE EMERGENCY 04/20/18 22:06 Active ABG DAILY@0600 LAB 04/21/18 00:25 Completed ABG DAILY@0600 LAB 04/22/18 06:00 Ordered ABG Stat LAB 04/20/18 22:05 Completed ABG Stat LAB 04/21/18 02:46 Completed CBC W/ AUTO DIFF Stat LAB 04/20/18 22:20 Completed COMPREHENSIVE METABOLIC PANEL Stat LAB 04/20/18 22:20 Completed FLU A/B MOLECULAR Stat LAB 04/20/18 23:43 Completed NT-PROBNP Stat LAB 04/20/18 22:20 Completed RBC MORPHOLOGY Stat LAB 04/20/18 22:20 Completed 0.9 % Sodium Chloride [Saline Flush] MEDS 04/20/18 22:06 Ordered 1 syr IVF PRN PRN Albuterol Sulfate 0.042% Neb [Albuterol 0.042% Neb] MEDS 04/21/18 00:28 Discontinued 1 vial NEB ONCE STA Ceftriaxone Sodium [Rocephin] MEDS 04/20/18 22:11 Discontinued 1 gm .ROUTE .STK-MED ONE Ceftriaxone Sodium [Rocephin] 1 gm MEDS 04/20/18 22:07 Discontinued 0.9 % Sodium Chloride [Sodium Chloride] 50 ml IV ONCE Levalbuterol HCl [Xopenex 1.25 mg] MEDS 04/20/18 22:07 Discontinued 1 vial NEB ONCE STA Methylprednisolone Sod Succ/Pf [Solu-Medrol 125 mg] MEDS 04/20/18 22:07 Discontinued 125 mg IVP ONCE STA CXR [CHEST, 1V AP ONLY] Stat RADS 04/20/18 22:10 Completed Medications Generic Name Dose Route Start Last Admin Trade Name Freq PRN Reason Stop Dose Admin Sodium Chloride 1 syr 04/20/18 22:06 Saline Flush IVF PRN PRN To flush IV Discontinued Medications Generic Name Dose Route Start Last Admin Trade Name Romi PRN Reason Stop Dose Admin Albuterol Sulfate 1 vial 04/21/18 00:28 04/21/18 01:05 Albuterol 0.042% Neb NEB 04/21/18 00:29 1 vial ONCE STA Administration Ceftriaxone Sodium 1 gm/ 50 mls @ 75 mls/hr 04/20/18 22:07 04/20/18 22:36 Sodium Chloride IV 04/20/18 22:46 75 mls/hr ONCE STA Administration Levalbuterol HCl 1 vial 04/20/18 22:07 04/20/18 22:10 Xopenex 1.25 Mg NEB 04/20/18 22:08 1 vial ONCE STA Administration Methylprednisolone Sodium Succinate 125 mg 04/20/18 22:07 04/20/18 22:36 Solu-Medrol 125 Mg IVP 04/20/18 22:08 125 mg ONCE STA Administration Vital Signs: Temp Pulse Resp BP Pulse Ox 04/21/18 01:00 95 04/21/18 00:32 95 04/20/18 23:39 98 H 22 112/82 97 04/20/18 23:00 92 L 04/20/18 21:56 98.3 F 104 H 28 H 128/87 96 Departure - Departure Time of Disposition: 03:14 Disposition: TSF SHORT-TRM HOSP Discharge Problem: Acute respiratory failure with hypercapnia Instructions: Chronic Respiratory Failure (DC) Condition: Stable Pt referred to PMD for follow-up: Yes IPMP verified?: No Allergies/Adverse Reactions: Allergies tiotropium bromide [From Spiriva with HandiHaler] Allergy (Mild, Verified 22:02) rash Home Medications: Ambulatory Orders Aspirin 81 mg PO d 10/19/13 Albuterol Sulfate 0.083% Neb [Albuterol 0.083% Neb] 1 vial NEB RTQ4H 30 Days # 120 vial.neb 01/30/18 Menthol/Zinc Oxide [Calmoseptine Ointment] 1 applic TP BID oint 01/30/18 Transfer Form Completed: Yes Disposition Discussed With: Patient, Family
== END 2018-04-21 03:50 | disposition short-term general hospital (02) ==
LOC: ED 21:54
DX: J96.02 Acute respiratory failure with hypercapnia (principal); I10 Essential (primary) hypertension; J44.9 Chronic obstructive pulmonary disease, unspecified; R06.02 Shortness of breath
CPT/HCPCS: 36415; 80053; 82803; 83880; 85008; 85025; 87502; 93005; 93010; 94640; 94660; 96365; 96375; 99285

== ENCOUNTER 2018-05-17 10:42 | Inpatient (IN) ==
[2018-05-17] MEDS ORDERED: DUONEB NEB STA (11:08)
[2018-05-17] MEDS ORDERED: SOLU-MEDROL 125 MG IVP STA (11:08)
[2018-05-17] MEDS ORDERED: SODIUM CHLORIDE 1,000 ML IV STA (11:08)
--- NOTE | 2018-05-17 12:07 | ED.PDOC ---
General ED Provider: Dr. IRIS CHARLTON Chief Complaint: Shortness of Air Stated Complaint: shortness of breath Time Seen by Physician: 11:00 (seen with his nurse at all times ) Mode of Arrival: Ambulance Information Source: Patient, EMT Exam Limitations: No limitations Primary Care Provider: JANETH BOSS Nursing and Triage Documentation Reviewed and Agree: Yes (arrived aox3 ) Does patient meet sepsis criteria?: Yes If yes, has appropriate treatment been initiated?: Yes System Inflammatory Response Syndrome: Resp >20/Minute Sepsis Protocol: For patient's 13 years and over: Temp is 96.8 and below OR 101 and greater Pulse >90 BPM Resp >20/minute Acutely Altered Mental Status Are patient's symptoms suggestive of a new infection, such as: -Pneumonia -Skin, Soft Tissue -Endocarditis -UTI -Bone, Joint Infection -Implantable Device -Acute Abdominal Infection -Wound Infection -Meningitis -Blood Stream Catheter Infection -Unknown Respiratory Complaint Exam - Shortness of Air Complaint/Exam Onset/Duration: 1 day Symptoms Are: Still present Timing: Constant Initial Severity: Mild Character: Reports: Dyspnea at rest, Dyspnea on exertion, Orthopnea Aggravating: Reports: Recumbent position, URI Alleviating: Reports: Bronchodilators, Oxygen, Upright position, Spontaneous resolution Associated Signs and Symptoms: Reports: Cough, Wheezing, Chills, Nasal congestion, Rapid breathing, Decreased intake. Denies: Chest pain with cough, Chest pain, Fever, Diaphoresis, Dizziness, Calf pain, Calf swelling, Edema, Labored breathing History of Healthcare-Acquired Pneumonia: No Pulmonary Embolism Risk Factors: Reports: Bedrest Pseudomonas Risk Factors: Reports: Chronic Lung Disease (on home oxygen) Tuberculosis Risk Factors: Reports: None Home Oxygen Use: Yes Recent Stress Test: No Recent Echo/LV Function: No Respiratory Distress: None Stridor Present: No Tracheal Deviation: No Subcutaneous Emphysema: No Accessory Muscle Use: No Retractions: Not Present Diminished Breath Sounds: Yes Prolonged Expiratory Phase: Yes Unable to Speak Full Sentences: No Fatigue: No Leg Swelling: No Angela's Sign Present: No Grunting Respirations: No Kussmaul Respirations: No Differential Diagnoses: Asthma, COPD Exacerbation, Pneumonia, Bronchitis, URI Review of Systems - Review Of Systems Constitutional: Reports: Chills, Malaise, Weakness, Loss of appetite Eyes: Reports: No symptoms Ears, Nose, Mouth, Throat: Reports: No symptoms Respiratory: Reports: Cough, Short of air, Wheezing Cardiac: Reports: No symptoms GI: Reports: No symptoms : Reports: No symptoms Musculoskeletal: Reports: No symptoms Skin: Reports: No symptoms Neurological: Reports: No symptoms Endocrine: Reports: No symptoms Hematologic/Lymphatic: Reports: No symptoms All Other Systems: Reviewed and Negative Past Medical History - Past Medical History Previously Healthy: No Endocrine: Reports: None Cardiovascular: Reports: Hypertension Respiratory: Reports: COPD, Asthma Hematological: Reports: None Gastrointestinal: Reports: None Genitourinary: Reports: None Neuro/Psych: Reports: None Musculoskeletal: Reports: None Cancer: Reports: None Other Pertinent Past Medical History: flu shot Sep 25 has several friends also not feeling well after shot - Surgical History General Surgical History: Reports: Tonsillectomy - Family History Family History: Reports: Unknown - Social History Smoking Status: Former smoker Hx Substance Use: No Alcohol Screening: None - Immunizations Tetanus Shot up to Date: Yes Physical Exam - Physical Exam Appearance: Ill-appearing Ill-appearing: Moderate Pain Distress: Moderate Eyes: BRITANY, EOMI, Conjunctiva clear ENT: Ears normal, Nose normal, Oropharynx normal Respiratory: Airway patent, Breath sounds diminished, Rhonchi, Wheezes Cardiovascular: RRR, Pulses normal, No rub, No murmur GI/: Soft, Nontender, No masses, Bowel sounds normal, No Organomegaly Musculoskeletal: Normal strength, ROM intact, No edema, No calf tenderness Skin: Warm, Dry, Normal color Neurological: Sensation intact, Motor intact, Reflexes intact, Cranial nerves intact, Alert, Oriented Psychiatric: Affect appropriate, Mood appropriate Interpretation - Paper Stripper Rate: Tachy Rhythm: Sinus - EKG Interpretation Rate: Tachy Rhythm: Sinus [place]: NL ST Segment: Other (nonespecfic changes) Re-Evaluation - Re-Evaluation Time of Re-Evaluation: 11:30 Status: Improved Vital Signs Stable: Yes Pain Level: 0 Appearance: NAD Lungs: Clear Skin: Warm and Dry Neuro: Alert and Oriented X3 CV: RRR - Re-Evaluation Time of Re-Evaluation: 12:11 Status: Improved Vital Signs Stable: Yes Pain Level: 0 Appearance: NAD Skin: Warm and Dry Neuro: Alert and Oriented X3 CV: RRR Physician Notification - Case Discussed Physician Notified: pmd Time of Notification: 12:11 (admitt) Admit/Transition Orders Entered by ED Provider: Yes Admit To: Inpatient Critical Care Note - Critical Care Note Total Time (mins): 0 Course - Course Hematology/Chemistry: 05/17/18 11:20 05/17/18 11:20 Orders, Labs, Meds: Lab Review 05/17/18 05/17/18 05/17/18 11:00 11:20 11:20 WBC 7.66 RBC 5.06 Hgb 13.8 L Hct 46.3 MCV 91.5 MCH 27.3 MCHC 29.8 L RDW Coeff of Khai 15.0 H Plt Count 133 L Immature Gran % (Auto) 0.7 Neut % (Auto) 77.5 Lymph % (Auto) 11.5 [place] % (Auto) 9.5 Eos % (Auto) 0.4 Baso % (Auto) 0.4 Immature Gran # (Auto) 0.1 Neut # (Auto) 5.9 Lymph # (Auto) 0.9 [place] # (Auto) 0.7 Eos # (Auto) 0.0 Baso # (Auto) 0.0 PT INR APTT Puncture Site R rad O2 Saturation 76.0 L ABG pH 7.352 ABG pCO2 81.2 H ABG pO2 46.0 L* ABG HCO3 45.1 H ABG Total CO2 48 H ABG Base Excess 20 H Nader Test + O2 Delivery Device Nc Oxygen Liter Flow 2.50 Sodium 135.2 Potassium 3.77 Chloride 84.4 L Carbon Dioxide 48.2 H* Anion Gap 6.37 BUN 16.2 Creatinine 0.56 L Estimated GFR (MDRD) 144.00 BUN/Creatinine Ratio 28.92 Glucose 118.3 H Lactic Acid Calcium 8.85 Total Bilirubin 0.60 AST 22.4 ALT 15.8 Alkaline Phosphatase 84.7 Total Creatine Kinase 23.3 L Troponin I < 0.012 Total Protein 6.94 Albumin 4.11 Globulin 2.83 Albumin/Globulin Ratio 1.45 Procalcitonin Influ A Molecular Assay Influ B Molecular Assay 05/17/18 05/17/18 05/17/18 11:20 11:20 11:20 WBC RBC Hgb Hct MCV MCH MCHC RDW Coeff of Khai Plt Count Immature Gran % (Auto) Neut % (Auto) Lymph % (Auto) [place] % (Auto) Eos % (Auto) Baso % (Auto) Immature Gran # (Auto) Neut # (Auto) Lymph # (Auto) [place] # (Auto) Eos # (Auto) Baso # (Auto) PT 10.3 INR 1.03 APTT 28.3 Puncture Site O2 Saturation ABG pH ABG pCO2 ABG pO2 ABG HCO3 ABG Total CO2 ABG Base Excess Nader Test O2 Delivery Device Oxygen Liter Flow Sodium Potassium Chloride Carbon Dioxide Anion Gap BUN Creatinine Estimated GFR (MDRD) BUN/Creatinine Ratio Glucose Lactic Acid 1.45 Calcium Total Bilirubin AST ALT Alkaline Phosphatase Total Creatine Kinase Troponin I Total Protein Albumin Globulin Albumin/Globulin Ratio Procalcitonin < 0.05 Influ A Molecular Assay Influ B Molecular Assay 05/17/18 11:30 WBC RBC Hgb Hct MCV MCH MCHC RDW Coeff of Khai Plt Count Immature Gran % (Auto) Neut % (Auto) Lymph % (Auto) [place] % (Auto) Eos % (Auto) Baso % (Auto) Immature Gran # (Auto) Neut # (Auto) Lymph # (Auto) [place] # (Auto) Eos # (Auto) Baso # (Auto) PT INR APTT Puncture Site O2 Saturation ABG pH ABG pCO2 ABG pO2 ABG HCO3 ABG Total CO2 ABG Base Excess Nader Test O2 Delivery Device Oxygen Liter Flow Sodium Potassium Chloride Carbon Dioxide Anion Gap BUN Creatinine Estimated GFR (MDRD) BUN/Creatinine Ratio Glucose Lactic Acid Calcium Total Bilirubin AST ALT Alkaline Phosphatase Total Creatine Kinase Troponin I Total Protein Albumin Globulin Albumin/Globulin Ratio Procalcitonin Influ A Molecular Assay Positive by naat H Influ B Molecular Assay Negative by naat Orders Category Date Time Status ABG DRAW REQUEST Stat CARDIO 05/17/18 11:05 Completed EKG-(ED ONLY) Stat CARDIO 05/17/18 11:05 Completed NEBULIZER TREATMENT Stat CARDIO 05/17/18 11:08 Completed ED IV/MEDIPORT/POWERPORT .ONCE EMERGENCY 05/17/18 11:08 Active ABG Stat LAB 05/17/18 11:00 Completed BLOOD CULTURE (ED ONLY) Stat LAB 05/17/18 11:20 Received CBC W/ AUTO DIFF Stat LAB 05/17/18 11:20 Completed COMPREHENSIVE METABOLIC PANEL Stat LAB 05/17/18 11:20 Completed CREATINE KINASE Stat LAB 05/17/18 11:20 Completed FLU A/B MOLECULAR Stat LAB 05/17/18 11:30 Completed LACTIC ACID Stat LAB 05/17/18 11:20 Completed MOLECULAR GROUP A STREP Stat LAB 05/17/18 11:30 Completed PARTIAL THROMBOPLASTIN TIME Stat LAB 05/17/18 11:20 Completed PROCALCITONIN Stat LAB 05/17/18 11:20 Completed PT WITH INR Stat LAB 05/17/18 11:20 Completed SPUTUM CULTURE Stat LAB 05/17/18 11:13 Received TROPONIN I Stat LAB 05/17/18 11:20 Completed URINALYSIS C & S IF INDICATED Stat LAB 05/17/18 11:05 Uncollected 0.9 % Sodium Chloride [Saline Flush] MEDS 05/17/18 11:08 Active 1 syr IVF PRN PRN Ipratropium/Albuterol Neb [Duoneb] MEDS 05/17/18 11:08 Discontinued 1 vial NEB ONCE STA Methylprednisolone Sod Succ/Pf [Solu-Medrol 125 mg] MEDS 05/17/18 11:08 Discontinued 125 mg IVP ONCE STA Sodium Chloride 0.9% [Sodium Chloride] 1,000 ml MEDS 05/17/18 11:08 Active IV 125 mls/hr CT CHEST W/O CONTRAST Stat RADS 05/17/18 11:05 Ordered Medications Generic Name Dose Route Start Last Admin Trade Name Freq PRN Reason Stop Dose Admin Sodium Chloride 1,000 mls @ 125 mls/hr 05/17/18 11:08 05/17/18 11:40 Sodium Chloride IV 05/17/18 19:07 125 mls/hr .Q8H STA Administration Sodium Chloride 1 syr 05/17/18 11:08 05/17/18 11:39 Saline Flush IVF 1 syr PRN PRN Administration To flush IV Discontinued Medications Generic Name Dose Route Start Last Admin Trade Name Freq PRN Reason Stop Dose Admin Albuterol/Ipratropium 1 vial 05/17/18 11:08 05/17/18 11:24 Duoneb NEB 05/17/18 11:09 1 vial ONCE STA Administration Methylprednisolone Sodium Succinate 125 mg 05/17/18 11:08 05/17/18 11:47 Solu-Medrol 125 Mg IVP 05/17/18 11:09 125 mg ONCE STA Administration Vital Signs: Temp Pulse Resp BP Pulse Ox 05/17/18 10:49 98.3 F 95 H 18 97/71 92 L Departure - Departure Time of Disposition: 12:12 Disposition: ADMITTED INPATIENT Discharge Problem: COPD exacerbation, Influenza Instructions: Emphysema (DC), COPD (Chronic Obstructive Pulmonary Disease) (ED) Condition: Good Pt referred to PMD for follow-up: Yes IPMP verified?: No Allergies/Adverse Reactions: Allergies tiotropium bromide [From Spiriva with HandiHaler] Allergy (Mild, Verified 22:02) rash Home Medications: Ambulatory Orders Aspirin 81 mg PO d 10/19/13 Albuterol Sulfate 0.083% Neb [Albuterol 0.083% Neb] 1 vial NEB RTQ4H 30 Days # 120 vial.neb 01/30/18 Menthol/Zinc Oxide [Calmoseptine Ointment] 1 applic TP BID oint 01/30/18
[2018-05-17] MEDS ORDERED: VANCOMYCIN 1 GM in SODIUM CHLORIDE 250 ML IV STA (12:13)
[2018-05-17] MEDS ORDERED: ROCEPHIN 2 GM in SODIUM CHLORIDE 100 ML IV STA (12:13)
[2018-05-17] MEDS ORDERED: ROCEPHIN ONE (12:30)
[2018-05-17] MEDS ORDERED: SODIUM CHLORIDE 1,000 ML IV SCH (12:30)
--- NOTE | 2018-05-17 12:40 | CT ---
EXAM: CT THORAX HISTORY: Shortness of breath, chronic obstructive pulmonary disease. TECHNIQUE: CT thorax without intravenous contrast. Multiplanar images presented. FINDINGS: Compared to 01/27/2018. Heart size is within normal limits. No pericardial effusion. There is moderate atherosclerotic dise ase. Limited evaluation of the mediastinum and hilar structures without the administration of intrav enous contrast agent. There are several subcarinal lymph nodes which are slightly more prominent [place] n previously seen measuring up to about a centimeter short axis. No gross hilar mass is seen. There is moderate emphysema and scattered fibrosis. There is a 4.5 mm nodule posterior left lower lo be which is noncalcified and stable. Scattered areas of linear scarring are seen. Mild discoid cons olidations in the posterior left lower lobes have slightly improved. Bones reveal exaggerated thoracic kyphosis. IMPRESSION: 1. Significant chronic obstructive pulmonary disease and scattered fibrosis. Slight improvement in posterior discoid consolidations currently minimal. This could represent residual pneumonia. 2. There is a 4.5 mm noncalcified nodule posterior left lower lobe which is stable. Attention to th is region on follow-up CT can be considered. 3. Atherosclerosis. 4. Slightly more prominent mediastinal lymph nodes.
[2018-05-17] MEDS ORDERED: CALMOSEPTINE OINTMENT TP PRN (13:04)
[2018-05-17 13:10] VITALS: BMI 18.7
[2018-05-17] MEDS: TAMIFLU PO SCH ×2 (13:51→20:58)
[2018-05-17] MEDS: LEVAQUIN PO SCH (13:51)
[2018-05-17] MEDS: DUONEB NEB SCH ×2 (17:58→23:40)
[2018-05-17] MEDS: ELIQUIS PO SCH (20:58)
[2018-05-17] MEDS: PRAVACHOL PO SCH (20:58)
[2018-05-17] MEDS ORDERED: CALMOSEPTINE OINTMENT TP SCH (21:00)
[2018-05-17] MEDS ORDERED: SOLU-MEDROL 40 MG IVP SCH (21:00)
[2018-05-17] MEDS: SODIUM CHLORIDE 1,000 ML IV SCH (21:09)
--- NOTE | 2018-05-17 22:19 | PCM ---
- Chief Complaint Chief Complaint: Shortness of Breath, Influenza A - History of Present Illness History of Present Illness: 68 yr old WM presented 05/17/18 to ER. He was seen in Er 04/20/18 and admitted to [facility] 01/27/18. He came in to ER today 11:59 with c/o [address] Mallory called me around 12:00 with vitals negative for SIRS criteria, sepsis markers negative. Chronic poor lung function, hx of HTN, COPD, Asthma. He has had flu shot this season, several of his friends were sick but he noted worsening symptoms of URI, congestion, sore throat, cough, SOA over past 1 week. Labs in Er showed normal WBC 7.66, Hgb mild anemia 13.8/hcg 46.3 and plt low at 133. CMP showed sodium 135.2, potassium 3.77, Cl 84.4, CO2 chronically elevated at 48.2, BUN 16.2, Cr 0.56 and glucose 118.3. ABG pH 7.352, pc02 81.2, p02 46, hc03 45.1. This was interpreted by me as chronic primary respiratory acidosis with secondary metabolic alkalosis. AST/ALT normal at 22.4 and 15.8. Troponin negative, total CK 23.3. PT 10.3, INR 1.03, Ptt 28.3. lactic acid 1.45 , procalcitonin <0.05 and negative. Influenza A positive. ABG was repeated in ER. Repeat showed markedly improved Po2 from 46 to 76. Co2 elevated further from 81.2 to 93.8. Digoxin levels checked and acceptable. EKG done and reported by ER to be non focal per Er. Not available at time of H+P. Telemetry reviewed and Sinus tachy.duoneb CT chest was completed in ER, he was given solumedrol 125mg, rocephin/vanco. CT chest without contrast showed chronic COPD, fibrosis, "nodule 4.5mm posterior left lower lobe stable. improvement in posterior discoid consolidations currently minimal. Could represent residual pneumonia. 4.5 mm non calc nodule posterior left lower lobe stable. Mediastinal LN. Reviewed ER orders CBC/CMP/CK/Flu/Lactic acid/ molecular strep (negative), PT/PTT/INR, Sputum cx, solumedrol, duoneb, IV 125ml/ hour and CT chest done in ER. He was started on Vanco and rocephin. After talking with patient, no history of aspiration. I stopped Vanco and rocephin, changed to levaquin PO x 5 days. Stopped solumedrol and changed to oral prednisone. He has COPD exacerbation, possibility of pneumonia but less likely than COPD exacerbation and acute influenza. Cr is stable. he has not had any reported aspiiration and thus resp FQ should be fine. Discussed R/B/a to tamiflu and dose to be 75mg BID x 5 days Maintenance fluid 99-100ml/hr and we will use 125ml/hour at this time. He is on eliquis chronically and we will continue this. He has been in and out of [place] over past few years but nothing in last 3-6 months. Talking with patient he was feeling okay up until 05/16/18 and then sudden onset, rapid onset URI, fever, body aches, generalized ROMERO 3-5/10 aching throbbing. Body aches worse, rhinorrhea worse. Decreased PO intake worsening breathing. Dinner only 50%, january [place]. He states he has had abx within past 60 days. No pain at present, no N/V/D at present. SOA worse than before, no other changes. HE feels weaker. Chronic history of COPD w/ numeorus exacerbation, not intubated. Uses BIPAP at home O2 high flow. No chest pain, + SOA. he can walk short distances with walking aid but not w/ assistive device. He feels weak. He feels he may have to go back to [place]. He follows with DR. Adamson as outpatient. The patient is doing neb treatments at home TID to QID. He talks in disjointed sentences. +Subjective fever. NO falls, no trauma, no loss of consciousness. had coma 10 years ago and was intubated but nothing since that point. Last hospital stay 12/15/17 and 01/2018. >30 days since last discharge. ER note from this am reviewed. Using bronchodilators, upright position helps, worse with supine. Rapid breathing reported, wheezing reported , URI, nasal congestion. NO edema, no pleuritic chest pain, no left arm pain, No N/V/D. Mild sore throat worse w/ cough. NO weight loss. NO recent stress test, home o2 used. Former smoker. - Review of Systems Constitutional: fever (Subjective), chills, weakness, fatigue, loss of appetite. No: sweats, other Eyes: No: blurred vision, double-vision, discharge, itching, pain, redness, photophobia, other Ears: No: pain, bleeding, drainage, ringing, hearing loss, other Nose: No: bleeding, congestion, discharge, other Throat: pain. No: swelling, voice change, other Mouth: No: bleeding, pain, swelling, other Respiratory: cough, shortness of air, wheeze, pain with breathing. No: hemoptysis, other Cardiovascular: No: chest pain, left arm pain, diaphoresis, PND, orthopnea, edema, palpitations, syncope, other Gastrointestinal: No: abdominal pain, other, nausea, vomiting, diarrhea, melena , hematemesis, hematochezia, dysphagia, constipation Genitourinary: No: dysuria, hematuria, frequency, incontinence, flank pain, penile discharge, testicular pain, testicular swelling, other Neurological: headache, dizziness. No: other, seizure, numbness, weakness, speech difficulty, problems with walking, tremor, fainting Musculoskeletal: pain (chronic knee/ankle). No: swelling in joints, other Skin: rash (Face bilaterally ?Rosacea) Immunology: No: hives, itching, frequent infections, difficulty healing, other Hematology: No: easy bruising, easy bleeding, swollen glands, other Endocrine: No: weight changes, cold intolerance, heat intolerance, excessive thirst, excessive hunger, polyuria, other Psychiatric: depression (Mild chronic, nothing acute, no changes. ). No: anxiety, sleeplessness, hopelessness, suicidal, hallucinations, other Habits: No: tobacco use, substance use, alcohol use, other - Past Medical History Past Medical History: COPD Oxygen dependent 2.5L, HTN, Dysplidemia, OA, Enlarged heart Afib. Dilated aortic root, GERD. LVH mild TR. - Past Surgical History Past Surgical History: Tonsillectomy, Adenoidectomy - Allergies Allergies/Adverse Reactions: Allergies Allergy/AdvReac Type Severity Reaction Status Date / Time tiotropium bromide Allergy Mild rash Verified 04/20/18 22:02 [From Spiriva with HandiHaler] - Medications Medications: Medications Generic Name Dose Route Start Last Admin Trade Name Freq PRN Reason Stop Dose Admin Albuterol/Ipratropium 1 vial 05/17/18 18:00 05/17/18 17:58 Duoneb NEB 1 vial [id number] EVE Administration Apixaban 5 mg 05/17/18 21:00 05/17/18 20:58 Eliquis PO 5 mg BID EVE Administration Aspirin 81 mg 05/18/18 08:00 Aspirin Chewable PO DAILYWM EVE Calamine/Phenol 1 applic 05/17/18 13:04 Calmoseptine Ointment TP BID PRN excoriation Digoxin 125 mcg 05/18/18 09:00 Lanoxin PO DAILY EVE Diltiazem HCl 120 mg 05/18/18 09:00 Cardizem Cd PO DAILY EVE Furosemide 20 mg 05/18/18 06:30 Lasix Tab PO QDAC EVE Sodium Chloride 1,000 mls @ 75 mls/hr 05/17/18 19:10 05/17/18 21:09 Sodium Chloride IV 75 mls/hr .[id number] EVE Administration Levofloxacin 750 mg 05/17/18 13:30 05/17/18 13:51 Levaquin PO 05/21/18 06:31 750 mg QDAC EVE Administration Oseltamivir Phosphate 75 mg 05/17/18 13:30 05/17/18 20:58 Tamiflu PO 75 mg Q12HR EVE Administration Pravastatin Sodium 20 mg 05/17/18 21:00 05/17/18 20:58 Pravachol PO 20 mg BEDTIME EVE Administration Prednisone 40 mg 05/18/18 08:[address] [facility] Sodium Chloride 1 syr 05/17/18 11:08 05/17/18 11:39 Saline Flush IVF 1 syr PRN PRN Administration To flush IV - Family History Past Family History: CAD/Asthma/COPD. Chronic hip/knee jevon. - Social History Past Social History: Former smoker, lives with . - Vital Signs Temperature: 98.3 F Pulse Rate: 86 Respiratory Rate: 14 Blood Pressure: 99/66 O2 Sat by Pulse Oximetry: 93 - Body Composition Height: 5 ft 8 in Weight: 123 lb 7.342 oz Body Mass Index (BMI): 18.7 - Physical Examination HEENT: Constitutional: Appearance-Mild acute respiratory distress on top of chronic process, Appears Consistent with stated age. NC in place 3.5L flow. Orientation - Oriented x 3, alert Gait-Hospital bed. Build and Nutrition-[Thin, barrel chested] General- Patient is pleasant and cooperative with the interview and exam. Talks in broken sentences. Integumentary: General-No rashes, ulcers or lesions. Mild erythema of face around nose, he notes from hsi bipap. Palpation- Normal skin moisture/turgor. Skin is warm to touch, appropriate. Capillary refill is normal bilateral Upper and lower extremity. He previously had a small area of erythema along sacrum without breakdown posteriorly that is now simply hyperpigmented. NO decubitus ulcers. Head/Neck: Head- normocephalic and atraumatic. Neck- without visible/palpable lumps or pulsations. Palpation- No bony tenderness about head/neck along frontal, occipital, temporal, parietal, mastoid, jawline, zygoma, orbit or any other location. NO temporal artery tenderness. No TMJ tenderness. Neck Supple. Thyroid-No thyromegaly, no nodules Eye: Bilaterally PERRLA, EOMI. No discharge. Upper and lower eyelids are normal. Sclera/conjunctiva normal without discharge. Cornea is normal and clear. Lens is normal. Eyeball appears normal. No ciliary flushing, no conjunctival injection. ENMT: Pinna- normal without tenderness or erythema. External auditory canal Left- normal without erythema or discharge, no excessive cerumen. External auditory canal Right-normal without erythema or discharge, no excessive cerumen. TM left- [place]/pearly, normal light reflex and anatomy TM Right- [place]/ pearly, normal light reflex and anatomy Hearing Assessment-normal to conversational speech. Nose and sinus- No sinus tenderness along frontal/ maxillary region. External appearance normal and midline. Nares- bilateral quiet airflow, Clear discharge. Nasal mucosa- No bleeding noted and no ulcerations observed. Erythematous Turbinates boggy. Lips- normal color, moist without cracks/lesions Oral Cavity/Palate- hard/soft palate intact without lesions, oral mucosa pink and moist. Tongue normal midline. Oropharynx- pharyngeal erythema, Uvula midline. post nasal drip. No exudate. Salivary glands - Non tender to palpation CHEST/LUNG: Inspection- symmetric chest wall barrel chest. Increased effort, mild distress, using abdominal accessory muscles, but this was similar to chronic status. Palpation- nontender sternum, ribline. No abnormal pulsations. Auscultation- Breath sounds normal decreased throughout all lung grayson. tracheal sounds, bronchial sounds overlying sternum, Bronchovessicular sounds between scapulae posteriorly, vessicular breath sounds heard throughout periphery. Adventitious sounds- wheezes, rales, rhonchi. Loud breathing I:E 1: 2. CARDIOVASCULAR: Carotid artery- normal, no bruits or abnormal pulsations. Jugular vein- no pulsations. Palpation/Percussion- Normal PMI, no palpable thrill Auscultation- Regular rate and rhythm. systolic III/ murmur noted in sitting/ recumbent supine positions. Extremities- digital clubbing, no cyanosis, no peripheral edema, no increased warmth. In rhythm today. ABDOMEN: Inspection- normal and no visible pulsations. Normal contour. Auscultation- Bowel sounds normal, no abdominal bruits. Palpation/Percussion- soft, non-tender, no rebound tenderness, no rigidity (guarding), no jar tenderness, no masses. Liver-no hepatomegaly, Peripheral Vascular: Upper extremity Left- Normal temperature with pink nailbeds and no ulcerations. Upper extremity Right- Normal temperature with pink nailbeds and no ulcerations. Lower extremity- Normal temperature with pink nailbeds and no ulcerations. DP pulses 1+ bilaterally. Pedal hair reduced. Normal capillary refill. Edema- No edema. Musculoskeletal: Generalized-No generalized swelling or edema of extremities, no digital clubbing or cyanosis, neurovascularly intact all four extremities. Upper extremity- Symmetrical posture. No visible deformity. Normal sensation along medial and lateral upper extremity proximally and distally. NO tenderness overlying shoulder, lateral/medial epicondyle. Marketing Clerk 5/5 and strength 5/5 bilateral UE. Elbow palpated, no tenderness overlying olecranon. Normal supination, pronation to active/passive ROM and to resisted rotation. Bicep insertion/tricep insertion appear normal without obvious pathology. Rotator cuff evaluated and intact. Normal wrist ROM bilaterally. Normal hand movement, intrinsic muscles of hands normal. No tenderness to palpation of hands/wrists/ elbows. Lower extremity- Hip: Not tender to palpation, no pain, no swelling, edema or erythema of surrounding tissue, normal strength and tone. Normal appearing hip ROM bilaterally without pain. Knee: Knee ROM normal. No tenderness overlying trochanters, no tenderness about patella, quad tendon, patellar tendon. Spine/Ribs- No deformities, masses or tenderness, no known fractures, normal strength, Normal ROM. Normal stability No tenderness along C/T/L spine. Normal appearing ROM about spine. Neurological: General- Moves all 4 extremities symmetrically. Symmetrical face and body posture. Cranial nerves- individually evaluated II-XII and intact. PERRLA, Normal EOMI, visual/special senses appear intact, Face is symmetrical and normal sensation/movement, normal tongue, normal strength/posture of neck musculature. Reflexes- intact with DTR 2+ patellar, Achilles, bicep, brachial, tricep. Ankle clonus normal with 2 beats. Strength- 5/5 bilateral UE and LE. Soft touch- intact bilateral UE and LE. Temperature sensation- intact bilateral UE and LE. Neuropsych: Oriented- Person, place, time. (AAOx3), Mood/affect- normal and congruent. Able to articulate well. Speech-Normal speech, normal rate, normal tone, normal use of language, volume and coherence. Thought content- normal with ability to perform basic computations and apply abstract thought/reason. Associations- intact, no SI/HI, no hallucinations, delusions, obsessions. Judgment/insight- Appropriate. Memory-Recall intact, remote and recent memory intact. Knowledge- Age appropriate fund of knowledge, concentration and attention span normal. Lymphatic: Head/Neck- normal size and non tender to palpation. Axillary- normal size and non tender to palpation. Femoral and Inguinal- normal size and non tender to palpation. - Lab/Tests/Diagnostic Imaging Lab/Tests/Diagnostic Imaging: Laboratory Last Values WBC 7.66 K/ul (4.2-10.2) 05/17/18 11:20 RBC 5.06 10^6/ul (4.70-6.10) 05/17/18 11:20 Hgb 13.8 g/dl (14.0-18.0) L 05/17/18 11:20 Hct 46.3 % (42.0-52.0) 05/17/18 11:20 MCV 91.5 fl (80.0-94.0) 05/17/18 11:20 MCH 27.3 pg (27.0-31.0) 05/17/18 11:20 MCHC 29.8 (31.8-35.4) L 05/17/18 11:20 RDW Coeff of Khai 15.0 % (11.6-14.8) H 05/17/18 11:20 Plt Count 133 10^3/uL (140-440) L 05/17/18 11:20 Immature Gran % (Auto) 0.7 % (0.0-5.0) 05/17/18 11:20 Neut % (Auto) 77.5 05/17/18 11:20 Lymph % (Auto) 11.5 (10.0-50.0) 05/17/18 11:20 Kimball % (Auto) 9.5 (0-10) 05/17/18 11:20 Eos % (Auto) 0.4 % (0.0-7.0) 05/17/18 11:20 Baso % (Auto) 0.4 % (0.0-3.0) 05/17/18 11:20 Immature Gran # (Auto) 0.1 (0.0-1.0) 05/17/18 11:20 Neut # (Auto) 5.9 K/ul (2.0-6.9) 05/17/18 11:20 Lymph # (Auto) 0.9 K/uL (0.60-3.4) 05/17/18 11:20 [place]ball # (Auto) 0.7 K/uL (0.4-2.0) 05/17/18 11:20 Eos # (Auto) 0.0 K/ul (0.0-0.7) 05/17/18 11:20 Baso # (Auto) 0.0 K/uL (0-0.2) 05/17/18 11:20 PT 10.3 SEC (9.3-11.0) 05/17/18 11:20 INR 1.03 SI (0.0-3.9) 05/17/18 11:20 APTT 28.3 SEC (23.9-40.0) 05/17/18 11:20 Puncture Site R radial 05/17/18 12:06 O2 Saturation 92.0 % (95-100) L 05/17/18 12:06 ABG pH 7.304 (7.35-7.45) L 05/17/18 12:06 ABG pCO2 93.8 mmHg (35-45) H 05/17/18 12:06 ABG pO2 76.0 mmHg (85-100) L 05/17/18 12:06 ABG HCO3 46.6 (22.0-26.0) H 05/17/18 12:06 ABG Total CO2 49 (22.0-28.0) H 05/17/18 12:06 ABG Base Excess 20 (-2.0-2.0) H 05/17/18 12:06 Nader Test + 05/17/18 12:06 O2 Delivery Device Nc 05/17/18 12:06 Oxygen Liter Flow 2.00 05/17/18 12:06 Sodium 135.2 mmol/L (134.5-145) 05/17/18 11:20 Potassium 3.77 mmol/L (3.5-5.1) 05/17/18 11:20 Chloride 84.4 mmol/L (98-107) L 05/17/18 11:20 Carbon Dioxide 48.2 mmol/L (22-30.0) H* 05/17/18 11:20 Anion Gap 6.37 05/17/18 11:20 BUN 16.2 mg/dL (9-20) 05/17/18 11:20 Creatinine 0.56 mg/dL (0.60-1.10) L 05/17/18 11:20 Estimated GFR (MDRD) 144.00 mL/min 05/17/18 11:20 BUN/Creatinine Ratio 28.92 05/17/18 11:20 Glucose 118.3 mg/dL (74-106) H 05/17/18 11:20 Lactic Acid 1.45 mmol/L (0.7-2.1) 05/17/18 11:20 Calcium 8.85 mg/dL (8.4-10.2) 05/17/18 11:20 Total Bilirubin 0.60 mg/dL (0.2-1.3) 05/17/18 11:20 AST 22.4 U/L (17-59) 05/17/18 11:20 ALT 15.8 U/L (0-50) 05/17/18 11:20 Alkaline Phosphatase 84.7 U/L (56-119) 05/17/18 11:20 Total Creatine Kinase 23.1 U/L (55-170) L 05/17/18 18:15 Troponin I < 0.012 ng/ml (0.0000-0.120) 05/17/18 18:15 Total Protein 6.94 g/dL (6.3-8.2) 05/17/18 11:20 Albumin 4.11 g/dL (3.5-5.0) 05/17/18 11:20 Globulin 2.83 05/17/18 11:20 Albumin/Globulin Ratio 1.45 05/17/18 11:20 Procalcitonin < 0.05 ng/mL (<0.05) 05/17/18 11:20 Urine Color Yellow (YELLOW) 05/17/18 12:15 Urine Clarity Clear (CLEAR) 05/17/18 12:15 Urine pH 5.0 (5-9) 05/17/18 12:15 Ur Specific [place] 1.020 (1.005-1.030) 05/17/18 12:15 Urine Protein Negative (NEGATIVE) 05/17/18 12:15 Urine Glucose (UA) Negative (NEGATIVE) 05/17/18 12:15 Urine Ketones Negative (NEGATIVE) 05/17/18 12:15 Urine Blood 1+ (NEGATIVE) 05/17/18 12:15 Urine Nitrite Negative (NEGATIVE) 05/17/18 12:15 Urine Bilirubin Negative (NEGATIVE) 05/17/18 12:15 Urine Urobilinogen 1.0 (0.2) 05/17/18 12:15 Ur Leukocyte Esterase Negative (NEGATIVE) 05/17/18 12:15 Urine Microscopic RBC 2-5 (0-2) 05/17/18 12:15 Ur Squamous Epith Cells Not present (0-5) 05/17/18 12:15 Digoxin 0.41 ng/mL (0.8-2.00) L 05/17/18 11:12 Influ A Molecular Assay Positive by naat (NEGATIVE) H 05/17/18 11:30 Influ B Molecular Assay Negative by naat (NEGATIVE) 05/17/18 11:30 CT chest: significant chronic obstructive pulmonary disease and scattered fibrosis. Slight improvement in posterior discoid consolidations currently minimal. Could be residual pneumonia. 4.5 mm non calc nodule LLL stable. Consider repeat CT. Atherosclerosis, slightly more prominent mediastinal LN. - Assessment (1) Influenza Status: Acute Code(s): J11.1 - FLU DUE TO UNIDENTIFIED INFLUENZA VIRUS W OTH RESP MANIFEST SNOMED Code(s): 3603176 (2) COPD exacerbation Status: Acute Code(s): J44.1 - CHRONIC OBSTRUCTIVE PULMONARY DISEASE W (ACUTE ) EXACERBATION SNOMED Code(s): 981634270, 099932663 (3) Acute respiratory failure with hypercapnia Status: Acute Code(s): J96.02 - ACUTE RESPIRATORY FAILURE WITH HYPERCAPNIA SNOMED Code(s): 26050908 (4) Normocytic anemia Status: Acute Code(s): D64.9 - ANEMIA, UNSPECIFIED SNOMED Code(s): 030164017 (5) Adult BMI <19 kg/sq m Status: Acute Code(s): Z68.1 - BODY MASS INDEX (BMI) 19.9 OR LESS, ADULT SNOMED Code(s): 979386168 (6) History of pressure ulcer Status: Acute Code(s): Z87.2 - PERSONAL HISTORY OF DISEASES OF THE SKIN, SUBCU SNOMED Code(s): 626994241 (7) Hypercapnic respiratory failure Status: Acute Code(s): J96.92 - RESPIRATORY FAILURE, UNSPECIFIED WITH HYPERCAPNIA SNOMED Code(s): 969597360 (8) BiPAP (biphasic positive airway pressure) dependence Status: Acute Code(s): Z99.89 - DEPENDENCE ON OTHER ENABLING MACHINES AND DEVICES SNOMED Code(s): 429652688 (9) Atrial fib/flutter, transient Status: Acute Code(s): SEE0580 - SNOMED Code(s): 205014663 - Plan Plan: Influenza A: Acute URI illness, sudden onset and influenza A in ER. SOA prominently and concern for worsening. Differential at this time included viral URI with other viruses to include clayton virus, adeno virus and parainfluenza virus to name a few. This season, influenza A(H1N1) has been the main virus. The patient/family and I discussed Tamiflu today. We discussed antibiotics are not recommended for this treatment at present. The patient voiced understanding. We discussed molecular flu has 97.9% sensitivity and 86.2 % specificity for flu a and 92.5% sensitivity and 96.5 Specificity for flu B. Clinical predictors support flu as most likely (Fever, myalgia, fatigue, ROMERO, GI upset/nausea and body aches). R/B/A to GC d/w family today. Discussed risks of oral and injectable steroids and elevated mortality risks. Typical illness lasts roughly 5 days. Reviewed higher risks groups <5 yr old, >65, Chronic medical problems. Reviewed Tamiflu benefits and risks discussed, dose and frequency discussed. Most common side effects are nausea and vomiting in up to 10-15% of people. Usually short lived and last a few days. Take with food. Rare cases of seizures, confusion, abnormal behavior and may happen in people not taking Tamiflu. Allergic reactions can happen. Antiviral Treatment is usually BID x 5 days. Patient seen in ER and admitted to room 118-1 full admission. - Admit to room 120-1 inpatient status. - Droplet isolation - Tamiflu 75mg BID - O2 titrate to 92-98%. - Repeat CBC/CMP in am. - Encourage OOB during day. - Continue abx overnight, monitor. Consider d/c in the am. - BiPap ON. COPD exacerbation w/ hypercapneic/O2 dependent: The patient is on respiratory therapy now albuterol q 4 hours, ipratropium QID. We will continue these. He is on O2 as well titrated to maintain O2 >92%. Patient has pulm, unknown when they saw him last. He may benefit from return to [place] but he wants to wait and see how he does over next few days. Maintain O2. Stop rocephin, stop vanco. Levaquin will be fine. WIll treat with 750 daily x 5 days. Reviewed heckerling rule (temp>100 (no), HR>100 (no), Rales (yes), decreased breath sounds (yes), absence of asthma (yes). 3 points. LR 1.6 22%post test probability and post CT + for pneumonia. Again levaquin is likely okay for him. - Albuterol q 4 hours pRN - Ipratopium QID. - I+O q shift. - O2 Titrated to maintain PO2 >92 but <98 - Prednisone 40mg daily x 5 days Chronic anemia: MIld. Normocytic. Monitor CBC, repeat in am. - CBC in am Afib: Chronic stable problem, will monitor while in hospital. Rate is stable. On eliquis. - Continue home dose eliquis DVT Prophy: Continue Eliquis - Eliquis from home. Pressure ulcer historical: NOw appears to be hyperpigmented but healed. Monitor. Diet: Regular Activity: UP with assist. Isolation: Droplet. Maintenance fluids: 96ml/hour is maintenance. I will run at just above maintenance at 125ml/hour. Sodium/K+ are okay for now. We will repeat CMP in am tomorrow. - Will run at 125ml/hour for now. Pending Labs: Culture of blood. Sputum culture. - Await blood culture. - Sputum culture BMI <18: Consider boost/ensure. Loosing mass secondary to work of breathing. Complications of his COPD. Consider meeting with nutrition. Disposition: I suspect patient has Influenza with worsening of COPD. Chronic anemia. Chronic hypercapnic hypoxic respiratory failure, worsened lately. USing bipap at home. No N/V/D. Based on age and comorbidities patient needs inpatient admission. Underweight. Fluid hydration as above. Would consider Vaccinations 1 week after d/c as currently ill. He has normal WBC, no fever in hospital, did not meet SIRS criteria, sepsis markers are negative. I will admit to inpatient, treat over next 2-3 days expected length of stay. Current plan is d/c 05/19/18 to 05/20/18. Abx vanco stopped, rocephin stopped, add levaquin. Change the solumedrol to prednisone orally. Reassess need for hospital stay in am. Imaging with ?residual pneumonia, I do not believe this. Levaquin will cover for COPD and pneumonia and I will use this x 5 days total. > 70 minutes spent with patient today and on admission. Talked with patient, obtained information from ER, reviewed radiology/labs/telemetry/independently reviewed ABG.
[2018-05-18] MEDS: DUONEB NEB SCH ×4 (04:42→23:58)
[2018-05-18] MEDS: LEVAQUIN PO SCH (06:04)
[2018-05-18] MEDS: LASIX TAB PO SCH (06:05)
--- NOTE | 2018-05-18 06:35 | PCM.PROG ---
Subjective: 68 yo Hospital Day 2 room 118-1 admitted with Influenza A and questionable pneumonia on imaging. Patient has chronic reduced oxygenation and COPD. He is using O2 at 2.5L, using home Bipap overnight. IV in left antecubital fossa fluids running at 75ml/hour NS. IV sight is c/d/i and doing well. Blood cultures negative x 24 hours, sputum cultures showed normal kirsten. CBC showed white blood cells 5.71, hgb 12.3, plt 42.3, plt 134. CMP showed 139.2, K+ 4.61 , chloride 89, BUN 13, creatinine 0.37, glucose 123.4. Vitals stable, remains afebrile with o2 saturation 93%. Neuro checks normal. Still having difficulty breathing. Eating about 50% of meals. Discussed case with overnight nurse. Reviewed new labs this am. Talked with patient. good urine output 0.68 ml/kg/hour and 1.022ml/kg/hour. PRevious shift only listed 100ml/ out 05/17/18. Telemetry NSR throughout the stay so far. No BM in last 48 hours. Am labs reviewed, tele reviewed. Cultures reviewed. So far negative. REVIEW OF SYMPTOMS: (Positives bolded) General: weight loss, fever, chills, night sweats, fatigue, appetite loss HEENT: blurry vision, eye pain, eye discharge, dry eyes, decreased vision, sore throat tinnitus, bloody nose, hearing loss, sinus pain/pressure, ear pain/ pressure. Respiratory: shortness of breath, cough, hemoptysis, wheezing, pleurisy, Cardiovascular: chest pain, PND, palpitation, edema, orthopnea, syncope, swelling of extremities, barrel chest, Dypsnea. Gastro: Nausea, vomiting, diarrhea, hematemesis, abdominal pain, constipation Genito: hematuria, dysuria, glycosuria, hesitancy, frequency, incontinence Musckelo: Arthralgia, myalgia, muscle weakness, joint swelling, NSAID use Skin: rash, pruritis (FACE), sores, nail changes, skin thickening, change in wart/mole, itching, rash, new lesions, pruritus, nail changes Neuro: Migraine, numbness, ataxia, tremor, vertigo, weakness, memory loss, Irritability, dizziness Endocrine: excessive thirst, polyuria, cold intolerance, heat intolerance, goiter Psychiatric: depression, anxiety, anti-depressants, alcohol abuse, drug abuse, insomnia, change in sleep pattern and mood changes Heme/lymph: easy bruising, bleeding gums, blood clots, swollen glands, lymphedema, Allergic/immune: allergic rhinitis, hay fever, asthma, hives Objective: Vital Signs - 24 hr 05/17/18 05/17/18 05/18/18 22:00 22:53 02:00 Temperature 97.8 F 98.3 F 98.2 F Pulse Rate 82 86 80 Respiratory 22 14 20 Rate Blood Pressure 96/65 99/66 95/62 O2 Sat by Pulse 92 L 93 L 94 L Oximetry 05/18/18 05/18/18 05/18/18 06:00 09:20 10:00 Temperature 97.8 F 98.4 F Pulse Rate 81 92 H 88 Respiratory 20 22 Rate Blood Pressure 93/62 98/62 O2 Sat by Pulse 93 L 91 L Oximetry 05/18/18 05/18/18 14:00 18:00 Temperature 97.9 F 97.6 F Pulse Rate 78 86 Respiratory 24 24 Rate Blood Pressure 106/64 104/56 L O2 Sat by Pulse 90 L Oximetry HEENT: Constitutional: Appearance-Mild acute respiratory distress on top of chronic process, This appears mostly unchanged from his admit and not much differene than his baseline status. Appears Consistent with stated age. NC in place 2.5L flow. Orientation- Oriented x 3, alert Gait-Hospital bed. Build and Nutrition-[ Thin, barrel chested] General- Patient is pleasant and cooperative with the interview and exam. Talks in broken sentences. IV left antecubital fossa. Integumentary: General-No rashes, ulcers or lesions. Mild erythema of face around nose persists. Eye: Bilaterally PERRLA, EOMI. No discharge. Upper and lower eyelids are normal. Sclera/conjunctiva normal without discharge. Cornea is normal and clear. Lens is normal. Eyeball appears normal. No ciliary flushing, no conjunctival injection. ENMT: Nares- bilateral quiet airflow, Clear discharge. Nasal mucosa- No bleeding noted and no ulcerations observed. Erythematous Turbinates boggy. Lips- normal color, moist without cracks/lesions Oral Cavity/Palate- hard/soft palate intact without lesions, oral mucosa pink and moist. Tongue normal midline. Oropharynx- pharyngeal erythema, Uvula midline. post nasal drip. No exudate. Salivary glands- Non tender to palpation CHEST/LUNG: Inspection- symmetric chest wall barrel chest. Increased effort, mild distress, using abdominal accessory muscles, but this was similar to chronic status. Palpation- nontender sternum, ribline. No abnormal pulsations. Auscultation- Breath sounds normal decreased throughout all lung grayson. tracheal sounds, bronchial sounds overlying sternum, Bronchovessicular sounds between scapulae posteriorly, vessicular breath sounds heard throughout periphery. Adventitious sounds- wheezes, rales, rhonchi all present. Loud breathing I:E 1:1.5. Barrel chested. CARDIOVASCULAR: Carotid artery- normal, no bruits or abnormal pulsations. Jugular vein- no pulsations. Palpation/Percussion- Normal PMI, no palpable thrill Auscultation- Irregular rate and rhythm. systolic III/ murmur noted in sitting /recumbent supine positions. Extremities- digital clubbing, no cyanosis, no peripheral edema, no increased warmth. In rhythm today. ABDOMEN: Inspection- normal and no visible pulsations. Normal contour. Auscultation- Bowel sounds normal, no abdominal bruits. Palpation/Percussion- soft, non-tender, no rebound tenderness, no rigidity (guarding), no jar tenderness, no masses. Liver-no hepatomegaly, Peripheral Vascular: Upper extremity Left- Normal temperature with pink nailbeds and no ulcerations. Upper extremity Right- Normal temperature with pink nailbeds and no ulcerations. Lower extremity- Normal temperature with pink nailbeds and no ulcerations. DP pulses 1+ bilaterally. Pedal hair reduced. Normal capillary refill. Edema- No edema. Musculoskeletal: Generalized-No generalized swelling or edema of extremities, digital clubbing, no cyanosis, neurovascularly intact all four extremities. Neurological: General- Moves all 4 extremities symmetrically. Symmetrical face and body posture. Cranial nerves- individually evaluated II-XII and intact. PERRLA, Normal EOMI, visual/special senses appear intact, Face is symmetrical and normal sensation/movement, normal tongue, normal strength/posture of neck musculature. Reflexes- intact with DTR 2+ patellar, Achilles, bicep, brachial, tricep. Ankle clonus normal with 2 beats. Strength- 5/5 bilateral UE and LE. Soft touch- intact bilateral UE and LE. Temperature sensation- intact bilateral UE and LE. Neuropsych: Oriented- Person, place, time. (AAOx3), Mood/affect- normal and congruent. Able to articulate well. Speech-Normal speech, normal rate, normal tone, normal use of language, volume and coherence. Thought content- normal with ability to perform basic computations and apply abstract thought/reason. Associations- intact, no SI/HI, no hallucinations, delusions, obsessions. Lymphatic: Head/Neck- normal size and non tender to palpation. Laboratory Last Values WBC 5.71 K/ul (4.2-10.2) 05/18/18 02:25 RBC 4.56 10^6/ul (4.70-6.10) L 05/18/18 02:25 Hgb 12.3 g/dl (14.0-18.0) L 05/18/18 02:25 Hct 42.5 % (42.0-52.0) 05/18/18 02:25 MCV 93.2 fl (80.0-94.0) 05/18/18 02:25 MCH 27.0 pg (27.0-31.0) 05/18/18 02:25 MCHC 28.9 (31.8-35.4) L 05/18/18 02:25 RDW Coeff of Khai 14.8 % (11.6-14.8) 05/18/18 02:25 Plt Count 134 10^3/uL (140-440) L 05/18/18 02:25 Immature Gran % (Auto) 0.7 % (0.0-5.0) 05/18/18 02:25 Neut % (Auto) 89.8 05/18/18 02:25 Lymph % (Auto) 5.3 (10.0-50.0) L 05/18/18 02:25 Beadle % (Auto) 4.2 (0-10) 05/18/18 02:25 Eos % (Auto) 0.0 % (0.0-7.0) 05/18/18 02:25 Baso % (Auto) 0.0 % (0.0-3.0) 05/18/18 02:25 Immature Gran # (Auto) 0.0 (0.0-1.0) 05/18/18 02:25 Neut # (Auto) 5.1 K/ul (2.0-6.9) 05/18/18 02:25 Lymph # (Auto) 0.3 K/uL (0.60-3.4) L 05/18/18 02:25 Beadle # (Auto) 0.2 K/uL (0.4-2.0) L 05/18/18 02:25 Eos # (Auto) 0.0 K/ul (0.0-0.7) 05/18/18 02:25 Baso # (Auto) 0.0 K/uL (0-0.2) 05/18/18 02:25 Hypochromasia 1+ (NOT PRESENT) 05/18/18 02:25 Anisocytosis Not present (NOT PRESENT) 05/18/18 02:25 Stomatocytes 1+ (NOT PRESENT) 05/18/18 02:25 PT 10.3 SEC (9.3-11.0) 05/17/18 11:20 INR 1.03 SI (0.0-3.9) 05/17/18 11:20 APTT 28.3 SEC (23.9-40.0) 05/17/18 11:20 Puncture Site R radial 05/17/18 12:06 O2 Saturation 92.0 % (95-100) L 05/17/18 12:06 ABG pH 7.304 (7.35-7.45) L 05/17/18 12:06 ABG pCO2 93.8 mmHg (35-45) H 05/17/18 12:06 ABG pO2 76.0 mmHg (85-100) L 05/17/18 12:06 ABG HCO3 46.6 (22.0-26.0) H 05/17/18 12:06 ABG Total CO2 49 (22.0-28.0) H 05/17/18 12:06 ABG Base Excess 20 (-2.0-2.0) H 05/17/18 12:06 Nader Test + 05/17/18 12:06 O2 Delivery Device Nc 05/17/18 12:06 Oxygen Liter Flow 2.00 05/17/18 12:06 Sodium 139.2 mmol/L (134.5-145) 05/18/18 02:25 Potassium 4.61 mmol/L (3.5-5.1) 05/18/18 02:25 Chloride 89.1 mmol/L (98-107) L 05/18/18 02:25 Carbon Dioxide 47.4 mmol/L (22-30.0) H* 05/18/18 02:25 Anion Gap 7.31 05/18/18 02:25 BUN 13.0 mg/dL (9-20) 05/18/18 02:25 Creatinine 0.37 mg/dL (0.60-1.10) L 05/18/18 02:25 Estimated GFR (MDRD) 233.00 mL/min 05/18/18 02:25 BUN/Creatinine Ratio 35.13 05/18/18 02:25 Glucose 123.4 mg/dL (74-106) H 05/18/18 02:25 Lactic Acid 1.45 mmol/L (0.7-2.1) 05/17/18 11:20 Calcium 8.44 mg/dL (8.4-10.2) 05/18/18 02:25 Total Bilirubin 0.31 mg/dL (0.2-1.3) 05/18/18 02:25 AST 21.2 U/L (17-59) 05/18/18 02:25 ALT 12.6 U/L (0-50) 05/18/18 02:25 Alkaline Phosphatase 64.4 U/L (56-119) 05/18/18 02:25 Total Creatine Kinase 20.6 U/L (55-170) L 05/18/18 02:25 Troponin I < 0.012 ng/ml (0.0000-0.120) 05/18/18 02:25 Total Protein 6.38 g/dL (6.3-8.2) 05/18/18 02:25 Albumin 3.56 g/dL (3.5-5.0) 05/18/18 02:25 Globulin 2.82 05/18/18 02:25 Albumin/Globulin Ratio 1.26 05/18/18 02:25 Procalcitonin < 0.05 ng/mL (<0.05) 05/17/18 11:20 Urine Color Yellow (YELLOW) 05/17/18 12:15 Urine Clarity Clear (CLEAR) 05/17/18 12:15 Urine pH 5.0 (5-9) 05/17/18 12:15 Ur Specific [place] 1.020 (1.005-1.030) 05/17/18 12:15 Urine Protein Negative (NEGATIVE) 05/17/18 12:15 Urine Glucose (UA) Negative (NEGATIVE) 05/17/18 12:15 Urine Ketones Negative (NEGATIVE) 05/17/18 12:15 Urine Blood 1+ (NEGATIVE) 05/17/18 12:15 Urine Nitrite Negative (NEGATIVE) 05/17/18 12:15 Urine Bilirubin Negative (NEGATIVE) 05/17/18 12:15 Urine Urobilinogen 1.0 (0.2) 05/17/18 12:15 Ur Leukocyte Esterase Negative (NEGATIVE) 05/17/18 12:15 Urine Microscopic RBC 2-5 (0-2) 05/17/18 12:15 Ur Squamous Epith Cells Not present (0-5) 05/17/18 12:15 Digoxin 0.41 ng/mL (0.8-2.00) L 05/17/18 11:12 Influ A Molecular Assay Positive by naat (NEGATIVE) H 05/17/18 11:30 Influ B Molecular Assay Negative by naat (NEGATIVE) 05/17/18 11:30 (1) Adult BMI <19 kg/sq m Status: Acute Code(s): Z68.1 - BODY MASS INDEX (BMI) 19.9 OR LESS, ADULT SNOMED Code(s): 902709781 (2) Atrial fib/flutter, transient Status: Acute Code(s): HMJ0924 - SNOMED Code(s): 731050074 (3) BiPAP (biphasic positive airway pressure) dependence Status: Acute Code(s): Z99.89 - DEPENDENCE ON OTHER ENABLING MACHINES AND DEVICES SNOMED Code(s): 620539423 (4) COPD exacerbation Status: Acute Code(s): J44.1 - CHRONIC OBSTRUCTIVE PULMONARY DISEASE W (ACUTE ) EXACERBATION SNOMED Code(s): 217527115 (5) Hypercapnic respiratory failure Status: Acute Code(s): J96.92 - RESPIRATORY FAILURE, UNSPECIFIED WITH HYPERCAPNIA SNOMED Code(s): 116296824 (6) Influenza Status: Acute Code(s): J11.1 - FLU DUE TO UNIDENTIFIED INFLUENZA VIRUS W OTH RESP MANIFEST SNOMED Code(s): 6816935 Plan: Influenza A: Stable using tamiflu 75mg PO BID based on renal function. Remains afebrile. The patient is currently doing about the same, chronicly poor pulmonary function. We will continue to work on breathing. OOB as much as possible. Droplet precautions. - Admit to room 120-1 inpatient status. Hospital day 2. - Droplet isolation - Tamiflu 75mg BID Day 06/01 - O2 titrate to 92-98%. - Repeat CBC/CMP in am. - Encourage OOB during day. - Continue abx overnight, monitor. Consider d/c in the am. - BiPap ON. COPD exacerbation w/ hypercapneic/O2 dependent: The patient is on respiratory therapy now albuterol q 4 hours, ipratropium QID. We will continue these and will use levaquin for total of 5 days. He is on O2 as well titrated to maintain O2 >92%. Dyspnea at rest and with exertion. Chronic barrel chest. Chronically followed by pulm, unknown when they saw him last. He may benefit from return to [place] but he wants to wait and see how he does over next few days. He feels weak. May benefit from short term retirement. Titrate O2 to 92-98%. Levaquin 750 daily recommended. - Continue Albuterol q 4 hours pRN - Ipratopium QID. - I+O q shift. - O2 Titrated to maintain PO2 >92 but <98 - Prednisone 40mg daily x 5 days - Levaquin 750 daily x 5 days. R/B/A to steroid + levaquin d/w patient. Chronic anemia: Stable today, hgb at 12.3. MIld. Remains Normocytic. Monitor CBC , repeat in am. - CBC in am Afib: Chronic stable problem, will monitor while in hospital. Rate is stable. On eliquis. He is NSR throughout stay on tele. Today in room he sounded to be in afib. - Continue home dose eliquis DVT Prophy: Continue Eliquis - Eliquis from home. Diet: Regular Activity: UP with assist. Isolation: Droplet. Maintenance fluids: 96ml/hour is maintenance. I talked with nursing about increasing fluids to 125ml/hour. Sodium/K+ remain okay. We will repeat CMP in am tomorrow. - Will run at 125ml/hour for now. BMI <18: Patient does not want boost/ensure. Disposition: HD #2 influenza, COPD exacerbation, CT suggesting possible pneumonia. He has chronic poor lung perfusion. Barrel chest, advanced stage COPD, home O2, regular Dyspnea at rest and exertion. Chronic anemia. Renal function stable. Antecubital fossa IV site intact. Tele shows NSR. BIPAP overnight. On tamiflu. Recommended OOB as much as possible, RT to continue nebs as listed. Based on age and comorbidities patient needs inpatient admission. Underweight. Fluid hydration as above. Still plan d/c 05/19/18 to . Finish 5 days total steroid, abx and tamiflu. >35 minutes spent with patient today. He is worried about going home, does not feel strong enough. Has rollator. rhonchi present, needs regular O2.
[2018-05-18] MEDS ORDERED: ROCEPHIN 1 GM in SODIUM CHLORIDE 50 ML IV SCH (09:00)
[2018-05-18] MEDS: ASPIRIN CHEWABLE PO SCH (09:19)
[2018-05-18] MEDS: PREDNISONE PO SCH (09:19)
[2018-05-18] MEDS: LANOXIN PO SCH (09:20)
[2018-05-18] MEDS: TAMIFLU PO SCH ×2 (09:20→20:51)
[2018-05-18] MEDS: CARDIZEM CD PO SCH (09:20)
[2018-05-18] MEDS: ELIQUIS PO SCH ×2 (09:21→20:48)
[2018-05-18] MEDS: SODIUM CHLORIDE 1,000 ML IV SCH (10:30)
[2018-05-18] MEDS: SYMBICORT 160-4.5 MCG INHALER IH SCH ×2 (18:46→20:53)
[2018-05-18] MEDS: PRAVACHOL PO SCH (20:50)
[2018-05-19] MEDS: SODIUM CHLORIDE 1,000 ML IV SCH ×2 (03:04→20:22)
[2018-05-19] MEDS: DUONEB NEB SCH ×4 (04:45→23:58)
[2018-05-19] MEDS: LEVAQUIN PO SCH (06:22)
[2018-05-19] MEDS: LASIX TAB PO SCH (06:23)
[2018-05-19] MEDS: SYMBICORT 160-4.5 MCG INHALER IH SCH ×2 (08:46→20:22)
[2018-05-19] MEDS: CARDIZEM CD PO SCH (08:47)
[2018-05-19] MEDS: PREDNISONE PO SCH (08:47)
[2018-05-19] MEDS: ASPIRIN CHEWABLE PO SCH (08:47)
[2018-05-19] MEDS: ELIQUIS PO SCH ×2 (08:48→20:22)
[2018-05-19] MEDS: TAMIFLU PO SCH ×2 (08:48→20:22)
[2018-05-19] MEDS: LANOXIN PO SCH (08:48)
[2018-05-19] MEDS: PRAVACHOL PO SCH (20:22)
[2018-05-19] MEDS: ALBUTEROL 0.083% NEB NEB PRN (21:00)
--- NOTE | 2018-05-19 22:48 | PCM.PROG ---
Subjective: 68 yo HD #3 Influenza A, COPD exacerbation admitted to room 118-1. Dyspnea at rest and with activity persist. O2 through night low 90's. Patient has chronic reduced oxygenation and COPD getting nebs regularly while in hospital. There was an issue overnight that the patient turned up oxygen to 11. Nursing turned this back down to 4 and discussed O2 toxicity with the patient. He is awake and alert upon entry today. The patient remains unchanged. Respirations are labored, but he is at regular state of difficulty with breathing. Remains afebrile. consuming 50-75% of meals. Neuro checks normal, reviewed overnight nursing notes, talked with am nursing today. O2 2.5L this am, still producing quite a bit of sputum. He has a bowl at bedside that he is using to capture his expectorant. Remains on droplet precaution. IV left antecubital fossal running NS and stable (75ml/hour). labs this am reviewed and WBC is essentially unchanged at 5.24. Hgb down from 12.3 to 11.1 and plt unchanged from 134 to 133. CMP showed sodium 13.8, K+ 3.99, Cl 88, BUN 14.7, Cr 0.44 and glucose 72.2. Vitals remain stable, he has been afebrile entire hospital stay. Urine output >0.5ml/kg/hour per shift. talked with case management this am, patient thinks he needs to go back to [facility]. That will be plan, to d/c tomorrow back to [facility], phys therapy and Occup therapy and pulm therapy. +BM yesterday. Bipap overnight. IV site c/d/i. Cultures reviewed. So far negative. He feels his breathing is worse chronically, worsening steadily with time. We did talk today about consider hospice. Consider f/u with pulm to make sure nothing more needs to be done. Do not titrate up O2, this can cause him problems by itself. REVIEW OF SYMPTOMS: (Positives bolded) General: weight loss (Chronically, no new changes), fever (none during hospital stay), chills, night sweats, fatigue, appetite loss HEENT: blurry vision, eye pain, eye discharge, dry eyes, decreased vision, sore throat tinnitus, bloody nose, hearing loss, sinus pain/pressure, ear pain/ pressure. Respiratory: shortness of breath, cough, hemoptysis, wheezing, pleurisy, Chronic COPD, acute influenza Cardiovascular: chest pain, PND, palpitation, edema, orthopnea, syncope, swelling of extremities, barrel chest, Dyspnea at rest and with exertion Gastro: Nausea, vomiting, diarrhea, hematemesis, abdominal pain, constipation Genito: hematuria, dysuria, glycosuria, hesitancy, frequency, incontinence Musckelo: Arthralgia, myalgia, muscle weakness, joint swelling, NSAID use Skin: rash, pruritis (FACE), sores, nail changes, skin thickening, change in wart/mole, itching, rash, new lesions, pruritus, nail changes Neuro: Migraine, numbness, ataxia, tremor, vertigo, weakness, memory loss, Irritability, dizziness Endocrine: excessive thirst, polyuria, cold intolerance, heat intolerance, goiter Psychiatric: depression, anxiety, anti-depressants, alcohol abuse, drug abuse, insomnia, change in sleep pattern and mood changes Heme/lymph: easy bruising, bleeding gums, blood clots, swollen glands, lymphedema, Allergic/immune: allergic rhinitis, hay fever, asthma, hives Objective: Vital Signs - 24 hr 05/19/18 05/19/18 05/19/18 02:00 06:00 08:48 Temperature 97.8 F Pulse Rate 76 74 92 H Respiratory 22 16 Rate Blood Pressure 95/64 O2 Sat by Pulse 89 L 99 Oximetry 05/19/18 05/19/18 05/19/18 10:00 14:00 18:00 Temperature 98.3 F 98.2 F 98.4 F Pulse Rate 80 84 84 Respiratory 14 12 12 Rate Blood Pressure 110/69 100/65 102/68 O2 Sat by Pulse 90 L 89 L 88 L Oximetry HEENT: Constitutional: Appearance-Unchanged from yesterday. Still with Mild acute respiratory distress on top of chronic process. I am concerned about end stage pulmonary disease. Orientation- Oriented x 3, alert Build and Nutrition-Thin, barrel chested General- Patient is pleasant and cooperative with the interview and exam. Talks in broken sentences. IV left antecubital fossa intact, flushing Integumentary: General-No rashes, ulcers or lesions. Mild erythema of face around nose persists. Cheeks. BLanching rash. Eye: Bilaterally PERRLA, EOMI. No discharge. Upper and lower eyelids are normal. Sclera/conjunctiva normal without discharge. Cornea is normal and clear. Lens is normal. Eyeball appears normal. No ciliary flushing, no conjunctival injection. No change from previous. ENMT: Nares- bilateral quiet airflow, Clear discharge. Nasal mucosa- No bleeding noted and no ulcerations observed. Erythematous Turbinates boggy. Lips- normal color, moist without cracks/lesions Oral Cavity/Palate- hard/soft palate intact without lesions, oral mucosa pink and moist. Tongue normal midline. Oropharynx- pharyngeal erythema, Uvula midline. post nasal drip. No exudate. Salivary glands- Non tender to palpation CHEST/LUNG: Inspection- symmetric chest wall barrel chest. Increased effort, mild distress, using abdominal accessory muscles, but this was similar to chronic status. Palpation- nontender sternum, ribline. No abnormal pulsations. Auscultation- Breath sounds normal decreased throughout all lung grayson. tracheal sounds, bronchial sounds overlying sternum, Bronchovessicular sounds between scapulae posteriorly, vessicular breath sounds heard throughout periphery. Adventitious sounds- wheezes, rales, rhonchi all present. Loud breathing I:E 1:1.5. Barrel chested. coarse sounds throughout. Wheezing throughout. This is chronic but seems to be worse with influenza. CARDIOVASCULAR: Carotid artery- normal, no bruits or abnormal pulsations. Jugular vein- no pulsations. Palpation/Percussion- Normal PMI, no palpable thrill Auscultation- Regular rate and rhythm. systolic III/ murmur noted in sitting/ recumbent supine positions. Extremities- digital clubbing, no cyanosis, no peripheral edema, no increased warmth. In rhythm today. ABDOMEN: Inspection- normal and no visible pulsations. Normal contour. Auscultation- Bowel sounds normal, no abdominal bruits. Palpation/Percussion- soft, non-tender, no rebound tenderness, no rigidity (guarding), no jar tenderness, no masses. Liver-no hepatomegaly, Peripheral Vascular: Upper extremity Left- Normal temperature with pink nailbeds and no ulcerations. Upper extremity Right- Normal temperature with pink nailbeds and no ulcerations. Lower extremity- Normal temperature with pink nailbeds and no ulcerations. DP pulses 1+ bilaterally. Pedal hair reduced. Normal capillary refill. Edema- No edema. Musculoskeletal: Generalized-No generalized swelling or edema of extremities, digital clubbing present, no cyanosis, neurovascularly intact all four extremities. Neurological: General- Moves all 4 extremities symmetrically. Symmetrical face and body posture. Cranial nerves- individually evaluated II-XII and intact. PERRLA, Normal EOMI, visual/special senses appear intact, Face is symmetrical and normal sensation/movement, normal tongue, normal strength/posture of neck musculature. Reflexes- intact with DTR 2+ patellar, Achilles, bicep, brachial, tricep. Ankle clonus normal with 2 beats. Strength- 5/5 bilateral UE and LE. Soft touch- intact bilateral UE and LE. Temperature sensation- intact bilateral UE and LE. Neuropsych: Oriented- Person, place, time. (AAOx3), Mood/affect- normal and congruent. Able to articulate well. Speech-Normal speech, normal rate, normal tone, normal use of language, volume and coherence. Thought content- normal Associations- intact, no SI/HI, no hallucinations, delusions, obsessions. Lymphatic: Head/Neck- normal size and non tender to palpation. Laboratory Last Values WBC 5.24 K/ul (4.2-10.2) 05/19/18 06:40 RBC 4.20 10^6/ul (4.70-6.10) L 05/19/18 06:40 Hgb 11.1 g/dl (14.0-18.0) L 05/19/18 06:40 Hct 39.3 % (42.0-52.0) L 05/19/18 06:40 MCV 93.6 fl (80.0-94.0) 05/19/18 06:40 MCH 26.4 pg (27.0-31.0) L 05/19/18 06:40 MCHC 28.2 (31.8-35.4) L 05/19/18 06:40 RDW Coeff of Khai 14.6 % (11.6-14.8) 05/19/18 06:40 Plt Count 133 10^3/uL (140-440) L 05/19/18 06:40 Immature Gran % (Auto) 0.6 % (0.0-5.0) 05/19/18 06:40 Neut % (Auto) 68.9 05/19/18 06:40 Lymph % (Auto) 18.3 (10.0-50.0) 05/19/18 06:40 Door % (Auto) 12.0 (0-10) H 05/19/18 06:40 Eos % (Auto) 0.0 % (0.0-7.0) 05/19/18 06:40 Baso % (Auto) 0.2 % (0.0-3.0) 05/19/18 06:40 Immature Gran # (Auto) 0.0 (0.0-1.0) 05/19/18 06:40 Neut # (Auto) 3.6 K/ul (2.0-6.9) 05/19/18 06:40 Lymph # (Auto) 1.0 K/uL (0.60-3.4) 05/19/18 06:40 Door # (Auto) 0.6 K/uL (0.4-2.0) 05/19/18 06:40 Eos # (Auto) 0.0 K/ul (0.0-0.7) 05/19/18 06:40 Baso # (Auto) 0.0 K/uL (0-0.2) 05/19/18 06:40 Hypochromasia 1+ (NOT PRESENT) 05/19/18 06:40 Anisocytosis 1+ (NOT PRESENT) 05/19/18 06:40 Stomatocytes 1+ (NOT PRESENT) 05/18/18 02:25 PT 10.3 SEC (9.3-11.0) 05/17/18 11:20 INR 1.03 SI (0.0-3.9) 05/17/18 11:20 APTT 28.3 SEC (23.9-40.0) 05/17/18 11:20 Puncture Site R radial 05/17/18 12:06 O2 Saturation 92.0 % (95-100) L 05/17/18 12:06 ABG pH 7.304 (7.35-7.45) L 05/17/18 12:06 ABG pCO2 93.8 mmHg (35-45) H 05/17/18 12:06 ABG pO2 76.0 mmHg (85-100) L 05/17/18 12:06 ABG HCO3 46.6 (22.0-26.0) H 05/17/18 12:06 ABG Total CO2 49 (22.0-28.0) H 05/17/18 12:06 ABG Base Excess 20 (-2.0-2.0) H 05/17/18 12:06 Nader Test + 05/17/18 12:06 O2 Delivery Device Nc 05/17/18 12:06 Oxygen Liter Flow 2.00 05/17/18 12:06 Sodium 139.8 mmol/L (134.5-145) 05/19/18 06:40 Potassium 3.99 mmol/L (3.5-5.1) 05/19/18 06:40 Chloride 88.0 mmol/L (98-107) L 05/19/18 06:40 Carbon Dioxide 50.4 mmol/L (22-30.0) H* 05/19/18 06:40 Anion Gap 5.39 05/19/18 06:40 BUN 14.7 mg/dL (9-20) 05/19/18 06:40 Creatinine 0.44 mg/dL (0.60-1.10) L 05/19/18 06:40 Estimated GFR (MDRD) 191.00 mL/min 05/19/18 06:40 BUN/Creatinine Ratio 33.40 05/19/18 06:40 Glucose 72.2 mg/dL (74-106) L 05/19/18 06:40 Lactic Acid 1.45 mmol/L (0.7-2.1) 05/17/18 11:20 Calcium 8.36 mg/dL (8.4-10.2) L 05/19/18 06:40 Total Bilirubin 0.23 mg/dL (0.2-1.3) 05/19/18 06:40 AST 18.3 U/L (17-59) 05/19/18 06:40 ALT 10.8 U/L (0-50) 05/19/18 06:40 Alkaline Phosphatase 58.6 U/L (56-119) 05/19/18 06:40 Total Creatine Kinase 20.6 U/L (55-170) L 05/18/18 02:25 Troponin I < 0.012 ng/ml (0.0000-0.120) 05/18/18 02:25 Total Protein 5.35 g/dL (6.3-8.2) L 05/19/18 06:40 Albumin 2.89 g/dL (3.5-5.0) L 05/19/18 06:40 Globulin 2.46 05/19/18 06:40 Albumin/Globulin Ratio 1.17 05/19/18 06:40 Procalcitonin < 0.05 ng/mL (<0.05) 05/17/18 11:20 Urine Color Yellow (YELLOW) 05/17/18 12:15 Urine Clarity Clear (CLEAR) 05/17/18 12:15 Urine pH 5.0 (5-9) 05/17/18 12:15 Ur Specific [place] 1.020 (1.005-1.030) 05/17/18 12:15 Urine Protein Negative (NEGATIVE) 05/17/18 12:15 Urine Glucose (UA) Negative (NEGATIVE) 05/17/18 12:15 Urine Ketones Negative (NEGATIVE) 05/17/18 12:15 Urine Blood 1+ (NEGATIVE) 05/17/18 12:15 Urine Nitrite Negative (NEGATIVE) 05/17/18 12:15 Urine Bilirubin Negative (NEGATIVE) 05/17/18 12:15 Urine Urobilinogen 1.0 (0.2) 05/17/18 12:15 Ur Leukocyte Esterase Negative (NEGATIVE) 05/17/18 12:15 Urine Microscopic RBC 2-5 (0-2) 05/17/18 12:15 Ur Squamous Epith Cells Not present (0-5) 05/17/18 12:15 Digoxin 0.41 ng/mL (0.8-2.00) L 05/17/18 11:12 Influ A Molecular Assay Positive by naat (NEGATIVE) H 05/17/18 11:30 Influ B Molecular Assay Negative by naat (NEGATIVE) 05/17/18 11:30 (1) Adult BMI <19 kg/sq m Status: Acute Code(s): Z68.1 - BODY MASS INDEX (BMI) 19.9 OR LESS, ADULT SNOMED Code(s): 479685488 (2) Atrial fib/flutter, transient Status: Acute Code(s): MKP6896 - SNOMED Code(s): 625052417 (3) BiPAP (biphasic positive airway pressure) dependence Status: Acute Code(s): Z99.89 - DEPENDENCE ON OTHER ENABLING MACHINES AND DEVICES SNOMED Code(s): 693185978 (4) COPD exacerbation Status: Acute Code(s): J44.1 - CHRONIC OBSTRUCTIVE PULMONARY DISEASE W (ACUTE ) EXACERBATION SNOMED Code(s): 054783330 (5) Hypercapnic respiratory failure Status: Acute Code(s): J96.92 - RESPIRATORY FAILURE, UNSPECIFIED WITH HYPERCAPNIA SNOMED Code(s): 130723407 (6) Influenza Status: Acute Code(s): J11.1 - FLU DUE TO UNIDENTIFIED INFLUENZA VIRUS W OTH RESP MANIFEST SNOMED Code(s): 7156638 (7) Normocytic anemia Status: Acute Code(s): D64.9 - ANEMIA, UNSPECIFIED SNOMED Code(s): 067747252 Plan: Influenza A: HD #3 admitted 05/17/18 and now 05/19/18. He is unchanged/stable from yesterday. Stable using tamiflu 75mg PO BID based on renal function, now on day 06/29 for this treatment. Remains afebrile, vitals stable. The patient is currently doing about the same, he is wrored that he cannot be at home with his current breathing functino. Chronicly poor pulmonary function, acute exacerbation. Possible improving with nebs regularly. We had a lengthy discussion today about need to not turn up oxygen. We will continue to work on breathing. OOB as much as possible. Droplet precautions. - Admit to room 120-1 inpatient status. Hospital day 3. - Droplet isolation - Tamiflu 75mg BID Day 06/29 - O2 titrate to 92-98%. - Repeat CBC/CMP in am. - Encourage OOB during day. - Levaquin per #2 Day 06/29. - BiPap Overnight COPD exacerbation w/ hypercapneic/O2 dependent: The patient is following with respiratory therapy regular albuterol nebs and using ipratropium QID. Levaquin day 3/days. He is on O2 as well titrated to maintain O2 >92%. He has maintained O2 saturation. Discussed oxygen use with him, oxygen toxicity. Dyspnea at rest and with exertion persists. Chronic barrel chest. Chronically followed by pulm, unknown when they saw him last. I do not have specialists here. Likely no changes at present. He wants to go back to [place] for rehab. I will arrange this tomorrow. Titrate O2 to 92-98%. Levaquin 750 daily recommended. - Continue Albuterol q 4 hours pRN - Ipratopium QID. - I+O q shift. - O2 Titrated to maintain PO2 >92 but <98 - Prednisone 40mg daily x 5 days - Levaquin 750 daily x 5 days. R/B/A to steroid + levaquin d/w patient. day 3/ . Chronic anemia: Mildly worse today, hgb at 11.1 down from 12.3. suspect dilutional status. This remains MIld. Remains Normocytic. Monitor CBC, repeat in am. - CBC in am Afib: In rhythm today and in rhythm on monitor. Chronic stable problem, will monitor while in hospital. Rate is stable. On eliquis. He is NSR throughout stay on tele. Today in room he sounded to be in afib. - Continue home dose eliquis DVT Prophy: Continue Eliquis - Eliquis from home. Diet: Regular Activity: UP with assist. Isolation: Droplet. BMI <18: Patient does not want boost/ensure. Disposition: HD #3 influenza, COPD exacerbation. Still not meeting SIRS criteria, not meeting sepsis criteria. I will treat with 5 days total of levaquin/prednisone and tamiflu. We will plan d/c to [place] tomorrow. He has chronic poor lung perfusion. Consider f/u with pulm. He has chronic Barrel chest, advanced stage COPD, home O2, regular Dyspnea at rest and exertion. Chronic anemia. Renal function stable. Antecubital fossa IV site c/d/i. Tele shows NSR. BIPAP overnight. On tamiflu. Recommended OOB as much as possible, RT to continue nebs as listed. Based on age and comorbidities patient should continue inpatient admission. Underweight. Fluid hydration as above. Still plan d/c 05/20/18. Finish 5 days total steroid, abx and tamiflu. >35 minutes spent with patient today. He is worried about going home, does not feel strong enough. Has rollator. rhonchi present, needs regular O2.
[2018-05-20] MEDS: ALBUTEROL 0.083% NEB NEB PRN (03:10)
[2018-05-20] MEDS: SODIUM CHLORIDE 1,000 ML IV SCH ×2 (03:41→15:44)
[2018-05-20] MEDS: DUONEB NEB SCH ×2 (05:15→11:30)
[2018-05-20] MEDS: LEVAQUIN PO SCH (06:17)
[2018-05-20] MEDS: LASIX TAB PO SCH (06:18)
[2018-05-20] MEDS: PREDNISONE PO SCH (09:14)
[2018-05-20] MEDS: ASPIRIN CHEWABLE PO SCH (09:14)
[2018-05-20] MEDS: CARDIZEM CD PO SCH (09:15)
[2018-05-20] MEDS: TAMIFLU PO SCH (09:15)
[2018-05-20] MEDS: LANOXIN PO SCH (09:16)
[2018-05-20] MEDS: ELIQUIS PO SCH (09:16)
[2018-05-20] MEDS: SYMBICORT 160-4.5 MCG INHALER IH SCH (09:18)
--- NOTE | 2018-05-20 14:45 | PCM.DC ---
Final Diagnosis: 1. Influenza A 2. COPD Chronically, advanced stage. 3. Hypercapnic hypoxic respiratory failure 4. Underweight BMI 18.8 5. Chronic O2 use, chronic dyspnea at rest and exertion 6. Chronic normocytic anemia 7. History of pneumonia within past 90 days. 8. Generalized debility. 9. O2 dependence 10. BIPAP nightly. 11. Intermittent afib 12. Essential HTN 13. Dyslipidemia 14. OA 15. enlarged haeart (dilated aortic root) 16. GERD (1) Influenza Status: Acute Code(s): J11.1 - FLU DUE TO UNIDENTIFIED INFLUENZA VIRUS W OTH RESP MANIFEST SNOMED Code(s): 3738112 (2) Acute respiratory failure with hypercapnia Status: Acute Code(s): J96.02 - ACUTE RESPIRATORY FAILURE WITH HYPERCAPNIA SNOMED Code(s): 18536149 (3) Adult BMI <19 kg/sq m Status: Acute Code(s): Z68.1 - BODY MASS INDEX (BMI) 19.9 OR LESS, ADULT SNOMED Code(s): 300086983 (4) Atrial fib/flutter, transient Status: Acute Code(s): DIM4613 - SNOMED Code(s): 001396769 (5) COPD exacerbation Status: Acute Code(s): J44.1 - CHRONIC OBSTRUCTIVE PULMONARY DISEASE W (ACUTE ) EXACERBATION SNOMED Code(s): 607987138, 611713797 (6) Hypercapnic respiratory failure Status: Acute Code(s): J96.92 - RESPIRATORY FAILURE, UNSPECIFIED WITH HYPERCAPNIA SNOMED Code(s): 845787679 (7) Normocytic anemia Status: Acute Code(s): D64.9 - ANEMIA, UNSPECIFIED SNOMED Code(s): 312148419 Reason for Hospitalization: 1. Influenza A 2. COPD with exacerbation 3. Chronic normocytic anemia 4. Chronic debility, worsening pulmonary function, fatigue. 5. Weakness. Prognosis at Discharge: Stable, ready for d/c to NH for phys therapy and pulm rehab. Completed 4/5 days of abx, steriods and antiviral. Condition at Discharge: Stable to improved. Chronically poor pulmonary function. Would benefit from f/ u with pulm again as outpatient. Medications at Discharge: Ambulatory Orders Medication Instructions Recorded Aspirin 81 mg PO d 10/19/13 Albuterol Sulfate 0.083% Neb 1 vial NEB RTQ4H 30 Days #120 01/30/18 [Albuterol 0.083% Neb] vial.neb Menthol/Zinc Oxide [Calmoseptine 1 applic TP BID oint 01/30/18 Ointment] Levofloxacin [Levaquin] 750 mg PO QDAC 2 Days #2 tablet 05/20/18 Oseltamivir Phosphate [Tamiflu] 75 mg PO Q12HR 2 Days #3 capsule 05/20/18 Pravastatin Sodium [Pravachol] 20 mg PO BEDTIME tablet 05/20/18 Prednisone 40 mg PO DAILYWM 3 Days #6 tablet 05/20/18 Lab/Diagnostics: Laboratory Last Values WBC 5.50 K/ul (4.2-10.2) 05/20/18 06:00 RBC 4.60 10^6/ul (4.70-6.10) L 05/20/18 06:00 Hgb 12.0 g/dl (14.0-18.0) L 05/20/18 06:00 Hct 43.8 % (42.0-52.0) 05/20/18 06:00 MCV 95.2 fl (80.0-94.0) H 05/20/18 06:00 MCH 26.1 pg (27.0-31.0) L 05/20/18 06:00 MCHC 27.4 (31.8-35.4) L 05/20/18 06:00 RDW Coeff of Khai 15.5 % (11.6-14.8) H 05/20/18 06:00 Plt Count 160 10^3/uL (140-440) 05/20/18 06:00 Immature Gran % (Auto) 0.6 % (0.0-5.0) 05/19/18 06:40 Neut % (Auto) 68.9 05/19/18 06:40 Lymph % (Auto) 18.3 (10.0-50.0) 05/19/18 06:40 Barnes % (Auto) 12.0 (0-10) H 05/19/18 06:40 Eos % (Auto) 0.0 % (0.0-7.0) 05/19/18 06:40 Baso % (Auto) 0.2 % (0.0-3.0) 05/19/18 06:40 Immature Gran # (Auto) 0.0 (0.0-1.0) 05/19/18 06:40 Neut # (Auto) 3.6 K/ul (2.0-6.9) 05/19/18 06:40 Lymph # (Auto) 1.0 K/uL (0.60-3.4) 05/19/18 06:40 Barnes # (Auto) 0.6 K/uL (0.4-2.0) 05/19/18 06:40 Eos # (Auto) 0.0 K/ul (0.0-0.7) 05/19/18 06:40 Baso # (Auto) 0.0 K/uL (0-0.2) 05/19/18 06:40 Neutrophils % (Manual) 72.0 % (42.2-75.2) 05/20/18 06:00 Band Neutrophils % 2.0 % (0.0-5.0) 05/20/18 06:00 Lymphocytes % (Manual) 20.0 % (10.0-50.0) 05/20/18 06:00 Monocytes % (Manual) 6.0 % (0.0-10.0) 05/20/18 06:00 Hypochromasia 1+ (NOT PRESENT) 05/19/18 06:40 Anisocytosis Not present (NOT PRESENT) 05/20/18 06:00 Stomatocytes 1+ (NOT PRESENT) 05/18/18 02:25 PT 10.3 SEC (9.3-11.0) 05/17/18 11:20 INR 1.03 SI (0.0-3.9) 05/17/18 11:20 APTT 28.3 SEC (23.9-40.0) 05/17/18 11:20 Puncture Site R radial 05/17/18 12:06 O2 Saturation 92.0 % (95-100) L 05/17/18 12:06 ABG pH 7.304 (7.35-7.45) L 05/17/18 12:06 ABG pCO2 93.8 mmHg (35-45) H 05/17/18 12:06 ABG pO2 76.0 mmHg (85-100) L 05/17/18 12:06 ABG HCO3 46.6 (22.0-26.0) H 05/17/18 12:06 ABG Total CO2 49 (22.0-28.0) H 05/17/18 12:06 ABG Base Excess 20 (-2.0-2.0) H 05/17/18 12:06 Nader Test + 05/17/18 12:06 O2 Delivery Device Nc 05/17/18 12:06 Oxygen Liter Flow 2.00 05/17/18 12:06 Sodium 140.1 mmol/L (134.5-145) 05/20/18 06:00 Potassium 3.51 mmol/L (3.5-5.1) 05/20/18 06:00 Chloride 86.2 mmol/L (98-107) L 05/20/18 06:00 Carbon Dioxide 50.1 mmol/L (22-30.0) H* 05/20/18 06:00 Anion Gap 7.31 05/20/18 06:00 BUN 12.1 mg/dL (9-20) 05/20/18 06:00 Creatinine 0.47 mg/dL (0.60-1.10) L 05/20/18 06:00 Estimated GFR (MDRD) 177.00 mL/min 05/20/18 06:00 BUN/Creatinine Ratio 25.74 05/20/18 06:00 Glucose 76.0 mg/dL (74-106) 05/20/18 06:00 Lactic Acid 1.45 mmol/L (0.7-2.1) 05/17/18 11:20 Calcium 8.61 mg/dL (8.4-10.2) 05/20/18 06:00 Total Bilirubin 0.36 mg/dL (0.2-1.3) 05/20/18 06:00 AST 21.5 U/L (17-59) 05/20/18 06:00 ALT 13.8 U/L (0-50) 05/20/18 06:00 Alkaline Phosphatase 60.1 U/L (56-119) 05/20/18 06:00 Total Creatine Kinase 20.6 U/L (55-170) L 05/18/18 02:25 Troponin I < 0.012 ng/ml (0.0000-0.120) 05/18/18 02:25 Total Protein 6.05 g/dL (6.3-8.2) L 05/20/18 06:00 Albumin 3.37 g/dL (3.5-5.0) L 05/20/18 06:00 Globulin 2.68 05/20/18 06:00 Albumin/Globulin Ratio 1.25 05/20/18 06:00 Procalcitonin < 0.05 ng/mL (<0.05) 05/17/18 11:20 Urine Color Yellow (YELLOW) 05/17/18 12:15 Urine Clarity Clear (CLEAR) 05/17/18 12:15 Urine pH 5.0 (5-9) 05/17/18 12:15 Ur Specific [place] 1.020 (1.005-1.030) 05/17/18 12:15 Urine Protein Negative (NEGATIVE) 05/17/18 12:15 Urine Glucose (UA) Negative (NEGATIVE) 05/17/18 12:15 Urine Ketones Negative (NEGATIVE) 05/17/18 12:15 Urine Blood 1+ (NEGATIVE) 05/17/18 12:15 Urine Nitrite Negative (NEGATIVE) 05/17/18 12:15 Urine Bilirubin Negative (NEGATIVE) 05/17/18 12:15 Urine Urobilinogen 1.0 (0.2) 05/17/18 12:15 Ur Leukocyte Esterase Negative (NEGATIVE) 05/17/18 12:15 Urine Microscopic RBC 2-5 (0-2) 05/17/18 12:15 Ur Squamous Epith Cells Not present (0-5) 05/17/18 12:15 Digoxin 0.41 ng/mL (0.8-2.00) L 05/17/18 11:12 Influ A Molecular Assay Positive by naat (NEGATIVE) H 05/17/18 11:30 Influ B Molecular Assay Negative by naat (NEGATIVE) 05/17/18 11:30 Cultures: Blood negative Sputum: Normal kirsten. H/H Trends 05/17/18 05/18/18 05/19/18 Range/Units 11:20 02:25 06:40 Hgb 13.8 L 12.3 L 11.1 L (14.0-18.0) g/dl Hct 46.3 42.5 39.3 L (42.0-52.0) % 05/20/18 Range/Units 06:00 Hgb 12.0 L (14.0-18.0) g/dl Hct 43.8 (42.0-52.0) % WBC Trends 05/17/18 05/18/18 05/19/18 Range/Units 11:20 02:25 06:40 WBC 7.66 5.71 5.24 (4.2-10.2) K/ul 05/20/18 Range/Units 06:00 WBC 5.50 (4.2-10.2) K/ul CT chest: significant chronic obstructive pulmonary disease and scattered fibrosis. Slight improvement in posterior discoid consolidations currently minimal. Could be residual pneumonia. 4.5 mm non calc nodule LLL stable. Consider repeat CT. Atherosclerosis, slightly more prominent mediastinal LN. Education Provided to Patient and Family: 1. Flu vaccination 2. COPD education: advanced stage 3. incentive spirometry/oob. 4. Discussed BMI and role of his disease in weight loss. Follow-ups: 1. D/C to [facility] phys therpay to see patient 2. D/c to [facility] would like respiratory therapy if possible. Disposition: TRANSFER SNF Hospital Course: 68 yr old WM chronic COPD, chronic noromcytic anemia presented to ER on 05/17/[address] Mallory saw patient in Er and recommended admission. 1 week acutely worsening URI, cough, SOA, SOLO, sleeping on more pillows, trouble lying flat. COPD worsening, sputum worsening, but tested + for flu in ER. The patient has chronic COPD, advanced stage, mild normocytic anemia. Bipap overnight, home O2 regularly. He was feeling worse and came to ER with worsening breathing. Vitals were negative SIRS criteria, sepsis markers negative. Chronic poor lung function, hx of HTN, COPD, Asthma. He has had flu shot this season, several of his friends were sick but he noted worsening symptoms of URI, congestion, sore throat, cough, SOA over past 1 week. Labs at admit showed normal WBC 7.66, Hgb mild anemia 13.8/hcg 46.3 and plt low at 133. CMP showed sodium 135.2, potassium 3.77, Cl 84.4, CO2 chronically elevated at 48.2, BUN 16.2, Cr 0.56 and glucose 118.3. ABG pH 7.352, pc02 81.2, p02 46, hc03 45.1. This was interpreted by me as chronic primary respiratory acidosis with secondary metabolic alkalosis. AST/ALT normal at 22.4 and 15.8. Troponin negative, total CK 23.3. PT 10.3, INR 1.03, Ptt 28.3. lactic acid 1.45, procalcitonin <0.05 and negative. Influenza A positive. ABG was repeated in ER. Repeat showed markedly improved Po2 from 46 to 76. Co2 elevated further from 81.2 to 93.8. Digoxin levels checked and acceptable. EKG done and reported by ER to be non focal per Er. Not available at time of H+P. Telemetry reviewed and Sinus tachy. CT chest was completed in ER, he was given solumedrol 125mg, rocephin/ vanco. CT chest without contrast showed chronic COPD, fibrosis, "nodule 4.5mm posterior left lower lobe stable. improvement in posterior discoid consolidations currently minimal. Could represent residual pneumonia. 4.5 mm non calc nodule posterior left lower lobe stable. Mediastinal LN. Reviewed ER orders CBC/CMP/CK/Flu/Lactic acid/molecular strep (negative), PT/PTT/INR, Sputum cx, solumedrol, duoneb, IV 125ml/hour and CT chest done in ER. He was started on Vanco and rocephin. After talking with patient, no history of aspiration. I stopped Vanco and rocephin, changed to levaquin PO x 5 days. Stopped solumedrol and changed to oral prednisone. He has COPD exacerbation, possibility of pneumonia but less likely than COPD exacerbation and acute influenza. Cr is stable and remained stable throughout hospital stay. iV fluids were continued throughout hospital stay with NS. He was given regular nebs. There was some issues with adjusting oxygen too high. It was discussed with patient to not titrate self oxygen. Labs at d/c reviewed and stable. WBC 5.50, hgb 12, plt 160. sodium 140, K+ 3.50. Cr 0.47. NO repeat imaging throughout stay. We did not erpeat the ABG. he has chronic hypercapneic hypoxic lung disease. He felt he was not improving as fast as he would like and he will be d/c to [facility]. The patient and I talked at length about phys therapy. He will complete total fo 5 days of tamiflu, levaquin, prednisone. Labs were monitored, he ate 50-100% of his meals. Good uout. BM x2 during hospital stay. Generalized weakness, generalized debility, possibly end stage COPD, may benefit from hospice. I will see him in NH, consider CBC/ CMP in 1 week. Continue nebs, continue home meds. Day of D/C Physical exam: Unchanged from previous day. Constitutional: Appearance-Unchanged from yesterday. Still with Mild acute respiratory distress on top of chronic process. takling in disjointed sentences. I am concerned about end stage pulmonary disease. Orientation- Oriented x 3, alert Build and Nutrition-Thin, barrel chested General- Patient is pleasant and cooperative with the interview and exam. Talks in broken sentences. IV left antecubital fossa intact, flushing Integumentary: General-No body rashes, ulcers or lesions. Mild erythema of face around nose persists. Cheeks. BLanching rash. ENMT: Nares- bilateral quiet airflow, Clear discharge. Nasal mucosa- No bleeding noted and no ulcerations observed. Erythematous Turbinates boggy. Lips- normal color, moist without cracks/lesions Oral Cavity/Palate- hard/soft palate intact without lesions, oral mucosa pink and moist. Tongue normal midline. Oropharynx- pharyngeal erythema, Uvula midline. post nasal drip. No exudate. Salivary glands- Non tender to palpation CHEST/LUNG: Inspection- symmetric chest wall barrel chest. Increased effort, mild distress, using abdominal accessory muscles, but this was similar to chronic status. Palpation- nontender sternum, ribline. No abnormal pulsations. Auscultation- Breath sounds normal decreased throughout all lung grayson. tracheal sounds, bronchial sounds overlying sternum, Bronchovessicular sounds between scapulae posteriorly, vessicular breath sounds heard throughout periphery. Adventitious sounds- wheezes, rales, rhonchi all present. Loud breathing I:E 1:1.5. Barrel chested. coarse sounds throughout. Wheezing throughout. This is chronic but seems to be worse with influenza. CARDIOVASCULAR: Carotid artery- normal, no bruits or abnormal pulsations. Jugular vein- no pulsations. Palpation/Percussion- Normal PMI, no palpable thrill Auscultation- Regular rate and rhythm. systolic III/ murmur noted in sitting/ recumbent supine positions. Extremities- digital clubbing, no cyanosis, no peripheral edema, no increased warmth. In rhythm today. ABDOMEN: Inspection- normal and no visible pulsations. Normal contour. Auscultation- Bowel sounds normal, no abdominal bruits. Palpation/Percussion- soft, non-tender, no rebound tenderness, no rigidity (guarding), no jar tenderness, no masses. Liver-no hepatomegaly, Peripheral Vascular: Upper extremity Left- Normal temperature with pink nailbeds and no ulcerations. Upper extremity Right- Normal temperature with pink nailbeds and no ulcerations. Lower extremity- Normal temperature with pink nailbeds and no ulcerations. DP pulses 1+ bilaterally. Pedal hair reduced. Normal capillary refill. Edema- No edema. Musculoskeletal: Generalized-No generalized swelling or edema of extremities, digital clubbing present, no cyanosis, neurovascularly intact all four extremities. Neurological: General- Moves all 4 extremities symmetrically. Symmetrical face and body posture. Cranial nerves- individually evaluated II-XII and intact. PERRLA, Normal EOMI, visual/special senses appear intact, Face is symmetrical and normal sensation/movement, normal tongue, normal strength/posture of neck musculature. Reflexes- intact with DTR 2+ patellar, Achilles, bicep, brachial, tricep. Ankle clonus normal with 2 beats. Strength- 5/5 bilateral UE and LE. Soft touch- intact bilateral UE and LE. Temperature sensation- intact bilateral UE and LE. Neuropsych: Oriented- Person, place, time. (AAOx3), Mood/affect- normal and congruent. Able to articulate well. Speech-Normal speech, normal rate, normal tone, normal use of language, volume and coherence. Thought content- normal Associations- intact, no SI/HI, no hallucinations, delusions, obsessions. Lymphatic: Head/Neck- normal size and non tender to palpation. Plan: 1. d/c to [facility] 2. 1 more day of tamiflu 3 doses Rx sent 3. 1 more day of abx 1 dose of levaquin Rx given 4. 1 more day of steroids Rx given 5. Pulmonary rehab, physical therapy to see patient 6. neb tx albuterol Q4 hours, ipratropium QID. 7. Monitor CBC, would repeat in 1-2 weeks. 8. Pulmonolgy evaluation after d/c Nursing facility. 9. Activity up with assist, ad cari. Uses rollator. 10. Diet: regular. Would actually consider high calory, addition of boost/ ensure. 11. F/U with patient in NH in next 1 week. 35 minutes spent in counselling/coordination of care. I rounded this am at 7 am and then again around noon today. Reviewed overnight status, telemetry (SR) , ovenight labs as well.
[2018-05-20 17:06] VITALS: BP 99/66; TEMP 98.3
== END 2018-05-20 15:40 | DRG 152 ==
LOC: ED 10:42 → MEDSURG B 12:14
PROVIDERS: ADMIT Family Medicine; ATTEND Family Medicine
DX: J11.1 Influenza due to unidentified influenza virus with other respiratory manifestations (principal); J96.02 Acute respiratory failure with hypercapnia; J96.92 Respiratory failure, unspecified with hypercapnia; J44.1 Chronic obstructive pulmonary disease with (acute) exacerbation; Z68.1 Body mass index [BMI] 19.9 or less, adult; D64.9 Anemia, unspecified; R06.00 Dyspnea, unspecified; R06.01 Orthopnea; R05 Cough; R06.2 Wheezing; R09.81 Nasal congestion; R53.1 Weakness; R68.83 Chills (without fever); R63.0 Anorexia; Z99.81 Dependence on supplemental oxygen; Z99.89 Dependence on other enabling machines and devices
CPT/HCPCS: 36415; 80053; 80162; 81001; 82550; 82803; 83605; 84145; 84484; 85007; 85008; 85025; 85610; 85730; 87040; 87070; 87502; 87651; 93005; 93010; 94640; 96361; 96365; 96375; 99223; 99233; 99239; 99284

== ENCOUNTER 2018-06-18 09:55 | Emergency (ER) ==
[2018-06-18 10:13] VITALS: TEMP 98.1; BMI 18.4
[2018-06-18] MEDS ORDERED: DUONEB NEB STA (10:24)
[2018-06-18] MEDS ORDERED: ANECTINE IVP STA (10:56)
[2018-06-18] MEDS ORDERED: AMIDATE IVP STA (10:56)
[2018-06-18] MEDS ORDERED: NORCURON IVP STA (11:18)
[2018-06-18] MEDS ORDERED: DIPRIVAN 100 ML VIAL 100 ML IV ONE (11:23)
[2018-06-18] MEDS ORDERED: DIPRIVAN 100 ML VIAL 1,000 MG in PREMIX INFUSION 100 ML VIAL 1 VIAL IV SCH (11:30)
--- NOTE | 2018-06-18 11:35 | DI ---
EXAM: Single view of the chest. History: Intubation. Comparison: Chest radiograph 04/20/2018 Findings: Heart size is within normal limits. No definite acute infiltrates. Endotracheal tube tip is at the level of the clavicles. No pneumothorax. No acute osseous abnormalities. Chronic obstru ctive pulmonary disease. Impression: 1. Endotracheal tube is appropriately positioned. 2. No definite acute infiltrates. 3. Chronic obstructive pulmonary disease
--- NOTE | 2018-06-18 12:19 | CT ---
EXAM: CTA CHEST (PE PROTOCOL) HISTORY: Abnormal arterial blood gas TECHNIQUE: CTA chest with intravenous contrast. Multiplanar images were provided with 3-D reconstru ctions. 125 mL Omnipaque. COMPARISON: 05/17/2018 FINDINGS: No pulmonary arterial filling defect. Mild to moderate atherosclerotic disease. Heart size is withi n normal limits. Endotracheal tube is noted. Lungs are hyperinflated and reveal moderately severe emphysema and fibrosis. Some discoid consolidat ions are seen in the posterior bases. There is a 4.5 mm nodule in the anterior right lung base which is new or more noticeable. There is a slightly more prominent 5.3 mm nodule in the posterior left l jp bases. These nodules are indeterminate. There is no evidence of congestive heart failure, pleur al fluid or pneumothorax. Exaggerated thoracic kyphosis is noted. IMPRESSION: 1. No pulmonary arterial thromboembolism. 2. Moderately severe fibrosis and emphysema. 3. Cannot exclude mild basilar pneumonia. 4. Lung base nodules as described which should be followed by CT in approximately 4-6 months. 5. Atherosclerosis.
[2018-06-18] MEDS ORDERED: SODIUM CHLORIDE 1,000 ML IV STA (12:21)
--- NOTE | 2018-06-18 12:24 | ED.PDOC ---
General ED Provider: Dr. IRIS CHARLTON Chief Complaint: Respiratory Complaint Stated Complaint: presented acutely short of breath Time Seen by Physician: 10:00 (seen with the entire nursing and respitarory techs krishna ) Mode of Arrival: Ambulance Information Source: Patient Exam Limitations: No limitations (presented A O X 3 ) Primary Care Provider: JANETH BOSS Nursing and Triage Documentation Reviewed and Agree: Yes Does patient meet sepsis criteria?: No If yes, has appropriate treatment been initiated?: No System Inflammatory Response Syndrome: Not Applicable Sepsis Protocol: For patient's 13 years and over: Temp is 96.8 and below OR 101 and greater Pulse >90 BPM Resp >20/minute Acutely Altered Mental Status Are patient's symptoms suggestive of a new infection, such as: -Pneumonia -Skin, Soft Tissue -Endocarditis -UTI -Bone, Joint Infection -Implantable Device -Acute Abdominal Infection -Wound Infection -Meningitis -Blood Stream Catheter Infection -Unknown Respiratory Complaint Exam - Shortness of Air Complaint/Exam Onset/Duration: ONGOING FOR 1 WEEK WAS NOTED TO HAVE FLU PER ON HOME O2 WORSE TODAY Symptoms Are: Still present Timing: Constant Initial Severity: Moderate Current Severity: Moderate Character: Reports: Dyspnea at rest, Dyspnea on exertion, Orthopnea Aggravating: Reports: Movement, Deep breaths, Recumbent position, URI Alleviating: Reports: Oxygen, Upright position Associated Signs and Symptoms: Reports: Cough, Wheezing, Chills, Nasal congestion. Denies: Chest pain with cough, Chest pain, Fever, Diaphoresis, Dizziness, Calf pain, Calf swelling, Edema, Rapid breathing, Labored breathing, Decreased intake Related History: Reports: Similar episode (COPD WAS PREVIOUSLY INTUBATED IN THE PAST PER PT ) History of Healthcare-Acquired Pneumonia: No Pulmonary Embolism Risk Factors: Reports: Bedrest Cardiac Risk Factors: Reports: Hypertension Pseudomonas Risk Factors: Reports: Chronic Lung Disease (ON HOME O2) Tuberculosis Risk Factors: Reports: Chronic Resp. Faliure Home Oxygen Use: Yes (2L) Recent Stress Test: No Recent Echo/LV Function: No Respiratory Distress: Moderate Stridor Present: No Tracheal Deviation: No Subcutaneous Emphysema: No Accessory Muscle Use: Yes Retractions: Intercostal Review of Systems - Review Of Systems Constitutional: Reports: Malaise, Weakness, Loss of appetite Eyes: Reports: No symptoms Ears, Nose, Mouth, Throat: Reports: No symptoms Respiratory: Reports: Cough, Short of air Cardiac: Reports: No symptoms GI: Reports: No symptoms : Reports: No symptoms Musculoskeletal: Reports: No symptoms Skin: Reports: No symptoms Neurological: Reports: No symptoms Endocrine: Reports: No symptoms Hematologic/Lymphatic: Reports: No symptoms All Other Systems: Reviewed and Negative Past Medical History - Past Medical History Previously Healthy: No Endocrine: Reports: None Cardiovascular: Reports: Hypertension Respiratory: Reports: COPD, Asthma Hematological: Reports: None Gastrointestinal: Reports: None Genitourinary: Reports: None Neuro/Psych: Reports: None Musculoskeletal: Reports: None Cancer: Reports: None Other Pertinent Past Medical History: flu shot Sep 25 has several friends also not feeling well after shot - Surgical History General Surgical History: Reports: Tonsillectomy - Family History Family History: Reports: Unknown - Social History Smoking Status: Former smoker Hx Substance Use: No Alcohol Screening: None Physical Exam - Physical Exam Appearance: Ill-appearing Ill-appearing: Moderate Pain Distress: Moderate Eyes: BRITANY, EOMI, Conjunctiva clear ENT: Ears normal, Nose normal, Oropharynx normal Respiratory: Breath sounds equal, Breath sounds diminished (MID AND LOWER LUNG ) , Rhonchi Cardiovascular: RRR, Pulses normal, No rub, No murmur GI/: Soft, Nontender, No masses, Bowel sounds normal, No Organomegaly Musculoskeletal: Normal strength, ROM intact, No edema, No calf tenderness Skin: Warm, Dry, Normal color Neurological: Sensation intact, Motor intact, Reflexes intact, Cranial nerves intact, Alert, Oriented Psychiatric: Affect appropriate, Mood appropriate Interpretation - Radiology Interpretation Radiology Interpretation By: Radiologist Radiology Results: No acute changes Exam Interpreted: CT Scan (TUBE SATISFACTORY) - Cleat Maker Rate: Normal Rhythm: Sinus Ectopy: None - EKG Interpretation Rate: Normal Rhythm: Sinus Re-Evaluation - Re-Evaluation Time of Re-Evaluation: 11:00 Status: Worse Vital Signs Stable: Yes Pain Level: 0 Lungs: Other (RONCHI) Skin: Warm and Dry Neuro: Alert and Oriented X3 CV: RRR Additional Comments: IMPENDING RESP FAILURE - Re-Evaluation Time of Re-Evaluation: 12:34 (HYPOTENSIVE . 87/70 DIPROVAN DRIP STOPPED A BOLUS IS BEING GIVEN 500 ML) Status: Improved Vital Signs Stable: Yes Pain Level: 0 Appearance: NAD Skin: Warm and Dry Neuro: Alert and Oriented X3 CV: RRR Physician Notification - Case Discussed Physician Notified: FAVIAN CHU Time of Notification: 12:36 (TRANSFER GIVE IV ANTIBIOTICS) Critical Care Note - Critical Care Note Total Time (mins): 180 Course - Course Hematology/Chemistry: 06/18/18 10:35 06/18/18 10:35 Orders, Labs, Meds: Lab Review 06/18/18 06/18/18 06/18/18 10:35 10:35 10:35 WBC 12.23 H RBC 4.96 Hgb 13.1 L Hct 44.2 MCV 89.1 MCH 26.4 L MCHC 29.6 L RDW Coeff of Khai 14.8 Plt Count 142 Immature Gran % (Auto) 0.5 Neut % (Auto) 83.6 Lymph % (Auto) 8.2 L [place] % (Auto) 7.3 Eos % (Auto) 0.1 Baso % (Auto) 0.3 Immature Gran # (Auto) 0.1 Neut # (Auto) 10.2 H Lymph # (Auto) 1.0 [place] # (Auto) 0.9 Eos # (Auto) 0.0 Baso # (Auto) 0.0 PT 10.5 INR 1.05 APTT 27.4 Puncture Site O2 Saturation ABG pH ABG pCO2 ABG pO2 ABG HCO3 ABG Total CO2 ABG Base Excess Nader Test O2 Delivery Device Oxygen Liter Flow FiO2 % Sodium 140.2 Potassium 3.60 Chloride 86.2 L Carbon Dioxide 43.8 H* Anion Gap 13.80 BUN 14.1 Creatinine 0.52 L Estimated GFR (MDRD) 157.00 BUN/Creatinine Ratio 27.11 Glucose 129.4 H Lactic Acid Calcium 8.72 Total Bilirubin 0.63 AST 25.2 ALT 15.5 Alkaline Phosphatase 81.5 Total Creatine Kinase < 20.0 L Troponin I < 0.012 Total Protein 7.36 Albumin 4.01 Globulin 3.35 Albumin/Globulin Ratio 1.19 Procalcitonin Influ A Molecular Assay Influ B Molecular Assay 06/18/18 06/18/18 06/18/18 10:35 10:35 10:35 WBC RBC Hgb Hct MCV MCH MCHC RDW Coeff of Khai Plt Count Immature Gran % (Auto) Neut % (Auto) Lymph % (Auto) [place] % (Auto) Eos % (Auto) Baso % (Auto) Immature Gran # (Auto) Neut # (Auto) Lymph # (Auto) [place] # (Auto) Eos # (Auto) Baso # (Auto) PT INR APTT Puncture Site O2 Saturation ABG pH ABG pCO2 ABG pO2 ABG HCO3 ABG Total CO2 ABG Base Excess Nader Test O2 Delivery Device Oxygen Liter Flow FiO2 % Sodium Potassium Chloride Carbon Dioxide Anion Gap BUN Creatinine Estimated GFR (MDRD) BUN/Creatinine Ratio Glucose Lactic Acid 0.73 Calcium Total Bilirubin AST ALT Alkaline Phosphatase Total Creatine Kinase Troponin I Total Protein Albumin Globulin Albumin/Globulin Ratio Procalcitonin < 0.05 Influ A Molecular Assay Negative by naat Influ B Molecular Assay Negative by naat 06/18/18 06/18/18 10:40 11:20 WBC RBC Hgb Hct MCV MCH MCHC RDW Coeff of Khai Plt Count Immature Gran % (Auto) Neut % (Auto) Lymph % (Auto) [place] % (Auto) Eos % (Auto) Baso % (Auto) Immature Gran # (Auto) Neut # (Auto) Lymph # (Auto) [place] # (Auto) Eos # (Auto) Baso # (Auto) PT INR APTT Puncture Site R brach R brach O2 Saturation 80.0 L 100.0 ABG pH 7.283 L* 7.373 ABG pCO2 91.5 H 74.1 H ABG pO2 53.0 L* 214.0 H ABG HCO3 43.4 H 43.1 H ABG Total CO2 46 H 45 H ABG Base Excess 17 H 18 H Nader Test + + O2 Delivery Device Nc Vent Oxygen Liter Flow 2.00 FiO2 % 60.0 Sodium Potassium Chloride Carbon Dioxide Anion Gap BUN Creatinine Estimated GFR (MDRD) BUN/Creatinine Ratio Glucose Lactic Acid Calcium Total Bilirubin AST ALT Alkaline Phosphatase Total Creatine Kinase Troponin I Total Protein Albumin Globulin Albumin/Globulin Ratio Procalcitonin Influ A Molecular Assay Influ B Molecular Assay Orders Category Date Time Status ABG DRAW REQUEST Stat CARDIO 06/18/18 10:27 Ordered ABG DRAW REQUEST Stat CARDIO 06/18/18 11:29 Completed EKG-(ED ONLY) Stat CARDIO 06/18/18 10:23 Ordered NEBULIZER TREATMENT Stat CARDIO 06/18/18 10:24 Ordered NPO REMINDER: IMAGING ONCE CARE 06/18/18 11:23 Ordered ABG Stat LAB 06/18/18 10:40 Completed ABG Stat LAB 06/18/18 11:20 Completed BLOOD CULTURE Stat LAB 06/18/18 10:35 Ordered CBC W/ AUTO DIFF Stat LAB 06/18/18 10:35 Completed COMPREHENSIVE METABOLIC PANEL Stat LAB 06/18/18 10:35 Received CREATINE KINASE Stat LAB 06/18/18 10:35 Received FLU A/B MOLECULAR Stat LAB 06/18/18 10:35 Received LACTIC ACID Stat LAB 06/18/18 10:35 Received MOLECULAR GROUP A STREP Stat LAB 06/18/18 10:35 Completed PARTIAL THROMBOPLASTIN TIME Stat LAB 06/18/18 10:35 Received PROCALCITONIN Stat LAB 06/18/18 10:35 Received PT WITH INR Stat LAB 06/18/18 10:35 Received TROPONIN I Stat LAB 06/18/18 10:35 Received Etomidate [Amidate] MEDS 06/18/18 10:56 Stat 10 mg IVP ONCE STA Ipratropium/Albuterol Neb [Duoneb] MEDS 06/18/18 10:24 Discontinued 1 vial NEB ONCE STA PROPOFOL INJ(100ml) MEDS 06/18/18 11:30 Ordered Premix Vial [Premix Infusion 100 ml Vial] 1 vial Propofol Inj [Diprivan 100 ml Vial] 1,000 mg IV 100 mcg/kg/min Propofol Inj [Diprivan 100 ml Vial] 100 ml MEDS 06/18/18 11:23 Discontinued IV .STK-MED Sodium Chloride 0.9% [Sodium Chloride] 1,000 ml MEDS 06/18/18 12:21 Ordered IV BOLUS Succinylcholine Chloride [Anectine] MEDS 06/18/18 10:56 Stat 100 mg IVP ONCE STA Vecuronium [place] [Norcuron] MEDS 06/18/18 11:18 Stat 5 mg IVP ONCE STA CHEST, 1V AP ONLY Stat RADS 06/18/18 10:[address] CHEST PE PROTOCOL Stat RADS 06/18/18 11:22 Ordered Medications Generic Name Dose Route Start Last Admin Trade Name Freq PRN Reason Stop Dose Admin Propofol 1,000 mg/ Sterile 100 mls @ 33 mls/hr 06/18/18 11:30 06/18/18 11:51 Water IV 50 mcg/kg/min .Q3H2M EVE 16.5 mls/hr Administration Protocol 100 MCG/KG/MIN Sodium Chloride 1,000 mls @ 500 mls/hr 06/18/18 12:21 Sodium Chloride IV 06/18/18 14:20 BOLUS STA Discontinued Medications Generic Name Dose Route Start Last Admin Trade Name Romi PRN Reason Stop Dose Admin Albuterol/Ipratropium 1 vial 06/18/18 10:24 06/18/18 10:40 Duoneb NEB 06/18/18 10:25 1 vial ONCE STA Administration Etomidate 10 mg 06/18/18 10:56 06/18/18 11:07 Amidate IVP 06/18/18 10:57 10 mg ONCE STA Administration Succinylcholine Chloride 100 mg 06/18/18 10:56 06/18/18 11:14 Anectine IVP 06/18/18 10:57 100 mg ONCE STA Administration Vecuronium [place] 5 mg 06/18/18 11:18 06/18/18 11:31 Norcuron IVP 06/18/18 11:19 5 mg ONCE STA Administration Vital Signs: Temp Pulse Resp BP Pulse Ox 06/18/18 11:51 93 H 20 93/68 06/18/18 11:25 20 06/18/18 09:56 98.1 F 94 H 24 121/73 94 L Departure - Departure Time of Disposition: 12:33 Disposition: TSF SHORT-TRM HOSP Discharge Problem: Acute respiratory failure with hypoxia Condition: Fair Pt referred to PMD for follow-up: Yes IPMP verified?: No Allergies/Adverse Reactions: Allergies tiotropium bromide [From Spiriva with HandiHaler] Allergy (Mild, Verified 22:02) rash Home Medications: Ambulatory Orders Aspirin 81 mg PO d 10/19/13 Albuterol Sulfate 0.083% Neb [Albuterol 0.083% Neb] 1 vial NEB RTQ4H 30 Days # 120 vial.neb 01/30/18 Pravastatin Sodium [Pravachol] 20 mg PO BEDTIME tablet 05/20/18 Menthol/Zinc Oxide [Calmoseptine Ointment] 1 applic TP BID PRN 06/18/18 Disposition Discussed With: Family
[2018-06-18] MEDS ORDERED: ROCEPHIN 1 GM in SODIUM CHLORIDE 50 ML IV STA (12:33)
[2018-06-18] MEDS ORDERED: VANCOMYCIN 1 GM in SODIUM CHLORIDE 250 ML IV STA (12:34)
[2018-06-18] MEDS ORDERED: ROCEPHIN ONE (12:36)
[2018-06-18] MEDS ORDERED: LEVOPHED 4 MG in DEXTROSE 5%-WATER IV SOLN 246 ML IV SCH (13:30)
[2018-06-18 13:34] VITALS: BP 94/72
== END 2018-06-18 13:50 | disposition short-term general hospital (02) ==
LOC: ED 09:55
DX: J96.01 Acute respiratory failure with hypoxia (principal); I10 Essential (primary) hypertension; J44.9 Chronic obstructive pulmonary disease, unspecified; R53.1 Weakness; Z99.81 Dependence on supplemental oxygen; Z79.899 Other long term (current) drug therapy; R06.02 Shortness of breath; R50.9 Fever, unspecified; R05 Cough
CPT/HCPCS: 36415; 80053; 82550; 82803; 83605; 84145; 84484; 85025; 85610; 85730; 87040; 87502; 87651; 93005; 93010; 94002; 94640; 96361; 96365; 96367; 96368; 96375; 99285

== ENCOUNTER 2018-07-02 21:07 | Inpatient (IN) ==
--- NOTE | 2018-07-02 21:13 | ED.PDOC ---
General ED Provider: Dr. IMTIAZ ARCHER Chief Complaint: Shortness of Air Stated Complaint: short of breath,however can converse yet with breaks Time Seen by Physician: 21:10 Mode of Arrival: Ambulance Information Source: Patient, Other Exam Limitations: No limitations Primary Care Provider: JANETH BOSS Nursing and Triage Documentation Reviewed and Agree: Yes Does patient meet sepsis criteria?: No System Inflammatory Response Syndrome: Not Applicable Sepsis Protocol: For patient's 13 years and over: Temp is 96.8 and below OR 101 and greater Pulse >90 BPM Resp >20/minute Acutely Altered Mental Status Are patient's symptoms suggestive of a new infection, such as: -Pneumonia -Skin, Soft Tissue -Endocarditis -UTI -Bone, Joint Infection -Implantable Device -Acute Abdominal Infection -Wound Infection -Meningitis -Blood Stream Catheter Infection -Unknown Respiratory Complaint Exam - Shortness of Air Complaint/Exam Onset/Duration: few days Symptoms Are: Still present Timing: Intermittent Initial Severity: Moderate Current Severity: Moderate Character: Reports: Dyspnea on exertion Aggravating: Reports: Movement, Weather Alleviating: Reports: Bronchodilators Associated Signs and Symptoms: Reports: Wheezing History of Healthcare-Acquired Pneumonia: No Pulmonary Embolism Risk Factors: Reports: Bedrest Recent Stress Test: No Recent Echo/LV Function: No Respiratory Distress: Mild Stridor Present: No Tracheal Deviation: No Subcutaneous Emphysema: No Accessory Muscle Use: No Retractions: Not Present Diminished Breath Sounds: Yes Prolonged Expiratory Phase: Yes Unable to Speak Full Sentences: Yes Review of Systems - Review Of Systems Constitutional: Reports: Malaise Eyes: Reports: No symptoms Ears, Nose, Mouth, Throat: Reports: No symptoms Respiratory: Reports: Short of air, Wheezing Cardiac: Reports: No symptoms GI: Reports: No symptoms : Reports: No symptoms Musculoskeletal: Reports: No symptoms Skin: Reports: No symptoms Neurological: Reports: No symptoms Endocrine: Reports: No symptoms Hematologic/Lymphatic: Reports: No symptoms All Other Systems: Reviewed and Negative Past Medical History - Past Medical History Previously Healthy: No Endocrine: Reports: None Cardiovascular: Reports: Hypertension Respiratory: Reports: COPD, Asthma Hematological: Reports: None Gastrointestinal: Reports: None Genitourinary: Reports: None Neuro/Psych: Reports: None Musculoskeletal: Reports: None Cancer: Reports: None Other Pertinent Past Medical History: flu shot Sep 25 has several friends also not feeling well after shot - Surgical History General Surgical History: Reports: Tonsillectomy - Family History Family History: Reports: Unknown - Social History Smoking Status: Former smoker Hx Substance Use: No Alcohol Screening: None Physical Exam - Physical Exam Appearance: Ill-appearing Ill-appearing: Moderate Pain Distress: None Eyes: BRITANY ENT: Ears normal Neck: Supple Respiratory: Breath sounds diminished, Wheezes Cardiovascular: RRR GI/: Soft Musculoskeletal: Normal strength Skin: Warm Neurological: Sensation intact Critical Care Note - Critical Care Note Total Time (mins): 0 Course - Course Orders, Labs, Meds: Lab Review 07/02/18 07/02/18 21:33 22:31 Puncture Site Rb O2 Saturation 64.0 L ABG pH 7.394 ABG pCO2 67.4 H ABG pO2 35.0 L* ABG HCO3 41.2 H ABG Total CO2 43 H ABG Base Excess 16 H Nader Test + FiO2 % 21.0 Urine Color Yellow Urine Clarity Clear Urine pH 7.5 Ur Specific Barry 1.015 Urine Protein 1+ Urine Glucose (UA) Negative Urine Ketones 1+ Urine Blood Trace-intact Urine Nitrite Negative Urine Bilirubin Negative Urine Urobilinogen 2.0 Ur Leukocyte Esterase Negative Urine Microscopic RBC 10-20 Urine Microscopic WBC 2-5 Ur Squamous Epith Cells 2-5 Amorphous Sediment Trace Urine Mucus 1+ Orders Category Date Time Status ABG DRAW REQUEST DAILY@0600 CARDIO 07/03/18 06:00 Ordered ABG DRAW REQUEST DAILY@0600 CARDIO 07/04/18 06:00 Ordered ABG DRAW REQUEST DAILY@0600 CARDIO 07/05/18 06:00 Ordered ABG DRAW REQUEST DAILY@0600 CARDIO 07/06/18 06:00 Ordered ABG DRAW REQUEST Stat CARDIO 07/02/18 21:33 Completed ABG DRAW REQUEST Stat CARDIO 07/02/18 22:40 Ordered BIPAP Routine CARDIO 07/02/18 21:51 Ordered EKG-(ED ONLY) Stat CARDIO 07/02/18 21:33 Completed NEBULIZER TREATMENT Stat CARDIO 07/02/18 21:32 Completed IV [ED IV/MEDIPORT/POWERPORT] .ONCE EMERGENCY 07/02/18 21:35 Active ABG DAILY@0600 LAB 07/03/18 06:00 Ordered ABG DAILY@0600 LAB 07/04/18 06:00 Ordered ABG DAILY@0600 LAB 07/05/18 06:00 Ordered ABG DAILY@0600 LAB 07/06/18 06:00 Ordered ABG Stat LAB 07/02/18 21:33 Completed ABG Stat LAB 07/02/18 22:40 Ordered UA [URINALYSIS C & S IF INDICATED] Stat LAB 07/02/18 22:31 Completed 0.9 % Sodium Chloride [Saline Flush] MEDS 07/02/18 21:35 Ordered 1 syr IVF PRN PRN Levalbuterol HCl [Xopenex 1.25 mg] MEDS 07/02/18 21:30 Discontinued 1 vial NEB ONCE STA Methylprednisolone Sod Succ/Pf [Solu-Medrol 125 mg] MEDS 07/02/18 21:37 Discontinued 125 mg IM ONCE STA Sodium Chloride 0.9% [Sodium Chloride] 500 ml MEDS 07/02/18 21:36 Discontinued IV BOLUS CHEST, 1V AP ONLY Stat RADS 07/02/18 21:34 Completed Medications Generic Name Dose Route Start Last Admin Trade Name Freq PRN Reason Stop Dose Admin Sodium Chloride 1 syr 07/02/18 21:35 Saline Flush IVF PRN PRN To flush IV Discontinued Medications Generic Name Dose Route Start Last Admin Trade Name Freq PRN Reason Stop Dose Admin Sodium Chloride 500 mls @ 500 mls/hr 07/02/18 21:36 07/02/18 22:21 Sodium Chloride IV 07/02/18 22:35 500 mls/hr BOLUS STA Administration Levalbuterol HCl 1 vial 07/02/18 21:30 07/02/18 22:30 Xopenex 1.25 Mg NEB 07/02/18 21:31 1 vial ONCE STA Administration Methylprednisolone Sodium Succinate 125 mg 07/02/18 21:37 07/02/18 22:23 Solu-Medrol 125 Mg IM 07/02/18 21:38 125 mg ONCE STA Administration Vital Signs: Temp Pulse Resp BP Pulse Ox 07/02/18 21:45 95 07/02/18 21:28 102 H 20 132/95 H 91 L 07/02/18 21:08 100.3 F H 100 H 19 154/97 H 93 L Departure - Departure Time of Disposition: 23:07 Disposition: PLACED OBSERVATION Discharge Problem: COPD (chronic obstructive pulmonary disease), Hypercapnic respiratory failure, BiPAP (biphasic positive airway pressure) dependence, COPD exacerbation Condition: Fair Pt referred to PMD for follow-up: No IPMP verified?: No (admotted for obsewrvation) Allergies/Adverse Reactions: Allergies tiotropium bromide [From Spiriva with HandiHaler] Allergy (Mild, Verified 21:15) rash Home Medications: Ambulatory Orders Aspirin 81 mg PO d 10/19/13 Albuterol Sulfate 0.083% Neb [Albuterol 0.083% Neb] 1 vial NEB RTQ4H 30 Days # 120 vial.neb 01/30/18 Pravastatin Sodium [Pravachol] 20 mg PO BEDTIME tablet 05/20/18 Menthol/Zinc Oxide [Calmoseptine Ointment] 1 applic TP BID PRN 06/18/18 Cefdinir 300 mg PO Q12H 07/02/18 Disposition Discussed With: Patient
[2018-07-02 21:15] VITALS: BMI 18.9
[2018-07-02] MEDS ORDERED: XOPENEX 1.25 MG NEB STA (21:30)
[2018-07-02] MEDS ORDERED: SODIUM CHLORIDE 500 ML IV STA (21:36)
[2018-07-02] MEDS ORDERED: SOLU-MEDROL 125 MG IM STA (21:37)
--- NOTE | 2018-07-02 22:29 | DI ---
EXAM: Portable chest HISTORY: Shortness of breath COMPARISON: Single-view chest 06/18/2018 FINDINGS: The cardiomediastinal silhouette is stable. There are marked emphysematous changes.. Haz y opacity is noted peripherally within the right upper lobe.. There is no evidence of a pleural effu liv. IMPRESSION: Chronic obstructive pulmonary disease. Hazy opacity peripherally within the right upper lobe.
[2018-07-02] MEDS ORDERED: TYLENOL PO PRN (23:24)
[2018-07-02] MEDS ORDERED: ALBUTEROL 0.042% NEB NEB SCH (23:30)
[2018-07-02] MEDS ORDERED: ASPIRIN CHEWABLE PO SCH (23:30)
[2018-07-02] MEDS ORDERED: SYMBICORT 160-4.5 MCG INHALER IH SCH (23:30)
--- NOTE | 2018-07-02 23:37 | PCM ---
- Chief Complaint Chief Complaint: Respiratory Distress, COPD Exacerbation, Recent Hospitalization - History of Present Illness History of Present Illness: 68 yo WM presented to [facility] ER 21:10 07/02/18 with worsening SOA and met with DR. Matamoros. Temp 100.3, pulse 100, RR 19, BP 154/97 and PO2 93% 21:08, reeated 20 minutes later and HR 102, RR 20, BP 132/95 and Pulse ox 91. 95% 20 minutes later. ABG completed in ER and PH 7.394, PC02 67.4, po2 35 hc03 41.2. Urine ph 7.5, sg 1.015. Blood trace. Moderate symptoms, moderate SOLO, movement worsened this. Bronchodilators improved this. Speaking in fragmented sentences. No rcent stress test, no recent echo. Diminished breath sounds present. Prolonged expiration present. Malaise, SOA, Wheezing, SOLO. History of HTN, asthma, COPD. No CBC/no CMP, no blood cultures. Reported verbally to me that he had negative CXR but radiology report suggests that there is a ROGELIO opacity, which could be a pneumonia. Given xopenex in ER and solumedrol. The patient had some improvement. He is on home O2 regularly. Home Bipap as well. Dr. Lopez called me at 10:33 PM noted that patient needed to stay for observational status on BIPAP. I noted that he was on BIPAP at home, how would that be different? I also reviewed Admited to on 06/18/18 and d/c on 06/23/18, seen by me on 06/30/18 for TCM Visit, contacted within 48 hours of discharge and seen within 1 week of hospital d/c. D/C summary obtained and reviewed by me. He had recent admit with ARF, acute on chronic resp failure with hypoxia, sepsis, pneumonia, Hypercapnic RF, RLL strep pneumo, Essential HTN, Hypotension due to drugs. Diprivan given and he became hypotensive. PAF, COPD. Pulm was consulted. S=Pneumo ag +. His BC grew staph, likely contaminate. Did well at day of d/c and needed ride home. Arrived at from [facility], intubated due to ARF. Started on IV steroids and IV abx, pulm consulted managed vent. Extubated on 06/19/18. Transitioned to BIPAP. He has new machine at home after most recent hospital stay with our hospital. He improved throughout hospital stay, did well on o2, worked with OT/Phs therapy, desired to return home. He is due to see pulm on 07/09/18. He did not want NH. Exam on D/C BP normal 134/ 81. temp 98.3, RR 20. 128lb. O2 91% on Ox NC. Discharged home on cefdinir 300 BID finished this 06/29/18. Mucinex 120mg, prednisone taper with 6 days left. Using albuterol neb solution 1.25/3ml. He is still on eliquis, ASA, symbicort, digoxin, cardizem, lasix, pravastatin, Vit D. Heart healthy diet. Dr. Mg completed D/C on 06/23/18. H+P reviewed as well. Lives at home with in [place], has been in and out of NH. Flu like illness 10-14 days prior to admit and then worsened and went to Er. Escalated quickly and had Po2 of 80% on 2L in ER, intubated given sux and etomidate and 7cm endotracheal tube. Had developing infiltrate in RLL. Rocephin in Er. Vanco prior to tx. Chronically ill appearing 68 yr old male vent support sedated with diprivan, low BP. EKG in our hospital showed NSR, PVC, RBBB. CBC WBC 12.23. INR 1.05. sodium 140, K+ 3.6. Liver function normal limits. CPK <20, T <0.012. LA 0.73. Pro calc <0.05. A/B flu negative. ABG acidotic pH 7.373, Pc-2 74, Co2 retainer. Po2 214. Bicarb 43 sats 100% on 60% FIO2. Prior to intubation pH of 7.283, Pc02 91.5. PO2 53. CTA no embolus or dissection. atelectassi vs early infiltrate in RLL. 2 G rocephin were given. Mag citrate was given. Legionella negative, BG coag neg strep. + Strep pneumo. Glucose 114, Cr 0.31 06/20/18. CBC at D/C WBC 7.53, Hgb 12.3, plt 211. CMP showed CO2 elevated at 40 which is chronic, Cr 0.25, ALT 29, AST 23. Remainder unremarkable. 04/21/18 admit . ARF w/ hypercap. Der. Adamson saw apteint. ABG done at that time, was having similar spell as to that discussed above. Dr. Cage admitted patient in 04/21/18. D/C care plan/ take meds and use bipap as directed. H+P reviewed. ELEVATED C02. gLUCOSE 128, CR 0.47, CO2 >40. REMAINDER unremarkable. At my OV on 06/30/18, the patient had cough w/ occasional yellow mucus, more in previous 48 hours. The patient had finished his cefdinir. I added doxycycline to cover for another 7 days. He was not SOA, felt like he was at baseline. he felt pretty good in relation to his breathing. He was doing neb tx q 4 hours albuterol and QID ipratropium. he needed albuterol for his neb machine, we continued that at last OV. In office he was talking in full sentences, he was on 2.5 L oxygen regularly. Using BiPap at night. No chest pain, SOA chronic stable. Cough chronic/stable. he feels like baseline but mucus is worse. This is now the 3rd hospital stay since March. Again, pulm OV 07/09/18. I would like him to keep that appt. Still w/o chest pain. New ?ROGELIO opacity. Odd place for aspiration. I will use doxy/cefdinir again. He has not reported any aspiration. I had talked with Dr. Lopez about bounce back to but patient wanted to stay, did not want . Per Dr. Lopez, he was stable on BIPAP. I will monitor overnight. If worsening respiratory issues, consider tx back to as he was rapidly intubated within last 30 days and ventilated for 48 hours. I have added CBC/CMP/Blood cultures now as not done so far. I will repeat CBC/ CMP tomorrow. He had strep pneumo recently, and I had initially wanted to cover with doxy/cefdinir again. Temp was borderline in ER. Patient seen 11:40 07/02/18. With his sudden change from 06/30 OV to now, I will get a CT PE protocol. With recent admission/intubation and new finding of RUL process I will get CT of chest and I will increase his abx to levaquin, Ceftriaxone and vancomycin. Hypoxemic respiratory failure, hypercapnia, afib, pulm htn, chronic CO2 narcosis and chronic anemia. He is currently on bipap 07/11 Rate of 20. Hospital admits 12/08/17, 01/27/18, ED evaluation 04/20/18. Admitted 05/17/18. ER evaluation 06/18/18, required intubation and admitted until 06/23/18. Now admitted again. He is not interested in DNR. Not interested in hospice for now. - Review of Systems Constitutional: chills, weakness, fatigue, loss of appetite. No: fever (? Subjective fever is possible. ), sweats, other Eyes: No: blurred vision, double-vision, discharge, itching, pain, redness, photophobia, other Ears: No: pain, bleeding, drainage, ringing, hearing loss, other Nose: congestion, discharge. No: bleeding, other Throat: No: pain, swelling, voice change, other Mouth: No: bleeding, pain, swelling, other Respiratory: cough, shortness of air, wheeze, pain with breathing Cardiovascular: No: chest pain, left arm pain, diaphoresis, PND, orthopnea, edema, palpitations, syncope, other Gastrointestinal: No: abdominal pain, other, nausea, vomiting, diarrhea, melena , hematemesis, hematochezia, dysphagia, constipation Genitourinary: No: dysuria, hematuria, frequency, incontinence, flank pain, penile discharge, testicular pain, testicular swelling, other Neurological: headache, dizziness, problems with walking. No: seizure, numbness , weakness, speech difficulty, tremor, fainting, other Musculoskeletal: No: pain, swelling in joints, other Skin: No: rash, pruritus, lacerations, wounds, bruising, other Immunology: frequent infections. No: hives, itching, difficulty healing, other Hematology: No: easy bruising, easy bleeding, swollen glands, other Endocrine: No: weight changes, cold intolerance, heat intolerance, excessive thirst, excessive hunger, polyuria Psychiatric: depression. No: anxiety, sleeplessness, hopelessness, suicidal, hallucinations, other Habits: No: tobacco use, substance use, alcohol use, other - Past Medical History Past Medical History: COPD Oxygen dependent 2.5L, HTN, Dysplidemia, OA, Enlarged heart Afib. Dilated aortic root, GERD. LVH mild TR. BIPAP. Hospital stay 06/18-06/23 intubated. COPD/hypercapneic respiratory failure. - Past Surgical History Past Surgical History: Tonsillectomy, Adenoidectomy - Allergies Allergies/Adverse Reactions: Allergies Allergy/AdvReac Type Severity Reaction Status Date / Time tiotropium bromide Allergy Mild rash Verified 07/02/18 21:15 [From Spiriva with HandiHaler] - Medications Medications: Medications Generic Name Dose Route Start Last Admin Trade Name Freq PRN Reason Stop Dose Admin Acetaminophen 650 mg 07/02/18 23:24 Tylenol PO Q4H PRN Mild Pain Albuterol Sulfate vial 07/02/18 23:30 Albuterol 0.042% Neb NEB q 4 hours prn EVE Apixaban 5 mg 07/03/18 09:00 Eliquis PO BID EVE Aspirin 81 mg 07/02/18 23:30 Aspirin Chewable PO d EVE Budesonide/Formoterol Fumarate puff 07/02/18 23:30 Symbicort 160-4.5 Mcg Inhaler IH 2 puffs BID EVE Digoxin 125 mcg 07/03/18 09:00 Lanoxin PO DAILY EVE Diltiazem HCl 120 mg 07/03/18 09:00 Cardizem Cd PO DAILY EVE Furosemide 20 mg 07/03/18 09:00 Lasix Tab PO DAILY EVE Ipratropium [place] 1 vial 07/03/18 00:00 Atrovent 0.02% Neb NEB RTQ6H EVE Pravastatin Sodium 20 mg 07/03/18 21:00 Pravachol PO BEDTIME EVE Sodium Chloride 1 syr 07/02/18 21:35 Saline Flush IVF PRN PRN To flush IV - Family History Past Family History: CAD/Asthma/COPD. Chronic hip/knee pain - Social History Past Social History: Former smoker, lives with . - Vital Signs Temperature: 100.3 F Pulse Rate: 102 Respiratory Rate: 20 Blood Pressure: 132/95 O2 Sat by Pulse Oximetry: 95 - Body Composition Height: 5 ft 8 in Weight: 124 lb 12.506 oz Body Mass Index (BMI): 18.9 - Physical Examination HEENT: Constitutional: Appearance-Moderate to severe acute respiratory distress, acute on chronic process, on BIPAP. Prominent barrel chest. Orientation- Oriented x 3, alert Gait- Not assessed Hospital bed. Build and Nutrition-[Thin, barrel chested, generalized thinning of head/neck/legs Kyphosis is present] General- Patient is pleasant and cooperative with the interview and exam using BIPAP 14/7 20 rate. Talks in broken sentences. Integumentary: General-No rashes, ulcers or lesions. Palpation- Normal skin moisture/turgor. Skin is warm to touch, appropriate. Capillary refill is normal bilateral Upper and lower extremity. No visible area of erythema along sacrum now. Previously w/ evidence of breakdown posteriorly. Head/Neck: Head- normocephalic and atraumatic. Neck- without visible/palpable lumps or pulsations. Palpation- No bony tenderness about head/neck along frontal, occipital, temporal, parietal, mastoid, jawline, zygoma, orbit or any other location. NO temporal artery tenderness. No TMJ tenderness. Neck Supple. Thyroid-No thyromegaly, no nodules Eye: Bilaterally PERRLA, EOMI. No discharge. Upper and lower eyelids are normal. Sclera/conjunctiva normal without discharge. Cornea is normal and clear. Lens is normal. Eyeball appears normal. No ciliary flushing, no conjunctival injection. ENMT: Pinna- normal without tenderness or erythema. External auditory canal Left- normal without erythema or discharge, no excessive cerumen. External auditory canal Right-normal without erythema or discharge, no excessive cerumen. TM left- [place]/pearly, normal light reflex and anatomy TM Right- [place]/ pearly, normal light reflex and anatomy Hearing Assessment-normal to conversational speech. Nose and sinus- No sinus tenderness along frontal/ maxillary region. External appearance normal and midline. Nares- Clear discharge. Nasal mucosa- No bleeding noted and no ulcerations observed. Erythematous Turbinates boggy. Lips- normal color, moist without cracks/lesions Oral Cavity/Palate- hard/soft palate intact without lesions, oral mucosa pink and moist. Tongue normal midline. Oropharynx- pharyngeal erythema, Uvula midline. post nasal drip. No exudate. Salivary glands- Non tender to palpation CHEST/LUNG: Inspection- barrel chest. Increased effort, moderate distress, diffused diminished air sounds. using abdominal accessory muscles, Using BIPAP Palpation- nontender sternum, ribline. No abnormal pulsations. Auscultation- Breath sounds decreased throughout all lung grayson. tracheal sounds, bronchial sounds overlying sternum, Bronchovessicular sounds between scapulae posteriorly , vessicular breath sounds heard throughout periphery. Adventitious sounds- wheezes, rales, rhonchi. INTUBATED WITHIN LAST WEEK 06/19/18 EXTUBATED. He is tolerating BIPAP now. He feels it is better for him. ABG did worsen after BIPAP slightly. CARDIOVASCULAR: Carotid artery- normal, no bruits or abnormal pulsations. Jugular vein- no pulsations. Palpation/Percussion- PMI displaced inferiorly. no palpable thrill Auscultation- Regular rate and rhythm. systolic III/ murmur noted in sitting/recumbent supine positions. Extremities- digital clubbing, no cyanosis, no peripheral edema, no increased warmth. ABDOMEN: Inspection- normal and no visible pulsations. Normal contour. Auscultation- Bowel sounds normal, no abdominal bruits. Palpation/Percussion- soft, non-tender, no rebound tenderness, no rigidity (guarding), no jar tenderness, no masses. Abdominal breathing. Peripheral Vascular: Upper extremity Left- Normal temperature with pink nailbeds and no ulcerations. Upper extremity Right- Normal temperature with pink nailbeds and no ulcerations. Lower extremity- Normal temperature with pink nailbeds and no ulcerations. DP pulses 1+ bilaterally. Pedal hair reduced. Normal capillary refill. Edema- No obvious edema. Musculoskeletal: Generalized-No generalized swelling or edema of extremities, no digital clubbing or cyanosis, neurovascularly intact all four extremities. Upper extremity- Symmetrical posture. No visible deformity. Normal sensation along medial and lateral upper extremity proximally and distally. NO tenderness overlying shoulder, lateral/medial epicondyle. Range Rider 5/5 and strength 5/5 bilateral UE. Elbow palpated, no tenderness overlying olecranon. Normal supination, pronation to active/passive ROM and to resisted rotation. Bicep insertion/tricep insertion appear normal without obvious pathology. Rotator cuff evaluated and intact. Normal wrist ROM bilaterally. Normal hand movement, intrinsic muscles of hands normal. No tenderness to palpation of hands/wrists/ elbows. Lower extremity- Hip: Not tender to palpation, no pain, no swelling, edema or erythema of surrounding tissue, normal strength and tone. Normal appearing hip ROM bilaterally without pain. Knee: Knee ROM normal. No tenderness overlying trochanters, no tenderness about patella, quad tendon, patellar tendon. No tenderness at tibial tuberosity. Moves all extremities. Incredibly thin shins/ arms. Spine/Ribs- No deformities, masses or tenderness, no known fractures, normal strength, Normal ROM. Normal stability No tenderness along C/T/L spine. Normal appearing ROM about spine. Neurological: General- Moves all 4 extremities symmetrically. Symmetrical face and body posture. Cranial nerves- individually evaluated II-XII and intact. PERRLA, Normal EOMI, visual/special senses appear intact, Face is symmetrical and normal sensation/movement, normal tongue, normal strength/posture of neck musculature. Reflexes- intact with DTR 2+ patellar, Achilles, bicep, brachial, tricep. Strength- 5/5 bilateral UE and LE. Soft touch- intact bilateral UE and LE. Temperature sensation- intact bilateral UE and LE. Neuropsych: Oriented- Person, place, time. (AAOx3), Mood/affect- normal and congruent. Able to articulate well. Speech-Normal speech, choppy as noted above. Aware of actions. He is full code. Thought content- normal with ability to perform basic computations and apply abstract thought/reason. Associations- intact, no SI/HI, no hallucinations, delusions, obsessions. Judgment/insight- Appropriate. Memory-Recall intact, remote and recent memory intact. Knowledge- Age appropriate fund of knowledge, concentration and attention span normal. Lymphatic: Head/Neck- normal size and non tender to palpation. Axillary- normal size and non tender to palpation. Femoral and Inguinal- normal size and non tender to palpation. - Lab/Tests/Diagnostic Imaging Lab/Tests/Diagnostic Imaging: Laboratory Last Values WBC 20.88 K/ul (4.2-10.2) H 07/02/18 23:59 RBC 4.73 10^6/ul (4.70-6.10) 07/02/18 23:59 Hgb 12.5 g/dl (14.0-18.0) L 07/02/18 23:59 Hct 42.0 % (42.0-52.0) 07/02/18 23:59 MCV 88.8 fl (80.0-94.0) 07/02/18 23:59 MCH 26.4 pg (27.0-31.0) L 07/02/18 23:59 MCHC 29.8 (31.8-35.4) L 07/02/18 23:59 RDW Coeff of Khai 15.4 % (11.6-14.8) H 07/02/18 23:59 Plt Count 252 10^3/uL (140-440) 07/02/18 23:59 Immature Gran % (Auto) 0.9 % (0.0-5.0) 07/02/18 23:59 Neut % (Auto) 95.1 07/02/18 23:59 Lymph % (Auto) 1.4 (10.0-50.0) L 07/02/18 23:59 [place] % (Auto) 2.5 (0-10) 07/02/18 23:59 Eos % (Auto) 0.0 % (0.0-7.0) 07/02/18 23: Baso % (Auto) 0.1 % (0.0-3.0) 07/02/18 23:59 Immature Gran # (Auto) 0.2 (0.0-1.0) 07/02/18 23:59 Neut # (Auto) 19.9 K/ul (2.0-6.9) H 07/02/18 23:59 Lymph # (Auto) 0.3 K/uL (0.60-3.4) L 07/02/18 23:59 [place] # (Auto) 0.5 K/uL (0.4-2.0) 07/02/18 23:59 Eos # (Auto) 0.0 K/ul (0.0-0.7) 07/02/18 23:59 Baso # (Auto) 0.0 K/uL (0-0.2) 07/02/18 23:59 Puncture Site Rb 07/02/18 22:40 O2 Saturation 92.0 % (95-100) L 07/02/18 22:40 ABG pH 7.387 (7.35-7.45) 07/02/18 22:40 ABG pCO2 67.6 mmHg (35-45) H 07/02/18 22:40 ABG pO2 66.0 mmHg (85-100) L 07/02/18 22:40 ABG HCO3 40.6 (22.0-26.0) H 07/02/18 22:40 ABG Total CO2 43 (22.0-28.0) H 07/02/18 22:40 ABG Base Excess 16 (-2.0-2.0) H 07/02/18 22:40 Nader Test + 07/02/18 22:40 O2 Delivery Device Bipap 07/02/18 22:40 FiO2 % 40.0 % 07/02/18 22:40 Sodium 137.2 mmol/L (134.5-145) 07/02/18 23:59 Potassium 3.89 mmol/L (3.5-5.1) 07/02/18 23:59 Chloride 94.5 mmol/L (98-107) L 07/02/18 23:59 Carbon Dioxide 37.6 mmol/L (22-30.0) H 07/02/18 23:59 Anion Gap 8.99 07/02/18 23:59 BUN 13.0 mg/dL (9-20) 07/02/18 23:59 Creatinine 0.37 mg/dL (0.60-1.10) L 07/02/18 23:59 Estimated GFR (MDRD) 233.00 mL/min 07/02/18 23:59 BUN/Creatinine Ratio 35.13 07/02/18 23:59 Glucose 119.9 mg/dL (74-106) H 07/02/18 23:59 Calcium 8.53 mg/dL (8.4-10.2) 07/02/18 23:59 Total Bilirubin 0.95 mg/dL (0.2-1.3) 07/02/18 23:59 AST 15.9 U/L (17-59) L 07/02/18 23:59 ALT 14.8 U/L (0-50) 07/02/18 23:59 Alkaline Phosphatase 68.4 U/L (56-119) 07/02/18 23:59 Total Protein 6.52 g/dL (6.3-8.2) 07/02/18 23:59 Albumin 3.67 g/dL (3.5-5.0) 07/02/18 23:59 Globulin 2.85 07/02/18 23:59 Albumin/Globulin Ratio 1.28 07/02/18 23:59 Urine Color Yellow (YELLOW) 07/02/18 22:31 Urine Clarity Clear (CLEAR) 07/02/18 22:31 Urine pH 7.5 (5-9) 07/02/18 22:31 Ur Specific [place] 1.015 (1.005-1.030) 07/02/18 22:31 Urine Protein 1+ (NEGATIVE) 07/02/18 22:31 Urine Glucose (UA) Negative (NEGATIVE) 07/02/18 22:31 Urine Ketones 1+ (NEGATIVE) 07/02/18 22:31 Urine Blood Trace-intact (NEGATIVE) 07/02/18 22:31 Urine Nitrite Negative (NEGATIVE) 07/02/18 22:31 Urine Bilirubin Negative (NEGATIVE) 07/02/18 22:31 Urine Urobilinogen 2.0 (0.2) 07/02/18 22:31 Ur Leukocyte Esterase Negative (NEGATIVE) 07/02/18 22:31 Urine Microscopic RBC 10-20 (0-2) 07/02/18 22:31 Urine Microscopic WBC 2-5 (0-2) 07/02/18 22:31 Ur Squamous Epith Cells 2-5 (0-5) 07/02/18 22:31 Amorphous Sediment Trace (NOT PRESENT) 07/02/18 22:31 Urine Mucus 1+ (NOT PRESENT) 07/02/18 22:31 CXR: RUL Opacity ABG Independent interpretation chronic respiratory acidosis with metabolic alkalosis. CT PE protocol ordered Blood culture ordered Sputum culture ordered. - Assessment (1) Hypercapnic respiratory failure Status: Acute Code(s): J96.92 - RESPIRATORY FAILURE, UNSPECIFIED WITH HYPERCAPNIA SNOMED Code(s): 061055081 (2) Adult BMI <19 kg/sq m Status: Acute Code(s): Z68.1 - BODY MASS INDEX (BMI) 19.9 OR LESS, ADULT SNOMED Code(s): 082296345 (3) BiPAP (biphasic positive airway pressure) dependence Status: Acute Code(s): Z99.89 - DEPENDENCE ON OTHER ENABLING MACHINES AND DEVICES SNOMED Code(s): 105592017 (4) COPD exacerbation Status: Acute Code(s): J44.1 - CHRONIC OBSTRUCTIVE PULMONARY DISEASE W (ACUTE ) EXACERBATION SNOMED Code(s): 576618348, 299144226 (5) History of pressure ulcer Status: Acute Code(s): Z87.2 - PERSONAL HISTORY OF DISEASES OF THE SKIN, SUBCU SNOMED Code(s): 447497139 (6) Leukocytosis Status: Acute Code(s): D72.829 - ELEVATED WHITE BLOOD CELL COUNT, UNSPECIFIED SNOMED Code(s): 051466179, 498946097 (7) Pneumonia Status: Acute Code(s): J18.9 - PNEUMONIA, UNSPECIFIED ORGANISM SNOMED Code(s ): 251030180 Qualifiers: Pneumonia type: due to unspecified organism Laterality: bilateral (8) Former smoker Status: Acute Code(s): Z87.891 - PERSONAL HISTORY OF NICOTINE DEPENDENCE SNOMED Code(s): 9240508 - Plan Plan: COPD exacerbation w/ Pneumonia hypercapneic/O2 dependent: Recent hospitalization requiring intubation within last 10 days. He has beenon abx within past 3 months. Complicated scenario. On BIPAP now 14/7 RR 20. He is stable at this time and better than admit. Resp acid with secondary met alk. PORT score of at least 80-89 supports inpatient therapy and risk class II mortality of 0.9-2.8%. Curb 65 only 1 point. The patient is on respiratory therapy now albuterol 1.25 q 4 hours (jittery), continue home meds of ipratropium QID. Talked with RT and ER MD today. I discussed return to if concern, he said patient did not want to go back. We will continue q4 neb. I will continue solumedrol. I will add ceftriaxone, Levaquin and vanco. WBC is markedly elevated. SIRS criteria are met. ABG/UA/CXR is what was done when conversation was had between Dr. Lopez and myself. I have ordered blood culture , sputum cultures, CBC/CMP and I want to get a PE protocol with his sudden onset of symptoms. We will continue to use BIPAP at parameters listed and monitor O2 and symptoms. He has OP eval by pulm 07/09/18 and I would like to get him to that event. He wants full code. Lengthy discussion with Chelsy Nurse, Thad STOUT and myself about meaning of full code. He may benefit from return to [place] after hospital stay. He admits to using BIPAP at home. Abx x 5 days. Work to Maintain O2 and ease his work of breathing. Reviewed heckerling rule (temp> 100 (yes), HR>100 (yes), Rales (yes), decreased breath sounds (yes), absence of asthma (maybe). >5 points. IN ER setting Pretest probability 15% patient has LR of 17 with 75% post test probability. Hospitalized 12/08/17, 01/27/18, , 06/18/18, 07/03/18. Intubated 06/18-. CT Chest ordered, awaiting this. - Admit inpatient - CT CHEST - BIPAP overnight. - Rocephin 1 gram daily x 5 days - Vanco 1 gram BID. - Levaquin 500 IV daily - Albuterol 1.25/3ml q 4 hours pRN - Ipratopium QID. - I+O q shift. - O2 Titrated to maintain PO2 >92 but <98 - Prednisone 40mg daily x 5 days starting 01/28/18. - Check influenza Leukocytosis: Monitor. Metamyelocytes present. Need to monitor. - Repeat CBC in am Normocytic anemia: Monitor - Repeat CBC in am. Afib: Chronic stable problem, will monitor while in hospital. Rate is stable. On eliquis. On TEle so far SR w/ ?First degree block - Continue home dose eliquis DVT Prophy: Chronic stable problem, will monitor while in hospital. Rate is stable. On eliquis. - Continue eliquis History of Pressure Ulcer Stage 1: No ulcer that I could see. monitor. - Rolling/skin care. Diet: Regular (NPO FOR CT) Activity: Up with assist. Code: Full. Discussed at length with patient today. Disposition: Expected length of stay 2-3 days based on his current symptoms. If any worse, I will consider transfer to as he was there 1 week ago. Patient today was given that option as he was just there, to return to the previous hospital. He did not want to go back yet as he felt the BIPAP that we were using was helping. He is worse than when I saw him 06/30/18. He is adamant about full code, not interested in hospice. R/B/A to this decision d/w patient. I will check influenza, he had this earlier this year. Symptoms support COPD exacerbation, RUL pneumonia. He has had multiple rounds of abx. Concernign for MRSA Risk factors and less likely but still prsent pseudomonal risks. We will continue the 1.25 albuterol as this causes him to have less tachy and less jittery feeling. Monitor on Tele, continue eliquis. Abx, albuterol q4 hours and ipratopium 4x daily. I will continue his solumedrol. > 70 minutes spent on admission for patient. Reviewed and summarized ER information, reviewed and summarized last hospital admission, discussed case with ER physician personally, discussed Code status with patient, interviewed/ examined patient and completed w/u as above. Concern for pneumonia. Concern for worsening respiratory failure. I will give ~12 hour trial of BIPAP. Patient did not want transfer aware of need to transfer should ABG worsen, should respiratory system decline further. Will reassess patient ~6-7 am.
[2018-07-02] MEDS ORDERED: DOXYCYCLINE HYCLATE PO SCH (23:45)
[2018-07-02] MEDS ORDERED: OMNICEF PO SCH (23:45)
[2018-07-03] MEDS ORDERED: VANCOMYCIN 1 GM in SODIUM CHLORIDE 250 ML IV SCH (01:00)
[2018-07-03] MEDS ORDERED: LEVAQUIN 500 MG in PREMIX 100 ML WATER 1 BAG IV SCH (01:00)
[2018-07-03] MEDS: ALBUTEROL 0.083% NEB NEB SCH ×2 (02:40→04:30)
--- NOTE | 2018-07-03 03:03 | CT ---
EXAM: CT angiogram chest with intravenous contrast 07/03/2018. Multi planar reformatted images obta joséd. MIP and three-dimensional reconstructed images provided HISTORY: Shortness of breath COMPARISON: 07/13, 06/18/2018 FINDINGS: There are no pulmonary arterial filling defects to suggest pulmonary embolus. Emphysematous changes throughout both lungs. Large emphysematous blebs are present throughout both l ungs. There is a small area of consolidation at the left lung base which is increased. This may represent atelectasis and/or pneumonia. There is a large area of consolidation within the dependent aspect of the right lower lobe which likely represents pneumonia. Small bilateral pleural effusions are new. The heart size remains stable. There is no pericardial effusion. No acute abnormality of the thorac ic aorta. Chronic degenerative changes throughout the thoracic spine. No acute osseous abnormality. IMPRESSION: 1. No evidence pulmonary embolus 2. Severe emphysematous changes throughout both lungs. 3. Consolidation in the dependent aspect of both lungs. This likely represents a combination of ate lectasis and/or pneumonia. This is much more prominent on the right. 4. Small bilateral pleural effusions.
[2018-07-03] MEDS ORDERED: LEVAQUIN 100 ML IV ONE (03:05)
[2018-07-03] MEDS ORDERED: ROCEPHIN ONE (03:06)
[2018-07-03] MEDS: ROCEPHIN 1 GM in SODIUM CHLORIDE 50 ML IV SCH ×2 (03:30→04:08)
[2018-07-03] MEDS ORDERED: VERSED ONE ×2 (05:29→05:33)
[2018-07-03] MEDS ORDERED: ANECTINE ONE (05:29)
[2018-07-03 05:48] VITALS: BP 132/95; TEMP 100.3
[2018-07-03] MEDS ORDERED: VERSED IVP STA ×4 (05:50→07:17)
[2018-07-03] MEDS ORDERED: ANECTINE IVP STA (05:52)
[2018-07-03] MEDS ORDERED: PROPOFOL IV ONE (05:54)
[2018-07-03] MEDS ORDERED: ATROVENT 0.02% NEB NEB SCH ×2 (06:00)
--- NOTE | 2018-07-03 06:01 | PCM.PROG ---
Subjective: 68 yo hospital day 2 admitted 07/02/18 with respiratory failure and suspected worsening pneumonia/atelectasis. CT ordered by me and found to have "no e/o PE , severe emphysematous changes throughout both lungs, consolidation in the dependent aspect of both lungs likely atelectasis and or pneumonia. More prominent on right. small bilateral pleural effusions." Labs ordered by me on floor CBC showed WBC 20.88, hgb 12.5, plt 252. MCV was 88.8 and normal RDW elevated at 15.4. Lymph 1.4% and neutrophilia w/ Neutrophil # at 19.9 and Lymph # at 0.3. Repeat CBC this am showed essentially unchanged. WBC 19.83, hgb 12.3, plt 245. Essentially same differential. I was called at 5:45 in am and informed by nurses the pH has dropped on ABG from 7.387 to 7.29 PC02 has increased from 67.6 to 79.5 and ow has improved to 75.0. HC03 decreased slightly to 38.3. The patient has been on BIPAP throughout night 07/11 RR 20. Chemistry at midnight was reasonable Sodium 137.2, k+ 3.89, Cl 94.5, cr 0.37, glucose 119.9 and calcium 8.53. AST 15.9, alt 14.8. Repeat this am at 440 was essentially unchanged other than glucose increased from 119.9 to 179.1 with solumedrol. He was ordered albuterol q 4 hours, ipratropium QID. I changed his abx upon arrival to vanco 1 G q12, rocephin 1 G daily and levaquin 500 daily. Flu ordered by me returned negative. With the above symptoms I recommended to nursing to contact ER physician or post tronic machine operator anesthesia to intubate the patient and prepare for a transfer. Telemetry shows SR and 1st AVB since 23:51 when we applied him to the telemetry. Afebrile. 98.7 x 2. Was 100.3 in ER. O2 90-97 on BiPAP 40% FIO2. HR staying around 100. No I+O data has been calculated. Patient arrived in ER 21:10 07/02/18 and I was contacted at 2233 came to hospital to evaluate patient. He was in room 111, I moved him to SCU and added bloodwork as noted. Cultures of blood collected/pending. Culture of sputum ordered, influenza ordered. He has had admissions to hospital 12/08/17, 01/27/18, 05/17/18, 06/18/18 (intubated) 07/03/18 (now intubated). Chronic respiratory failure,suspected end stage pulmonary disease. Worsening hypercapneic respiratory failure. REVIEW OF SYMPTOMS: (Positives bolded) General: weight loss, fever (SUBECTIVE), chills, night sweats, fatigue, appetite loss HEENT: blurry vision, eye pain, eye discharge, dry eyes, decreased vision, sore throat tinnitus, bloody nose, hearin gloss, sinus pain/pressure, ear pain/ pressure. Respiratory: shortness of breath, cough, hemoptysis, wheezing, pleurisy, Cardiovascular: chest pain, PND, palpitation, edema, orthopnea, syncope, swelling of extremities Gastro: Nausea, vomiting, diarrhea, hematemesis, abdominal pain, constipation Genito: hematuria, dysuria, glycosuria, hesitancy, frequency, incontinence [place]: Arthralgia, myalgia, muscle weakness, joint swelling, NSAID use Skin: rash, pruritis, sores, nail changes, skin thickening, change in wart/mole , itching, rash, new lesions Neuro: Migraine, numbness, ataxia, tremor, vertigo, weakness, memory loss, Irritability, dizziness Endocrine: excessive thirst, polyuria, cold intolerance, heat intolerance, goiter Psychiatric: depression, anxiety, anti-depressants, alcohol abuse, drug abuse, insomnia, change in sleep pattern and mood changes Heme/lymph: easy bruising, bleeding gums, blood clots, swollen glands, lymphedema, Allergic/immune: allergic rhinitis, hay fever, asthma, hives Objective: Vital Signs - 24 hr 07/02/18 07/02/18 07/02/18 21:08 21:28 21:45 Temperature 100.3 F H Pulse Rate 100 H 102 H Pulse Rate [ Apical] Respiratory 19 20 Rate Blood Pressure 154/97 H 132/95 H O2 Sat by Pulse 93 L 91 L 95 Oximetry 07/02/18 07/03/18 07/03/18 23:22 02:00 02:58 Temperature 98.7 F 98.7 F Pulse Rate 100 H 100 H Pulse Rate [ 100 H Apical] Respiratory 22 22 Rate Blood Pressure 120/72 O2 Sat by Pulse 100 90 L 97 Oximetry 07/03/18 05:49 Temperature 100.3 F H Pulse Rate 102 H Pulse Rate [ Apical] Respiratory 20 Rate Blood Pressure 132/95 H O2 Sat by Pulse 95 Oximetry Constitutional: Appearance-severe acute respiratory distress, acute on chronic process, on BIPAP. ABG worsening. Prominent barrel chest. Build and Nutrition- [Thin, barrel chested, generalized thinning of head/neck/legs Kyphosis is present] General- using BIPAP 14/ 20 rate. Talks in broken sentences. Integumentary: General-No rashes, ulcers or lesions. Palpation- Normal skin moisture/turgor. Skin is warm to touch, appropriate. Capillary refill is normal bilateral Upper and lower extremity. No visible area of erythema along sacrum now. Previously w/ evidence of breakdown posteriorly. Healing abrasion base of nose. Eye: Bilaterally PERRLA, EOMI. No discharge. Upper and lower eyelids are normal. Sclera/conjunctiva normal without discharge. Cornea is normal and clear. Lens is normal. Eyeball appears normal. No ciliary flushing, no conjunctival injection. ENMT: Nares- Clear discharge. Nasal mucosa- No bleeding noted and no ulcerations observed. Erythematous Turbinates boggy. Lips- normal color, moist without cracks/lesions Oral Cavity/Palate- hard/soft palate intact without lesions, oral mucosa pink and moist. Tongue normal midline. Oropharynx- pharyngeal erythema, Uvula midline. post nasal drip. No exudate. CHEST/LUNG: Inspection- barrel chest. Increased effort, moderate distress, diffused diminished air sounds. Worsening ABG this am despite use of BIPAP and monitored through last 6 hours. He continues to use abdominal accessory muscles , Using BIPAP Palpation- nontender sternum, ribline. No abnormal pulsations. Auscultation- Breath sounds decreased throughout all lung grayson. tracheal sounds, bronchial sounds overlying sternum, Bronchovessicular sounds between scapulae posteriorly, vessicular breath sounds heard throughout periphery. Adventitious sounds- wheezes, rales, rhonchi. ABG worsened after BIPAP. CARDIOVASCULAR: Palpation/Percussion- PMI displaced inferiorly. no palpable thrill Auscultation- Regular rate and rhythm. systolic III/ murmur noted in sitting/recumbent supine positions. Extremities- digital clubbing, no cyanosis, no peripheral edema, no increased warmth. ABDOMEN: Inspection- normal and no visible pulsations. Normal contour. Auscultation- Bowel sounds normal, no abdominal bruits. Palpation/Percussion- soft, non-tender, no rebound tenderness, no rigidity (guarding), no jar tenderness, no masses. Abdominal breathing. Peripheral Vascular: Upper extremity Left- Normal temperature with pink nailbeds and no ulcerations. Upper extremity Right- Normal temperature with pink nailbeds and no ulcerations. Lower extremity- Normal temperature with pink nailbeds and no ulcerations. DP pulses 1+ bilaterally. Pedal hair reduced. Normal capillary refill. Edema- No obvious edema. Musculoskeletal: Generalized-No generalized swelling or edema of extremities, no digital clubbing or cyanosis, neurovascularly intact all four extremities. Neurological: General- Moves all 4 extremities symmetrically. Symmetrical face and body posture. Cranial nerves- individually evaluated II-XII and intact. PERRLA, Normal EOMI, visual/special senses appear intact, Face is symmetrical and normal sensation/movement, normal tongue, normal strength/posture of neck musculature. Neuropsych: Oriented- Person, place, time. (AAOx3), Mood/affect- Fearful, understandably. Speech- Disrupted. Thought content- Appears normal Associations - intact, no SI/HI, no hallucinations, delusions, obsessions. Judgment/insight - Appropriate. Memory-Recall appears intact, remote and recent memory intact. Knowledge- Age appropriate fund of knowledge, concentration and attention span normal. Lymphatic: Head/Neck- normal size and non tender to palpation. Axillary- normal size and non tender to palpation. Femoral and Inguinal- normal size and non tender to palpation. Laboratory Last Values WBC 19.83 K/ul (4.2-10.2) H 07/03/18 04:40 RBC 4.70 10^6/ul (4.70-6.10) 07/03/18 04:40 Hgb 12.3 g/dl (14.0-18.0) L 07/03/18 04:40 Hct 41.8 % (42.0-52.0) L 07/03/18 04:40 MCV 88.9 fl (80.0-94.0) 07/03/18 04:40 MCH 26.2 pg (27.0-31.0) L 07/03/18 04:40 MCHC 29.4 (31.8-35.4) L 07/03/18 04:40 RDW Coeff of Khai 15.6 % (11.6-14.8) H 07/03/18 04:40 Plt Count 245 10^3/uL (140-440) 07/03/18 04:40 Immature Gran % (Auto) 0.5 % (0.0-5.0) 07/03/18 04:40 Neut % (Auto) 97.3 07/03/18 04:40 Lymph % (Auto) 1.3 (10.0-50.0) L 07/03/18 04:40 [place] % (Auto) 0.8 (0-10) 07/03/18 04:40 Eos % (Auto) 0.0 % (0.0-7.0) 07/03/18 04:40 Baso % (Auto) 0.1 % (0.0-3.0) 07/03/18 04:40 Immature Gran # (Auto) 0.1 (0.0-1.0) 07/03/18 04:40 Neut # (Auto) 19.3 K/ul (2.0-6.9) H 07/03/18 04:40 Lymph # (Auto) 0.3 K/uL (0.60-3.4) L 07/03/18 04:40 [place] # (Auto) 0.2 K/uL (0.4-2.0) L 07/03/18 04:40 Eos # (Auto) 0.0 K/ul (0.0-0.7) 07/03/18 04:40 Baso # (Auto) 0.0 K/uL (0-0.2) 07/03/18 04:40 Puncture Site Rrad 07/03/18 05:12 O2 Saturation 92.0 % (95-100) L 07/03/18 05:12 ABG pH 7.29 (7.35-7.45) L* 07/03/18 05:12 ABG pCO2 79.5 mmHg (35-45) H 07/03/18 05:12 ABG pO2 75.0 mmHg (85-100) L 07/03/18 05:12 ABG HCO3 38.3 (22.0-26.0) H 07/03/18 05:12 ABG Total CO2 41 (22.0-28.0) H 07/03/18 05:12 ABG Base Excess 12 (-2.0-2.0) H 07/03/18 05:12 Nader Test + 07/03/18 05:12 O2 Delivery Device Bipap 07/03/18 05:12 FiO2 % 40.0 % 07/03/18 05:12 Sodium 136.9 mmol/L (134.5-145) 07/03/18 04:40 Potassium 4.07 mmol/L (3.5-5.1) 07/03/18 04:40 Chloride 94.1 mmol/L (98-107) L 07/03/18 04:40 Carbon Dioxide 39.1 mmol/L (22-30.0) H 07/03/18 04:40 Anion Gap 7.77 07/03/18 04:40 BUN 14.2 mg/dL (9-20) 07/03/18 04:40 Creatinine 0.38 mg/dL (0.60-1.10) L 07/03/18 04:40 Estimated GFR (MDRD) 226.00 mL/min 07/03/18 04:40 BUN/Creatinine Ratio 37.36 07/03/18 04:40 Glucose 179.1 mg/dL (74-106) H D 07/03/18 04:40 Calcium 8.63 mg/dL (8.4-10.2) 07/03/18 04:40 Total Bilirubin 0.45 mg/dL (0.2-1.3) 07/03/18 04:40 AST 17.1 U/L (17-59) 07/03/18 04:40 ALT 16.2 U/L (0-50) 07/03/18 04:40 Alkaline Phosphatase 65.6 U/L (56-119) 07/03/18 04:40 Total Protein 6.44 g/dL (6.3-8.2) 07/03/18 04:40 Albumin 3.52 g/dL (3.5-5.0) 07/03/18 04:40 Globulin 2.92 07/03/18 04:40 Albumin/Globulin Ratio 1.20 07/03/18 04:40 Urine Color Yellow (YELLOW) 07/02/18 22:31 Urine Clarity Clear (CLEAR) 07/02/18 22:31 Urine pH 7.5 (5-9) 07/02/18 22:31 Ur Specific [place] 1.015 (1.005-1.030) 07/02/18 22:31 Urine Protein 1+ (NEGATIVE) 07/02/18 22:31 Urine Glucose (UA) Negative (NEGATIVE) 07/02/18 22:31 Urine Ketones 1+ (NEGATIVE) 07/02/18 22:31 Urine Blood Trace-intact (NEGATIVE) 07/02/18 22:31 Urine Nitrite Negative (NEGATIVE) 07/02/18 22:31 Urine Bilirubin Negative (NEGATIVE) 07/02/18 22: Urine Urobilinogen 2.0 (0.2) 07/02/18 22: Ur Leukocyte Esterase Negative (NEGATIVE) 07/02/18 22:31 Urine Microscopic RBC 10-20 (0-2) 07/02/18 22:31 Urine Microscopic WBC 2-5 (0-2) 07/02/18 22:31 Ur Squamous Epith Cells 2-5 (0-5) 07/02/18 22:31 Amorphous Sediment Trace (NOT PRESENT) 07/02/18 22:31 Urine Mucus 1+ (NOT PRESENT) 07/02/18 22:31 Influ A Molecular Assay Negative by naat (NEGATIVE) 07/03/18 03:35 Influ B Molecular Assay Negative by naat (NEGATIVE) 07/03/18 03:35 CT Chest: no e/o PE, severe emphysematous changes throughout both lungs, consolidation in the dependent aspect of both lungs likely atelectasis and or pneumonia. More prominent on right. small bilateral pleural effusions. PENDING: Blood CULTURE SPUTUM CULTURE (1) Hypercapnic respiratory failure Status: Acute Code(s): J96.92 - RESPIRATORY FAILURE, UNSPECIFIED WITH HYPERCAPNIA SNOMED Code(s): 268840413 (2) Adult BMI <19 kg/sq m Status: Acute Code(s): Z68.1 - BODY MASS INDEX (BMI) 19.9 OR LESS, ADULT SNOMED Code(s): 731545183 (3) BiPAP (biphasic positive airway pressure) dependence Status: Acute Code(s): Z99.89 - DEPENDENCE ON OTHER ENABLING MACHINES AND DEVICES SNOMED Code(s): 281132708 (4) COPD exacerbation Status: Acute Code(s): J44.1 - CHRONIC OBSTRUCTIVE PULMONARY DISEASE W (ACUTE ) EXACERBATION SNOMED Code(s): 322810347 (5) History of pressure ulcer Status: Acute Code(s): Z87.2 - PERSONAL HISTORY OF DISEASES OF THE SKIN, SUBCU SNOMED Code(s): 868287210 (6) Leukocytosis Status: Acute Code(s): D72.829 - ELEVATED WHITE BLOOD CELL COUNT, UNSPECIFIED SNOMED Code(s): 720251660 (7) Pneumonia Status: Acute Code(s): J18.9 - PNEUMONIA, UNSPECIFIED ORGANISM SNOMED Code(s ): 900719216 (8) Former smoker Status: Acute Code(s): Z87.891 - PERSONAL HISTORY OF NICOTINE DEPENDENCE SNOMED Code(s): 8119960 Plan: COPD exacerbation w/ Pneumonia hypercapneic/O2 dependent: Worsening ABG despite BIPAP. I have paged for anesthesia or ER to intubate patient, we will transfer to [facility]. Patient did not want to go there from ER. We set him up on BiPAP his CO2 is worsening, PH is worsening. CT showed some pleural effusions and bilateral lower process instead of the opacity in RUL seen on CXR. He has been afebrile. With worsening pH I am concerned for respiratory decline and I feel pulmonology would be helpful. I will continue the rocephin, vanco, levaquin while here. Continue solumedrol while here. Leukocytosis is present. Blood and sputum cultures pending. On BIPAP now 07/11 RR 20. He is worsened from admit and needs acute care stay. ABG interpretation this am worsening Resp acid with secondary met alk. - Admit inpatient - Transfer to [facility]. - Contact Er/score caller anesthesia for intubation - Continue Rocephin 1 gram daily x 5 days/Vanco 1 gram BID (pharmacy trough)/ Levaquin 500 IV daily - Albuterol 1.25/3ml q 4 hours and Ipratopium QID. - I+O q shift. - O2 Titrated to maintain PO2 >92 but <98 Leukocytosis: Prominent WBC with neutrophilia process of demargination vs acute illness. He has been on steroids, is afebrile. Has met SIRS criteria. - Repeat CBC in am Normocytic anemia: Monitor. CBC 12.3 this am, mild. Afib: Chronic stable problem, he is not currently out of rhythm. Tele has shown sinus/sinus tachy, 1st degree AV block but not AFIB. - Continue home dose eliquis DVT Prophy: Chronic stable problem, will monitor while in hospital. Not in Afib according to telemetry. On eliquis. - Continue eliquis History of Pressure Ulcer Stage 1: No ulcer that I could see w/ this hospital stay. monitor. - Rolling/skin care. Diet: Regular Activity: Up with assist. Code: Full. Discussed at length with patient today. Disposition: Worsening pulmonary function. Contacted by nurse this am 545 after admitted last night just before midnight. We trialed ~6 hours of BiPAP and he has had worsened ABG this am. I will set up transfer to [facility]. Patient to be set for intubation. 35 minutes spent coordinating care, not including documentaiton. 16 English sher. Intubated with versed and succinylcoline. BP did drop, map 58. Bolus ordered and BP improved/stabilized. He was waking up from the versed and another 5mg was given at 7:10 this am. EMS contacted, appropriate forms completed and patient set to be transferred. patient was waking up. Discussed case with ER team. Recommended vecuron. The patient will have order for vecuron 10mg to be used PRN. This was not given but is present just in case.
[2018-07-03] MEDS ORDERED: SODIUM CHLORIDE 1,000 ML IV SCH (06:30)
[2018-07-03] MEDS ORDERED: NORCURON IVP STA ×2 (07:17→07:19)
--- NOTE | 2018-07-03 07:33 | PCM.DC ---
Final Diagnosis: All Active Problems Acute respiratory failure with hypercapnia (Acute) Pneumonia (Acute) Atrial fib/flutter, transient (Chronic) In rhythm Former smoker (Acute) Adult BMI <19 kg/sq m (Acute) BiPAP (biphasic positive airway pressure) dependence (Acute) COPD (chronic obstructive pulmonary disease) (Acute) History of pressure ulcer (Acute) Leukocytosis (Acute) Normocytic anemia (Acute) essential HTN Intubated (1) Hypercapnic respiratory failure Status: Acute Code(s): J96.92 - RESPIRATORY FAILURE, UNSPECIFIED WITH HYPERCAPNIA SNOMED Code(s): 316167728 (2) Adult BMI <19 kg/sq m Status: Acute Code(s): Z68.1 - BODY MASS INDEX (BMI) 19.9 OR LESS, ADULT SNOMED Code(s): 175477607 (3) BiPAP (biphasic positive airway pressure) dependence Status: Acute Code(s): Z99.89 - DEPENDENCE ON OTHER ENABLING MACHINES AND DEVICES SNOMED Code(s): 904026451 (4) COPD exacerbation Status: Acute Code(s): J44.1 - CHRONIC OBSTRUCTIVE PULMONARY DISEASE W (ACUTE ) EXACERBATION SNOMED Code(s): 747930569, 691401027 (5) History of pressure ulcer Status: Acute Code(s): Z87.2 - PERSONAL HISTORY OF DISEASES OF THE SKIN, SUBCU SNOMED Code(s): 825863804 (6) Leukocytosis Status: Acute Code(s): D72.829 - ELEVATED WHITE BLOOD CELL COUNT, UNSPECIFIED SNOMED Code(s): 378878894, 625663987 (7) Pneumonia Status: Acute Code(s): J18.9 - PNEUMONIA, UNSPECIFIED ORGANISM SNOMED Code(s ): 600488299 Qualifiers: Pneumonia type: due to unspecified organism Laterality: bilateral (8) Former smoker Status: Acute Code(s): Z87.891 - PERSONAL HISTORY OF NICOTINE DEPENDENCE SNOMED Code(s): 6063006 (9) SIRS (systemic inflammatory response syndrome) Status: Acute Code(s): R65.10 - SIRS OF NON-INFECTIOUS ORIGIN W/O ACUTE ORGAN DYSFUNCTION SNOMED Code(s): 266937239 Reason for Hospitalization: Acute respiratory distress, failure, chronic COPD, hypercapneic. ABG with acidosis, secondary met alk. Worsening pulmonary status, chronic COPD. Recent admit [facility] 06/18-06/23/18. Seen in Outpatient clinic 06/30/18 doing okay , acutely worsened 07/02/18. No PE on CT. Suspect pneumonia. Prognosis at Discharge: Worsening, requiring urgent intubation this am. The patient is currently on ventilator, RR 14. ABG post ventilator improved 7.346, BXL029.5. Hc03 37.5. He started waking up another dose of 5mg versed given. He was given PRN vecuron should he need it in transfer. This was not given. Talked with ER team and this was recommendation for transfer. Condition at Discharge: Stable on ventilator, versed given 7:10 5mg again. The patient is stable, ABG looks better after ventilator. Medications at Discharge: Ambulatory Orders Medication Instructions Recorded Aspirin 81 mg PO d 10/19/13 Albuterol Sulfate 0.083% Neb 1 vial NEB RTQ4H 30 Days #120 01/30/18 [Albuterol 0.083% Neb] vial.neb Pravastatin Sodium [Pravachol] 20 mg PO BEDTIME tablet 05/20/18 Menthol/Zinc Oxide [Calmoseptine 1 applic TP BID PRN 06/18/18 Ointment] Albuterol Sulfate 0.083% Neb 1 vial NEB RTQ4H vial.neb 07/03/18 [Albuterol 0.083% Neb] Ceftriaxone Sodium [Rocephin] 1 gm IV DAILY vial 07/03/18 Ipratropium [place] 0.02% Neb 1 vial NEB RTQ6H vial.neb 07/03/18 [Atrovent 0.02% Neb] Ipratropium [place] 0.02% Neb 1 vial NEB RTTID vial.neb 07/03/18 [Atrovent 0.02% Neb] Levofloxacin/D5w [Levaquin] 500 mg IV DAILY bag 07/03/18 Methylprednisolone Sod Succ/Pf 125 mg IM ONCE vial 07/03/18 [Solu-Medrol 125 mg] Vancomycin HCl [Vancomycin] 1 gm IV Q12HR vial 07/03/18 Lab/Diagnostics: Laboratory Last Values WBC 19.83 K/ul (4.2-10.2) H 07/03/18 04:40 RBC 4.70 10^6/ul (4.70-6.10) 07/03/18 04:40 Hgb 12.3 g/dl (14.0-18.0) L 07/03/18 04:40 Hct 41.8 % (42.0-52.0) L 07/03/18 04:40 MCV 88.9 fl (80.0-94.0) 07/03/18 04:40 MCH 26.2 pg (27.0-31.0) L 07/03/18 04:40 MCHC 29.4 (31.8-35.4) L 07/03/18 04:40 RDW Coeff of Khai 15.6 % (11.6-14.8) H 07/03/18 04:40 Plt Count 245 10^3/uL (140-440) 07/03/18 04:40 Immature Gran % (Auto) 0.5 % (0.0-5.0) 07/03/18 04:40 Neut % (Auto) 97.3 07/03/18 04:40 Lymph % (Auto) 1.3 (10.0-50.0) L 07/03/18 04:40 Harper % (Auto) 0.8 (0-10) 07/03/18 04:40 Eos % (Auto) 0.0 % (0.0-7.0) 07/03/18 04:40 Baso % (Auto) 0.1 % (0.0-3.0) 07/03/18 04:40 Immature Gran # (Auto) 0.1 (0.0-1.0) 07/03/18 04:40 Neut # (Auto) 19.3 K/ul (2.0-6.9) H 07/03/18 04:40 Lymph # (Auto) 0.3 K/uL (0.60-3.4) L 07/03/18 04:40 Harper # (Auto) 0.2 K/uL (0.4-2.0) L 07/03/18 04:40 Eos # (Auto) 0.0 K/ul (0.0-0.7) 07/03/18 04:40 Baso # (Auto) 0.0 K/uL (0-0.2) 07/03/18 04:40 Puncture Site Lb 07/03/18 05:30 O2 Saturation 100.0 % (95-100) 07/03/18 05:30 ABG pH 7.346 (7.35-7.45) L 07/03/18 05:30 ABG pCO2 68.5 mmHg (35-45) H 07/03/18 05:30 ABG pO2 295.0 mmHg (85-100) H 07/03/18 05:30 ABG HCO3 37.5 (22.0-26.0) H 07/03/18 05:30 ABG Total CO2 40 (22.0-28.0) H 07/03/18 05:30 ABG Base Excess 12 (-2.0-2.0) H 07/03/18 05:30 Nader Test + 07/03/18 05:30 O2 Delivery Device Vent 07/03/18 05:30 FiO2 % 100.0 % 07/03/18 05:30 Sodium 136.9 mmol/L (134.5-145) 07/03/18 04:40 Potassium 4.07 mmol/L (3.5-5.1) 07/03/18 04:40 Chloride 94.1 mmol/L (98-107) L 07/03/18 04:40 Carbon Dioxide 39.1 mmol/L (22-30.0) H 07/03/18 04:40 Anion Gap 7.77 07/03/18 04:40 BUN 14.2 mg/dL (9-20) 07/03/18 04:40 Creatinine 0.38 mg/dL (0.60-1.10) L 07/03/18 04:40 Estimated GFR (MDRD) 226.00 mL/min 07/03/18 04:40 BUN/Creatinine Ratio 37.36 07/03/18 04:40 Glucose 179.1 mg/dL (74-106) H D 07/03/18 04:40 Calcium 8.63 mg/dL (8.4-10.2) 07/03/18 04:40 Total Bilirubin 0.45 mg/dL (0.2-1.3) 07/03/18 04:40 AST 17.1 U/L (17-59) 07/03/18 04:40 ALT 16.2 U/L (0-50) 07/03/18 04:40 Alkaline Phosphatase 65.6 U/L (56-119) 07/03/18 04:40 NT-Pro-B Natriuret Pep 186.000 pg/mL (0-124) H 07/03/18 04:40 Total Protein 6.44 g/dL (6.3-8.2) 07/03/18 04:40 Albumin 3.52 g/dL (3.5-5.0) 07/03/18 04:40 Globulin 2.92 07/03/18 04:40 Albumin/Globulin Ratio 1.20 07/03/18 04:40 Urine Color Yellow (YELLOW) 07/02/18 22:31 Urine Clarity Clear (CLEAR) 07/02/18 22:31 Urine pH 7.5 (5-9) 07/02/18 22:31 Ur Specific [place] 1.015 (1.005-1.030) 07/02/18 22:31 Urine Protein 1+ (NEGATIVE) 07/02/18 22:31 Urine Glucose (UA) Negative (NEGATIVE) 07/02/18 22:31 Urine Ketones 1+ (NEGATIVE) 07/02/18 22:31 Urine Blood Trace-intact (NEGATIVE) 07/02/18 22:31 Urine Nitrite Negative (NEGATIVE) 07/02/18 22:31 Urine Bilirubin Negative (NEGATIVE) 07/02/18 22:31 Urine Urobilinogen 2.0 (0.2) 07/02/18 22:31 Ur Leukocyte Esterase Negative (NEGATIVE) 07/02/18 22:31 Urine Microscopic RBC 10-20 (0-2) 03 22:31 Urine Microscopic WBC 2-5 (0-2) 07/02/18 22:31 Ur Squamous Epith Cells 2-5 (0-5) 07/02/18 22:31 Amorphous Sediment Trace (NOT PRESENT) 07/02/18 22:31 Urine Mucus 1+ (NOT PRESENT) 07/02/18 22:31 Influ A Molecular Assay Negative by naat (NEGATIVE) 07/03/18 03:35 Influ B Molecular Assay Negative by naat (NEGATIVE) 07/03/18 03:35 ABG most recent 7.346, PCo2 68.5, Hc03 37.5. CT chest this am. no e/o PE, severe emphysematous changes throughout both lungs , consolidation in the dependent aspect of both lungs likely atelectasis and or pneumonia. More prominent on right. small bilateral pleural effusions. PENDING: Blood CULTURE SPUTUM CULTURE Education Provided to Patient and Family: 1. Code status prolonged conversation in office 06/30/18 as outpatient and again on floor 07/02/18 with nurse and RT present. Patient wants full code. He does understand risks of CPR, understands complications of ventilator and he wants everything done. 2. Suspect end stage COPD/respiratory. Multiple admits in last 6 months (5 admits) 3. He has had close f/u, has been in and out of [place], has had abx. I have him on levaquin (has not yet been given), ceftriaxone (given), vancomycin (given). He was d/c on cefdinir from and I added doxy back 06/30/18 and he has had 1.5 days of this rx before hospital. 4. Risks of intubation, need to intubate discussed with him 23:30 07/02/18 and again this am before need to intubate. Intubation completed by Dr. conner. Follow-ups: 1. Transfer to [facility]. ICU 4. Dr. Kinsey 2. Vecuron 10mg per Er team as PRN dose if needed for transport. Nurse Chelsy transport w/ patient. Disposition: TSF OTHER Hospital Course: 68 yo WM presented to [facility] ER 21:10 07/02/18 with worsening SOA and met with DR. Matamoros. Temp 100.3, pulse 100, RR 19, BP 154/97 and PO2 93% 21:08, re- evaluated 20 minutes later and HR 102, RR 20, BP 132/95 and Pulse ox 91. 95% 20 minutes later. ABG completed in ER and PH 7.394, PC02 67.4, po2 35 hc03 41.2. Urine ph 7.5, sg 1.015. Blood trace. Moderate symptoms, moderate SOLO, movement worsened this. Bronchodilators improved this. Speaking in fragmented sentences. No rcent stress test, no recent echo. Diminished breath sounds present. Prolonged expiration present. Malaise, SOA, Wheezing, SOLO. History of HTN, asthma, COPD. No CBC/no CMP, no blood cultures. Reported verbally to me that he had negative CXR but radiology report suggests that there is a ROGELIO opacity, which could be a pneumonia. Given xopenex in ER and solumedrol. The patient had some improvement. He is on home O2 regularly. Home Bipap as well. Dr. Conner called me at 10:33 PM noted that patient needed to stay for observational status on BIPAP. I noted that he was on BIPAP at home, how would that be different? I also reviewed Admited to on 06/18/18 and d/c on 06/23/18 , seen by me on 06/30/18 for TCM Visit, contacted within 48 hours of discharge and seen within 1 week of hospital d/c. D/C summary obtained and reviewed by me. He had recent admit with ARF, acute on chronic resp failure with hypoxia, sepsis, pneumonia, Hypercapnic RF, RLL strep pneumo, Essential HTN, Hypotension due to drugs. Diprivan given and he became hypotensive. PAF, COPD. Pulm was consulted. S=Pneumo ag +. His BC grew staph, likely contaminate. Did well at day of d/c and needed ride home. Arrived at from [facility] Tx, intubated due to ARF. Started on IV steroids and IV abx, pulm consulted managed vent. Extubated on 06/19/18. Transitioned to BIPAP. He has new machine at home after most recent hospital stay with our hospital. He improved throughout hospital stay, did well on o2, worked with OT/Phs therapy, desired to return home. He is due to see pulm on 07/09/18. He did not want NH. Exam on D/C BP normal 134/ 81. temp 98.3, RR 20. 128lb. O2 91% on Ox NC. Discharged home on cefdinir 300 BID finished this 06/29/18. Mucinex 120mg, prednisone taper with 6 days left. Using albuterol neb solution 1.25/3ml. He is still on eliquis, ASA, symbicort, digoxin, cardizem, lasix, pravastatin, Vit D. Heart healthy diet. Dr. Mg completed D/C on 06/23/18. H+P reviewed as well. Lives at home with in [place], has been in and out of [place]. Flu like illness 10-14 days prior to admit and then worsened and went to Er. Escalated quickly and had Po2 of 80% on 2L in ER, intubated given sux and etomidate and 7cm endotracheal tube. Had developing infiltrate in RLL. Rocephin in Er. Vanco prior to tx. Chronically ill appearing 68 yr old male vent support sedated with diprivan, low BP. EKG in our hospital showed NSR, PVC, RBBB. CBC WBC 12.23. INR 1.05. sodium 140, K+ 3.6. Liver function normal limits. CPK <20, T <0.012. LA 0.73. Pro calc <0.05. A/B flu negative. ABG acidotic pH 7.373, Pc-2 74, Co2 retainer. Po2 214. Bicarb 43 sats 100% on 60% FIO2. Prior to intubation pH of 7.283, Pc02 91.5. PO2 53. CTA no embolus or dissection. atelectassi vs early infiltrate in RLL. 2 G rocephin were given. Mag citrate was given. Legionella negative, BG coag neg strep. + Strep pneumo. Glucose 114, Cr 0.31 06/20/18. CBC at D/C WBC 7.53, Hgb 12.3, plt 211. CMP showed CO2 elevated at 40 which is chronic, Cr 0.25, ALT 29, AST 23. Remainder unremarkable. 04/21/18 admit . ARF w/ hypercap. Der. Adamson saw apteint. ABG done at that time, was having similar spell as to that discussed above. Dr. Cage admitted patient in 04/21/18. D/C care plan/ take meds and use bipap as directed. H+P reviewed. ELEVATED C02. gLUCOSE 128, CR 0.47, CO2 >40. REMAINDER unremarkable. At my OV on 06/30/18, the patient had cough w/ occasional yellow mucus, more in previous 48 hours. The patient had finished his cefdinir. I added doxycycline to cover for another 7 days. He was not SOA, felt like he was at baseline. he felt pretty good in relation to his breathing. He was doing neb tx q 4 hours albuterol and QID ipratropium. he needed albuterol for his neb machine, we continued that at last OV. In office he was talking in full sentences, he was on 2.5 L oxygen regularly. Using BiPap at night. No chest pain, SOA chronic stable. Cough chronic/stable. This is now the 4th hospital stay since January. Still w/o chest pain. New ?ROGELIO opacity. He had not reported any aspiration. I had talked with Dr. Conner about return to as this was essentially the same thing that caused him to be admitted last time. Patient wanted to stay, did not want to be transfered . Per Dr. Conner, he was stable on BIPAP. Because patient did not want transfer, I agreed to monitor overnight. I suspected that he would potentially worsen, especially if home. The patient did not want to go, wanted to trial BiPAP. I added CBC/CMP/Blood cultures, as not done so far. I repeated CBC/CMP am 07/03/18 and not much difference noted. He had strep pneumo urine ag + in recently, and I had initially wanted to cover with doxy/cefdinir again. Temp was borderline in ER. Patient seen 11:40 07/02/18. With his sudden change from 06/30 OV to now, I ordered CT PE protocol, which was negative. With recent admission/ intubation and new finding of RUL process I will get CT of chest and I will increase his abx to levaquin, Ceftriaxone and vancomycin. Hypoxemic respiratory failure, hypercapnia, intermittent afib, pulm htn, chronic CO2 narcosis and chronic anemia. He is currently on bipap 07/11 Rate of 20. Hospital records reviewed. admits 12/08/17, 01/27/18, ED evaluation 04/20/18. Admitted 05/17/18. ER evaluation 06/18/18, required intubation and admitted until 06/23/18. Now admitted again. He is not interested in DNR. Not interested in hospice for now. This am, hospital day 2 I was called 5:19 and I can to assess patient. Worsening respiratory failure, worsening ABG and suspected worsening pneumonia/ atelectasis. CT ordered by me and found to have "no e/o PE, severe emphysematous changes throughout both lungs, consolidation in the dependent aspect of both lungs likely atelectasis and or pneumonia. More prominent on right. small bilateral pleural effusions." Labs ordered by me on floor CBC showed WBC 20.88, hgb 12.5, plt 252. MCV was 88.8 and normal RDW elevated at 15.4. Lymph 1.4% and neutrophilia w/ Neutrophil # at 19.9 and Lymph # at 0.3. Repeat CBC this am showed essentially unchanged. WBC 19.83, hgb 12.3, plt 245. Essentially same differential. I was called at 5:45 in am and informed by nurses the pH has dropped on ABG from 7.387 to 7.29 PC02 has increased from 67.6 to 79.5 and ow has improved to 75.0. HC03 decreased slightly to 38.3. The patient has been on BIPAP throughout night 07/11 RR 20. Chemistry at midnight was reasonable Sodium 137.2, k+ 3.89, Cl 94.5, cr 0.37, glucose 119.9 and calcium 8.53. AST 15.9, alt 14.8. Repeat this am at 440 was essentially unchanged other than glucose increased from 119.9 to 179.1 with solumedrol. He was ordered albuterol q 4 hours, ipratropium QID. I changed his abx upon arrival to vanco 1 G q12, rocephin 1 G daily and levaquin 500 daily. Flu ordered by me returned negative. With the above symptoms I recommended to nursing to contact ER physician or contracting engineer anesthesia to intubate the patient and prepare for a transfer. Telemetry shows SR and 1st AVB since 23:51 when we applied him to the telemetry. Afebrile. 98.7 x 2. Was 100.3 in ER. O2 90-97 on BiPAP 40% FIO2. HR staying around 100. No I+O data has been calculated. Patient arrived in ER 21:10 07/02/18 and I was contacted at 2233 came to hospital to evaluate patient. He was in room 111, I moved him to SCU and added bloodwork as noted. Cultures of blood collected/pending. Culture of sputum ordered, influenza ordered. He has had admissions to hospital 12/08/17, 01/27/18 , 05/17/18, 06/18/18 (intubated) 07/03/18 (now intubated). Chronic respiratory failure,suspected end stage pulmonary disease. Worsening hypercapneic respiratory failure. Versed given 7:10. Vecuron 10mg IVP ordered for just in case during transport. patient transported via EMS, ventilated. The patient ABG improved and he was set for transfer. Plan: 1. Transfer [facility]. 2. Intubated, Versed 5mg given. 3. ABG improved post ventilator. 4. EMS transfer >30 minutes spent in counselling/coordination of care, transfer, not including documentation.
--- NOTE | 2018-07-03 07:48 | DI ---
EXAM: Single frontal view of the chest HISTORY: Intubation. COMPARISON: Chest x-ray 07/14/2018 and multiple priors FINDINGS: ET tube demonstrates the tip 4.5 cm above the jennifer. The cardiomediastinal silhouette is unremarkable. There is no pneumothorax or effusion. There is no consolidation, nodule or mass. [place] gs are mildly hyperinflated. The osseous structures are unremarkable. IMPRESSION: 1. No acute cardiopulmonary process. ET tube with tip 4.5 cm above the jennifer. 2. Chronic obstructive pulmonary disease.
[2018-07-03] MEDS ORDERED: ELIQUIS PO SCH (09:00)
[2018-07-03] MEDS ORDERED: CARDIZEM CD PO SCH (09:00)
[2018-07-03] MEDS ORDERED: LASIX TAB PO SCH (09:00)
[2018-07-03] MEDS ORDERED: LANOXIN PO SCH (09:00)
[2018-07-03] MEDS ORDERED: PRAVACHOL PO SCH (21:00)
== END 2018-07-03 07:41 | disposition short-term general hospital (02) | DRG 190 ==
LOC: ED 21:07 → SCU 22:57 → UNDOADMOB 22:57 → MEDSURG A 22:57 → ED 23:27
PROVIDERS: ADMIT Family Medicine; ATTEND Family Medicine
DX: J44.1 Chronic obstructive pulmonary disease with (acute) exacerbation (principal); J96.92 Respiratory failure, unspecified with hypercapnia; J18.9 Pneumonia, unspecified organism; R65.10 Systemic inflammatory response syndrome (SIRS) of non-infectious origin without acute organ dysfunction; Z68.1 Body mass index [BMI] 19.9 or less, adult; D72.829 Elevated white blood cell count, unspecified; R06.2 Wheezing; R06.00 Dyspnea, unspecified; R53.81 Other malaise; R06.89 Other abnormalities of breathing; Z87.891 Personal history of nicotine dependence; Z87.2 Personal history of diseases of the skin and subcutaneous tissue; Z99.89 Dependence on other enabling machines and devices
CPT/HCPCS: 36415; 80053; 81001; 82803; 83880; 85025; 87040; 87081; 87502; 93005; 93010; 94002; 94640; 94660; 96361; 96374; 96375; 96376; 99285

== ENCOUNTER 2018-07-03 07:42 | Outpatient (CLI) | payer OTHER ==
[2018-07-02 21:15] VITALS: BMI 18.9
== END 2018-07-03 07:59 | disposition short-term general hospital (02) ==
LOC: AMBL 07:42
PROVIDERS: ATTEND Internal Medicine
DX: J96.20 Acute and chronic respiratory failure, unspecified whether with hypoxia or hypercapnia (principal); I95.9 Hypotension, unspecified

== ENCOUNTER 2018-12-06 03:55 | Inpatient (IN) ==
[2018-12-06] MEDS ORDERED: DUONEB NEB STA (03:56)
[2018-12-06] MEDS ORDERED: ALBUTEROL 0.083% NEB NEB STA (03:59)
[2018-12-06] MEDS ORDERED: SOLU-MEDROL 125 MG IVP STA (04:03)
--- NOTE | 2018-12-06 04:03 | ED.PDOC ---
General ED Provider: Dr. KONSTANTIN OSBORNE Chief Complaint: Shortness of Air Stated Complaint: shortness of breath that started this morning, Woke him from sleep. Time Seen by Physician: 04:01 Information Source: Patient Exam Limitations: No limitations Primary Care Provider: JANETH BOSS Nursing and Triage Documentation Reviewed and Agree: Yes Does patient meet sepsis criteria?: No System Inflammatory Response Syndrome: Resp >20/Minute Sepsis Protocol: For patient's 13 years and over: Temp is 96.8 and below OR 101 and greater Pulse >90 BPM Resp >20/minute Acutely Altered Mental Status Are patient's symptoms suggestive of a new infection, such as: -Pneumonia -Skin, Soft Tissue -Endocarditis -UTI -Bone, Joint Infection -Implantable Device -Acute Abdominal Infection -Wound Infection -Meningitis -Blood Stream Catheter Infection -Unknown Respiratory Complaint Exam - Shortness of Air Complaint/Exam Onset/Duration: 1 hour Symptoms Are: Still present Timing: Constant Initial Severity: Severe Current Severity: Severe Character: Reports: Dyspnea at rest Aggravating: Reports: Weather Associated Signs and Symptoms: Reports: Cough, Rapid breathing, Labored breathing Pulmonary Embolism Risk Factors: Reports: None Cardiac Risk Factors: Denies: Prior MA, CAD Pseudomonas Risk Factors: Reports: None Tuberculosis Risk Factors: Reports: None Home Oxygen Use: Yes (2 liters with BIPAP) Recent Stress Test: No Recent Echo/LV Function: No Respiratory Distress: Moderate Stridor Present: No Tracheal Deviation: No Subcutaneous Emphysema: No Accessory Muscle Use: Yes Retractions: Not Present Diminished Breath Sounds: Yes Prolonged Expiratory Phase: No Unable to Speak Full Sentences: Yes Fatigue: No Leg Swelling: No Angela's Sign Present: No Grunting Respirations: No Kussmaul Respirations: No Differential Diagnoses: COPD Exacerbation Quality Indicator For Non-Traumatic Chest Pain/Syncope: EKG Performed Quality Indicators For Pneumonia/CAP: Blood Cultures-SCU admit, Antibiotics in 6hr-admit Review of Systems - Review Of Systems Constitutional: Reports: No symptoms Eyes: Reports: No symptoms Ears, Nose, Mouth, Throat: Reports: No symptoms Respiratory: Reports: Cough, Short of air, Wheezing Cardiac: Reports: No symptoms GI: Reports: No symptoms : Reports: No symptoms Musculoskeletal: Reports: No symptoms Skin: Reports: No symptoms Neurological: Reports: No symptoms Endocrine: Reports: No symptoms Hematologic/Lymphatic: Reports: No symptoms All Other Systems: Reviewed and Negative Past Medical History - Past Medical History Previously Healthy: No Endocrine: Reports: None Cardiovascular: Reports: Hypertension Respiratory: Reports: COPD, Asthma Hematological: Reports: None Gastrointestinal: Reports: None Genitourinary: Reports: None Neuro/Psych: Reports: None Musculoskeletal: Reports: None Cancer: Reports: None Other Pertinent Past Medical History: flu shot Sep 25 has several friends also not feeling well after shot - Surgical History General Surgical History: Reports: Tonsillectomy - Family History Family History: Reports: Unknown - Social History Smoking Status: Former smoker Hx Substance Use: No Alcohol Screening: None Physical Exam - Physical Exam Appearance: Ill-appearing Pain Distress: None Eyes: BRITANY, EOMI, Conjunctiva clear Neck: Supple Respiratory: Breath sounds diminished Cardiovascular: RRR, Pulses normal, No rub, No murmur GI/: Soft, Nontender, No masses, Bowel sounds normal, No Organomegaly Musculoskeletal: Normal strength Skin: Warm Neurological: Alert, Oriented Psychiatric: Anxious Interpretation - Radiology Interpretation Radiology Interpretation By: ED Physician Radiology Results: No acute changes (COPD) Exam Interpreted: Portable CXR - Manufacturing Machine Operator Rate: Normal Rhythm: Sinus Ectopy: None - EKG Interpretation Time of EKG #1: 04:11 Rate: Normal Rhythm: Sinus [place]: NL ST Segment: Normal Interpretation: non specific T waves Re-Evaluation - Re-Evaluation Time of Re-Evaluation: 05:01 Status: Improved Vital Signs Stable: Yes Appearance: NAD (feels more comfortably) Lungs: Other (moving some air) - Re-Evaluation Time of Re-Evaluation: 05:23 Status: Improved (continues to feel well. ) Vital Signs Stable: Yes Appearance: NAD Skin: Warm and Dry Neuro: Alert and Oriented X3 CV: RRR Physician Notification - Case Discussed Physician Notified: Dr Kraft Time of Notification: 05:22 (admit to the Unit ) Critical Care Note - Critical Care Note Total Time (mins): 45 Course - Course Hematology/Chemistry: 12/06/18 04:10 12/06/18 04:10 Orders, Labs, Meds: Lab Review 12/06/18 12/06/18 12/06/18 03:56 04:10 04:10 WBC 15.25 H RBC 5.07 Hgb 13.4 L Hct 45.6 MCV 89.9 MCH 26.4 L MCHC 29.4 L RDW Coeff of Khai 14.7 Plt Count 213 Immature Gran % (Auto) 0.8 Neut % (Auto) 78.4 Lymph % (Auto) 13.8 [place] % (Auto) 5.9 Eos % (Auto) 0.8 Baso % (Auto) 0.3 Immature Gran # (Auto) 0.1 Neut # (Auto) 12.0 H Lymph # (Auto) 2.1 [place] # (Auto) 0.9 Eos # (Auto) 0.1 Baso # (Auto) 0.0 Puncture Site Lrad O2 Saturation 91.0 L ABG pH 7.486 H ABG pCO2 54.5 H ABG pO2 58.0 L* ABG HCO3 41.1 H ABG Total CO2 43 H ABG Base Excess 18 H Nader Test + FiO2 % 21.0 Sodium 137.2 Potassium 4.29 Chloride 87.7 L Carbon Dioxide 42.9 H* Anion Gap 10.89 BUN 17.5 Creatinine 0.55 L Estimated GFR (MDRD) 147.00 BUN/Creatinine Ratio 31.81 Glucose 115.3 H Lactic Acid Calcium 8.86 Total Bilirubin 0.63 AST 18.2 ALT 17.5 Alkaline Phosphatase 82.7 Total Creatine Kinase 21.3 L Troponin I < 0.012 NT-Pro-B Natriuret Pep Total Protein 6.80 Albumin 3.96 Globulin 2.84 Albumin/Globulin Ratio 1.39 Procalcitonin 12/06/18 12/06/18 12/06/18 04:10 04:10 04:10 WBC RBC Hgb Hct MCV MCH MCHC RDW Coeff of Khai Plt Count Immature Gran % (Auto) Neut % (Auto) Lymph % (Auto) [place] % (Auto) Eos % (Auto) Baso % (Auto) Immature Gran # (Auto) Neut # (Auto) Lymph # (Auto) [place] # (Auto) Eos # (Auto) Baso # (Auto) Puncture Site O2 Saturation ABG pH ABG pCO2 ABG pO2 ABG HCO3 ABG Total CO2 ABG Base Excess Nader Test FiO2 % Sodium Potassium Chloride Carbon Dioxide Anion Gap BUN Creatinine Estimated GFR (MDRD) BUN/Creatinine Ratio Glucose Lactic Acid 0.91 Calcium Total Bilirubin AST ALT Alkaline Phosphatase Total Creatine Kinase Troponin I NT-Pro-B Natriuret Pep 176.000 H Total Protein Albumin Globulin Albumin/Globulin Ratio Procalcitonin < 0.05 Orders Category Date Time Status ABG DRAW REQUEST Stat CARDIO 12/06/18 03:57 Completed EKG-(ED ONLY) Stat CARDIO 12/06/18 03:56 Completed NEBULIZER TREATMENT Stat CARDIO 12/06/18 04:00 Completed NEBULIZER TREATMENT Stat CARDIO 12/06/18 04:06 Completed ED FILTERATION OPERATOR APPLIED .ONCE EMERGENCY 12/06/18 03:56 Active ED IV/MEDIPORT/POWERPORT .ONCE EMERGENCY 12/06/18 03:56 Active ABG Stat LAB 12/06/18 03:56 Completed BLOOD CULTURE (ED ONLY) Stat LAB 12/06/18 04:25 Received CBC W/ AUTO DIFF Stat LAB 12/06/18 04:10 Completed COMPREHENSIVE METABOLIC PANEL Stat LAB 12/06/18 04:10 Completed CREATINE KINASE Stat LAB 12/06/18 04:10 Completed LACTIC ACID Stat LAB 12/06/18 04:10 Completed PROBNP [NT-PROBNP] Stat LAB 12/06/18 04:10 Completed PROCALCITONIN Stat LAB 12/06/18 04:10 Completed TROPONIN I Stat LAB 12/06/18 04:10 Completed 0.9 % Sodium Chloride [Saline Flush] MEDS 12/06/18 03:56 Active 1 syr IVF PRN PRN Albuterol Sulfate 0.083% Neb [Albuterol 0.083% Neb] MEDS 12/06/18 03:59 Discontinued 1 vial NEB ONCE STA Budesonide [Pulmicort 0.25 mg/2 ml] MEDS 12/06/18 04:06 Discontinued 1 vial NEB ONCE STA Budesonide [Pulmicort 0.5 mg/2 ml] MEDS 12/06/18 04:28 Discontinued 1 vial NEB .STK-MED ONE Budesonide [Pulmicort 0.5 mg/2 ml] MEDS 12/06/18 04:41 Discontinued 1 vial NEB ONCE STA Ceftriaxone/D5w 1 gm Premix [Rocephin 1 gm Premix] 1 gm MEDS 12/06/18 04:20 Discontinued Premix 50 ml D5w 1 bag IV ONCE Ceftriaxone/D5w 1 gm Premix [Rocephin 1 gm Premix] 50 MEDS 12/06/18 04:25 Discontinued ml IV .STK-MED Methylprednisolone Sod Succ/Pf [Solu-Medrol 125 mg] MEDS 12/06/18 04:03 Discontinued 125 mg IVP ONCE STA CHEST, 1V AP ONLY Stat RADS 12/06/18 03:56 Taken Medications Generic Name Dose Route Start Last Admin Trade Name Freq PRN Reason Stop Dose Admin Sodium Chloride 1 syr 12/06/18 03:56 12/06/18 04:09 Saline Flush IVF 1 syr PRN PRN Administration To flush IV Discontinued Medications Generic Name Dose Route Start Last Admin Trade Name Freq PRN Reason Stop Dose Admin Albuterol Sulfate 1 vial 12/06/18 03:59 12/06/18 04:06 Albuterol 0.083% Neb NEB 12/06/18 04:00 1 vial ONCE STA Administration Budesonide 1 vial 12/06/18 04:06 12/06/18 04:35 Pulmicort 0.25 Mg/2 Ml NEB 12/06/18 04:07 Not Given ONCE STA Budesonide 1 vial 12/06/18 04:41 12/06/18 04:43 Pulmicort 0.5 Mg/2 Ml NEB 12/06/18 04:42 Not Given ONCE STA CEFTRIAXONE/D5W 1 GM PREMIX 1 50 mls @ 75 mls/hr 12/06/18 04:20 12/06/18 04: 35 gm/ Dextrose IV 12/06/18 04:59 75 mls/hr ONCE STA Administration Methylprednisolone Sodium Succinate 125 mg 12/06/18 04:03 12/06/18 04:08 Solu-Medrol 125 Mg IVP 12/06/18 04:04 125 mg ONCE STA Administration Vital Signs: Temp Pulse Resp BP Pulse Ox 12/06/18 03:56 98.8 F 97 H 28 H 125/88 88 L Departure - Departure Time of Disposition: 05:22 Disposition: ADMITTED INPATIENT Discharge Problem: COPD exacerbation Condition: Fair Pt referred to PMD for follow-up: Yes IPMP verified?: No Allergies/Adverse Reactions: Allergies tiotropium bromide [From Spiriva with HandiHaler] Allergy (Mild, Verified 17:00) rash Home Medications: Ambulatory Orders Aspirin 81 mg PO d 10/19/13 Ipratropium [place] 0.02% Neb [Atrovent 0.02% Neb] 1 vial NEB RTQ6H vial.neb Cholecalciferol (Vitamin D3) [Vitamin D3] 5,000 unit PO DAILY 12/06/18 Disposition Discussed With: Patient
[2018-12-06] MEDS ORDERED: PULMICORT 0.25 MG/2 ML NEB STA (04:06)
[2018-12-06] MEDS ORDERED: ROCEPHIN 1 GM PREMIX 1 GM in PREMIX 50 ML D5W 1 BAG IV STA (04:20)
[2018-12-06] MEDS ORDERED: ROCEPHIN 1 GM PREMIX 50 ML IV ONE (04:25)
[2018-12-06] MEDS ORDERED: PULMICORT 0.5 MG/2 ML NEB ONE (04:28)
[2018-12-06] MEDS ORDERED: PULMICORT 0.5 MG/2 ML NEB STA (04:41)
[2018-12-06] MEDS ORDERED: TYLENOL PO PRN (05:25)
[2018-12-06] MEDS ORDERED: PULMICORT 1 MG/2 ML NEB STA (05:25)
[2018-12-06] MEDS ORDERED: ZITHROMAX PO STA (05:25)
[2018-12-06] MEDS ORDERED: ZOFRAN 4 MG/2 ML IVP PRN (05:25)
[2018-12-06] MEDS ORDERED: MORPHINE 2 MG/ML SYRINGE IVP PRN (05:25)
[2018-12-06] MEDS ORDERED: PULMICORT 0.5 MG/2 ML NEB SCH (06:00)
--- NOTE | 2018-12-06 06:25 | DI ---
EXAM: Chest, single view 12/06/2018 HISTORY: Shortness of breath COMPARISON: 11/23/2018 FINDINGS / IMPRESSION: Cardiomediastinal contours appear stable. Interstitial prominence within bot h lungs may relate to areas of atelectasis, scarring and/or pneumonitis. There is no focal pulmonary consolidation. No pleural effusion or pneumothorax.
[2018-12-06 06:28] VITALS: BMI 19.8
[2018-12-06] MEDS: ATROVENT 0.02% NEB NEB SCH ×4 (06:38→23:00)
[2018-12-06] MEDS: XOPENEX 0.63 MG NEB SCH ×4 (06:38→23:00)
[2018-12-06] MEDS: SODIUM CHLORIDE 1,000 ML IV SCH ×2 (06:39→19:22)
[2018-12-06] MEDS ORDERED: SYMBICORT 160-4.5 MCG INHALER IH SCH (09:00)
[2018-12-06] MEDS ORDERED: LOVENOX SUBCUT SCH (09:00)
[2018-12-06] MEDS: VITAMIN D PO SCH (09:04)
[2018-12-06] MEDS: ASPIRIN CHEWABLE PO SCH (09:04)
[2018-12-06] MEDS: CARDIZEM CD PO SCH (09:05)
[2018-12-06] MEDS: LANOXIN PO SCH (09:05)
[2018-12-06] MEDS: LASIX TAB PO SCH (09:05)
[2018-12-06] MEDS: ELIQUIS PO SCH ×2 (09:06→20:17)
--- NOTE | 2018-12-06 11:49 | HP ---
DATE OF SERVICE: 12/06/18 REASON FOR HOSPITALIZATION: COPD exacerbation. HISTORY OF PRESENT ILLNESS: This 68 year old WHITE/ M was hospitalized 12/06/18 with exacerbation of COPD. The patient had hypoxemia as usual. He is on BIPAP off and on. He is on BIPAP during the daytime when he takes a nap and at nighttime. The patient was previously a patient of Dr. Cheek. The patient was discharged for being noncompliant in followup. He sees Dr. Wong, [employer]. The patient had a cough with congestion worsening in 24 hours. PAST MEDICAL HISTORY: The patient is on Eliquis likely from atrial fibrillation, will look into that, is on Digoxin Hypertension Dyslipidemia Severe chronic lung disease on BIPAP Noncompliance PAST SURGICAL HISTORY: T & A as a child. REVIEW OF SYSTEMS: CONSTITUTIONAL: No night sweats. No fatigue, malaise, lethargy. No fever or chills. HEENT: Eyes: No visual changes. No eye pain. No eye discharge. ENT: No runny nose. No epistaxis. No sinus pain. No sore throat. No odynophagia. No ear pain. No congestion. RESPIRATORY: Cough and congestion. No hemoptysis. Shortness of breath. CARDIOVASCULAR: No angina symptoms. No CHF symptoms. No atypical chest pain for CAD. No palpitations. No PND. No orthopnea. GASTROINTESTINAL: No abdominal pain. No nausea or vomiting. No diarrhea or constipation. No hematemesis. No hematochezia. GENITOURINARY: No urgency. No frequency. No dysuria. No hematuria. No obstructive symptoms. No discharge. No pain. No significant abnormal bleeding. MUSCULOSKELETAL: No musculoskeletal pain. No joint swelling. No arthritis. NEUROLOGICAL: No headache. No neck pain. No syncope. No seizures. No dizziness. PSYCHIATRIC: Not anxious. No depression. No suicidal thoughts. No homicidal thoughts. SKIN: No rash. No lesions. No wounds. ENDOCRINE: No unexplained weight loss. No weight gain. HEMATOLOGIC/LYMPHATIC: No anemia. No purpura. No petechiae. No prolonged or excessive bleeding. No palpable lymph nodes. PERSONAL/FAMILY/SOCIAL HISTORY: . Former smoker. No alcohol use. MEDICATIONS: (Current Home) Aspirin 81 mg p.o. daily Ipratropium Alsen NEB RT q.6h Digoxin 125 mcg p.o. daily Albuterol 8.5 gm every 4 to 6 hr Apixaban 5 mg p.o. b.i.d. Diltiazem 120 mg p.o. daily 90 days Furosemide 20 mg p.o. daily Budesonide/Formoterol 10.2 gm IH two puffs b.i.d 90 days Pravastatin 20 mg p.o. bedtime Cholecalciferol 5,000 unit p.o. daily ALLERGIES: TIOTROPIUM BROMIDE PHYSICAL EXAMINATION: GENERAL: The patient is lying/sitting in bed in no distress, looks emaciated. VITAL SIGNS: Temperature 98.3, pulse 91, BP 110/74, respiratory rate 34, oxyge sat 86 on . HEENT: Head normocephalic, atraumatic. Eyes: Extraocular muscles are intact. Pupils are equal, round and reactive to light and accommodation. Ears: No lesions. Nose appeared normal. Throat: No exudate or erythema. NECK: Supple. No JVD, no carotid bruit. No lymphadenopathy or thyromegaly. LUNGS: Decreased breath sounds. [place] chest. Clear to auscultation. Percussion note normal. Chest symmetrical. HEART: S1, S2, no S3. No murmurs. No cyanosis or clubbing. No ascites. Pulses: Dorsalis pedis and posterior tibial pulses +2 bilaterally. ABDOMEN: Soft. Nontender. Bowel sounds active. No CVA tenderness. No mass felt. EXTREMITIES: No p[edal edema. Full range of motion of all extremities, equal. NEUROLOGIC: No focal deficit. Cranial nerves II through XII are grossly intact. No headache, no double vision or headache. SKIN: Not dry. Intact. Turgor - normal. LYMPHATIC: No palpable lymph nodes/no lymphedema. MUSCULOSKELETAL: Normal joints with no swelling. Muscle tone is normal. LAB REVIEW: 12/06/18 04:10: NT-Pro-B Natriuret Pep 176.000 H 12/06/18 04:10: Procalcitonin < 0.05 12/06/18 04:10: Lactic Acid 0.91 12/06/18 04:10: Sodium 137.2, Potassium 4.29, Chloride 87.7 L, Carbon Dioxide 42.9 H*, Anion Gap 10.89, BUN 17.5, Creatinine 0.55 L, Estimated GFR (MDRD) 147.00, BUN/Creatinine Ratio 31.81, Glucose 115.3 H, Calcium 8.86, Total Bilirubin 0.63, AST 18.2, ALT 17.5, Alkaline Phosphatase 82.7, Total Creatine Kinase 21.3 L, Troponin I < 0.012, Total Protein 6.80, Albumin 3.96, Globulin 2.84, Albumin/Globulin Ratio 1.39 12/06/18 04:10: WBC 15.25 H, RBC 5.07, Hgb 13.4 L, Hct 45.6, MCV 89.9, MCH 26.4 L, MCHC 29.4 L, RDW Coeff of Khai 14.7, Plt Count 213, Immature Gran % (Auto) 0.8 , Neut % (Auto) 78.4, Lymph % (Auto) 13.8, [place] % (Auto) 5.9, Eos % (Auto) 0.8, Baso % (Auto) 0.3, Immature Gran # (Auto) 0.1, Neut # (Auto) 12.0 H, Lymph # ( Auto) 2.1, [place] # (Auto) 0.9, Eos # (Auto) 0.1, Baso # (Auto) 0.0 12/06/18 03:56: Puncture Site Lrad, O2 Saturation 91.0 L, ABG pH 7.486 H, ABG pCO2 54.5 H, ABG pO2 58.0 L*, ABG HCO3 41.1 H, ABG Total CO2 43 H, ABG Base Excess 18 H, Nader Test +, FiO2 % 21.0 ASSESSMENT: 1. Acute respiratory failure for COPD exacerbation. 2. History of severe chronic lung disease. 3. Noncompliance on followup and medications. 4. Hypertension. 5. Dyslipidemia. 6. Likely history of atrial fibrillation. PLAN: 1. Continue all medications. 2. IV steroids. 3. Nebs. 4. Continue BIPAP. 5. Monitor ABGs. 6. Lanoxin level in a.m. 7. T4 and TSH. 8. Pulmicort b.i.d. CONDITION: Stable. TIME SPENT: More than 70 minutes. SCRIBED BY: REYNA MARTINS, Chicken Catcher scribed while in presence of service performed by Dr. DANIEL [facility] on 12/06/18 ([id number]) [facility]
[2018-12-06] MEDS: SOLU-MEDROL 125 MG IVP SCH ×2 (12:48→20:16)
[2018-12-06] MEDS: PULMICORT 1 MG/2 ML NEB SCH (18:00)
[2018-12-06] MEDS: PRAVACHOL PO SCH (20:17)
[2018-12-07] MEDS: ATROVENT 0.02% NEB NEB SCH ×4 (04:45→23:20)
[2018-12-07] MEDS: PULMICORT 1 MG/2 ML NEB SCH ×2 (04:45→17:00)
[2018-12-07] MEDS: XOPENEX 0.63 MG NEB SCH ×4 (04:45→23:20)
[2018-12-07] MEDS: SOLU-MEDROL 125 MG IVP SCH ×3 (05:09→21:16)
[2018-12-07] MEDS: ZITHROMAX PO SCH ×2 (05:10→08:13)
[2018-12-07] MEDS: ROCEPHIN 1 GM PREMIX 1 GM in PREMIX 50 ML D5W 1 BAG IV SCH (08:10)
[2018-12-07] MEDS: ASPIRIN CHEWABLE PO SCH (08:11)
[2018-12-07] MEDS: ELIQUIS PO SCH ×2 (08:11→21:16)
[2018-12-07] MEDS: CARDIZEM CD PO SCH (08:11)
[2018-12-07] MEDS: VITAMIN D PO SCH (08:11)
[2018-12-07] MEDS: LANOXIN PO SCH (08:13)
[2018-12-07] MEDS: LASIX TAB PO SCH (08:13)
[2018-12-07] MEDS: SODIUM CHLORIDE 1,000 ML IV SCH ×2 (08:15→21:18)
[2018-12-07] MEDS ORDERED: ROCEPHIN 1 GM VIAL 1 GM in SODIUM CHLORIDE 50 ML IV SCH (09:00)
[2018-12-07] MEDS: PRAVACHOL PO SCH (21:15)
[2018-12-08] MEDS: XOPENEX 0.63 MG NEB SCH ×4 (04:40→22:00)
[2018-12-08] MEDS: PULMICORT 1 MG/2 ML NEB SCH ×2 (04:40→17:41)
[2018-12-08] MEDS: ATROVENT 0.02% NEB NEB SCH ×4 (04:40→22:00)
[2018-12-08] MEDS: SOLU-MEDROL 125 MG IVP SCH ×3 (05:39→20:50)
[2018-12-08] MEDS: ZITHROMAX PO SCH (09:24)
[2018-12-08] MEDS: LASIX TAB PO SCH (09:24)
[2018-12-08] MEDS: ROCEPHIN 1 GM PREMIX 1 GM in PREMIX 50 ML D5W 1 BAG IV SCH (09:24)
[2018-12-08] MEDS: VITAMIN D PO SCH (09:25)
[2018-12-08] MEDS: CARDIZEM CD PO SCH (09:25)
[2018-12-08] MEDS: LANOXIN PO SCH (09:26)
[2018-12-08] MEDS: ELIQUIS PO SCH ×2 (09:26→20:50)
[2018-12-08] MEDS: ASPIRIN CHEWABLE PO SCH (09:35)
[2018-12-08] MEDS: SODIUM CHLORIDE 1,000 ML IV SCH (12:32)
--- NOTE | 2018-12-08 12:38 | PCM.PROG ---
Attending Provider: ATTENDING PROVIDER: [facility] DATE OF SERVICE: 12/08/18 SUBJECTIVE: This 68 year old WHITE/ M was hospitalized 12/06/18. The patient is seen and examined this morning. He is doing well and is eating well. REVIEW OF SYSTEMS: CONSTITUTIONAL: No night sweats. No fatigue, malaise, lethargy. No fever or chills. HEENT: Eyes: No visual changes. No eye pain. No eye discharge. ENT: No runny nose. No epistaxis. No sinus pain. No odynophagia. No congestion. RESPIRATORY: Occasional cough. No congestion. No hemoptysis. No shortness of breath. CARDIOVASCULAR: No angina symptoms. No CHF symptoms. No atypical chest pain for CAD. No palpitations. No orthopnea.. GASTROINTESTINAL: Appetite improved. No abdominal pain. No nausea or vomiting. No diarrhea or constipation. No hematemesis. No hematochezia. GENITOURINARY: No urgency. No frequency. No dysuria. No hematuria. No obstructive symptoms. No discharge. No pain. No significant abnormal bleeding. MUSCULOSKELETAL: No musculoskeletal pain; no joint swelling. NEUROLOGICAL: Awake, alert, oriented to time, place and person. No headache. No neck pain. No syncope. No seizures. No dizziness. PSYCHIATRIC: Not anxious. No depression. No suicidal thoughts. No homicidal thoughts. SKIN: No rash. No lesions. No wounds. ENDOCRINE: No unexplained weight loss. No weight gain. HEMATOLOGIC/LYMPHATIC: No anemia. No purpura. No petechiae. No prolonged or excessive bleeding. No palpable lymph nodes. PHYSICAL EXAMINATION: GENERAL: The patient is awake, alert and oriented, lying/sitting in bed in no distress. VITAL SIGNS: Temperature 97.9 F, Pulse 75, Respiratory Rate 20, BP 113/73, Pulse Ox 94% on CPAP. HEENT: Head normocephalic, atraumatic. Eyes: Extraocular muscles are intact. Pupils are equal, round and reactive to light and accommodation. Ears: No lesions. Nose appeared normal. Throat: No exudate or erythema. NECK: Supple. No JVD, no carotid bruit. No lymphadenopathy or thyromegaly. LUNGS: Decreased breath sounds. Clear to auscultation. Percussion note normal. Chest symmetrical. HEART: S1, S2, no S3. No murmurs. No cyanosis or clubbing. No ascites. Pulses: Dorsalis pedis and posterior tibial pulses +1 to +2 both sides. ABDOMEN: Soft. Non-tender. Bowel sounds active. No CVA tenderness. No mass felt. EXTREMITIES: No edema. Full range of motion of all extremities, equal. NEUROLOGIC: No focal deficit. Cranial nerves II through XII are grossly intact. No headache, no double vision or headache. SKIN: Warm and dry. Intact. Turgor-normal. LYMPHATIC: No palpable lymph nodes/no lymphedema. MUSCULOSKELETAL: Normal joints with no swelling. Muscle tone is normal. LAB REVIEW: 12/08/18 05:39 12/08/18 05:39 12/08/18 05:39: Sodium 139.7, Potassium 3.93, Chloride 95.3 L, Carbon Dioxide 39.3 H, Anion Gap 9.03, BUN 15.4, Creatinine 0.54 L, Estimated GFR (MDRD) 150.00 , BUN/Creatinine Ratio 28.51, Glucose 123.4 H, Calcium 8.35 L, Total Bilirubin 0.23, AST 18.0, ALT 16.7, Alkaline Phosphatase 64.6, Total Protein 6.09 L, Albumin 3.41 L, Globulin 2.68, Albumin/Globulin Ratio 1.27 12/08/18 05:39: WBC 14.67 H D, RBC 4.56 L, Hgb 12.0 L, Hct 40.4 L, MCV 88.6, MCH 26.3 L, MCHC 29.7 L, RDW Coeff of Khai 14.8, Plt Count 226, Immature Gran % ( Auto) 0.6, Neut % (Auto) 93.4, Lymph % (Auto) 4.1 L, [place] % (Auto) 1.8, Eos % ( Auto) 0.0, Baso % (Auto) 0.1, Immature Gran # (Auto) 0.1, Neut # (Auto) 13.7 H, Lymph # (Auto) 0.6, [place] # (Auto) 0.3 L, Eos # (Auto) 0.0, Baso # (Auto) 0.0 12/07/18 08:30: Puncture Site Rrad, O2 Saturation 96.0, ABG pH 7.374, ABG pCO2 63.6 H, ABG pO2 85.0, ABG HCO3 37.1 H, ABG Total CO2 39 H, ABG Base Excess 12 H , Nader Test +, O2 Delivery Device Home bipap, Oxygen Liter Flow 2.00 ASSESSMENT: Please see below. 1. Exacerbation of COPD with respiratory failure under control. PLAN: 1. Continue steroids, nebs and antibiotics. EDUCATION: Education carried out about pulmonary rehab. Advised to take medications and breathing treatments regularly. Wear BIPAP and CPAP with oxygen. Plan and coordination of the patient's care discussed in the presence of Licensing Worker and nurse. CONDITION: Stable SCRIBED BY: REYNA MARTINS Chef Kitchen Manager scribed while in presence of service performed by Dr. SANCHEZ [facility] on 12/08/18 ([id number])
--- NOTE | 2018-12-08 13:57 | PN ---
DATE OF SERVICE: 12/07/18 SUBJECTIVE: 68-year-old white male hospitalized with COPD exacerbation with respiratory failure. The patient has chronic respiratory insufficiency/failure. The patient is on BIPAP intermittently as well as on home oxygen. He is noncompliant. He was recently fired from his primary physician because of not showing up three times in a row. Anyway the patient was hospitalized under me because I was on hospitalist call. The patient doesn't have any cough that much. He has severe chronic lung disease. The patient is feeling better, eating well. He is resting better. Oxygen saturation 94% with 2L. REVIEW OF SYSTEMS: CONSTITUTIONAL: No night sweats. No fatigue, malaise, lethargy. No fever or chills. HEENT: Eyes: No visual changes. No eye pain. No eye discharge. ENT: No runny nose. No epistaxis. No sinus pain. No sore throat. No odynophagia. No congestion. RESPIRATORY: Mild cough. No hemoptysis. CARDIOVASCULAR: Short of breath on minimal exertion likely from COPD. No angina symptoms. No CHF symptoms. No atypical chest pain for CAD. No palpitations. No PND. No orthopnea. GASTROINTESTINAL: Appetite has improved. No abdominal pain. No nausea or vomiting. No diarrhea or constipation. No hematemesis. No hematochezia. GENITOURINARY: No urgency. No frequency. No dysuria. No hematuria. No obstructive symptoms. No discharge. No pain. No significant abnormal bleeding. MUSCULOSKELETAL: No musculoskeletal pain; no joint swelling. NEUROLOGICAL: No headache. No neck pain. No syncope. No seizures. No dizziness. PSYCHIATRIC: Not anxious. No depression. No suicidal thoughts. No homicidal thoughts. SKIN: No rash. No lesions. No wounds. ENDOCRINE: No unexplained weight loss. No weight gain. HEMATOLOGIC/LYMPHATIC: No anemia. No purpura. No petechiae. No prolonged or excessive bleeding. No palpable lymph nodes. PHYSICAL EXAMINATION: VITAL SIGNS: Temperature 98.7, pulse 55, respiratory rate 20, BP 123/67, pulse ox 94% on 2L. HEENT: Head normocephalic, atraumatic. Eyes: Extraocular muscles are intact. Pupils are equal, round and reactive to light and accommodation. Ears: No lesions. Nose appeared normal. Throat: No exudate or erythema. NECK: Supple. No JVD, no carotid bruit. No lymphadenopathy or thyromegaly. LUNGS: Decreased breath sounds but clear to auscultation. Percussion note normal. Chest symmetrical. [place] shaped chest. HEART: S1, S2, no S3. No murmurs. No cyanosis or clubbing. No ascites. Pulses: Dorsalis pedis and posterior tibial pulses +1 to +2 bilaterally. ABDOMEN: Soft. Nontender. Bowel sounds active. No CVA tenderness. No mass felt. EXTREMITIES: No pedal edema. Full range of motion of all extremities, equal. NEUROLOGIC: No focal deficit. Cranial nerves II through XII are grossly intact. No headache, no double vision or headache. SKIN: Not dry. Intact. Turgor - normal. LYMPHATIC: No palpable lymph nodes/no lymphedema. MUSCULOSKELETAL: Normal joints with no swelling. Muscle tone is normal. LABS: Hemoglobin 11.9, hematocrit 40, WBC 9,500, normal differential. Creatinine 0.5, BUN 14, potassium 4.3. C02 42. ASSESSMENT: 1. RESPIRATORY FAILURE SEEMS TO BE UNDER CONTROL WITH COPD EXACERBATION. PLAN: 1. Educate patient to take his breathing treatment on a regular basis, use BIPAP during naptime and also at night with oxygen. 2. Advise pulmonary rehab and he declined. 3. Continue steroids, antibiotics. 4. Continue BIPAP. PROGNOSIS: Poor. Will do echo to evaluate LV function. CONDITION: Stable. TIME SPENT: More than 30 minutes. Plan and coordination of the patient's care discussed in the presence of nurse. CARRIE
[2018-12-08] MEDS: PRAVACHOL PO SCH (20:50)
[2018-12-09] MEDS: SODIUM CHLORIDE 1,000 ML IV SCH (01:22)
[2018-12-09 02:23] VITALS: TEMP 97.9
[2018-12-09] MEDS: SOLU-MEDROL 125 MG IVP SCH (04:37)
[2018-12-09] MEDS: ATROVENT 0.02% NEB NEB SCH ×2 (04:40→11:01)
[2018-12-09] MEDS: XOPENEX 0.63 MG NEB SCH ×2 (04:40→11:02)
[2018-12-09] MEDS: PULMICORT 1 MG/2 ML NEB SCH (04:40)
[2018-12-09 05:22] VITALS: BP 110/81
--- NOTE | 2018-12-09 09:10 | CM.DICTOOL ---
ADMISSION: 12/06/18 05:35 DISCHARGE: 12/09/2018 DATE OF SERVICE: 12/09/18 FINAL DIAGNOSIS RESPIRATORY FAILURE, CHRONIC, COMPENSATED RESPIRATORY ACIDOSIS, CHRONIC, COMPENSATED COPD EXACERBATION BRONCHITIS, ACUTE, RESOLVED HYPERTENSION CARDIOMEGALY RIGHT VENTRICULAR CAVITY ENLARGEMENT ATRIAL FIBRILLATION (ELIQUIS) COPD WITH HOME O2 AND BIPAP USE ASTHMA DYSLIPIDEMIA OSTEOARTHRITIS NON-COMPLIANCE WITH MEDICATIONS AND FOLLOW-UPS FORMER SMOKER, QUIT 2010 ECHOCARDIOGRAM: 11/2012 TONSILLECTOMY ADENOIDECTOMY LAST VITALS Temp Pulse Resp BP Pulse Ox 97.9 F 62 23 110/81 92 L 12/09/18 05:16 12/09/18 05:16 12/09/18 05:16 12/09/18 05:16 12/09/18 05:16 TAKE THESE MEDICATIONS AT HOME Apixaban (Eliquis) 5 mg PO BID [facility] Last Admin: 12/08/18 20:50 Dose: 5 mg Aspirin (Aspirin Chewable) 81 mg PO DAILY [facility] Last Admin: 12/08/18 09:35 Dose: Not Given Budesonide/Formoterol (Symbicort) 160/4.5mcg Inhaler 2 puffs INH BID Last Admin: 12/09/18 04:40 Dose: 1 vial Cholecalciferol (Vitamin D) 5,000 unit PO DAILY [facility] Last Admin: 12/08/18 09:25 Dose: 5,000 unit Digoxin (Lanoxin) 125 mcg PO DAILY [facility] Last Admin: 12/08/18 09:26 Dose: 125 mcg Diltiazem HCl (Cardizem Cd) 120 mg PO DAILY [facility] Last Admin: 12/08/18 09:25 Dose: 120 mg Furosemide (Lasix Tab) 20 mg PO DAILY [facility] Last Admin: 12/08/18 09:24 Dose: 20 mg Ipratropium [place] (Atrovent 0.02% Neb) 1 vial NEB RT Q6H [facility] Last Admin: 12/09/18 04:40 Dose: 1 vial Pravastatin Sodium (Pravachol) 20 mg PO BEDTIME [facility] Last Admin: 12/08/18 20:50 Dose: 20 mg Keflex 500mg 1 po bid x5 days Prednisone 10mg po BID x5 days, QDAY x5 days ALLERGIES tiotropium bromide [From Spiriva with HandiHaler] Allergy (Mild, Verified 17:00) rash DISCONTINUED MEDICATIONS NONE NEW PRESCRIPTIONS: KEFLEX 500MG PO BID X5 DAYS PREDNISONE 10MG PO BID X5 DAYS, THEN QDAY X5 DAYS SMOKING: FORMER SMOKER, QUIT 2010 DISEASE SPECIFIC EDUCATION: RESPIRATORY FAILURE, COMPENSATED BIPAP USE MEDICATION COMPLIANCE FOLLOW-UPS LAB REVIEW: 12/09/18 06:05 12/09/18 06:05 12/09/18 06:05: Sodium 137.1, Potassium 3.79, Chloride 97.5 L, Carbon Dioxide 39.7 H, Anion Gap 3.69, BUN 17.9, Creatinine 0.47 L, Estimated GFR (MDRD) 177.00 , BUN/Creatinine Ratio 38.08, Glucose 106.8 H, Calcium 7.81 L, Total Bilirubin 0.29, AST 20.2, ALT 17.7, Alkaline Phosphatase 48.4 L, Total Protein 5.48 L, Albumin 3.10 L, Globulin 2.38, Albumin/Globulin Ratio 1.30 12/09/18 06:05: WBC 10.58 H, RBC 4.15 L, Hgb 11.0 L, Hct 36.6 L, MCV 88.2, MCH 26.5 L, MCHC 30.1 L, RDW Coeff of Khai 15.0 H, Plt Count 200, Immature Gran % ( Auto) 0.3, Neut % (Auto) 93.0, Lymph % (Auto) 4.6 L, [place] % (Auto) 2.0, Eos % ( Auto) 0.0, Baso % (Auto) 0.1, Immature Gran # (Auto) 0.0, Neut # (Auto) 9.8 H, Lymph # (Auto) 0.5 L, [place] # (Auto) 0.2 L, Eos # (Auto) 0.0, Baso # (Auto) 0.0 12/09/18 04:12: Puncture Site Lb, O2 Saturation 88.0 L, ABG pH 7.345 L, ABG pCO2 69.7 H, ABG pO2 60.0 L, ABG HCO3 38.1 H, ABG Total CO2 40 H, ABG Base Excess 12 H, Nader Test +, O2 Delivery Device home bipap, Oxygen Liter Flow 2.00 , FiO2 % 28.0 12/08/18 09:25: Puncture Site R rad, O2 Saturation 95.0, ABG pH 7.401, ABG pCO2 57.2 H, ABG pO2 80.0 L, ABG HCO3 35.5 H, ABG Total CO2 37 H, ABG Base Excess 11 H, Nader Test +, O2 Delivery Device Bipap, Oxygen Liter Flow 3.00 PLAN: DISCHARGE HOME TODAY, 12/09/2018. DIET: REGULAR DIET ACTIVITY: UP TOLERATED WITH ASSISTANCE/ASSISTIVE DEVICES SOA WITH EXERTION USUAL WHEELCHAIR, WALKER, OXYGEN/BI-PAP FOLLOW-UP: DR. MALCOLM / REED MCDERMOTT APRN SUNDAY DECEMBER 16, 2018 @ 9:45AM CODE STATUS: FULL CODE MR. ESPINAL IS A 68 Y/O WHITE MALE. HE IS A&OX3, WEARS BI-PAP MOST OF THE TIME, COUNSELLED PT TO ALWAYS USE THE BIPAP WHEN SLEEPING OR TAKING NAPS. LUNGS ARE CLEAR, SLIGHTLY DIMINISHED WITH GOOD AIR ENTRY. NO WHEEZES NOTED. HE HAS CHRONIC RESPIRATORY FAILURE WHICH IS COMPENSATED; BRONCHITIS, RESOLVED; CHRONIC RESPIRATORY ACIDOSIS, COMPENSATED; RIGHT VENTRICULAR CAVITY IS ENLARGED; SOA WITH EXERTION USUAL. HIS RESPIRATORY STATUS SEEMS TO HAVE IMPROVED. BLOOD GASSES ARE ACCEPTABLE FOR HIM. HIS PROBLEM SEEMS TO BE ASSOCIATED WITH COMPLIANCE. HE WAS DISCHARGED FROM PREVIOUS CARE PROVIDER D/T NONCOMPLIANCE. WILL SEE HIM NEXT WEEK IN MY OFFICE. PLAN TO TREAT WITH STEROIDS, ANTIBIOTICS, AND NEBULIZER TREATMENTS. CONTINUE HOME MEDICATIONS AND NEBULIZER TREATMENTS/ INHALERS WITH NO CHANGES AT THIS TIME. HE UNDERSTANDS HIS MEDICAL PROBLEMS AND WAS ADVISED ON COMPLIANCE WITH MEDICATIONS AND FOLLOW-UPS. HIS CONDITION IS STABLE WITH POOR PROGNOSIS. BOWEL SOUNDS ACTIVE, ABDOMEN SOFT AND NONTENDER. CONTINENT OF BOWEL AND BLADDER. PT IS UP TOLERATED WITH ASSISTANCE AND ASSISTIVE DEVICES. SKIN INTACT, HYDRATION STATUS GOOD. MD REED ESPINOSA APRN
[2018-12-09] MEDS: ROCEPHIN 1 GM PREMIX 1 GM in PREMIX 50 ML D5W 1 BAG IV SCH (09:26)
[2018-12-09] MEDS: LANOXIN PO SCH (09:28)
[2018-12-09] MEDS: VITAMIN D PO SCH (09:28)
[2018-12-09] MEDS: ASPIRIN CHEWABLE PO SCH (09:28)
[2018-12-09] MEDS: CARDIZEM CD PO SCH (09:29)
[2018-12-09] MEDS: ZITHROMAX PO SCH (09:29)
[2018-12-09] MEDS: LASIX TAB PO SCH (09:29)
[2018-12-09] MEDS: ELIQUIS PO SCH (09:31)
--- NOTE | 2018-12-09 10:44 | PCM.PROG ---
Attending Provider: ATTENDING PROVIDER[facility] DATE OF SERVICE: 12/09/18 SUBJECTIVE: This 68 year old WHITE/ M was hospitalized 12/06/18 with acute bronchitis with severe chronic lung disease and is on BIPAP. He is in chronic respiratory failure that was slightly decompensated. He was treated with steroid antibiotics and nebs treatment. Problem seems to be compliance. He was let go from previous primary care due to noncompliance with followup. REVIEW OF SYSTEMS: CONSTITUTIONAL: No night sweats. No fatigue, malaise, lethargy. No fever or chills. HEENT: Eyes: No visual changes. No eye pain. No eye discharge. ENT: No runny nose. No epistaxis. No sinus pain. No odynophagia. No congestion. RESPIRATORY: Mild cough, no congestion. No hemoptysis. Shortness of breath on exertion as usual. CARDIOVASCULAR: No angina symptoms. No CHF symptoms. No atypical chest pain for CAD. No palpitations. No orthopnea.. GASTROINTESTINAL: No abdominal pain. No nausea or vomiting. No diarrhea or constipation. No hematemesis. No hematochezia. GENITOURINARY: No urgency. No frequency. No dysuria. No hematuria. No obstructive symptoms. No discharge. No pain. No significant abnormal bleeding. MUSCULOSKELETAL: No musculoskeletal pain; no joint swelling. NEUROLOGICAL: Awake, alert, oriented to time, place and person. No headache. No neck pain. No syncope. No seizures. No dizziness. PSYCHIATRIC: Not anxious. No depression. No suicidal thoughts. No homicidal thoughts. SKIN: No rash. No lesions. No wounds. ENDOCRINE: No unexplained weight loss. No weight gain. HEMATOLOGIC/LYMPHATIC: No anemia. No purpura. No petechiae. No prolonged or excessive bleeding. No palpable lymph nodes. PHYSICAL EXAMINATION: GENERAL: The patient is awake, alert and oriented, lying/sitting in bed in no distress. VITAL SIGNS: Temperature 97.9 F, Pulse 62, Respiratory Rate 23, BP 110/81, Pulse Ox 92% HEENT: Head normocephalic, atraumatic. Eyes: Extraocular muscles are intact. Pupils are equal, round and reactive to light and accommodation. Ears: No lesions. Nose appeared normal. Throat: No exudate or erythema. NECK: Supple. No JVD, no carotid bruit. No lymphadenopathy or thyromegaly. LUNGS: Good air entry. No wheezing. Clear to auscultation. Percussion note normal. Chest symmetrical. HEART: S1, S2, no S3. No murmurs. No cyanosis or clubbing. No ascites. Pulses: Dorsalis pedis and posterior tibial pulses +1 to +2 both sides. ABDOMEN: Soft. Non-tender. Bowel sounds active. No CVA tenderness. No mass felt. EXTREMITIES: No pedal edema. Full range of motion of all extremities, equal. NEUROLOGIC: No focal deficit. Cranial nerves II through XII are grossly intact. No headache, no double vision or headache. SKIN: Warm and dry. Intact. Turgor-normal. LYMPHATIC: No palpable lymph nodes/no lymphedema. MUSCULOSKELETAL: Normal joints with no swelling. Muscle tone is normal. LAB REVIEW: 12/09/18 06:05 12/09/18 06:05 12/09/18 06:05: Sodium 137.1, Potassium 3.79, Chloride 97.5 L, Carbon Dioxide 39.7 H, Anion Gap 3.69, BUN 17.9, Creatinine 0.47 L, Estimated GFR (MDRD) 177.00 , BUN/Creatinine Ratio 38.08, Glucose 106.8 H, Calcium 7.81 L, Total Bilirubin 0.29, AST 20.2, ALT 17.7, Alkaline Phosphatase 48.4 L, Total Protein 5.48 L, Albumin 3.10 L, Globulin 2.38, Albumin/Globulin Ratio 1.30 12/09/18 06:05: WBC 10.58 H, RBC 4.15 L, Hgb 11.0 L, Hct 36.6 L, MCV 88.2, MCH 26.5 L, MCHC 30.1 L, RDW Coeff of Khai 15.0 H, Plt Count 200, Immature Gran % ( Auto) 0.3, Neut % (Auto) 93.0, Lymph % (Auto) 4.6 L, [place] % (Auto) 2.0, Eos % ( Auto) 0.0, Baso % (Auto) 0.1, Immature Gran # (Auto) 0.0, Neut # (Auto) 9.8 H, Lymph # (Auto) 0.5 L, [place] # (Auto) 0.2 L, Eos # (Auto) 0.0, Baso # (Auto) 0.0 12/09/18 04:12: Puncture Site Lb, O2 Saturation 88.0 L, ABG pH 7.345 L, ABG pCO2 69.7 H, ABG pO2 60.0 L, ABG HCO3 38.1 H, ABG Total CO2 40 H, ABG Base Excess 12 H, Nader Test +, O2 Delivery Device home bipap, Oxygen Liter Flow 2.00 , FiO2 % 28.0 12/08/18 09:25: Puncture Site R rad, O2 Saturation 95.0, ABG pH 7.401, ABG pCO2 57.2 H, ABG pO2 80.0 L, ABG HCO3 35.5 H, ABG Total CO2 37 H, ABG Base Excess 11 H, Nader Test +, O2 Delivery Device Bipap, Oxygen Liter Flow 3.00 ASSESSMENT: Please see below. 1. Respiratory insufficiency failure which is compensated. 2. Bronchitis seems to have resolved. 3. The patient's echocardiogram showed normal LV contractility, right ventricular cavity enlarged, valvular structures normal. PLAN: 1. The patient is going to be discharged on Prednisone 10 mg b.i.d. for 5 days then one a day for five days. 2. Advised to continue rest of medications as before. 3. Keflex 500 mg b.i.d. times five days. 4. The patinet is to continue BIPAP at home especially taking naps and at nighttime. 5. Will see back in office next week. Plan and coordination of the patient's care discussed in the presence of Fermentation Scientist and nurse. CONDITION: Stable SCRIBED BY: REYNA MARTINS, Second Rigger scribed while in presence of service performed by Dr. SANCHEZ [facility]COLM-[facility] on 12/09/18 ([id number])
--- NOTE | 2018-12-09 10:59 | DS ---
DATE OF SERVICE: 12/09/18 FINAL DIAGNOSIS: 1. RESPIRATORY FAILURE, CHRONIC, COMPENSATED 2. RESPIRATORY ACIDOSIS, CHRONIC, COMPENSATED 3. COPD EXACERBATION 4. BRONCHITIS, ACUTE, RESOLVED 5. HYPERTENSION 6. CARDIOMEGALY 7. RIGHT VENTRICULAR CAVITY ENLARGEMENT 8. ATRIAL FIBRILLATION (ELIQUIS) 9. COPD WITH HOME O2 AND BIPAP USE 10. ASTHMA 11. DYSLIPIDEMIA 12. OSTEOARTHRITIS 13. NON-COMPLIANCE WITH MEDICATIONS AND FOLLOW-UPS 14. FORMER SMOKER, QUIT 2010 15. ECHOCARDIOGRAM: 11/2012 16. TONSILLECTOMY 17. ADENOIDECTOMY LAST VITALS Temp Pulse Resp BP Pulse Ox 97.9 F 62 23 110/81 92 L 12/09/18 05:16 12/09/18 05:16 12/09/18 05:16 12/09/18 05:16 12/09/18 05:16 DISCHARGE INSTRUCTIONS: 1. DISCHARGE HOME TODAY, 12/09/2018. 2. FOLLOW-UP: DR. MALCOLM / REED MCDERMOTT, SENIOR NET SOFTWARE ENGINEER, , SUNDAY DECEMBER 16, 2018 @ 9:45AM MEDICATIONS AT DISCHARGE: Apixaban (Eliquis) 5 mg PO BID [facility] Last Admin: 12/08/18 20:50 Dose: 5 mg Aspirin (Aspirin Chewable) 81 mg PO DAILY [facility] Last Admin: 12/08/18 09:35 Dose: Not Given Budesonide/Formoterol (Symbicort) 160/4.5mcg Inhaler 2 puffs INH BID Last Admin: 12/09/18 04:40 Dose: 1 vial Cholecalciferol (Vitamin D) 5,000 unit PO DAILY [facility] Last Admin: 12/08/18 09:25 Dose: 5,000 unit Digoxin (Lanoxin) 125 mcg PO DAILY [facility] Last Admin: 12/08/18 09:26 Dose: 125 mcg Diltiazem HCl (Cardizem Cd) 120 mg PO DAILY [facility] Last Admin: 12/08/18 09:25 Dose: 120 mg Furosemide (Lasix Tab) 20 mg PO DAILY [facility] Last Admin: 12/08/18 09:24 Dose: 20 mg Ipratropium [place] (Atrovent 0.02% Neb) 1 vial NEB RT Q6H [facility] Last Admin: 12/09/18 04:40 Dose: 1 vial Pravastatin Sodium (Pravachol) 20 mg PO BEDTIME [facility] Last Admin: 12/08/18 20:50 Dose: 20 mg Keflex 500mg 1 po bid x5 days Prednisone 10mg po BID x5 days, QDAY x5 days NEW PRESCRIPTIONS: KEFLEX 500MG PO BID X5 DAYS PREDNISONE 10MG PO BID X5 DAYS, THEN QDAY X5 DAYS DISCONTINUED MEDICATIONS: NONE DIET INSTRUCTIONS: REGULAR DIET. ACTIVITY: UP TOLERATED WITH ASSISTANCE/ASSISTIVE DEVICES, SOA WITH EXERTION USUAL WHEELCHAIR, WALKER, OXYGEN/BI-PAP SMOKING: FORMER SMOKER, QUIT 2010 DISEASE SPECIFIC EDUCATION: RESPIRATORY FAILURE, COMPENSATED BIPAP USE MEDICATION COMPLIANCE FOLLOW-UPS LAB REVIEW: 12/09/18 06:05: Sodium 137.1, Potassium 3.79, Chloride 97.5 L, Carbon Dioxide 39.7 H, Anion Gap 3.69, BUN 17.9, Creatinine 0.47 L, Estimated GFR (MDRD) 177.00 , BUN/Creatinine Ratio 38.08, Glucose 106.8 H, Calcium 7.81 L, Total Bilirubin 0.29, AST 20.2, ALT 17.7, Alkaline Phosphatase 48.4 L, Total Protein 5.48 L, Albumin 3.10 L, Globulin 2.38, Albumin/Globulin Ratio 1.30 12/09/18 06:05: WBC 10.58 H, RBC 4.15 L, Hgb 11.0 L, Hct 36.6 L, MCV 88.2, MCH 26.5 L, MCHC 30.1 L, RDW Coeff of Khai 15.0 H, Plt Count 200, Immature Gran % ( Auto) 0.3, Neut % (Auto) 93.0, Lymph % (Auto) 4.6 L, [place] % (Auto) 2.0, Eos % ( Auto) 0.0, Baso % (Auto) 0.1, Immature Gran # (Auto) 0.0, Neut # (Auto) 9.8 H, Lymph # (Auto) 0.5 L, [place] # (Auto) 0.2 L, Eos # (Auto) 0.0, Baso # (Auto) 0.0 12/09/18 04:12: Puncture Site Lb, O2 Saturation 88.0 L, ABG pH 7.345 L, ABG pCO2 69.7 H, ABG pO2 60.0 L, ABG HCO3 38.1 H, ABG Total CO2 40 H, ABG Base Excess 12 H, Nader Test +, O2 Delivery Device home bipap, Oxygen Liter Flow 2.00 , FiO2 % 28.0 12/08/18 09:25: Puncture Site R rad, O2 Saturation 95.0, ABG pH 7.401, ABG pCO2 57.2 H, ABG pO2 80.0 L, ABG HCO3 35.5 H, ABG Total CO2 37 H, ABG Base Excess 11 H, Nader Test +, O2 Delivery Device Bipap, Oxygen Liter Flow 3.00 HOSPITAL COURSE: This 68-year-old White/ male was hospitalized with acute bronchitis, severe chronic lung disease. The patient was treated in the hospital with IV Solu-Cortef, IV antibiotic Rocephin and Zithromax p.o. was given. Respiratory status seems to have improved. Blood gases are acceptable for him with borderline high pc02, HC03 in range of 40 with chronic respiratory acidosis compensated. He understands his medical problems and strongly advised to have regular followup. Will be seen in 7 days. Discharge medications the same as admitting medications except he will be on Keflex and Prednisone. CONDITION: STABLE. PROGNOSIS IS POOR. TIME SPENT: More than 60 minutes. CARRIE
--- NOTE | 2018-12-09 11:00 | ECHO2D ---
Date of Exam: 12/08/18 Ordering Physician: DR. DANIEL MALCOLM Room #: SCU2 Reason for Echo: SOB, COPD, RESPIRATORY FAILURE M-Mode Normal Adult Results LV Dimensions Normal Adult Results AoV Opening excursions >1.6 >1.6 LVEDD-base- 3.5-5.8 4.3 Ao root dimensions 2.0-3.7 3.9 LVESD-base- 3.1-4.6 L. Atrium dimensions 1.9-3.8 4.2 Post. Wall thickness 0.8-1.1 1.0 IV septum (thickness) 0.7-1.2 1.0 Post. Wall excursion 0.72-1.3 NORMAL Septal motion NORMAL Systolic motion R. Ventricular cavity 1.5-2.0 3.5 LVEF 60% 66% Paradoxical septal wall motion NORMAL 2-D : 2-D M Mode Echocardiogram was performed using apical four chamber and left parasternal long and short axis views. Mitral, tricuspid and aortic valves appear to be normal. Contractility of the left ventricle seems to be normal, so is the cavity size. Left atrial cavity size and aortic root appear to be normal. There is no pericardial effusion. There is no thrombus noted in the left ventricular or left aortic cavity. No mitral valve prolapse noted. ENLARGED RIGHT VENTRICLE CAVITY, SUBCOSTAL APPROACH, SEVERE COPD M-MODE: MV: NORMAL AV: NORMAL TV: NORMAL PV: CHAMBER SIZE: RIGHT VENTRICLE CAVITY ENLARGEMENT WALL MOTION: NORMAL PERICARDIUM: NORMAL INTERPRETATION: 1. RIGHT VENTRICLE CAVITY ENLARGEMENT 2. NORMAL LEFT VENTRICULAR CONTRACTILITY 3. NORMAL VALVES 4. SUBCOSTAL APPROACH MTDD
--- NOTE | 2018-12-09 11:01 | PN ---
CODING FOR BILLING 12/06/18 ADMISSION DAY LEVEL 5 12/07/18 INTERMEDIATE 12/08/18 INTERMEDIATE 12/09/18 DISCHARGE MTDD
== END 2018-12-09 13:10 | disposition home or self-care (01) | DRG 191 ==
LOC: ED 03:55 → SCU 05:35
PROVIDERS: ADMIT Internal Medicine; ATTEND Internal Medicine
DX: J44.1 Chronic obstructive pulmonary disease with (acute) exacerbation (principal); J96.10 Chronic respiratory failure, unspecified whether with hypoxia or hypercapnia; E87.2 Acidosis; J20.9 Acute bronchitis, unspecified; J45.909 Unspecified asthma, uncomplicated; I10 Essential (primary) hypertension; I51.7 Cardiomegaly; I48.91 Unspecified atrial fibrillation; E78.5 Hyperlipidemia, unspecified; M19.90 Unspecified osteoarthritis, unspecified site; R06.00 Dyspnea, unspecified; R05 Cough; R06.2 Wheezing; Z79.01 Long term (current) use of anticoagulants; Z99.81 Dependence on supplemental oxygen; Z91.19 Patient's noncompliance with other medical treatment and regimen
CPT/HCPCS: 36415; 80048; 80053; 80162; 82550; 82803; 83605; 83880; 84145; 84439; 84443; 84484; 85025; 87040; 93005; 93010; 94640; 94660; 96365; 96375; 99284

== ENCOUNTER 2019-01-25 12:45 | Inpatient (IN) ==
[2019-01-25] MEDS ORDERED: DUONEB NEB ONE (16:09)
[2019-01-25] MEDS ORDERED: TYLENOL PO PRN (17:39)
[2019-01-25] MEDS ORDERED: ATROVENT 0.02% NEB NEB SCH (18:00)
[2019-01-25] MEDS: SYMBICORT 160-4.5 MCG INHALER IH SCH (20:26)
[2019-01-25] MEDS: SOLU-MEDROL 125 MG IVP SCH (20:27)
[2019-01-25] MEDS: ROCEPHIN 1 GM/50 ML D5W 1 GM/50 ML BAG IV SCH (20:27)
[2019-01-25] MEDS: PRAVACHOL PO SCH (20:28)
[2019-01-25] MEDS: ELIQUIS PO SCH (20:28)
[2019-01-25 20:34] VITALS: BMI 18.5
[2019-01-25] MEDS: DUONEB NEB SCH (22:37)
[2019-01-26] MEDS: SOLU-MEDROL 125 MG IVP SCH ×5 (00:41→23:14)
[2019-01-26] MEDS: DUONEB NEB SCH ×4 (04:50→23:20)
[2019-01-26] MEDS: LASIX TAB PO SCH (05:35)
--- NOTE | 2019-01-26 07:41 | DI ---
EXAM: Frontal chest HISTORY: Shortness of breath FINDINGS: Compared to 01/11/2019. Heart size is within normal limits. There is diffuse, chronic ap pearing interstitial accentuation. Lungs are hyperinflated and there is relative lucency of the lung zones suggesting pulmonary emphysema. No definite consolidated pneumonia. There is no vascular con gestion, pneumothorax or pleural fluid IMPRESSION: 1. Cannot exclude a component chronic obstructive pulmonary disease, correlate clinically. 2. No definite consolidated pneumonia. Managing the patient on a clinical basis is recommended.
[2019-01-26] MEDS: SYMBICORT 160-4.5 MCG INHALER IH SCH ×2 (08:20→20:46)
[2019-01-26] MEDS: CARDIZEM CD PO SCH (08:21)
[2019-01-26] MEDS: LANOXIN PO SCH (08:22)
[2019-01-26] MEDS: ELIQUIS PO SCH (08:24)
[2019-01-26] MEDS: ROCEPHIN 1 GM/50 ML D5W 1 GM/50 ML BAG IV SCH (08:44)
--- NOTE | 2019-01-26 11:42 | ED.PDOC ---
General ED Provider: Dr. ADDI HELLER Stated Complaint: Became increasingly SOB at home and due to the heat this has worsened his lung condition Time Seen by Physician: 12:40 Mode of Arrival: Ambulance Information Source: Patient Exam Limitations: Clinical condition Primary Care Provider: DANIEL MALCOLM Nursing and Triage Documentation Reviewed and Agree: Yes Does patient meet sepsis criteria?: No System Inflammatory Response Syndrome: Pulse >90 BPM and Resp >20/Minute Sepsis Protocol: For patient's 13 years and over: Temp is 96.8 and below OR 101 and greater Pulse >90 BPM Resp >20/minute Acutely Altered Mental Status Are patient's symptoms suggestive of a new infection, such as: -Pneumonia -Skin, Soft Tissue -Endocarditis -UTI -Bone, Joint Infection -Implantable Device -Acute Abdominal Infection -Wound Infection -Meningitis -Blood Stream Catheter Infection -Unknown Respiratory Complaint Exam Respiratory Complaint/Exam Symptoms Are: Still present Timing: Constant Initial Severity: Severe Current Severity: Moderate Location: Chest Character: Reports Non-productive cough Aggravating: Reports Exertion and Weather (No Airconditioning at home resulting in marked increase dyspnea) Alleviating: Reports None Associated Signs and Symptoms: Reports Rapid breathing, Dyspnea, Pleuritic chest pain, Wheezing, Dizziness, Hoarseness and Decreased oral intake Related History: Reports Similar episode History of Healthcare-Acquired Pneumonia: No and Admit w/in last 30 days (due to rectal bleeding) Related Surgical History: Reports None Pulmonary Embolism Risk Factors: None Cardiac Risk Factors: Reports Prior AR (atrial fib), Smoking, Elevated lipids and Diabetes Pseudomonas Risk Factors: Reports None Tuberculosis Risk Factors: Reports None Status Asthmaticus Risk Factors: Reports None Home Oxygen Use: Yes Recent Stress Test: No Recent Echo/LV Function: No Current Antibiotic Use: No Current Asthma Medication Use: Yes Respiratory Distress: Moderate Inadequate Respiratory Effort: Yes Dysphagia Present: No Stridor Present: Yes JVD Present: No Accessory Muscle Use: No Retractions: Inadequate effort Diminished Breath Sounds: Yes Sinus Tenderness: None Grunting Respirations: No [place]ul Respirations: No Differential Diagnoses: COPD Exacerbation, Pneumonia and Bronchospasm Quality Indicators For Pneumonia: Vital signs and Mental status assessed Non-Traumatic Chest Pain Syncope: EKG Performed Review of Systems Review Of Systems Constitutional: Reports Malaise and Weakness Respiratory: Reports Cough, Short of air and Wheezing Cardiac: Reports No symptoms GI: Reports No symptoms : Reports No symptoms Musculoskeletal: Reports No symptoms Skin: Reports No symptoms Neurological: Reports Anxiety Endocrine: Reports No symptoms All Other Systems: Reviewed and Negative [facility] Medical History (Updated 01/25/19 @ 17:39 by ADDI HELLER MD) Acute respiratory failure Chronic obstructive pulmonary disease Congestive heart failure Dilated aortic root Dyslipidemia Gastroesophageal reflux disease Hypertension Social History History of recent travel: No Physical Exam Physical Exam Appearance: Ill-appearing, Thin and Cachectic Ill-appearing: Severe Pain Distress: Mild Eyes: BRITANY, EOMI, Conjunctiva clear, Conjunctiva pale and Right pupil size (PERL_A) ENT: Ears normal, Oropharynx normal and TMs [place] Neck: Supple Respiratory: Airway patent, Breath sounds diminished and Wheezes Cardiovascular: RRR and No murmur GI/: Soft, Nontender and No masses Musculoskeletal: Normal strength, ROM intact, No edema and No calf tenderness Skin: Warm, Dry and Normal color Neurological: Sensation intact, Motor intact, Reflexes intact, Cranial nerves intact, Alert and Oriented Psychiatric: Affect appropriate and Mood appropriate Interpretation Radiology Interpretation Radiology Interpretation By: ED Physician (Chronic changes) EKG Interpretation Time of EKG #1: 13:08 Rate: Tachy Rhythm: Sinus ST Segment: Other (non specific changes) Critical Care Note Critical Care Note Total Time (mins): 30 Course Course Orders, Labs, Meds: Orders Category Date Time Status Ipratropium/Albuterol Neb [Duoneb] MEDS 01/25/19 16:09 Discontinued 3 ml NEB .STK-MED ONE CHEST, 1V AP ONLY Stat RADS 01/25/19 16:47 Taken Discharge Plan Discharge Patient Disposition: ADMITTED INPATIENT Discharge Problem: COPD exacerbation Prescriptions: No Action diltiazem HCl 120 MG capsule,extended release 24hr 120 mg PO DAILY 90 Days Qty: 90 RF: 1 pravastatin 20 MG tablet 20 mg PO BEDTIME 90 Days Qty: 90 RF: 1 digoxin [Digox] 125 MCG tablet 125 mcg PO DAILY 90 Days Qty: 90 RF: 1 furosemide [Lasix] 20 MG tablet 20 mg PO DAILY 90 Days Qty: 90 RF: 1 albuterol sulfate [ProAir HFA] 8.5 GM HFA aerosol inhaler 8.5 g inhalation every 4-6-hrs prn 90 Days Qty: 9 RF: 1 budesonide-formoterol [Symbicort] 10.2 GM HFA aerosol inhaler 10.2 g inhalation 2 puffs BID 90 Days Qty: 9 RF: 1 apixaban [Eliquis] 5 MG tablet 5 mg PO BID 90 Days Qty: 180 RF: 1 ipratropium bromide 1 VIAL solution 1 vial NEB [id number] RF: 0 cholecalciferol (vitamin D3) 5,000 UNIT capsule 5,000 unit PO DAILY RF: 0 ED Provider: ADDI HELLER Condition: Serious
--- NOTE | 2019-01-26 13:47 | DI ---
EXAM: Chest PA and lateral HISTORY: Shortness of breath, chronic obstructive pulmonary disease. COMPARRISON: Exam from same day. FINDINGS: The heart is normal in size. Pulmonary vascularity is within normal limits. No focal airs pace opacity or pleural effusion is seen. The lungs are hyperexpanded and emphysematous. Increased AP diameter of the chest is seen. Airway thickening is seen. Osseous structures are unremarkable. IMPRESSION: Airway thickening compatible with bronchitis. Chronic obstructive pulmonary disease.
[2019-01-26] MEDS: PRAVACHOL PO SCH (20:46)
[2019-01-27] MEDS: DUONEB NEB SCH ×3 (05:00→16:51)
[2019-01-27] MEDS: SOLU-MEDROL 125 MG IVP SCH ×3 (05:51→17:24)
[2019-01-27] MEDS: LASIX TAB PO SCH (05:51)
--- NOTE | 2019-01-27 09:41 | PCM.PROG ---
Attending Provider: ATTENDING PROVIDER: Dr. DANIEL MALCOLM DATE OF SERVICE: 01/26/19 SUBJECTIVE: This 68 year old /WHITE M was hospitalized 01/25/19 with COPD exacerbation. The patient's main problem is at home. He has one central unit that doesn't work well in 95 degree weather. He doesn't wear oxygen most of the time. He comes to the hospital frequently with the same problem. REVIEW OF SYSTEMS: CONSTITUTIONAL: No night sweats. No fatigue, malaise, lethargy. No fever or chills. HEENT: Eyes: No visual changes. No eye pain. No eye discharge. ENT: No runny nose. No epistaxis. No sinus pain. No odynophagia. No congestion. RESPIRATORY: No cough, no congestion. No hemoptysis. Mild shortness of breath. CARDIOVASCULAR: No angina symptoms. No CHF symptoms. No atypical chest pain for CAD. No palpitations. No orthopnea.. GASTROINTESTINAL: No abdominal pain. No nausea or vomiting. No diarrhea or constipation. No hematemesis. No hematochezia. GENITOURINARY: No urgency. No frequency. No dysuria. No hematuria. No obstructive symptoms. No discharge. No pain. No significant abnormal bleeding. MUSCULOSKELETAL: No musculoskeletal pain; no joint swelling. NEUROLOGICAL: Awake, alert, oriented to time, place and person. No headache. No neck pain. No syncope. No seizures. No dizziness. PSYCHIATRIC: Not anxious. No depression. No suicidal thoughts. No homicidal thoughts. SKIN: No rash. No lesions. No wounds. ENDOCRINE: No unexplained weight loss. No weight gain. HEMATOLOGIC/LYMPHATIC: No anemia. No purpura. No petechiae. No prolonged or excessive bleeding. No palpable lymph nodes. PHYSICAL EXAMINATION: GENERAL: The patient is awake, alert and oriented, lying in bed in no distress. VITAL SIGNS: Temperature 97.6 F, Pulse 91, Respiratory Rate 16, BP 106/69, Pulse Ox 99% HEENT: Head normocephalic, atraumatic. Eyes: Extraocular muscles are intact. Pupils are equal, round and reactive to light and accommodation. Ears: No lesions. Nose appeared normal. Throat: No exudate or erythema. NECK: Supple. No JVD, no carotid bruit. No lymphadenopathy or thyromegaly. LUNGS: Clear to auscultation. Percussion note normal. Chest symmetrical. HEART: S1, S2, no S3. No murmurs. No cyanosis or clubbing. No ascites. Pulses: Dorsalis pedis and posterior tibial pulses +1 to +2 both sides. ABDOMEN: Soft. Non-tender. Bowel sounds active. No CVA tenderness. No mass felt. EXTREMITIES: No edema. Full range of motion of all extremities, equal. NEUROLOGIC: No focal deficit. Cranial nerves II through XII are grossly intact. No headache, no double vision or headache. SKIN: Warm and dry. Intact. Turgor-normal. LYMPHATIC: No palpable lymph nodes/no lymphedema. MUSCULOSKELETAL: Normal joints with no swelling. Muscle tone is normal. LAB REVIEW: 01/26/19 04:26 01/26/19 04:26 01/26/19 04:26: Sodium 137.8, Potassium 4.25, Chloride 97.2 L, Carbon Dioxide 37.8 H, Anion Gap 7.05, BUN 15.4, Creatinine 0.46 L, Estimated GFR (MDRD) 181.00, BUN/Creatinine Ratio 33.47, Glucose 180.5 H D, Calcium 9.40, Total Bilirubin 0.32, AST 17.3, ALT 12.9, Alkaline Phosphatase 75.0, Total Protein 6.81, Albumin 3.95, Globulin 2.86, Albumin/Globulin Ratio 1.38 01/26/19 04:26: WBC 7.28 D, RBC 3.71 L, Hgb 9.7 L, Hct 32.1 L, MCV 86.5, MCH 26.1 L, MCHC 30.2 L, RDW Coeff of Khai 15.2 H, Plt Count 238, Immature Gran % (Auto) 0.7, Neut % (Auto) 93.1, Lymph % (Auto) 5.8 L, Vermilion % (Auto) 0.3, Eos % (Auto) 0.0, Baso % (Auto) 0.1, Immature Gran # (Auto) 0.1, Neut # (Auto) 6.8, Lymph # (Auto) 0.4 L, Vermilion # (Auto) 0.0 L, Eos # (Auto) 0.0, Baso # (Auto) 0.0 01/25/19 13:50: Lactic Acid 0.71 01/25/19 13:50: Sodium 137.9, Potassium 3.63, Chloride 99.0, Carbon Dioxide 35.8 H, Anion Gap 6.73, BUN 16.5, Creatinine 0.59 L, Estimated GFR (MDRD) 136.00, BUN/Creatinine Ratio 27.96, Glucose 122.8 H, Calcium 9.06, Total Bilirubin 0.39, AST 19.1, ALT 13.5, Alkaline Phosphatase 78.6, Total Creatine Kinase 25.7 L, Troponin I < 0.012, Total Protein 6.77, Albumin 3.98, Globulin 2.79, Albumin/Globulin Ratio 1.42 01/25/19 13:50: Procalcitonin < 0.05 01/25/19 13:50: WBC 13.26 H, RBC 3.58 L, Hgb 9.5 L, Hct 30.5 L, MCV 85.2, MCH 26.5 L, MCHC 31.1 L, RDW Coeff of Khai 15.6 H, Plt Count 240, Immature Gran % (Auto) 1.1, Neut % (Auto) 83.6, Lymph % (Auto) 7.2 L, Vermilion % (Auto) 7.0, Eos % (Auto) 0.8, Baso % (Auto) 0.3, Immature Gran # (Auto) 0.2, Neut # (Auto) 11.1 H, Lymph # (Auto) 1.0, Vermilion # (Auto) 0.9, Eos # (Auto) 0.1, Baso # (Auto) 0.0 01/25/19 13:00: Puncture Site R rad, O2 Saturation 99.0, ABG pH 7.410, ABG pCO2 53.8 H, ABG pO2 134.0 H, ABG HCO3 34.1 H, ABG Total CO2 36 H, ABG Base Excess 9 H, Nader Test +, O2 Delivery Device Nc, Oxygen Liter Flow 2.00 ASSESSMENT: 1. COPD exacerbation 2. Chronic respiratory failure 3. History of atrial fibrillation 4. Hyperglycemia likely from steroids 5. Chronic anemia 6. Malnutrition 7. Core Pulmonale 8. Dyslipidemia PLAN: 1. Continue all medications 2. Rocephin 3. Pravachol 4. Lanoxin 5. Do Lanoxin level 6. Discontinue Eliquis. There was no Eliquis given during the stay in the hospital. He was taken off Eliquis at [facility] and refuses to be on Eliquis. He took one aspirin at home and had hemorrhoidal bleeding and now insistent on no blood thinners at all. Explained on atrial fibrillation and complications in detail. 7. At this time the patient expresses option of going to the [place] [facility]. We will arrange for that. Plan and coordination of the patient's care discussed in the presence of Sales Project Engineer and nurse. CONDITION: STABLE PROGNOSIS: POOR SCRIBED BY: Anthony MILLER scribed while in presence of service performed by Dr. DANIEL MALCOLM on 01/26/19 ([id number])
--- NOTE | 2019-01-27 09:44 | HP ---
DATE OF SERVICE: 01/25/19 REASON FOR HOSPITALIZATION/ HISTORY OF PRESENT ILLNESS: This 68 year old /WHITE M was hospitalized 01/25/19 with COPD exacerbation. The patient's main problem is at home. He has one central unit that doesn't work well in 95 degree weather. He doesn't wear oxygen most of the time. He comes to the hospital frequently with the same problem. PAST MEDICAL HISTORY/PAST SURGICAL HISTORY: History of atrial fibrillation Hyperglycemia likely from steroids Chronic anemia Malnutrition Core Pulmonale Dyslipidemia COPD Hypertension Tonsillectomy REVIEW OF SYSTEMS: CONSTITUTIONAL: No night sweats. No fatigue, malaise, lethargy. No fever or chills. HEENT: Eyes: No visual changes. No eye pain. No eye discharge. ENT: No runny nose. No epistaxis. No sinus pain. No sore throat. No odynophagia. No ear pain. No congestion. RESPIRATORY: Mild cough with yellowish sputum, no congestion. No hemoptysis. Shortness of breath with exertion. CARDIOVASCULAR: No angina symptoms. No CHF symptoms. No atypical chest pain for CAD. No palpitations. No PND. No orthopnea. GASTROINTESTINAL: No abdominal pain. No nausea or vomiting. No diarrhea or constipation. No hematemesis. No hematochezia. Poor appetite. GENITOURINARY: No urgency. No frequency. No dysuria. No hematuria. No obstructive symptoms. No discharge. No pain. No significant abnormal bleeding. MUSCULOSKELETAL: No musculoskeletal pain. No joint swelling. No arthritis. NEUROLOGICAL: No headache. No neck pain. No syncope. No seizures. No dizziness. PSYCHIATRIC: Not anxious. No depression. No suicidal thoughts. No homicidal thoughts. SKIN: No rash. No lesions. No wounds. ENDOCRINE: No unexplained weight loss. No weight gain. HEMATOLOGIC/LYMPHATIC: No anemia. No purpura. No petechiae. No prolonged or excessive bleeding. No palpable lymph nodes. PERSONAL/FAMILY/SOCIAL HISTORY: The patient is and lives with . Nonsmoker and no alcohol abuse. The patient tries to do activities of daily living. Time and on again the patient is known to have bugs on body. He is noncompliant of medications, followup and diet. MEDICATIONS: Digoxin 125mcg PO daily Diltiazem 120mg PO daily Lasix 20mg PO daily Symbicort 10.2 two puffs BID Vitamin D3 5,000 unit PO daily Ipratropium Vantage 2.5ml inhalation Q 6 hours ProAir HFA 2 puffs inhalation Q 4-6 hours PRN Pravastatin 20mg PO daily ALLERGIES: Tiotropium bromide PHYSICAL EXAMINATION: GENERAL: The patient is oriented to time, place and person. HEENT: Head normocephalic, atraumatic. Eyes: Extraocular muscles are intact. Pupils are equal, round and reactive to light and accommodation. Ears: No lesions. Nose appeared normal. Throat: No exudate or erythema. NECK: Supple. No JVD, no carotid bruit. No lymphadenopathy or thyromegaly. LUNGS: Clear to auscultation. Percussion note normal. Chest symmetrical. HEART: S1, S2, no S3. No murmur. No cyanosis or clubbing. No ascites. Pulses: Dorsalis pedis and posterior tibial pulses +1 to +2 bilaterally. ABDOMEN: Soft. Nontender. Bowel sounds active. No CVA tenderness. No mass felt. EXTREMITIES: No edema. Full range of motion of all extremities, equal. NEUROLOGIC: No focal deficit. Cranial nerves II through XII are grossly intact. No headache, no double vision or headache. SKIN: Not dry. Intact. Turgor - normal. LYMPHATIC: No palpable lymph nodes/no lymphedema. MUSCULOSKELETAL: Normal joints with no swelling. Muscle tone is normal. LABS: WBC 12.26, hgb 9.5, hct 30.5, plt count 240, Sodium 137.9, potassium 3.63, chloride 99, bicarb 35.8, BUN 16.5, creatinine 0.59, glucose 122.8, albumin 3.98, Globulin 2.79, Digoxin 1.29. ABG's pH 7.410, pCO2 53.8, pO2 134, HCO3 34.1, Total CO2 36, Base excess 9. ASSESSMENT: 1. COPD exacerbation 2. Chronic respiratory failure 3. History of atrial fibrillation 4. Hyperglycemia likely from steroids 5. Chronic anemia 6. Malnutrition 7. Core Pulmonale 8. Dyslipidemia PLAN: 1. Continue all medications 2. Rocephin 3. Pravachol 4. Lanoxin 5. Do Lanoxin level 6. Discontinue Eliquis. There was no Eliquis given during the stay in the hospital. He was taken off Eliquis at [facility] and refuses to be on Eliquis. He took one aspirin at home and had hemorrhoidal bleeding and now insistent on no blood thinners at all. Explained on atrial fibrillation and complications in detail. TIME SPENT: More than 70 minutes. CARRIE
[2019-01-27] MEDS: SYMBICORT 160-4.5 MCG INHALER IH SCH ×2 (10:02→20:15)
[2019-01-27] MEDS: ROCEPHIN 1 GM/50 ML D5W 1 GM/50 ML BAG IV SCH (10:02)
[2019-01-27] MEDS: CARDIZEM CD PO SCH (10:06)
[2019-01-27] MEDS: LANOXIN PO SCH (10:06)
--- NOTE | 2019-01-27 10:59 | PN ---
DATE OF SERVICE: 01/27/19 SUBJECTIVE: 68 year old white male hospitalized with COPD exacerbation. The patient's condition has improved remarkably. He is wearing his BIPAP. His blood gasses on BIPAP showed pH 7.46 with pCO2 49, pO2 143 with 99% saturation, it was 2.5 liters. The patient is down to 2 liters now. The patient's problem is that he is noncompliant as mentioned in earlier notes. He is being followed by Dr. Alicia. His next appointment with Dr. Alicia is 03-07-19 who is a pulmonary physician. REVIEW OF SYSTEMS: CONSTITUTIONAL: No night sweats. No fatigue, malaise, lethargy. No fever or chills. HEENT: Eyes: No visual changes. No eye pain. No eye discharge. ENT: No runny nose. No epistaxis. No sinus pain. No sore throat. No odynophagia. No congestion. RESPIRATORY: No cough, no congestion. No hemoptysis. No shortness of breath. CARDIOVASCULAR: No angina symptoms. No CHF symptoms. No atypical chest pain for CAD. No palpitations. No PND. No orthopnea. GASTROINTESTINAL: No abdominal pain. No nausea or vomiting. No diarrhea or constipation. No hematemesis. No hematochezia. GENITOURINARY: No urgency. No frequency. No dysuria. No hematuria. No obstructive symptoms. No discharge. No pain. No significant abnormal bleeding. MUSCULOSKELETAL: No musculoskeletal pain; no joint swelling. NEUROLOGICAL: No headache. No neck pain. No syncope. No seizures. No dizziness. PSYCHIATRIC: Not anxious. No depression. No suicidal thoughts. No homicidal thoughts. SKIN: No rash. No lesions. No wounds. ENDOCRINE: No unexplained weight loss. No weight gain. HEMATOLOGIC/LYMPHATIC: No anemia. No purpura. No petechiae. No prolonged or excessive bleeding. No palpable lymph nodes. PHYSICAL EXAMINATION: GENERAL: The patient is oriented to time, place and person. VITAL SIGNS: Temperature 98, pulse 55, respiratory rate 20 and blood pressure 121/70 and pulse ox 99%. HEENT: Head normocephalic, atraumatic. Eyes: Extraocular muscles are intact. Pupils are equal, round and reactive to light and accommodation. Ears: No lesions. Nose appeared normal. Throat: No exudate or erythema. NECK: Supple. No JVD, no carotid bruit. No lymphadenopathy or thyromegaly. LUNGS: Decreased breath sounds. Clear to auscultation. Percussion note normal. Chest symmetrical. HEART: S1, S2, no S3. No murmurs. No cyanosis or clubbing. No ascites. Pulses: Dorsalis pedis and posterior tibial pulses +1 to +2 bilaterally. ABDOMEN: Soft. Nontender. Bowel sounds active. No CVA tenderness. No mass felt. EXTREMITIES: No edema. Full range of motion of all extremities, equal. NEUROLOGIC: No focal deficit. Cranial nerves II through XII are grossly intact. No headache, no double vision or headache. SKIN: Not dry. Intact. Turgor - normal. LYMPHATIC: No palpable lymph nodes/no lymphedema. MUSCULOSKELETAL: Normal joints with no swelling. Muscle tone is normal. ASSESSMENT: 1. COPD exacerbation seems to be resolving 2. Severe chronic lung disease 3. Chronic anemia 4. The patient is noncompliant of medications and followup. PLAN: 1. The patient has decided not to take anything for atrial fibrillation in a way of blood thinners. PROGNOSIS: Poor TIME SPENT: More than 30 minutes. Plan and coordination of the patient's care discussed in the presence of nurse. CARRIE
--- NOTE | 2019-01-27 11:11 | PN ---
DATE OF SERVICE: 01/25/19 SUBJECTIVE: The patient was seen and examined in the emergency room and later on admitted. His problem is chronic lung disease with exacerbation. The patient's blood gasses were still acceptable to what his ranges are. The patient has been living in the trailer which doesn't have the capacity to any air conditioner which it is hot up to 90 degree hear index is approximately 99-100. The patient when I checked him was not in any distress with mild cough off and on as usual. His oxygen saturation was 92% on 2 liters. The patient says that he is already feeling better with the oxygen and the food that he was given. The patient has agreed to go to senior care for some physical therapy and some more attention. According to the patient his blood thinner was taken off when he was transferred to [place] with rectal bleeding which was hemorrhoidal bleeding. He was advised not to take this blood thinner. He was also explained that he is not medically stable. A lot of capabilities that he is not a surgical candidate for hemorrhoidectomy. He was explained what could happen without blood thinner. Eventually according to him with their insistence and after thinking he agreed not to have blood thinner for now. I talked to him again about atrial fibrillation and it's complication and the complications of the Eliquis, any Novel blood thinners. Clearly mentioned to him that he is not going to take any blood thinners at all. Especially coded aspirin 81mg was not a big deal but after he took it at home after being discharged from [facility] he started bleeding again so he stopped taking even baby aspirin. In any case he declined to have any form of blood thinners. The patient is going to be on IV fluids, NEBS treatment, steroids, antibiotics. CONDITION: Stable PROGNOSIS: Poor This patient is noncompliant of lifestyle, medications and followups. Last primary doctor Dr. Soni had fired him because his noncompliance. He didn't show up for most of his followup visits. PHYSICAL EXAMINATION: GENERAL: The patient doesn't seem to be in distress. The patient looks emaciated and wasted, malnourished and not well kept. HEENT: Head normocephalic, atraumatic. Eyes: Extraocular muscles are intact. Pupils are equal, round and reactive to light and accommodation. Ears: No lesions. Nose appeared normal. Throat: No exudate or erythema. NECK: Supple. No JVD, no carotid bruit. No lymphadenopathy or thyromegaly. LUNGS: Decreased breath sounds. No intercostal space restriction. The patient is able to talk sentences. Clear to auscultation. Percussion note normal. Chest symmetrical. HEART: S1, S2, no S3. No murmurs. No cyanosis. No ascites. Pulses: Dorsalis pedis and posterior tibial pulses +1 to +2 bilaterally. ABDOMEN: Soft. Nontender. Bowel sounds active. No CVA tenderness. No mass felt. EXTREMITIES: No edema. Full range of motion of all extremities, equal. NEUROLOGIC: No focal deficit. Cranial nerves II through XII are grossly intact. No headache, no double vision or headache. SKIN: Dry. Intact. Turgor - normal. LYMPHATIC: No palpable lymph nodes/no lymphedema. MUSCULOSKELETAL: Normal joints with no swelling. Muscle tone is normal. TIME SPENT: More than 30 minutes. Plan and coordination of the patient's care discussed in the presence of nurse. CARRIE
--- NOTE | 2019-01-27 13:23 | RS.PTINEVL ---
Subjective - Patient information Date of Evaluation: 01/27/19 Date of Arrival on Unit: 01/25/19 Admitted From:: Home Diagnosis: chronic COPD, balance impaired, difficulty walking Usual Living Arrangement: With Spouse Living Arrangement Comments: lives with , trying to get moved into housing apt. Home Environment: Mobile Home, Stairs (few), Rail Medical History: Hypertension, COPD, CHF, Arthritis Medical History Comments:: Acute respiratory failure, Afib LATEX ALLERGY?: No Surgical History: Tonsillectomy Surgical History Comments:: appey Medications: see chart Subjective Information/ Patient Comments:: pt states he does not feel like walking. States he will get up and sit in chair. States he is hoping to [facility] to [facility] and then hopefully move into housing. - Level of function Prior to this admission, the patient could do the following:: Independent ADL's, Independent Ambulation Current Level of Function: Partially Dependent Current Equipment Used at Home: Home bi pap, wheelchair BSC, walker, nebulizer, shower stool Interventions - Objective Patient Orientation: Person, Place, Time, Situation Current Interventions: IV's, Oxygen, Telemetry Observation: pt on O2 per nasal cannula /BIPAP at all times Range of Motion - ROM Right Upper Extremity AROM: WFL's Left Upper Extremity AROM: WFL's Right Lower Extremity AROM: WFL's Left Lower Extremity AROM: WFL's Muscle Strength - Muscle Strength Right Upper Extremity Strength: Mild Weakness (grossly 4/5) Left Upper Extremity Strength: Mild Weakness (grossly 4/5) Right Lower Extremity Strength: Mild Weakness (hip flex 4-/5, knee flex/ext 4/5, ankle DF/PF 4/5) Left Lower Extremity Strength: Mild Weakness (hip flex 4-/5, knee flex/ext 4/5, ankle DF/PF 4/5) Sensation - Sensation Right Upper Extremity Sensation: Intact/Normal Left Upper Extremity Sensation: Intact/Normal Right Lower Extremity Sensation: Intact/Normal Left Lower Extremity Sensation: Intact/Normal Palpation Palpation Findings: None/Normal Balance - Sitting Balance and Reactions Static Sitting Balance: Good Dynamic Sitting Balance: Good - Standing Balance and Reactions Static Standing Balance: Fair Dynamic Standing Balance: Fair Functional Mobility - Bed Mobility Rolling R/L: Supervision Supine to Sit: Supervision - Transfers Sit to Stand: CGA Stand Pivot Transfers: CGA Comments:: pt performed stand pivot from bed to w/c with CGA. pt refused amb this am due to not feeling well. - Safety Awareness Safety Awareness: Fair RAGHU INDEX SCORE: n/a Treatment time - Time with patient Length of Evaluation: 21 Total treatment time: 26 Patient Education - Education Patient Education: Activity Modification, Education of Plan of Care Teaching Recipient: Patient Teaching Methods: Discussion Comments: discussion regarding POC. Assessment - Assessment Problem List:: Decreased level of function, Requires training/education, Decreased safety/Risk of falls, Weakness Rehab Potential: Fair Further Therapy Indicated?: Yes Candidate for Swing Bed for Therapy Services?: Feel pt may not be a candidate for swing bed due to low endurance. Evaluation Complexity: HISTORY: Medium, EXAM OF BODY SYSTEMS: Medium, CLINICAL PRESENTATION: Medium, CLINICAL DECISION MAKING: Medium Short Term Goals GOAL #1: Rolling and scooting up in bed independent with bedrails. Goal to be met by: 01/29/19 GOAL #2: pt transfer sup to/from sit independently Goal to be met by: 01/29/19 GOAL #3: Sit to/from stand CGA to SBA Goal to be met by: 01/29/19 GOAL #4: pt stand pivot transfer bed to/from w/c CGA to SBA Goal to be met by: 01/29/19 [facility] Goals GOAL #1: pt independent with HEP Goal to be met by: 01/31/19 GOAL #2: Transfer sup to/from sit to/from stand SBA Goal to be met by: 01/31/19 GOAL #3: pt amb 25ft with rwx with O2 with CGA x 1 Goal to be met by: 01/31/19 Plan Plan of Care: Therapeutic EX, Therapeutic Activity Other:: transfer training progressing toward gait training Frequency of Treatment: 1-2 X day, as tolerated Duration of Treatment: 5 days Anticipated Discharge Destination: [facility] Treatment Diagnosis (ICD 10 Codes): muscle weakness M62.81. balance impaired R 26.81. difficulty walking R 26.2 Has the Physician been added for Co-signature?: Yes
[2019-01-27] MEDS: PRAVACHOL PO SCH (20:15)
[2019-01-28] MEDS: DUONEB NEB SCH ×3 (00:01→11:10)
[2019-01-28] MEDS: SOLU-MEDROL 125 MG IVP SCH ×3 (00:08→12:23)
[2019-01-28 05:20] VITALS: BP 100/65; TEMP 97.9
[2019-01-28] MEDS: LASIX TAB PO SCH (05:30)
--- NOTE | 2019-01-28 07:06 | PN ---
DATE OF SERVICE: 01/27/19 SUBJECTIVE: The patient was seen and examined with the nurse practitioner. The patient's condition is improving, is stable, is waiting for senior living bed. The patient is on BIPAP. Blood gases are a lot better. The main problem is noncompliance. TIME SPENT: More than 30 minutes. Plan and coordination of the patient's care discussed in the presence of nurse. CARRIE
[2019-01-28] MEDS: ROCEPHIN 1 GM/50 ML D5W 1 GM/50 ML BAG IV SCH (09:26)
[2019-01-28] MEDS: LANOXIN PO SCH (09:26)
[2019-01-28] MEDS: CARDIZEM CD PO SCH (09:26)
[2019-01-28] MEDS: SYMBICORT 160-4.5 MCG INHALER IH SCH (09:26)
--- NOTE | 2019-01-28 12:07 | CM.DICTOOL ---
ADMISSION: 01/25/19 18:08 DISCHARGE: JANUARY 28, 2019 DATE OF SERVICE: 01/28/19 FINAL DIAGNOSIS COPD EXACERBATION CHRONIC RESPIRATORY FAILURE HYPERTENSION ATRIAL FIBRILLATION (REFUSES ELIQUIS AND ASA) COPD, HOME OXYGEN AND BIPAP ASTHMA DYSLIPIDEMIA OSTEOARTHRITIS FORMER SMOKER, QUIT 2010 NON-COMPLIANCE WITH MEDS, FOLLOW-UP, DIET, LIFESTYLE RECENT BLEEDING HEMORRHOIDS, REFUSES SURGICAL REFERRAL ANEMIA TONSILLECTOMY ADENOIDECTOMY LAST VITALS Temp Pulse Resp BP Pulse Ox 97.9 F 77 18 100/65 95 01/28/19 05:19 01/28/19 09:26 01/28/19 05:19 01/28/19 05:19 01/28/19 10:00 TAKE THESE MEDICATIONS AT HOME Albuterol/Ipratropium (Duoneb) 3 ml NEB RTQ6H [facility] Last Admin: 01/28/19 11:10 Dose: 3 ml Documented by: Budesonide/Formoterol Fumarate (Symbicort 160-4.5 Mcg Inhaler) 2 puff IH BID [facility] Last Admin: 01/28/19 09:26 Dose: 2 puff Documented by: Digoxin (Lanoxin) 125 mcg PO DAILY [facility] Last Admin: 01/28/19 09:26 Dose: 125 mcg Documented by: Diltiazem HCl (Cardizem Cd) 120 mg PO DAILY [facility] Last Admin: 01/28/19 09:26 Dose: 120 mg Documented by: Furosemide (Lasix Tab) 20 mg PO QDAC [facility] Last Admin: 01/28/19 05:30 Dose: 20 mg Documented by: Keflex 500 mg BID for 5 days Last Admin: Prednisone 20 mg PO DAILY FOR 5 DAYS, THEN 10 MG PO DAILY FOR 5 DAYS, THEN 5 MG PO DAILY LAST ADMIN: Pravastatin Sodium (Pravachol) 20 mg PO BEDTIME [facility] Last Admin: 01/27/19 20:15 Dose: 20 mg Ferrous Sulfate 325 mg PO [facility] DAILY Last Admin: ALLERGIES tiotropium bromide [From Spiriva with HandiHaler] Allergy (Mild, Verified 01/25/19 18:12) rash DISCONTINUED MEDICATIONS ELIQUIS AND ASA NEW PRESCRIPTIONS: NEW PRESCRIPTIONS KEFLEX 500 MG BID FOR 5 DAYS, NEXT DOSE TONIGHT PREDNISONE 20 MG DAILY FOR 5 DAYS, THEN 10 MG DAILY FOR 5 DAYS, THEN 5 MG DAILY ADMINISTER ALL DOSES WITH FOOD NEXT DOSE IS TOMORROW FERROUS SULFATE 325 MG DAILY SMOKING: NOT APPLICABLE DISEASE SPECIFIC EDUCATION: MEDICATIONS OXYGEN, BI-PAP LAB REVIEW: 01/28/19 04:40 01/28/19 04:40 01/28/19 04:40: Sodium 138.8, Potassium 3.89, Chloride 96.9 L, Carbon Dioxide 38.4 H, Anion Gap 7.39, BUN 19.2, Creatinine 0.58 L, Estimated GFR (MDRD) 139.00, BUN/Creatinine Ratio 33.10, Glucose 121.5 H D, Calcium 9.11, Total Bilirubin 0.29, AST 17.0, ALT 15.1, Alkaline Phosphatase 60.6, Total Protein 6.28 L, Albumin 3.72, Globulin 2.56, Albumin/Globulin Ratio 1.45 01/28/19 04:40: WBC 11.92 H, RBC 3.28 L, Hgb 8.7 L, Hct 28.4 L, MCV 86.6, MCH 26.5 L, MCHC 30.6 L, RDW Coeff of Khai 15.1 H, Plt Count 234, Immature Gran % (Auto) 0.6, Neut % (Auto) 93.3, Lymph % (Auto) 3.8 L, [place] % (Auto) 2.2, Eos % (Auto) 0.0, Baso % (Auto) 0.1, Immature Gran # (Auto) 0.1, Neut # (Auto) 11.1 H, Lymph # (Auto) 0.5 L, [place] # (Auto) 0.3 L, Eos # (Auto) 0.0, Baso # (Auto) 0.0 01/28/19 04:33: Puncture Site Lrad, O2 Saturation 97.0, ABG pH 7.420, ABG pCO2 51.8 H, ABG pO2 87.0, ABG HCO3 33.6 H, ABG Total CO2 35 H, ABG Base Excess 9 H, Nader Test +, O2 Delivery Device Home bipap, Oxygen Liter Flow 2.50, FiO2 % 30.0 PLAN: DISCHARGE TO [facility] DIET: REGULAR TOLERATED ACTIVITY: UP TO DINING ROOM FOR MEALS UP TO CHAIR DESIRED PHYSICAL AND OCCUPATIONAL THERAPY EVALUATION (ENERGY CONSERVATION) OXYGEN AT 2 LITERS PER NASAL CANNULA, CONTINUOUSLY MAY USE PERSONAL BI-PAP AT 2.5 LITERS AT NIGHT AND DURING THE DAY WHEN RESTING DUONEB TREATMENTS EVERY 6 HOURS VITAL SIGNS DAILY AND PRN OXYGEN SATURATION DAILY AND PRN CBC, CMP IN ONE WEEK PATIENT HAS AN APPOINTMENT ON WITH DR. UL[facility]ES [facility]AMUDIO [facility] PRIOR TO HOSPITAL ADMISSION) PATIENT TO BE SEEN ON PRISON ROUNDS BY REED MCDERMOTT APRN IN 10 DAYS CODE STATUS: FULL CODE MR. ESPINAL IS ALERT AND ORIENTED X 3. HE LIVES AT HOME WITH HIS ROSI. HE DESIRES PLACEMENT AT [facility] FOR SHORT TERM THERAPY. HE REPORTS HE WILL RETURN HOME AFTER HE COMPLETES THERAPY. HE IS INDEPENDENT WITH FEEDING. MEAL INTAKES ARE GOOD AT 100%. HE IS CONTINENT OF BOWEL AND BLADDER, USING THE URINAL AT THE BEDSIDE FOR VOIDING. HE WEARS CONTINUOUS OXYGEN AT 2 LITERS PER NASAL CANNULA. HE IS UNABLE TO LIE FLAT IN THE BED. HE ALSO USES HIS PERSONAL BI-PAP AT NIGHT AND DURING THE DAY DUE TO CO2 RETENTION. MR. ESPINAL REQUIRES MINIMAL ASSISTANCE WITH PERSONAL CARE AND DRESSING DUE TO HIS SHORTNESS OF AIR. HE REQUIRES ASSISTANCE OF ONE STAFF MEMBER WITH TRANSFERS. AMBULATION IS LIMITED TO SHORT DISTANCE ONLY DUE TO SHORTNESS OF AIR. SKIN IS INTACT AND FREE OF DECUBITUS ULCERS. HYDRATION STATUS IS IMPROVED. MD REED ESPINOSA APRN
--- NOTE | 2019-02-04 09:03 | PN ---
DATE OF SERVICE: 01/28/19 DISCHARGE NOTE SUBJECTIVE: 68 year old white male who has C-Diff, chronic lung disease was hospitalized with COPD exacerbation. The patient's condition has improved. No evidence of any active GI bleed. Hgb has stayed around 8-9 with hct of 28-30. The patient has declined to take any blood thinner. He has atrial fibrillation. He was taken off, that was from [facility] [place]. He went home started himself on aspirin and he started bleeding again. He has decided not to take any form of blood thinner anymore. He is oriented to time, place and person. He has been thoroughly explained about atrial fibrillation and it's complications. The patient is on BIPAP. The patient is going to be discharged on BIPAP and during the day time he can wear 2 liters of oxygen per cannula per minute. His blood gasses are acceptable. His problem is that he is noncompliant of lifestyle, noncompliant of medications, followups. REVIEW OF SYSTEMS: CONSTITUTIONAL: No night sweats. No fatigue, malaise, lethargy. No fever or chills. HEENT: Eyes: No visual changes. No eye pain. No eye discharge. ENT: No runny nose. No epistaxis. No sinus pain. No sore throat. No odynophagia. No congestion. RESPIRATORY: No cough, no congestion. No hemoptysis. No shortness of breath. CARDIOVASCULAR: No angina symptoms. No CHF symptoms. No atypical chest pain for CAD. No palpitations. No PND. No orthopnea. GASTROINTESTINAL: No abdominal pain. No nausea or vomiting. No diarrhea or constipation. No hematemesis. No hematochezia. GENITOURINARY: No urgency. No frequency. No dysuria. No hematuria. No obstructive symptoms. No discharge. No pain. No significant abnormal bleeding. MUSCULOSKELETAL: No musculoskeletal pain; no joint swelling. NEUROLOGICAL: No headache. No neck pain. No syncope. No seizures. No dizziness. PSYCHIATRIC: Not anxious. No depression. No suicidal thoughts. No homicidal thoughts. SKIN: No rash. No lesions. No wounds. ENDOCRINE: No unexplained weight loss. No weight gain. HEMATOLOGIC/LYMPHATIC: No anemia. No purpura. No petechiae. No prolonged or excessive bleeding. No palpable lymph nodes. PHYSICAL EXAMINATION: HEENT: Head normocephalic, atraumatic. Eyes: Extraocular muscles are intact. Pupils are equal, round and reactive to light and accommodation. Ears: No lesions. Nose appeared normal. Throat: No exudate or erythema. NECK: Supple. No JVD, no carotid bruit. No lymphadenopathy or thyromegaly. LUNGS: Clear to auscultation. Percussion note normal. Chest symmetrical. HEART: S1, S2, no S3. No murmurs. No cyanosis or clubbing. No ascites. Pulses: Dorsalis pedis and posterior tibial pulses +1 to +2 bilaterally. ABDOMEN: Soft. Nontender. Bowel sounds active. No CVA tenderness. No mass felt. EXTREMITIES: No edema. Full range of motion of all extremities, equal. NEUROLOGIC: No focal deficit. Cranial nerves II through XII are grossly intact. No headache, no double vision or headache. SKIN: Not dry. Intact. Turgor - normal. LYMPHATIC: No palpable lymph nodes/no lymphedema. MUSCULOSKELETAL: Normal joints with no swelling. Muscle tone is normal. LABS: Hgb 8.7, hct 28, WBC 1,000 normal differential, creatinine 0.8, BUN 19, potassium 3.8. PLAN: 1. Discharged on Prednisone 20mg daily for 5 days, 10mg for 5 days and after that 5mg PO daily 2. The patient's chronic lung disease is so severe that he needs to be on steroids. Chronic steroid therapy could benefit him in a way of improving his appetite and overall respiratory status. The patient is being followed by pulmonary physician. His appointment to see pulmonary MD is in March 15, 2019. 3. The patient is going to be Ferrous Sulfate and Keflex 500mg twice a day for 5 days. 4. The patient had 100% of his of food intake today. 5. The patient is going to go to the residential on his own for physical therapy. was made aware of it, was present and I have discussed the case with her. CONDITION: Stable TIME SPENT: More than 30 minutes. Plan and coordination of the patient's care discussed in the presence of nurse. CARRIE
--- NOTE | 2019-02-04 09:04 | PN ---
01/25/19: Level 5 01/26/19: Intermediate 01/27/19: Intermediate 01/28/19: D as in discharge MTDD
--- NOTE | 2019-02-11 11:47 | DS ---
DATE OF SERVICE: 01/28/19 FINAL DIAGNOSIS: 1. COPD EXACERBATION 2. CHRONIC RESPIRATORY FAILURE 3. HYPERTENSION 4. ATRIAL FIBRILLATION (REFUSES ELIQUIS AND ASA) 5. COPD, HOME OXYGEN AND BIPAP 6. ASTHMA 7. DYSLIPIDEMIA 8. OSTEOARTHRITIS 9. FORMER SMOKER, QUIT 2010 10. NON-COMPLIANCE WITH MEDS, FOLLOW-UP, DIET, LIFESTYLE 11. RECENT BLEEDING HEMORRHOIDS, REFUSES SURGICAL REFERRAL 12. ANEMIA 13. TONSILLECTOMY LAST VITALS Temp Pulse Resp BP Pulse Ox 97.9 F 77 18 100/65 95 01/28/19 05:19 01/28/19 09:26 01/28/19 05:19 01/28/19 05:19 01/28/19 10:00 DISCHARGE INSTRUCTIONS: 1. DISCHARGE TO [facility] 2. PHYSICAL AND OCCUPATIONAL THERAPY EVALUATION (ENERGY CONSERVATION) 3. OXYGEN AT 2 LITERS PER NASAL CANNULA, CONTINUOUSLY 4. MAY USE PERSONAL BI-PAP AT 2.5 LITERS AT NIGHT AND DURING THE DAY WHEN RESTING 5. DUONEB TREATMENTS EVERY 6 HOURS 6. VITAL SIGNS DAILY AND PRN 7. OXYGEN SATURATION DAILY AND PRN 8. CBC, CMP IN ONE WEEK 9. PATIENT HAS AN APPOINTMENT ON WITH DR. ULISES WONG AT [facility] (ALREAD[facility] SCHEDULED PRIOR TO HOSPITAL ADMISSION) 10. PATIENT TO BE SEEN ON [facility] ROUNDS BY REED MCDERMOTT APRN IN 10 DAYS MEDICATIONS AT DISCHARGE: Albuterol/Ipratropium (Duoneb) 3 ml NEB RTQ6H [facility] Last Admin: 01/28/19 11:10 Dose: 3 ml Documented by: Budesonide/Formoterol Fumarate (Symbicort 160-4.5 Mcg Inhaler) 2 puff IH BID [facility] Last Admin: 01/28/19 09:26 Dose: 2 puff Documented by: Digoxin (Lanoxin) 125 mcg PO DAILY [facility] Last Admin: 01/28/19 09:26 Dose: 125 mcg Documented by: Diltiazem HCl (Cardizem Cd) 120 mg PO DAILY [facility] Last Admin: 01/28/19 09:26 Dose: 120 mg Documented by: Furosemide (Lasix Tab) 20 mg PO QDAC [facility] Last Admin: 01/28/19 05:30 Dose: 20 mg Documented by: Keflex 500 mg BID for 5 days Last Admin: Prednisone 20 mg PO DAILY FOR 5 DAYS, THEN 10 MG PO DAILY FOR 5 DAYS, THEN 5 MG PO DAILY LAST ADMIN: Pravastatin Sodium (Pravachol) 20 mg PO BEDTIME [facility] Last Admin: 01/27/19 20:15 Dose: 20 mg Ferrous Sulfate 325 mg PO [facility] DAILY Last Admin: NEW PRESCRIPTIONS: KEFLEX 500 MG BID FOR 5 DAYS, NEXT DOSE TONIGHT PREDNISONE 20 MG DAILY FOR 5 DAYS, THEN 10 MG DAILY FOR 5 DAYS, THEN 5 MG DAILY ADMINISTER ALL DOSES WITH FOOD NEXT DOSE IS TOMORROW FERROUS SULFATE 325 MG DAILY DISCONTINUED MEDICATIONS: ELIQUIS AND ASA DIET INSTRUCTIONS: REGULAR TOLERATED ACTIVITY: UP TO DINING ROOM FOR MEALS UP TO CHAIR DESIRED SMOKING: NOT APPLICABLE DISEASE SPECIFIC EDUCATION: MEDICATIONS OXYGEN, [facility] HOSPITAL COURSE: This is a white male who was admitted with anemia, chronic respiratory failure due to COPD. He wears BIPAP at night, oxygen during the day. He was placed on steroids IV, started on Rocephin 1 gm IV daily. Over the course of the past several days breathing has improved. He has a long history of being a heavy smoker. The patient also has a history of atrial fibrillation. Hemoglobin did get down to 8.7. He has had bleeding hemorrhoids for some time. He has since refused to take Eliquis or any other Novel blood thinner. He has refused Coumadin as well as Aspirin. He has also refused a referral for the hemorrhoids although he is not even a surgical candidate give his poor pulmonary status. The patient did not require transfusion. Hemoglobin stable today at 8.7. He responded well with steroids and nebs. He does have a neb machine at home. He is to continue his nebulizer treatments at least three times daily. He will be sent home on Keflex 500 mg t.i.d. for the next five days. Prednisone 20 mg daily for five days and 10 daily for five days and then 5 daily for five days. He is also instructed to start Iron 325 mg p.o. daily. He has a long history of noncompliance with medications, lifestyle, followup. Very poor prognosis given respiratory status, atrial fibrillation, noncompliance. He has an appointment wit Dr. Wong, Pulmonology on 03/15/19. He is instructed to keep this appointment. He is going to go to [facility] for Physical Therapy. He will have a CBC, CMP in one week. Again, he has BIPAP at night, wears oxygen at 2L during the day via nasal cannula. He will be discharged today in stable condition but again poor prognosis. The patient demonstrates understanding. Noncompliance has been discussed in detail with atrial fibrillation and no blood thinner have also been discussed in detail such as CVA. The patient and his understand. TIME SPENT: More than 60 minutes. MTDD
== END 2019-01-28 17:05 | DRG 191 ==
LOC: ED 13:35 → MEDSURG A 18:08
PROVIDERS: ADMIT Internal Medicine; ATTEND Internal Medicine
DX: J45.909 Unspecified asthma, uncomplicated; J44.1 Chronic obstructive pulmonary disease with (acute) exacerbation; R42 Dizziness and giddiness; Z91.19 Patient's noncompliance with other medical treatment and regimen; R05 Cough; D64.9 Anemia, unspecified; R06.02 Shortness of breath; R06.2 Wheezing; J96.10 Chronic respiratory failure, unspecified whether with hypoxia or hypercapnia; R06.00 Dyspnea, unspecified; M19.90 Unspecified osteoarthritis, unspecified site; I10 Essential (primary) hypertension; F41.9 Anxiety disorder, unspecified; E78.5 Hyperlipidemia, unspecified; R73.9 Hyperglycemia, unspecified; R53.1 Weakness; R07.81 Pleurodynia; E46 Unspecified protein-calorie malnutrition